=== PATIENT | male | born 1975 | race Caucasian/White ===

== ENCOUNTER 2020-01-05 14:00 | Outpatient (REF) | payer OTHER, SELFPAY ==
[2020-01-05 15:49] LABS: Anion Gap 13 (12-20); Blood Urea Nitrogen 16 mg/dL (9-16); Calcium 9.5 mg/dL (8.4-10.2); Carbon Dioxide 27 mmol/L (22-29); Chloride 103 mmol/L (96-108); Estimated Glomerular Filt Rate 51; Glucose Random 93 mg/dL (60-115); Potassium 4.8 mmol/l (3.3-5.1); Sodium 138 mmol/L (135-145)
[2020-01-05 15:56] LABS: Erythrocyte Sedimentation Rate 7 MM/HR (0-15)
[2020-01-06 08:56] LABS: Lyme Abs Screen <0.90 index
[2020-01-06 23:26] LABS: Anti Nuclear Antibody Pattern Mitotic, Centrosome; Anti Nuclear Antibody Screen POSITIVE (NEGATIVE); Anti Nuclear Antibody Titer 1:40 titer
== END 2020-01-05 14:01 | disposition home or self-care (01) ==
LOC: HO.LAB 14:00
PROVIDERS: PCP Nurse Practitioner Family; Visit Provider Psychiatry & Neurology Neurology
DX: R25.1 Tremor, unspecified (principal); Z79.899 Other long term (current) drug therapy; Z51.81 Encounter for therapeutic drug level monitoring
CPT/HCPCS: 36415; 80048; 80178; 85652; 86038; 86039; 86618

== ENCOUNTER 2020-01-09 09:00 | Day surgery (SDC) | payer OTHER, SELFPAY ==
--- NOTE | 2020-01-08 13:36 | HO.ANESPROP2 ---
Documented by User: Allie May 01/08/20 13:42 HPI - Anesthesia Eval Consult details Narrative: 44yo M for Medial Branch Block [facility] Past Medical History Medical History Asthma Chronic renal insufficiency Depression GERD (gastroesophageal reflux disease) Tremor Surgical History Surgical History (Updated 01/08/20 @ 13:42 by Allie May) History of kidney surgery Social History Social History Smoking Status: Never smoker Second Hand Smoke Exposure: No Use of substances other than those prescribed or required for medical reasons: No Advance Directives: No Advance Directives Information Provided: Yes Meds Allergies Allergy/AdvReac Type Severity Reaction Status Date / Time SEASONAL ALLERGIES Allergy Unknown ITCHY Uncoded 12/18/19 16:13 EYES/RUNNY NOSE Home Medications Medication Instructions Recorded Confirmed Type albuterol sulfate [ProAir HFA] 2 puff INHALATION Q4-6H PRN 01/02/20 01/02/20 History fluticasone propion-salmeterol 1 inh INHALATION BID 01/02/20 01/02/20 History [Advair Diskus] lithium carbonate 300 mg PO BEDTIME 01/02/20 01/02/20 History montelukast [Singulair] 10 mg PO BEDTIME 01/02/20 01/02/20 History pantoprazole 40 mg PO DAILY 01/02/20 01/02/20 History Exam Exam Date and Time: January 08, 2020 1336 Height,Weight and Vital Signs: Height 5 ft 6 in Weight 200 lbs BMI 33.3 Pertinent Lab Results Pertinent Lab Results: Laboratory Tests 05/27/18 01/05/20 08:57 14:23 WBC 6.8 Hgb 14.7 Hct 44.0 Plt Count 285 Sodium 138 Potassium 4.8 Chloride 103 BUN 16 Creatinine 1.50 H Assessment and Plan Assessment Anesthesia Assessment: Chart Reviewed Documented by User: No Pereyra 01/09/20 13:01 [facility] Past Medical History Medical History Asthma Chronic renal insufficiency Depression GERD (gastroesophageal reflux disease) Tremor Surgical History Surgical History (Updated 01/08/20 @ 13:42 by Allie May) History of kidney surgery Social History Social History Smoking Status: Never smoker Second Hand Smoke Exposure: No Use of substances other than those prescribed or required for medical reasons: No Advance Directives: No Advance Directives Information Provided: Yes Meds Allergies Allergy/AdvReac Type Severity Reaction Status Date / Time SEASONAL ALLERGIES Allergy Unknown ITCHY Uncoded 12/18/19 16:13 EYES/RUNNY NOSE Home Medications Medication Instructions Recorded Confirmed Type albuterol sulfate [ProAir HFA] 2 puff INHALATION Q4-6H PRN 01/02/20 01/02/20 History fluticasone propion-salmeterol 1 inh INHALATION BID 01/02/20 01/02/20 History [Advair Diskus] lithium carbonate 300 mg PO BEDTIME 01/02/20 01/02/20 History montelukast [Singulair] 10 mg PO BEDTIME 01/02/20 01/02/20 History pantoprazole 40 mg PO DAILY 01/02/20 01/02/20 History Assessment and Plan Final Anesthetic Review NPO: Yes ASA Class: III Final Preanesthetic Review: No Changes in Pt Med Stat, Meds/Allgs Chart Reviewed, Consent Obtained/Reviewed and Anes Risks/Benef Reviewed Patient Risk: Low Procedure Risk: Low Assessment/Block/Sedation in SS: Assess/Block/Sedation-SS Anesthetic Plan Anesthetic Plan: MAC: Disposition: Standard PACU
[2020-01-08 14:07] VITALS: BMI 32.3
--- NOTE | 2020-01-09 07:32 | MHC.SHP ---
Pre-Procedural Eval Section A The patient is an INPATIENT: No The History & Physical has been completed within 30 days and I have reviewed it.: No Section B Chief Complaint: BILATERAL MBB Relevant Family History (Specify if Yes): No Relevant Social History: None Present Medications: None Medical History: No relevant PMH Allergies: Allergies Allergy/AdvReac Type Severity Reaction Status Date / Time SEASONAL ALLERGIES Allergy Unknown ITCHY Uncoded 12/18/19 16:13 EYES/RUNNY NOSE Review of Systems Sugical H&P ROS: Negative: Constitution, Cardiovascular, Respiratory, Neurological, Psychiatric, Hem-Onc, Allergic/Immunologic, Gastrointestinal, Genitourinary, Musculoskeletal, Integumentary, Endocrine and Eyes/Ears/Nose/Throat Exam Surgical H&P Exam: Normal: HEENT, Normal: Heart, Normal: Lungs, Normal: Extremities, Normal: Abdomen, Normal: Skin and Normal: Neurological Plan Diagnosis/Plan: Unchanged Patient has been examined and remains a candidate for the planned procedure
[2020-01-09 10:22] VITALS: BP 148/97; PULSE 97; RESP 18; TEMP 36.4; O2SAT 97
[2020-01-09] MEDS: Lactated Ringers 1,000 ML 100 ML IVCONT (10:31)
--- NOTE | 2020-01-09 15:11 | FL_ITS ---
EXAMINATION: XR FLUOROSCOPY WITH IMAGES CLINICAL INFORMATION: Medial branch block COMPARISON: MRI lumbar spine 05/28/2019 TECHNIQUE: Fluoroscopy performed by Dr. Kang. Fluoroscopy time: 0.5 minutes DAP: 6.34 Gycm2 Images: 6 FINDINGS: There are spinal needles at the bilateral outer neural foramen of L3, L4, L5. There is contrast in the nerve sheaths. No visible vascular communication. IMPRESSION: Fluoroscopy for pain management procedures.
--- NOTE | 2020-01-09 15:32 | PM.OP ---
Brief Operative Note Date of procedure: 01/09/20 Pre-op diagnosis: Spondylosis cervical spine Procedure: left sided MBBs diagnostic L3 L4- L5 Implants: none Surgeon: Denis Kang MD Anesthesia: MAC Estimated blood loss (mL): 0 IV fluids (mL): 0 Pathology: none sent Condition: stable Disposition: PACU
[2020-01-09 15:35] VITALS: BP 119/72; PULSE 90; RESP 12; TEMP 36.5; O2SAT 95
[2020-01-09 15:50] VITALS: BP 126/84; PULSE 92; RESP 18; O2SAT 99
[2020-01-09 16:05] VITALS: BP 139/94; PULSE 88; RESP 18; TEMP 36.4; O2SAT 97
[2020-01-09] MEDS: Acetaminophen 325 MG TABLET 650 MG PO (16:11)
--- NOTE | 2020-01-13 08:01 | W.PM.OPN ---
Operative Note Operative Note Narrative: Informed consent was explained to the patient. All questions were explained and answered. The patient was taken inside the operating room where he was positioned prone on the operating table. [place] [employer] monitors were applied. Patient was sedated. Time-out was performed delineating correct site, side, the nature of the procedure, patient's allergy, preoperative antibiotic if needed. All operating room staff were participating in OR time-out procedure. The lower back of the patient was prepped with ChloraPrep and draped with sterile towels. Sterilely draped C-arm was brought over the operating field and square picture of L4 and L5 vertebrae were delineated on the screen. Points of interest were delineated as the connection of the superior articular processes bilaterally on L4 and L5 with corresponding transfer processes as well as superior articular processes of S1 with sacral alae bilaterally. The projections of the point of interest to the skin were injected with the small amount of local anesthetic lidocaine 2% 1-1.5 cc. After that 22 gauge 3and 1/2 inch spinal needle was sequentially driven to the point of interest in tunnel vision fashion. After needles gently contacted the bone at the points of interest a small amount of the contrast was injected into each point of the needle demonstrating no intravascular and no intra thecal spread of the contrast. After that the needle was injected with a small amount of bupivacaine 0.5%- no more than 1cc . Upon completion of the injections the needle was removed and sterile dressings were applied, the patient was awakened and taken outside of the operating room to the recovery room where he recovered uneventfully. He went home without immediate complications.
== END 2020-01-09 23:59 | disposition home or self-care (01) ==
PROVIDERS: PCP Nurse Practitioner Family; Visit Provider Anesthesiology
PROC: (CPT 64493; principal; 2020-01-09 12:30)
DX: M47.816 Spondylosis without myelopathy or radiculopathy, lumbar region (principal); G89.4 Chronic pain syndrome; M51.36 Other intervertebral disc degeneration, lumbar region; N18.30 Chronic kidney disease, stage 3 unspecified; Z90.5 Acquired absence of kidney; J45.909 Unspecified asthma, uncomplicated; F32.9 Major depressive disorder, single episode, unspecified; K21.9 Gastro-esophageal reflux disease without esophagitis; R25.1 Tremor, unspecified; Z79.51 Long term (current) use of inhaled steroids; Z79.899 Other long term (current) drug therapy
CPT/HCPCS: 64493; 64494; J2250; Q9967

== ENCOUNTER → 2020-01-28 14:47 | Outpatient (BNVA) | payer OTHER, SELFPAY | PROVIDERS: Visit Provider Anesthesiology | DX: Z76.89 Persons encountering health services in other specified circumstances (principal) ==

== ENCOUNTER 2020-01-29 15:47 | Outpatient (REF) | payer OTHER, SELFPAY ==
--- NOTE | 2020-01-29 15:46 | MR_ITS ---
EXAMINATION: MR BRAIN WITHOUT AND WITH CONTRAST CLINICAL INFORMATION: Right arm tremor. COMPARISON: None TECHNIQUE: Multiplanar, multisequence MRI of the brain was obtained before and after the intravenous administration of 10 mL Gadavist. FINDINGS: Normal No focal reduced diffusion is seen to suggest acute or subacute cerebral ischemia. No intracranial mass, intracerebral edema, intra-axial blood products, midline shift, or extra-axial collection is visualized. The ventricles and sulcal spaces appear normal. Normal arterial and venous vascular flow voids are present. Post contrast no abnormal enhancement seen within the brain parenchyma. Normal intravascular contrast is seen consistent patent venous system. The paranasal sinuses are well aerated. MR/MR head/brain wo/w con IMPRESSION: Unremarkable MRI brain without and with contrast.
== END 2020-01-29 15:48 ==
LOC: HO.MRI 15:47
PROVIDERS: Visit Provider Psychiatry & Neurology Neurology
DX: R25.1 Tremor, unspecified (principal)
CPT/HCPCS: 70553; A9585

== ENCOUNTER 2020-03-12 12:34 | Day surgery (SDC) | payer OTHER, SELFPAY ==
--- NOTE | 2020-02-12 10:50 | P.CONAN_ITS ---
HPI - Anesthesia Eval Consult details Narrative: 44yo M for Medial Branch Block s/p Medial Branch Block 01/2020 with MAC 02/06/20 Started on Doxy by urgent care for RUE cellulitis s/p MRI with IV contrast [facility] Past Medical History Medical History (Updated 02/12/20 @ 10:51 by Allie May) Asthma Chronic pain syndrome Chronic renal insufficiency Depression Disc degeneration, lumbar GERD (gastroesophageal reflux disease) Spondylosis of lumbar region without myelopathy or radiculopathy Tremor Surgical History Surgical History History of kidney surgery Social History Social History Smoking Status: Never smoker Second Hand Smoke Exposure: No Meds Allergies Allergy/AdvReac Type Severity Reaction Status Date / Time SEASONAL ALLERGIES Allergy Unknown ITCHY Uncoded 12/18/19 16:13 EYES/RUNNY NOSE Home Medications Medication Instructions Recorded Confirmed Type albuterol sulfate [ProAir HFA] 2 puff INHALATION Q4-6H PRN 01/02/20 02/06/20 History fluticasone propion-salmeterol 1 inh INHALATION BID 01/02/20 02/06/20 History [Advair Diskus] lithium carbonate 300 mg PO BEDTIME 01/02/20 02/06/20 History montelukast [Singulair] 10 mg PO BEDTIME 01/02/20 02/06/20 History pantoprazole 40 mg PO DAILY 01/02/20 02/06/20 History atorvastatin 40 mg tablet mg PO 02/06/20 02/06/20 History bupropion HCl 300 mg 24 hr tablet, 300 mg PO DAILY 02/06/20 02/06/20 History extended release fluoxetine 20 mg capsule 40 mg PO DAILY 02/06/20 02/06/20 History lorazepam 0.5 mg tablet 0.5 mg PO DAILY PRN 02/06/20 02/06/20 History lorazepam 1 mg tablet 1 mg PO TID 02/06/20 02/06/20 History prazosin 1 mg capsule 2 mg PO cap 02/06/20 02/06/20 History Exam Exam Date and Time: February 12, 2020 1050 Pertinent Lab Results Pertinent Lab Results: Laboratory Tests 01/05/20 14:23 Sodium 138 Potassium 4.8 Chloride 103 Carbon Dioxide 27 BUN 16 Creatinine 1.50 H Assessment and Plan Assessment Anesthesia Assessment: Chart Reviewed
--- NOTE | 2020-03-11 12:32 | HO.ANESPROP2 ---
Documented by User: Allie May 03/11/20 12:36 HPI - Anesthesia Eval Consult details Narrative: 45yo M for Medial Branch Block s/p Medial Branch Block 01/2020 with MAC cx'd 02/2020 d/t cellulitis of RUE PMFSH Past Medical History Medical History Asthma Bipolar 1 disorder, depressed Chronic pain syndrome Chronic renal insufficiency Depression Disc degeneration, lumbar GERD (gastroesophageal reflux disease) Post traumatic stress disorder (PTSD) Spondylosis of lumbar region without myelopathy or radiculopathy Tremor Surgical History Surgical History History of kidney surgery Social History Social History Household Members: Spouse and Children Are you a primary healthcare or medical to a significant other at home: No Do you presently have visiting nurse or other home services: No Smoking Status: Never smoker Second Hand Smoke Exposure: No Use of substances other than those prescribed or required for medical reasons: No Advance Directives: No Advance Directives Information Provided: No Advance Directives on File: No Meds Allergies Allergy/AdvReac Type Severity Reaction Status Date / Time SEASONAL ALLERGIES Allergy Unknown ITCHY Uncoded 12/18/19 16:13 EYES/RUNNY NOSE Home Medications Medication Instructions Recorded Confirmed Type albuterol sulfate [ProAir HFA] 2 puff INHALATION Q4-6H PRN 01/02/20 03/04/20 History montelukast [Singulair] 10 mg PO BEDTIME 01/02/20 03/04/20 History pantoprazole 40 mg PO DAILY 01/02/20 03/04/20 History bupropion HCl 300 mg 24 hr tablet, 300 mg PO DAILY 02/06/20 03/04/20 History extended release fluoxetine 20 mg capsule 40 mg PO DAILY 02/06/20 03/04/20 History lorazepam 1 mg tablet 1 mg PO TID 02/06/20 03/04/20 History atorvastatin 40 mg PO DAILY 03/04/20 03/04/20 History pxeparpkpz-mqcgdwrridezq-maht 1 tab PO DAILY PRN 03/04/20 03/04/20 History [Fioricet] cholecalciferol (vitamin D3) 25 mcg PO DAILY 03/04/20 03/04/20 History [Vitamin D3] fexofenadine [Kmimy] 180 mg PO DAILY 03/04/20 03/04/20 History fluticasone propion-salmeterol 1 inh INHALATION BID 03/04/20 03/04/20 History [Advair Diskus] lithium carbonate 300 mg PO DAILY 03/04/20 03/04/20 History loperamide [Imodium] 2 mg PO QID PRN 03/04/20 03/04/20 History lorazepam 1 mg PO DAILY PRN 03/04/20 03/04/20 History prazosin 1 mg PO DAILY 03/04/20 03/04/20 History prazosin 2 mg PO BEDTIME 03/04/20 03/04/20 History Exam Exam Date and Time: March 11, 2020 1232 Pertinent Lab Results Pertinent Lab Results: Laboratory Tests 01/05/20 14:23 Sodium 138 Potassium 4.8 Chloride 103 BUN 16 Creatinine 1.50 H Assessment and Plan Assessment Anesthesia Assessment: Chart Reviewed Documented by User: Alon Merchant MD 03/12/20 13:08 [facility] Past Medical History Medical History Asthma Bipolar 1 disorder, depressed Chronic pain syndrome Chronic renal insufficiency Depression Disc degeneration, lumbar GERD (gastroesophageal reflux disease) Post traumatic stress disorder (PTSD) Spondylosis of lumbar region without myelopathy or radiculopathy Tremor Surgical History Surgical History History of kidney surgery Social History Social History Household Members: Spouse and Children Are you a primary healthcare or medical to a significant other at home: No Do you presently have visiting nurse or other home services: No Smoking Status: Never smoker Second Hand Smoke Exposure: No Use of substances other than those prescribed or required for medical reasons: No Advance Directives: No Advance Directives Information Provided: No Advance Directives on File: No Meds Allergies Allergy/AdvReac Type Severity Reaction Status Date / Time SEASONAL ALLERGIES Allergy Unknown ITCHY Uncoded 12/18/19 16:13 EYES/RUNNY NOSE Home Medications Medication Instructions Recorded Confirmed Type albuterol sulfate [ProAir HFA] 2 puff INHALATION Q4-6H PRN 01/02/20 03/04/20 History montelukast [Singulair] 10 mg PO BEDTIME 01/02/20 03/04/20 History pantoprazole 40 mg PO DAILY 01/02/20 03/04/20 History bupropion HCl 300 mg 24 hr tablet, 300 mg PO DAILY 02/06/20 03/04/20 History extended release fluoxetine 20 mg capsule 40 mg PO DAILY 02/06/20 03/04/20 History lorazepam 1 mg tablet 1 mg PO TID 02/06/20 03/04/20 History atorvastatin 40 mg PO DAILY 03/04/20 03/04/20 History cbqwalhhdy-iweclgewoxsrp-wywh 1 tab PO DAILY PRN 03/04/20 03/04/20 History [Fioricet] cholecalciferol (vitamin D3) 25 mcg PO DAILY 03/04/20 03/04/20 History [Vitamin D3] fexofenadine [Kimmy] 180 mg PO DAILY 03/04/20 03/04/20 History fluticasone propion-salmeterol 1 inh INHALATION BID 03/04/20 03/04/20 History [Advair Diskus] lithium carbonate 300 mg PO DAILY 03/04/20 03/04/20 History loperamide [Imodium] 2 mg PO QID PRN 03/04/20 03/04/20 History lorazepam 1 mg PO DAILY PRN 03/04/20 03/04/20 History prazosin 1 mg PO DAILY 03/04/20 03/04/20 History prazosin 2 mg PO BEDTIME 03/04/20 03/04/20 History Exam Airway Mallampati Class: II TM Dist: >3cm Neck ROM: Full Denture: Upper Loose/Missing/Broken Teeth: No Heart: rrr Lungs: nl Other: ao Assessment and Plan Assessment Anesthesia Assessment: Anesthesia Plan Discussed and Chart Reviewed Final Anesthetic Review NPO: Yes ASA Class: II Final Preanesthetic Review: No Changes in Pt Med Stat, Meds/Allgs Chart Reviewed, Consent Obtained/Reviewed and Anes Risks/Benef Reviewed Patient Risk: Low Procedure Risk: Low Anesthetic Plan Anesthetic Plan: MAC: Disposition: Standard PACU
[2020-03-12 12:43] VITALS: BP 142/98; PULSE 89; RESP 16; TEMP 36.6; O2SAT 97
[2020-03-12 12:49] VITALS: BMI 33.3
[2020-03-12] MEDS: Lactated Ringers 1,000 ML 100 ML IVCONT (13:00)
--- NOTE | 2020-03-12 13:11 | FL_ITS ---
EXAMINATION: XR FLUOROSCOPY WITH IMAGES CLINICAL INFORMATION: Medial branch block L3, L4-L5 COMPARISON: None. TECHNIQUE: Fluoroscopy performed by Dr. Denis Knag. Fluoroscopy time: 0.7 minutes DAP: 197 mGycm2 Images: 5 FINDINGS: Spondylosis positioned at the spinal needle was positioned adjacent to bilateral L5,, L4 and L3 facet joints 4 the liver branch block. Visualized bones and the disc levels are unremarkable. FL/FL guidance in OR IMPRESSION: Fluoroscopy provided to Dr. Kang for lower lumbar medial branch blocks.
--- NOTE | 2020-03-12 13:11 | MHC.SHP ---
Pre-Procedural Eval Section B Chief Complaint: spondylosis Details of Present Illness: spondylosis of lumbar spine without myelo or radiculopathy Relevant Family History (Specify if Yes): No Relevant Social History: None Present Medications: see Short Stay Collaborative assessment Medical History: No relevant PMH History of Previous Operations: No relevant previous surgery Allergies: Allergies Allergy/AdvReac Type Severity Reaction Status Date / Time SEASONAL ALLERGIES Allergy Unknown ITCHY Uncoded 12/18/19 16:13 EYES/RUNNY NOSE Review of Systems Sugical H&P ROS: Negative: Constitution, Cardiovascular, Respiratory, Neurological, Psychiatric, Hem-Onc, Allergic/Immunologic, Gastrointestinal, Genitourinary, Musculoskeletal, Integumentary, Endocrine and Eyes/Ears/Nose/Throat Exam Surgical H&P Exam: Normal: HEENT, Normal: Heart, Normal: Lungs, Normal: Extremities, Normal: Abdomen, Normal: Skin and Normal: Neurological Plan Diagnosis/Plan: Unchanged Patient has been examined and remains a candidate for the planned procedure
[2020-03-12 14:00] VITALS: BP 118/67; PULSE 81; RESP 12; TEMP 36.4; O2SAT 95
--- NOTE | 2020-03-12 14:06 | PM.OP ---
Brief Operative Note Date of Service: 03/12/20 Pre-op diagnosis: spondylosis lumbar without myelo or radiculopathy Post-op diagnosis: same Procedure: therapeutic MBB B/L L3-L4-DRL5. Implants: none Surgeon: Denis Kang MD Anesthesia: MAC Estimated blood loss (mL): 1 Pathology: none sent Condition: stable Disposition: PACU
[2020-03-12 14:15] VITALS: BP 131/81; PULSE 88; RESP 16; O2SAT 98
--- NOTE | 2020-03-12 16:39 | W.PM.OPN ---
Operative Note Operative Note Date of Service: 03/12/20 Narrative: Informed consent was explained to the patient. All questions were explained and answered. The patient was taken inside the operating room where he was positioned prone on the operating table. [employer] [employer] monitors were applied. Patient was sedated. Time-out was performed delineating correct site, side, the nature of the procedure, patient's allergy, preoperative antibiotic if needed. All operating room staff were participating in OR time-out procedure. The lower back of the patient was prepped with ChloraPrep and draped with sterile towels. Sterilely draped C-arm was brought over the operating field and square picture of L4 and L5 vertebrae were delineated on the screen. Points of interest were delineated as the connection of the superior articular processes bilaterally on L4 and L5 with corresponding transfer processes as well as superior articular processes of S1 with sacral alae bilaterally. The projections of the point of interest to the skin were injected with the small amount of local anesthetic lidocaine 2% 1-1.5 cc. After that 22 gauge 3and 1/2 inch spinal needle was sequentially driven to the point of interest in tunnel vision fashion. After needle gently contacted the bone at the points of interest a small amount of the contrast was injected into each point of the needle demonstrating no intravascular and no intra thecal spread of the contrast. After that the needle was injected with a small amount of bupivacaine 0. 1-1.5 mL mixed with Kenalog. Total dose of Kenalog was 60 mg. . Upon completion of the injections the needle was removed and sterile dressings were applied, the patient was awakened and taken outside of the operating room to the recovery room where he recovered uneventfully. He went home without immediate complications.
== END 2020-03-12 14:45 | disposition home or self-care (01) ==
PROVIDERS: PCP Nurse Practitioner Family; Visit Provider Anesthesiology
PROC: (CPT 64493; principal; 2020-03-12 13:50)
DX: M47.816 Spondylosis without myelopathy or radiculopathy, lumbar region (principal); M51.36 Other intervertebral disc degeneration, lumbar region; G89.4 Chronic pain syndrome; N18.9 Chronic kidney disease, unspecified; J45.909 Unspecified asthma, uncomplicated; F31.9 Bipolar disorder, unspecified; R25.1 Tremor, unspecified; Z79.51 Long term (current) use of inhaled steroids; Z79.899 Other long term (current) drug therapy
CPT/HCPCS: 64493; 64494 ×2; J2250; J3010; J3300; Q9967

== ENCOUNTER 2020-03-29 08:00 | Outpatient (RCR) | payer OTHER, SELFPAY ==
--- NOTE | 2020-03-04 12:27 | PC.ADMIT ---
Patient is a 45 year old male who was referred by his prescriber Rosa Isela Quinn APRN d/t increased symptoms of depression with passive SI, increased anxiety with panic attacks, and PTSD sxs. Pt reports increased online spending using his father in laws credit and reports marital and financial issues. Pt has a recent dx of bipolar disorder. Pt denied substance issues and reports taking his prescription medication as prescribed. Patient stated he is here because, I have depression and anxiety issues and spending issues and I got into trouble . Patient reports that his told him he would have to leave if he did not get help. Patient is not working and is currently on disability. Patient reports passive SI thinking his family would be better off without him. He denies plan or intent. Identifies his children as his protective factor. Pt gave verbal permission to email him a copy of his safety plan and agrees to utilize if feeling unsafe. Patient also has the crisis number if needed. He is alert and oriented x4.
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
[2020-03-05 08:17] VITALS: BMI 33.3
--- NOTE | 2020-03-05 09:17 | PC.NURSE ---
Pt not present for 9am morning meeting. Pt called and a message was left . Pt was asked to call TW back to confirm safety. Pt was instructed to return to program at 9am on 03/08/20.
--- NOTE | 2020-03-05 09:36 | PC.NURSE ---
Pt returned the call stating that he had been logged into yesterday's link since 0830. Pt reported that he did not receive today's link. TW rechecked the sent email containing the links and verified pt's address that the email was sent to was correct. Pt verified it was correct, however maintained that he never received it. TW reiterated that pt needs to call the program if he does not receive links, or is having any sort of difficulty before the 9am meeting. Pt was told that links are sent at 0730, so if he does not have an email from the program by 8am to call the program and we will resend. Pt was told to take the day and he will be expected back at the program at 0900 03/08/20. Pt agreeable
--- NOTE | 2020-03-08 13:27 | HO.PSYCHPN ---
Subjective Subjective Date of Service: 03/08/20 Reason For Visit: bipolar depression Diagnostics Vital Signs (24Hr): Body Mass Index 33.3 Medications Allergies Allergies Allergy/AdvReac Type Severity Reaction Status Date / Time SEASONAL ALLERGIES Allergy Unknown ITCHY Uncoded 12/18/19 16:13 EYES/RUNNY NOSE Assessment & Plan Greater than 50% of the session was spent on counseling and/or coordination of care
--- NOTE | 2020-03-08 21:51 | HO.PHPPROGNO ---
Subjective Subjective Date of Service: 03/08/20 Reason For Visit: bipolar depression Interim History: patient seen at the partial hospital program. Patient has been anxious dysphoric extensive PTSD and mood instability was recently started on Lamictal. Patient has been on lithium he does have renal insufficiency with a but has recently been reduced Mental Status Exam Mental Status Exam Patient Appearance: Well Grooomed and Appropriate Patient Orientation: Person, Place, Time and Situation Level of Consciousness: Awake, Appropriate and Alert Patient Behavior: Appropriate and Talkative Mood Description: Calm and Relaxed (sedate) Affect Description: Relaxed Patient Cognition Impaired: No Ability to Follow Directions: Excellent Speech Pattern: Clear, Appropriate and Spontaneous Speech Memory Description: Intact Hallucinations: None Delusions: Not Present Thought Process: Intact Thought Content: positive for Intact Depressive Symptoms: Increased Anxiety, Increased Irritability, Loss of Int. in Activity, Unhappiness, Loss of Energy and Difficulty Concentrating Judgement: Good Diagnostics Vital Signs (24Hr): Body Mass Index 33.3 Assessment & Plan Assessment & Plan (1) Bipolar 1 disorder, depressed: Status: Acute Code(s): F31.9 - Bipolar disorder, unspecified (2) Cellulitis: Qualifiers: Site of cellulitis: extremity Site of cellulitis of extremity: upper extremity Laterality: right Qualified Code(s): L03.113 - Cellulitis of right upper limb Status: Acute Code(s): L03.90 - Cellulitis, unspecified (3) Chronic renal insufficiency: Status: Acute Code(s): N18.9 - Chronic kidney disease, unspecified (4) Post traumatic stress disorder (PTSD): Status: Acute Code(s): F43.10 - Post-traumatic stress disorder, unspecified Assessment and Plan: continue Lamictal coping strategies patient would also most likely benefit from a trial of Seroquel or Abilify Certification I certify that partial hospital treatment is medically necessary due to the symptoms and problems resulting from the patient's mental illness and the failure to treat the patient at the partial hospital level of care would likely result in the patient requiring inpatient psychiatric care which could not be prevented at a less intensive level of care. Greater than 50% of the session was spent on counseling and/or coordination of care Discharge Plan Discharge Attending provider: Lon Adams Medications: New lamotrigine [Lamictal] 25 mg tablet 25 mg PO DAILY 14 Days Qty: 14 RF: 0 No Action pantoprazole 40 mg Tablet,Delayed Release (Dr/Ec) 40 mg PO DAILY RF: 0 montelukast [Singulair] 10 mg Tablet 10 mg PO BEDTIME RF: 0 albuterol sulfate [ProAir HFA] 90 mcg/actuation Hfa Aerosol Inhaler 2 puff INHALATION Q4-6H PRN (Reason: Shortness Of Breath) RF: 0 lithium carbonate 150 mg Capsule 300 mg PO DAILY RF: 0 fexofenadine [Kimmy] 180 mg Tablet 180 mg PO DAILY RF: 0 [id number] [Fioricet] 50-325-40 mg Tablet 1 tab PO DAILY PRN (Reason: Headache) RF: 0 fluticasone propion-salmeterol [Advair Diskus] 500-50 mcg/dose Blister With Device 1 inh INHALATION BID RF: 0 cholecalciferol (vitamin D3) [Vitamin D3] 25 mcg (1,000 unit) Capsule 25 mcg PO DAILY RF: 0 loperamide [Imodium] 2 mg Capsule 2 mg PO QID PRN (Reason: Constipation) RF: 0 prazosin 1 mg Capsule 2 mg PO BEDTIME RF: 0 prazosin 1 mg Capsule 1 mg PO DAILY RF: 0 atorvastatin 40 mg Tablet 40 mg PO DAILY RF: 0 lorazepam 1 mg Tablet 1 mg PO DAILY PRN (Reason: Anxiety) RF: 0 fluoxetine 20 mg capsule 40 mg PO DAILY RF: 0 bupropion HCl 300 mg tablet extended release 24 hr 300 mg PO DAILY RF: 0 lorazepam 1 mg tablet 1 mg PO TID RF: 0
--- NOTE | 2020-03-17 14:17 | PC.NURSE ---
Pt called out for PHP today, stating he has a lot to do, and needs to prepare fir the winter storm we are having later.
--- NOTE | 2020-03-17 14:18 | PC.NURSE ---
I called and spoke to pt. about aftercare, as he doesn't have a therapist. With his permission, I called [facility] to refer him. I spoke to Leila at [facility], who took demographic info. She said she will call me back with an intake time and date for pt to be seen at the [place] location (or via telehealth)
--- NOTE | 2020-03-17 15:15 | PC.NURSE ---
ALLYSON from [facility]. Pt has an intake over the phone with JOSEFINA Motta, at 10:30a. She will call pt.
--- NOTE | 2020-03-18 09:24 | PC.NURSE ---
Pt did not show up for community meeting this morning and did not call. I called and left him a message and asked him to pls call, and included that we will call emergency contact is we don't hear from him.
--- NOTE | 2020-03-18 10:50 | PC.NURSE ---
Tw called pt again as he was not in community meeting and he had yet to return a call to the program. Left message on cell phone, reached him on his home phone. Pt apologized and stated that he was snow blowing his driveway so that his could get to work. Pt states that he asked his to call the program to let us know he would not make it today- he assumed his called. Pt stated that he was safe and that he would be in program tomorrow, 03/19.
--- NOTE | 2020-03-19 13:01 | HO.PHPPROGNO ---
Subjective Subjective Date of Service: 03/19/20 Reason For Visit: bipolar depression Interim History: patient reports he is doing well tolerating Lamictal; dose still at 25mg daily reporting that when he first takes the medication he feels flush , but that quickly subsides. Denies any other side effects, including rash or any areas of redness on face, torso, etc Medication Compliance: Yes Side effects from medications: Yes (as documented above ) Attending Groups: Yes Review of Systems Constitutional: Reports as per [facility] Mental Status Exam Mental Status Exam Patient Appearance: Well Grooomed Level of Consciousness: Awake, Appropriate and Alert Patient Behavior: Appropriate Mood Description: Calm Affect Description: Calm Ability to Follow Directions: Excellent Speech Pattern: Clear Delusions: Not Present Thought Process: Intact and Goal Oriented Thought Content: positive for Intact and positive for Goal Oriented Judgement: Good Diagnostics Vital Signs (24Hr): Body Mass Index 33.3 Assessment & Plan Assessment & Plan (1) Bipolar 1 disorder, depressed: Status: Acute Code(s): F31.9 - Bipolar disorder, unspecified Assessment and Plan: No change to current regimen Certification I certify that partial hospital treatment is medically necessary due to the symptoms and problems resulting from the patient's mental illness and the failure to treat the patient at the partial hospital level of care would likely result in the patient requiring inpatient psychiatric care which could not be prevented at a less intensive level of care. Greater than 50% of the session was spent on counseling and/or coordination of care Discharge Plan Discharge Attending provider: Lon Adams Additional Instructions: *Pt has an appt for an intake with JOSEFINA Motta, from [facility] at 10:30am. This therapist will call pt. Medications: Continued lamotrigine [Lamictal] 25 mg tablet 25 mg PO DAILY 14 Days Qty: 14 RF: 1 No Action pantoprazole 40 mg Tablet,Delayed Release (Dr/Ec) 40 mg PO DAILY RF: 0 montelukast [Singulair] 10 mg Tablet 10 mg PO BEDTIME RF: 0 albuterol sulfate [ProAir HFA] 90 mcg/actuation Hfa Aerosol Inhaler 2 puff INHALATION Q4-6H PRN (Reason: Shortness Of Breath) RF: 0 lithium carbonate 150 mg Capsule 300 mg PO DAILY RF: 0 fexofenadine [Kimmy] 180 mg Tablet 180 mg PO DAILY RF: 0 tvcjxcmmzh-dllrwyeyzavly-fbsh [Fioricet] 50-325-40 mg Tablet 1 tab PO DAILY PRN (Reason: Headache) RF: 0 fluticasone propion-salmeterol [Advair Diskus] 500-50 mcg/dose Blister With Device 1 inh INHALATION BID RF: 0 cholecalciferol (vitamin D3) [Vitamin D3] 25 mcg (1,000 unit) Capsule 25 mcg PO DAILY RF: 0 loperamide [Imodium] 2 mg Capsule 2 mg PO QID PRN (Reason: Constipation) RF: 0 prazosin 1 mg Capsule 2 mg PO BEDTIME RF: 0 prazosin 1 mg Capsule 1 mg PO DAILY RF: 0 atorvastatin 40 mg Tablet 40 mg PO DAILY RF: 0 lorazepam 1 mg Tablet 1 mg PO DAILY PRN (Reason: Anxiety) RF: 0 fluoxetine 20 mg capsule 40 mg PO DAILY RF: 0 bupropion HCl 300 mg tablet extended release 24 hr 300 mg PO DAILY RF: 0 lorazepam 1 mg tablet 1 mg PO TID RF: 0 Telehealth Telehealth Location of provider rendering services: practice address Location of patient: address on file Patient Identification confirmed using: Name, : Yes Telehealth method: video Patient verbally consented to treatment: Yes Patient verbally consented to billing insurance company: Yes Time spent with patient (mins): 15
--- NOTE | 2020-03-23 13:58 | HO.PHPPROGNO ---
Subjective Subjective Date of Service: 03/23/20 Reason For Visit: bipolar depression Interim History: patient reports that flushing with lamictal has subsided. Discussed increasing anxiety with this time of year and life stressors, reports he has been taking Laorazepam 4x/day and will soon need a refill. Heladio reviewed with patient which shows he would not be due for refill until early April based on 30day TID dosing rx he picked in early March. Discussed case with outpatient provider who states it is okay to provide 2 week rx of increased Lorazepam dose with plan to reduce dose during ongoing treatment. Also discussed increasing Lamictal prior to discharge and ageed to increase to 37.5mg QD when this rx is complete Review of Systems Constitutional: Reports as per HPI and Reports no additional constitutional complaints Mental Status Exam Mental Status Exam Patient Appearance: Well Grooomed Patient Orientation: Person, Place, Time and Situation Level of Consciousness: Awake, Appropriate and Alert Patient Behavior: Appropriate Mood Description: Anxious Affect Description: Anxious Ability to Follow Directions: Excellent Speech Pattern: Clear Hallucinations: None Delusions: Not Present Thought Process: Rumination and Goal Oriented Thought Content: positive for Intact and positive for Goal Oriented Depressive Symptoms: Increased Anxiety and Unhappiness Judgement: Fair Diagnostics Vital Signs (24Hr): Body Mass Index 33.3 Assessment & Plan Assessment & Plan (1) Bipolar 1 disorder, depressed: Status: Acute Code(s): F31.9 - Bipolar disorder, unspecified Assessment and Plan: -2 week refill on lorazepam -f/u to increase lamictal prior to discharge Certification I certify that partial hospital treatment is medically necessary due to the symptoms and problems resulting from the patient's mental illness and the failure to treat the patient at the partial hospital level of care would likely result in the patient requiring inpatient psychiatric care which could not be prevented at a less intensive level of care. Greater than 50% of the session was spent on counseling and/or coordination of care Discharge Plan Discharge Attending provider: Lon Adams Additional Instructions: *Pt has an appt for an intake with JOSEFINA Motta, from [facility] at 10:30am on 04/07/2020. This therapist will call pt. Medications: Continued lamotrigine [Lamictal] 25 mg tablet 25 mg PO DAILY 14 Days Qty: 14 RF: 1 No Action pantoprazole 40 mg Tablet,Delayed Release (Dr/Ec) 40 mg PO DAILY RF: 0 montelukast [Singulair] 10 mg Tablet 10 mg PO BEDTIME RF: 0 albuterol sulfate [ProAir HFA] 90 mcg/actuation Hfa Aerosol Inhaler 2 puff INHALATION Q4-6H PRN (Reason: Shortness Of Breath) RF: 0 lithium carbonate 150 mg Capsule 300 mg PO DAILY RF: 0 fexofenadine [Kimmy] 180 mg Tablet 180 mg PO DAILY RF: 0 cvzrxxufge-mvsjdxtdhbgmi-gnwi [Fioricet] 50-325-40 mg Tablet 1 tab PO DAILY PRN (Reason: Headache) RF: 0 fluticasone propion-salmeterol [Advair Diskus] 500-50 mcg/dose Blister With Device 1 inh INHALATION BID RF: 0 cholecalciferol (vitamin D3) [Vitamin D3] 25 mcg (1,000 unit) Capsule 25 mcg PO DAILY RF: 0 loperamide [Imodium] 2 mg Capsule 2 mg PO QID PRN (Reason: Constipation) RF: 0 prazosin 1 mg Capsule 2 mg PO BEDTIME RF: 0 prazosin 1 mg Capsule 1 mg PO DAILY RF: 0 atorvastatin 40 mg Tablet 40 mg PO DAILY RF: 0 lorazepam 1 mg Tablet 1 mg PO DAILY PRN (Reason: Anxiety) RF: 0 fluoxetine 20 mg capsule 40 mg PO DAILY RF: 0 bupropion HCl 300 mg tablet extended release 24 hr 300 mg PO DAILY RF: 0 lorazepam 1 mg tablet 1 mg PO TID RF: 0 Telehealth Telehealth Location of provider rendering services: practice address Location of patient: address on file Patient Identification confirmed using: Name, : Yes Telehealth method: video Patient verbally consented to treatment: Yes Patient verbally consented to billing insurance company: Yes Time spent with patient (mins): 16
--- NOTE | 2020-03-29 16:47 | P.PNPSP_ITS ---
Subjective Subjective Date of Service: 03/29/20 Reason For Visit: bipolar depression Interim History: Today is patient's last day in [facility] Feels program was helpful, also feels change in medication was very helpful in stabilizing his mood. Has appt scheduled with outpatient provider in early April. Medication Compliance: Yes Side effects from medications: No Attending Groups: Yes Review of Systems Constitutional: Reports as per HPI and Reports no additional constitutional complaints Mental Status Exam Mental Status Exam Patient Appearance: Well Grooomed and Appropriate Level of Consciousness: Awake, Appropriate and Alert Patient Behavior: Appropriate Mood Description: Calm Affect Description: Calm Speech Pattern: Clear Delusions: Not Present Thought Content: positive for Goal Oriented Judgement: Fair Diagnostics Vital Signs (24Hr): Body Mass Index 33.3 Assessment & Plan Assessment & Plan (1) Bipolar 1 disorder, depressed: Status: Acute Code(s): F31.9 - Bipolar disorder, unspecified Assessment and Plan: Lorazepam 1mg prescription sent in as patient has been taking more than prescribed as of recently outpatient provider aware and okay with sending additional 1mg rx until thier next scheduled appt 1mg #15 tabs sent (2) Post traumatic stress disorder (PTSD): Status: Acute Code(s): F43.10 - Post-traumatic stress disorder, unspecified Certification I certify that partial hospital treatment is medically necessary due to the symptoms and problems resulting from the patient's mental illness and the failure to treat the patient at the partial hospital level of care would likely result in the patient requiring inpatient psychiatric care which could not be prevented at a less intensive level of care. Greater than 50% of the session was spent on counseling and/or coordination of care Discharge Plan Discharge Attending provider: Lon Adams Additional Instructions: *Pt has an appt for an intake with JOSEFINA Motta, from [facility] at 10:30am on 04/07/2020. This therapist will call pt. Medications: New lorazepam 1 mg tablet 1 mg PO DAILY PRN (Reason: anxiety) Qty: 15 RF: 0 Continued prazosin 1 mg Capsule 2 mg PO BEDTIME RF: 0 prazosin 1 mg Capsule 1 mg PO DAILY RF: 0 lamotrigine [Lamictal] 25 mg tablet 25 mg PO DAILY 14 Days Qty: 14 RF: 1 bupropion HCl 300 mg tablet extended release 24 hr 300 mg PO DAILY RF: 0 Discontinued lithium carbonate 150 mg Capsule 300 mg PO DAILY RF: 0 lorazepam 1 mg Tablet 1 mg PO DAILY PRN (Reason: Anxiety) RF: 0 lorazepam 1 mg tablet 1 mg PO TID RF: 0 No Action pantoprazole 40 mg Tablet,Delayed Release (Dr/Ec) 40 mg PO DAILY RF: 0 montelukast [Singulair] 10 mg Tablet 10 mg PO BEDTIME RF: 0 albuterol sulfate [ProAir HFA] 90 mcg/actuation Hfa Aerosol Inhaler 2 puff INHALATION Q4-6H PRN (Reason: Shortness Of Breath) RF: 0 fexofenadine [Kimmy] 180 mg Tablet 180 mg PO DAILY RF: 0 xowejoqgvs-guirrrplxttjq-xcdn [Fioricet] 50-325-40 mg Tablet 1 tab PO DAILY PRN (Reason: Headache) RF: 0 fluticasone propion-salmeterol [Advair Diskus] 500-50 mcg/dose Blister With Device 1 inh INHALATION BID RF: 0 cholecalciferol (vitamin D3) [Vitamin D3] 25 mcg (1,000 unit) Capsule 25 mcg PO DAILY RF: 0 loperamide [Imodium] 2 mg Capsule 2 mg PO QID PRN (Reason: Constipation) RF: 0 atorvastatin 40 mg Tablet 40 mg PO DAILY RF: 0 fluoxetine 20 mg capsule 40 mg PO DAILY RF: 0 Telehealth Telehealth Location of provider rendering services: practice address Location of patient: address on file Patient Identification confirmed using: Name, : Yes Telehealth method: video Patient verbally consented to treatment: Yes Patient verbally consented to billing insurance company: Yes Time spent with patient (mins): 15
== END 2020-03-29 23:55 | disposition home or self-care (01) ==
LOC: HO.PHPA 08:00
PROVIDERS: Visit Provider Psychiatry & Neurology Psychiatry
DX: F31.30 Bipolar disorder, current episode depressed, mild or moderate severity, unspecified (principal); F43.10 Post-traumatic stress disorder, unspecified
CPT/HCPCS: 90792; 90853; 99213

== ENCOUNTER → 2020-04-15 13:09 | Outpatient (BNVA) | payer OTHER, SELFPAY | PROVIDERS: PCP Nurse Practitioner Family; Visit Provider Anesthesiology | DX: Z76.89 Persons encountering health services in other specified circumstances (principal) ==

== ENCOUNTER → 2020-05-24 15:57 | Outpatient (BNVA) | payer OTHER, SELFPAY | PROVIDERS: PCP Nurse Practitioner Family; Visit Provider Anesthesiology ==

== ENCOUNTER 2020-07-03 22:06 | Inpatient (IN) | payer OTHER, SELFPAY ==
--- NOTE | ~2020-07-03 | XR_ITS ---
EXAMINATION: XR CHEST CLINICAL INFORMATION: Attempt to self hanging. COMPARISON: None TECHNIQUE: Frontal view of the chest was obtained. FINDINGS: No significant abnormality is noted involving the heart, lungs, mediastinum, bony thorax or soft tissues. XR/XR chest 1V IMPRESSION: Unremarkable chest examination.
--- NOTE | ~2020-07-03 | CT_ITS ---
EXAMINATION: CT HEAD WITHOUT CONTRAST CLINICAL INFORMATION: Fall with head injury. COMPARISON: 07/04/2020 TECHNIQUE: Contiguous axial imaging was performed from the skull base to vertex without intravenous administration of contrast. This CT examination was performed using dose optimization techniques as appropriate, variously including the following: *Automated exposure control *Adjustment of mA and/or kV according to patient size (this includes techniques or standardized protocols for targeted exams where dose is matched to indication/reason for exam; i.e. extremities or head) *Use of iterative reconstruction technique DLP: 680 mGy-cm FINDINGS: There is no evidence of acute intracranial hemorrhage or territorial infarction. No abnormal mass effect or midline shift is seen. Bañuelos to white matter differentiation is well preserved. No extra-axial fluid collections are identified. The ventricles are normal in size. There is no abnormal attenuation within the brain parenchyma. The osseous structures and soft tissues are normal. The mastoid air cells and visualized portions of the paranasal sinuses are well aerated. CT/CT head/brain wo con IMPRESSION: No acute intracranial pathology.
--- NOTE | ~2020-07-03 | CT_ITS ---
EXAMINATION: CT ANGIOGRAM NECK CLINICAL INFORMATION: Neck pain. Possible carotid dissection. COMPARISON: None. TECHNIQUE: Test bolus sequences followed by intravenous administration 70 mL of Omnipaque 350. Helical imaging was performed in the axial plane from the mediastinum to the skull vertex. Delayed postcontrast imaging of the head was also performed. The data was processed at the chief cardiopulmonary technologist's workstation for generation of MIP sequences. Three-dimensional volume rendered reformatted images were also generated at an offline 3-D workstation. Stenoses are assessed in accordance with NASCET criteria unless otherwise indicated. This CT examination was performed using dose optimization techniques as appropriate, variously including the following: Automated exposure control. Adjustment of mA and/or kV according to patient size (this includes techniques or standardized protocols for targeted exams where dose is matched to indication/reason for exam; i.e. extremities or head). Use of iterative reconstruction technique. DLP: 1478 mGy-cm. FINDINGS: The imaged aortic arch and origins of the great vessels are normal. The common carotid arteries are widely patent. The carotid bifurcations are normal. The cervical internal carotid arteries are normal. The vertebral arteries opacify normally and are of normal caliber. The soft tissues of the neck are unremarkable. The imaged portions of the lungs are clear. The intradural vertebral arteries and basilar artery are normal. The posterior cerebral arteries are widely patent. The internal carotid arteries are of normal caliber. The imaged portions of the JACOB and MCA vascular complexes bilaterally are normal. The visualized venous sinuses opacify normally. CT/CT angio neck IMPRESSION: Normal CT angiogram of the neck. A preliminary interpretation was provided by the overnight Radiologist, Dr. Pozo, at 1:20 AM on 07/04/2020.
--- NOTE | ~2020-07-03 | CT_ITS ---
EXAMINATION: CT HEAD WITHOUT CONTRAST CLINICAL INFORMATION: Attempted suicide. COMPARISON: None. TECHNIQUE: Contiguous helical images of the brain were obtained without IV contrast. Multiplanar reconstructions were performed. DLP: 957 mGy-cm. FINDINGS: There are no pathologic extra-axial fluid collections. The lateral, third, fourth ventricles are nondilated and concordant with the appearance of the sulci. There is no evidence for acute intraparenchymal hemorrhage or infarct. There is neither mass nor mass effect. There is no shift of midline structures. The paranasal sinuses and mastoid air cells are clear. There are no osseous lesions. CT/CT head/brain wo con IMPRESSION: No evidence for acute intracranial injury. Automated exposure control (Care Dose) Adjustment of the mA and/or kv according to patient size (this includes techniques or standardized protocols for targeted exams where dose is matched to indication / reason for exam; i.e. extremities or head).
[2020-07-03 22:11] VITALS: BP 146/96; BP 150/95; PULSE 105; PULSE 97; RESP 12; TEMP 36.8; O2SAT 95; O2SAT 97; BMI 33.5
--- NOTE | 2020-07-03 22:23 | ECG_ITS ---
Test Reason : DIFFICULTY BREATHING Blood Pressure : / mmHG Vent. Rate : 092 BPM Atrial Rate : 092 BPM P-R Int : 152 ms QRS Dur : 076 ms QT Int : 360 ms P-R-T Axes : 044 028 041 degrees QTc Int : 445 ms Normal sinus rhythm Normal ECG No previous ECGs available Referred By: Yevgeniy Muñiz Electronically Signed By:Jesus Burnett
[2020-07-03 22:30] LABS: MANUAL DIFF FLAG NO
--- NOTE | 2020-07-03 22:30 | ED.PSYCH ---
HPI - Psych General Chief Complaint: Psychiatric Symptoms Stated Complaint: crisis Time Seen by Provider: 07/03/20 22:22 Source: patient and EMS Mode of arrival: EMS Limitations: no limitations History of Present Illness HPI Narrative: 45-year-old male with history of depression came in by EMS for assessment after attempt to hang himself. This is a 45-year-old male with history of bipolar depression, history of hospitalization for inpatient psychiatric care, after having an argument with his patient ran to the shed and hang himself with a rope, shortly after came in to the shed and found in hanging of the ground was described that the patient was blue in color and the managed to cut the rope and he dropped on the floor, on EMS arrival patient described with pinkish but with subcutaneous breathing, with red blossom on the neck from the rope, patient declined any change of voice, patent airway, patient was transported with C-spine precaution. Patient emergency department is awake and alert and able to give a full history and patient admitted for being depressed, patient declined taking any oral overdose. Related Data Home Medications Medication Instructions Recorded Confirmed albuterol sulfate [ProAir HFA] 2 puff INHALATION Q4-6H PRN 01/02/20 03/04/20 montelukast [Singulair] 10 mg PO BEDTIME 01/02/20 03/04/20 pantoprazole 40 mg PO DAILY 01/02/20 03/04/20 bupropion HCl 300 mg 24 hr tablet, 300 mg PO DAILY 02/06/20 03/04/20 extended release fluoxetine 20 mg capsule 40 mg PO DAILY 02/06/20 03/04/20 atorvastatin 40 mg PO DAILY 03/04/20 03/04/20 cholecalciferol (vitamin D3) 25 mcg PO DAILY 03/04/20 03/04/20 [Vitamin D3] fexofenadine [Kimmy] 180 mg PO DAILY 03/04/20 03/04/20 loperamide [Imodium] 2 mg PO QID PRN 03/04/20 03/04/20 prazosin 1 mg PO DAILY 03/04/20 03/04/20 prazosin 2 mg PO BEDTIME 03/04/20 03/04/20 Previous Rx's Medication Instructions Recorded lamotrigine [Lamictal] 25 mg PO DAILY 14 Days #14 tab 03/16/20 lorazepam 1 mg PO DAILY PRN #15 tab 03/29/20 fluticasone 500 mcg-salmeterol 50 1 inh INHALATION BID 30 Days #60 ea 04/28/20 mcg/dose blistr powdr for inhalation hkumtjjgjw-[id number]-itcggauo 1 tab PO DAILY PRN 20 Days #20 tab 06/07/20 50 mg-325 mg-40 mg tablet Allergies Allergy/AdvReac Type Severity Reaction Status Date / Time SEASONAL ALLERGIES Allergy Unknown ITCHY Uncoded 07/03/20 22:18 EYES/RUNNY NOSE Review of Systems Review of Systems: All other systems are reviewed and are negative Constitutional: Reports as per HPI and Reports no additional constitutional complaints Eyes: Reports as per HPI and Reports no additional eye complaints Reports system reviewed and no additional complaints, except as documented Cardiovascular: Reports as per HPI and Reports no additional cardiovascular complaints Respiratory: Reports as per HPI and Reports no additional respiratory complaints Gastrointestinal: Reports as per HPI and Reports no additional gastrointestinal complaints Genitourinary: Reports no additional female genitourinary complaints Musculoskeletal: Reports no additional musculoskeletal complaints Skin/Breast: Reports system reviewed and no additional complaints, except as docu Psychiatric: Reports no additional psychiatric complaints Endocrine: Reports no additional endocrine complaints Hematologic/Lymphatic: Reports no additional hematologic/lymphatic complaints Allergic/Immunologic: Reports no additional allergic/immunologic complaints Reports system reviewed and no additional complaints, except as documented and Reports Abnormal speech present [facility] Past Medical History Medical History Asthma Bipolar 1 disorder, depressed Chronic pain syndrome Chronic renal insufficiency Depression Disc degeneration, lumbar GERD (gastroesophageal reflux disease) Post traumatic stress disorder (PTSD) Spondylosis of lumbar region without myelopathy or radiculopathy Tremor Surgical History History of kidney surgery Social History Social History Household Members: Spouse and Children Smoking Status: Never smoker Second Hand Smoke Exposure: No Advance Directives: No Advance Directives Information Provided: No Physical Exam Vital Signs: Vital Signs: Last Vital Signs Temp 98.2 F 07/03/20 22:11 Pulse 81 07/03/20 23:00 Resp 12 07/03/20 23:00 BP 128/95 H 07/03/20 23:00 Pulse Ox 95 07/03/20 23:00 Body Mass Index 33.5 Vital signs have been reviewed as appeared to be correct. Blood pressure is elevated. Heart rate normal. Respiration rate normal. Temperature normal. Oxygen saturation normal. Appearance: Alert. Oriented X3. No acute distress. Head: Normal external exam. Normocephalic. Atraumatic. No Spencer signs noted. No raccoon eyes noted Eyes: PERRLA. EOMI. Conjunctiva and sclera normal. Eyelids normal. ENT: TM's Normal. Pharynx normal. Uvula midline. Moist mucous membranes. No trismus noted. No drooling noted. No muffled voice noted. Neck: There is a red roll blossom on the front of the neck under the hyoid own, otherwise no ecchymosis, patent airway with no stridor. Thyroid Normal. No meningeal signs. No neck mass noted. CVS: Normal heart rate and rhythm. Heart sound normal. No murmurs noted. Pulses normal throughout. Respiratory: No respiratory distress. Painless inspiration. Breath sounds normal. No wheezes/rales/rhonchi noted. Chest nontender. No accessory muscle usage noted or decreased air movement noted. Abdomen: Soft and nontender. Bowel sounds normal in all 4 quadrants. No distention noted. No organomegaly noted. No visible injury noted. Back: No CVA tenderness. Full range of motion noted. Skin: Skin warm and dry. Normal skin color. Normal skin turgor. No rashes/lesions/lacerations noted. Extremities: No lower extremity edema. Extremities exhibit normal range of motion. Extremities nontender. Neuro: Oriented X 3. No motor deficit. No sensory deficit. Reflexes normal. Patient Appearance: Appropriate Patient Orientation: Person, Place, Time and Situation Level of Consciousness: Awake, Appropriate and Alert Patient Behavior: Cooperative. Mood Description: Depressed. Affect Description: Flat. Patient Cognition Impaired: No Ability to Follow Directions: Good Speech Pattern: Spontaneous Speech Memory Description: Intact Hallucinations: Not present. Delusions: Not Present Thought Process: Logical. Thought Content: Unremarkable Depressive Symptoms: Increased anxiety. Judgement: Fair Course Course Course Narrative: Assessment and plan. 45-year-old male came to the ED for evaluation after self hanging. CT of the neck was verbally reported as no soft tissue bleed, no C-spine injuries, no dissection or injury in the neck vessels. CBC revealed anemia which is new more history was taken from the patient patient had a normal bowel movement today declined any abnormal color of the stool, no blood in the urine, no source of bleeding. Patient needed CTA of the neck to evaluate for post hanging blood vessel dissection or injury because his kidney function was slightly elevated but the test was necessary to rule out life-threatening diagnosis, will keep hydrating the patient. Patient will be made Section 12, and psych admission. Reevaluation(s) Reevaluation #1: Physician observation started at 2am . Patient placed in physician observation because the patient needed more time for psych evaluation and placement, patient's vital sign were stable, patient is alert and oriented , neuro exam unchanged, unremarkable rest of physical exam. Time: 02:04 [facility] - Psych Lab Data Attestation: I reviewed the patient's lab results. Result diagrams: 07/03/20 22:23 07/03/20 22:51 Labs: Lab Results 07/03/20 07/03/20 07/03/20 Range/Units 22:23 22:23 22:39 WBC 8.1 (4.8-10.8) X10*3/uL RBC 4.90 (4.60-5.80) X10*6/uL Hgb 11.7 L (14.0-18.0) g/dl Hct 37.8 L (42-52) % MCV 77.1 L (80-98) fL MCH 23.9 L (27.0-33.0) pg MCHC 31.0 (31.0-36.0) g/dl RDW 14.9 (11.0-16.0) % Plt Count 340 (160-400) X10*3/uL MPV 9.1 L (9.4-12.4) fL Immature Gran % (Auto) 0.2 (0.0-0.4) % Neut % (Auto) 63.4 (45-73) % Lymph % (Auto) 22.5 (20-40) % Briscoe % (Auto) 10.1 (2-11) % Eos % (Auto) 3.3 (0-4) % Baso % (Auto) 0.5 (0-2) % Lymph # (Auto) 1.8 (1.2-4.9) X10*3/uL Briscoe # (Auto) 0.8 (0.1-1.2) X10*3/uL Eos # (Auto) 0.3 (0.0-0.4) X10*3/uL Baso # (Auto) 0.0 (0.0-0.2) X10*3/uL Abs Immat Gran (auto) 0.02 (0.00-0.03) X10*3/uL Absolute Neuts (auto) 5.1 (2.0-8.3) X10*3/uL Absolute Nucleated RBC 0.000 (0.0-0.012) X10*3/uL Nucleated RBC % (auto) 0.0 (0.0-0.2) /100WBC Sodium (135-145) mmol/L Potassium (3.3-5.1) mmol/L Chloride (96-108) mmol/L Carbon Dioxide (22-29) mmol/L Anion Gap (12-20) BUN (9-16) mg/dL Creatinine (0.5-1.4) mg/dL Estim Creat Clear Calc Estimated GFR Random Glucose (60-115) mg/dL Calcium (8.4-10.2) mg/dL Total Bilirubin (0.0-1.0) mg/dL Direct Bilirubin (0.0-0.5) mg/dL AST (5-37) U/L ALT (0-40) U/L Alkaline Phosphatase (39-117) U/L Troponin I High Sens < 3.5 (<3.5-35.0) ng/L B-Natriuretic Peptide 19 (<100) pg/mL Total Protein (6.5-8.0) g/dL Albumin (3.5-5.0) g/dL Lipase (8-78) U/L Salicylates (15-30) mg/dL Acetaminophen (<30) mcg/mL Ethyl Alcohol mg/dL COVID-19 (ERIKA) Negative (Negative) COVID-19 Clin Com See Note 07/03/20 07/03/20 Range/Units 22:51 22:51 WBC (4.8-10.8) X10*3/uL RBC (4.60-5.80) X10*6/uL Hgb (14.0-18.0) g/dl Hct (42-52) % MCV (80-98) fL MCH (27.0-33.0) pg MCHC (31.0-36.0) g/dl RDW (11.0-16.0) % Plt Count (160-400) X10*3/uL MPV (9.4-12.4) fL Immature Gran % (Auto) (0.0-0.4) % Neut % (Auto) (45-73) % Lymph % (Auto) (20-40) % Briscoe % (Auto) (2-11) % Eos % (Auto) (0-4) % Baso % (Auto) (0-2) % Lymph # (Auto) (1.2-4.9) X10*3/uL Briscoe # (Auto) (0.1-1.2) X10*3/uL Eos # (Auto) (0.0-0.4) X10*3/uL Baso # (Auto) (0.0-0.2) X10*3/uL Abs Immat Gran (auto) (0.00-0.03) X10*3/uL Absolute Neuts (auto) (2.0-8.3) X10*3/uL Absolute Nucleated RBC (0.0-0.012) X10*3/uL Nucleated RBC % (auto) (0.0-0.2) /100WBC Sodium 139 (135-145) mmol/L Potassium 4.3 (3.3-5.1) mmol/L Chloride 105 (96-108) mmol/L Carbon Dioxide 25 (22-29) mmol/L Anion Gap 13 (12-20) BUN 16 (9-16) mg/dL Creatinine 1.62 H (0.5-1.4) mg/dL Estim Creat Clear Calc 60.5 Estimated GFR 47 Random Glucose 92 (60-115) mg/dL Calcium 8.2 L D (8.4-10.2) mg/dL Total Bilirubin 0.3 (0.0-1.0) mg/dL Direct Bilirubin < 0.2 (0.0-0.5) mg/dL AST 18 (5-37) U/L ALT 17 (0-40) U/L Alkaline Phosphatase 89 (39-117) U/L Troponin I High Sens (<3.5-35.0) ng/L B-Natriuretic Peptide (<100) pg/mL Total Protein 6.5 (6.5-8.0) g/dL Albumin 3.9 (3.5-5.0) g/dL Lipase 28 (8-78) U/L Salicylates < 5.0 L (15-30) mg/dL Acetaminophen < 1 (<30) mcg/mL Ethyl Alcohol < 10 mg/dL COVID-19 (ERIKA) (Negative) COVID-19 Clin Com Imaging Data CTa of the neck: Radiologist's impression: No C-spine injury, no soft tissue injury, no vascular injury. CT scan - head: Radiologist's impression: No evidence for acute intracranial injury. Chest x-ray: Radiologist's impression: Unremarkable chest examination. ECG Data Interpretation: Normal sinus rhythm at 92 beats per minutes, normal axis deviation, normal intervals, no ST-T changes. Discharge Plan Discharge Clinical Impression: Asphyxiation by hanging, Contusion of neck Major depression Qualifiers: Major depression recurrence: recurrent Active/Remission status: currently active Major depression episode severity: severe Psychotic features: without psychotic features Qualified Code(s): F33.2 - Major depressive disorder, recurrent severe without psychotic features Patient Disposition: Admitted As Inpatient
[2020-07-03 22:32] LABS: Basophils Percent Auto 0.5 % (0-2); Eosinophils Absolute Auto 0.3 X10*3/uL (0.0-0.4); Eosinophils Percent Auto 3.3 % (0-4); Hematocrit 37.8 % (42-52); Hemoglobin 11.7 g/dl (14.0-18.0); Imm Gran Abs Auto 0.02 X10*3/uL (0.00-0.03); Imm Gran Pct Auto 0.2 % (0.0-0.4); Lymphocytes Absolute Auto 1.8 X10*3/uL (1.2-4.9); Lymphocytes Percent Auto 22.5 % (20-40); Mean Corpuscular Hemoglobin 23.9 pg (27.0-33.0); Mean Corpuscular Volume 77.1 fL (80-98); Mean Platelet Volume 9.1 fL (9.4-12.4); Monocytes Absolute Auto 0.8 X10*3/uL (0.1-1.2); Monocytes Percent Auto 10.1 % (2-11); Neutrophils Absolute Auto 5.1 X10*3/uL (2.0-8.3); Neutrophils Percent Auto 63.4 % (45-73); Platelet Count 340 X10*3/uL (160-400); Red Cell Distribution Width 14.9 % (11.0-16.0); White Blood Count 8.1 X10*3/uL (4.8-10.8)
[2020-07-03 22:55] LABS: B Type Natriuretic Peptide 19 pg/mL (<100); Troponin-I High Sensitivity < 3.5 ng/L (<3.5-35.0)
[2020-07-03 23:00] VITALS: BP 128/95; PULSE 81; RESP 12; O2SAT 95
[2020-07-03 23:00] LABS: COVID-19 Test Negative (Negative)
[2020-07-03] MEDS: 0.9 % Sodium Chloride 1,000 ML 999 ML IVCONT ×2 (23:00→23:45)
[2020-07-03 23:17] LABS: Ethanol < 10 mg/dL
[2020-07-03 23:20] LABS: Acetaminophen LAB < 1 mcg/mL (<30); Alanine Aminotransferase 17 U/L (0-40); Albumin Level 3.9 g/dL (3.5-5.0); Alkaline Phosphatase 89 U/L (39-117); Anion Gap 13 (12-20); Aspartate Amino Transferase 18 U/L (5-37); Bilirubin Direct < 0.2 mg/dL (0.0-0.5); Bilirubin Total 0.3 mg/dL (0.0-1.0); Blood Urea Nitrogen 16 mg/dL (9-16); Calcium 8.2 mg/dL (8.4-10.2); Carbon Dioxide 25 mmol/L (22-29); Chloride 105 mmol/L (96-108); Creatinine Clr Calc Pharmacy 60.5; Estimated Glomerular Filt Rate 47; Glucose Random 92 mg/dL (60-115); Lipase 28 U/L (8-78); Potassium 4.3 mmol/L (3.3-5.1); Salicylate < 5.0 mg/dL (15-30); Sodium 139 mmol/L (135-145); Total Protein 6.5 g/dL (6.5-8.0)
[2020-07-04] VITALS (11 sets, daily range): BP systolic 111–165; BP diastolic 60–92; PULSE 75–88; RESP 15–23; TEMP 36.6; O2SAT 94–98
[2020-07-04] MEDS: iohexoL 350 MG/ML 75 ML INFUS..BTL 70 ML IV (00:33)
--- NOTE | 2020-07-04 02:55 | PC.NURSE ---
Patient states that he has been having marital issues with his . Per patient his has been telling him to leave. He feels that his and father in law do not want him around and it has been building up over the past couple of weeks. He states that his and his father in law said that he would never kill himself because he is a pussy . Patient states that he just went and did it. He said that he does not know what happens other than he remembers swinging back and forth and saw his but it looked like a dream.
--- NOTE | 2020-07-04 03:00 | PC.NURSE ---
NICK faxed and called.
[2020-07-04] MEDS: LORazepam 1 MG TABLET PO ×4 (07:20→19:42)
[2020-07-04 08:13] LABS: Glucose Urine UA NEG (NEG); Leukocyte Esterase Urine NEG (NEG); Nitrite Urine NEG (NEG); Urine Blood NEG (NEG); Urine Ketones NEG (NEG); Urine Protein NEG (NEG-TRACE)
[2020-07-04 08:21] LABS: Appearance Urine CLEAR; Color Urine YELLOW
[2020-07-04 08:32] LABS: Amphetamine Screen Urine Not Detected (Not Detect); Barbiturates, Urine POSITIVE (Not Detect); Benzodiazepines Screen Urine Not Detected (Not Detect); Cannabinoid Screen Urine Not Detected (Not Detect); Cocaine Screen Urine Not Detected (Not Detect); Opiate Screen Urine Not Detected (Not Detect); Phencyclidine Screen Urine Not Detected (Not Detect)
[2020-07-04] MEDS: Prazosin HCL 1 MG CAPSULE PO (10:11)
[2020-07-04] MEDS: buPROPion HCl XL 300 MG TAB.ER.24H PO (10:11)
[2020-07-04] MEDS: FLUoxetine HCl 20 MG CAPSULE 40 MG PO (10:11)
[2020-07-04] MEDS: lamoTRIgine 25 MG TABLET 50 MG PO ×2 (10:12→21:17)
[2020-07-04] MEDS: Atorvastatin Calcium 40 MG TABLET PO (10:12)
[2020-07-04] MEDS: Cholecalciferol (Vitamin D3) 25 MCG TABLET PO (10:12)
[2020-07-04] MEDS: Butalb/Acetamin/Caff 50/325/40 TABLET 1 TAB PO (12:01)
--- NOTE | 2020-07-04 12:10 | PC.NURSE ---
Pt calm, cooperative at this time. Respirations even/unlabored bilaterally. Denies n/v/d. No sign of distress. Per care team Bed search continues. Will continue to monitor.
--- NOTE | 2020-07-04 16:23 | PC.NURSE ---
Moved patient from ED 5 to ED 6. Pt had cell phone in room, states his gave him the phone. Pt informed that he is unable to keep personal items with him at this time. Belongings form filled out, pt's belongings moved to Locker 7 in the POD.
--- NOTE | 2020-07-04 19:45 | PC.NURSE ---
Report taken from miguel Holliday RN resuming care. Pt wakes in bed at this time asking for PRN Ativan. Pt reports difficulty sleeping due to the environment of the ED. Pt calm and cooperative, agreeable to VS. Pt medicated per MAR with Ativan. VSS. Continue to monitor.
--- NOTE | 2020-07-04 20:23 | PC.NURSE ---
at bedside with pt. requesting to take home pts cell phone and storage battery charger. Pt agreeable, signing belongings sheet that took his phone/storage battery charger home. inquiring as to when pt will be placed. Continue to monitor.
[2020-07-04] MEDS: Montelukast Sodium 10 MG TABLET PO (21:17)
[2020-07-04] MEDS: Prazosin HCL 1 MG CAPSULE 2 MG PO (21:18)
[2020-07-04] MEDS: Acetaminophen 325 MG TABLET 650 MG PO (21:26)
--- NOTE | 2020-07-04 21:27 | PC.NURSE ---
Pt medicated with PM meds. Pt requesting Tylenol for a RIVAS, medicated with a one time dose of Tylenol. Pt resting in bed, continue to monitor.
[2020-07-05 06:05] VITALS: BP 144/91; PULSE 78; RESP 16; O2SAT 96
[2020-07-05] MEDS: buPROPion HCl XL 300 MG TAB.ER.24H PO (09:27)
[2020-07-05] MEDS: Cholecalciferol (Vitamin D3) 25 MCG TABLET PO (09:27)
[2020-07-05] MEDS: Atorvastatin Calcium 40 MG TABLET PO (09:27)
[2020-07-05] MEDS: LORazepam 1 MG TABLET PO ×4 (09:28→22:12)
[2020-07-05] MEDS: Omeprazole 20 MG CAPSULE.DR PO (09:28)
[2020-07-05] MEDS: FLUoxetine HCl 20 MG CAPSULE 40 MG PO (09:28)
[2020-07-05] MEDS: Loratadine 10 MG TABLET PO (09:29)
[2020-07-05 09:30] VITALS: BP 153/109; PULSE 95
[2020-07-05] MEDS: Prazosin HCL 1 MG CAPSULE PO (09:30)
[2020-07-05] MEDS: lamoTRIgine 25 MG TABLET 50 MG PO ×2 (09:30→20:12)
[2020-07-05] MEDS: Butalb/Acetamin/Caff 50/325/40 TABLET 1 TAB PO (09:32)
[2020-07-05 11:58] VITALS: BP 172/85; PULSE 93; RESP 16; O2SAT 98
[2020-07-05] MEDS: Loperamide HCl 2 MG CAPSULE PO (12:10)
--- NOTE | 2020-07-05 12:12 | PC.NURSE ---
No change s/p first Ativan dose given, another administered, okay per Clara CHAPPELL Pt also given Immodium for reports of diarrhea (from anxiety per pt)
[2020-07-05 14:06] VITALS: BP 146/97; PULSE 97; RESP 18; O2SAT 99
--- NOTE | 2020-07-05 16:25 | PC.NURSE ---
Pt moved to POD, report given
--- NOTE | 2020-07-05 17:07 | PC.NURSE ---
Late entry : Pt transferred from Main ED . Pt alert, speaking in full sentences, able to swallow secretions. Reports some superficial pain r/t ligature blossom, but no other concers other than ongoing anxiety. Pt denies any SI at this time, states he will not atempt to harm himself on the unit, became tearful when discussing impact on his children of suicide attempt.
--- NOTE | 2020-07-05 18:22 | PC.NURSE ---
Pt medicated for anxiety as requested by pt. Pt currently resting in common area, watching television.
--- NOTE | 2020-07-05 20:06 | PC.NURSE ---
Patient up in milieu reported being anxious, patient made aware that he had Ativan an hour ago and advised to wait little longer and then see, will continue to monitor
[2020-07-05] MEDS: Montelukast Sodium 10 MG TABLET PO (20:12)
[2020-07-05 20:15] VITALS: BP 156/96; PULSE 87
[2020-07-05] MEDS: Prazosin HCL 1 MG CAPSULE 2 MG PO (20:15)
[2020-07-05] MEDS: diphenhydrAMINE HCL 25 MG TABLET 50 MG PO (22:12)
--- NOTE | 2020-07-05 22:15 | PC.NURSE ---
Patient is restless, tremulous, HR 117, reported being anxious, provider notified/ordered Ativan 1mg and Benadryl 50 mg /administered as ordered, pending effect, will continue to monitor.
[2020-07-06] VITALS (7 sets, daily range): BP systolic 145–173; BP diastolic 93–112; PULSE 90–109; RESP 16–20; TEMP 36.6; O2SAT 97–98
[2020-07-06] MEDS: LORazepam 1 MG TABLET PO ×3 (03:47→19:58)
--- NOTE | 2020-07-06 03:49 | PC.NURSE ---
Patient is very restless and tremulous, struggling to fall sleep, PRN ativan 1 mg administered pending effect, will continue to monitor.
[2020-07-06] MEDS: Omeprazole 20 MG CAPSULE.DR PO (06:35)
[2020-07-06] MEDS: Albuterol Sulfate 90 MCG 8 GM INHALER 2 PUFF INHALE (06:43)
--- NOTE | 2020-07-06 07:13 | PC.NURSE ---
Report received from TRACI Vargas. Pt awake, eating breakfast, affect anxious. Reports he was not able to sleep last night. Reviewed process and schedule for today.
[2020-07-06] MEDS: Prazosin HCL 1 MG CAPSULE PO (08:32)
[2020-07-06] MEDS: FLUoxetine HCl 20 MG CAPSULE 40 MG PO (08:33)
[2020-07-06] MEDS: buPROPion HCl XL 300 MG TAB.ER.24H PO (08:33)
[2020-07-06] MEDS: Atorvastatin Calcium 40 MG TABLET PO (08:34)
[2020-07-06] MEDS: Loratadine 10 MG TABLET PO (08:34)
[2020-07-06] MEDS: Cholecalciferol (Vitamin D3) 25 MCG TABLET PO (08:34)
[2020-07-06] MEDS: lamoTRIgine 25 MG TABLET 50 MG PO ×2 (08:35→20:13)
[2020-07-06] MEDS: Loperamide HCl 2 MG CAPSULE PO (08:43)
--- NOTE | 2020-07-06 09:09 | PC.NURSE ---
Moshe Lopez in w/ pt. Pt reporting that he was not able to sleep last night, reporting loose stools related to IBS and loss of appetite. Pt appears very anxious, has been requesting Ativan for anxiety and to help him rest.
[2020-07-06] MEDS: QUEtiapine Fumarate 50 MG TABLET PO ×3 (09:48→19:59)
--- NOTE | 2020-07-06 10:41 | PC.NURSE ---
Pt care and concerns reviewed w/ A Sharlene Jhaveri, CARE team. Pt accepted seroquel and is currently resting, resp unlabored.
--- NOTE | 2020-07-06 12:19 | PC.NURSE ---
Pt reports some effect from seroquel given, states he was able to sleep briefly. Pt also states provider was considering additional medication change- provider contacted for clarification.
[2020-07-06] MEDS: Butalb/Acetamin/Caff 50/325/40 TABLET 1 TAB PO (12:54)
--- NOTE | 2020-07-06 12:59 | PC.NURSE ---
Pt requesting medication for headache. PRN given as requested. Pt currently resting.
--- NOTE | 2020-07-06 15:05 | PC.NURSE ---
Pt awake, reports headache is better. pt requesting ativan for anxiety. pt anxious to be transferred to M5 so that he can 'start therapy.'
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
--- NOTE | 2020-07-06 16:27 | PC.NURSE ---
Report given to Irene RN- pt will be going to [facility] [id number]
--- NOTE | 2020-07-06 17:33 | PC.NURSE ---
Late entry: Joseph Jhaveri aware of current vitals- pt reports elevated BP may be due to the level of anxiety he is experiencing. Pt medicated w/ seroquel as ordered.
--- NOTE | 2020-07-06 18:01 | PC.NURSE ---
Late entry: Care team in to transfer pt to [facility].
[2020-07-06] MEDS: Flu Vacc QS2020-21(6mos up)/PF 0.5 ML SYRINGE IM (20:02)
[2020-07-06] MEDS: Prazosin HCL 1 MG CAPSULE 2 MG PO (20:13)
[2020-07-06] MEDS: Montelukast Sodium 10 MG TABLET PO (20:14)
--- NOTE | 2020-07-06 21:43 | PC.ADMIT ---
PT. IS A 45 YEAR OLD WHITE BENGALI SPEAKING MALE WHO PRESENTS TO 5 FROM [facility] [place] ED AT APPROX. 17:45 ON A CV STATUS. PT. IS COVID NEGATIVE, UTOX POS. FOR BARBITURATES DUE TO PRESCRIBED MEDICATION PERCOCET. THIS IS HIS FIRST ADMISSION TO , PT. HAS BEEN UNDER PSYCHIATRIC CARE A OUT PT. PT. WAS FOUND BY HIS HANGING WHO THEN CUT HIM DOWN AND CALLED 911. HE WAS BROUGHT BY AMBULANCE TO THE [facility] [place] ED. PT. REPORTED FINANCIAL STRESSES, HE WAS TEARFUL DURING THE ADMISSION. WHEN ASK HOW HE FEELS ABOUT SURVIVING THE SI ATTEMPT PT STATED FANTASTIC . PT. REPORTED DEPRESSION AND HIGH ANXIETY, HE TALKED ABOUT HIS 2 SONS AND HOW HE FEELS GUILTY WHAT HE HAS PUT THEM THROUGH. PT. WAS COOPERATIVE AND APPROPRIATE DURING ADMISSION PROCESS. HIS AFFECT HAD FULL RANGE, THOUGHT PROCESS WAS CLEAR. HE DENIED SI, HI, SH, HIS REPORTED 10/10 ANXIETY, DEPRESSION 7/10. PAIN WAS RATED SOME AROUND NECK WHERE SKIN IS MARKED FROM ROPE. PT. SIGNED CONSENT FORMS, HE WAS ORIENTED TO THE UNIT. HE ATE DINNER, RECEIVED HIS CLOTHES, TOOK HIS SCHEDULED HS MEDICATION AND PRN ATIVAN AND SEROQUEL. PT. REPORTED I HAVEN'T SLEPT SINCE SUNDAY. HE WENT TO BED SHORTLY AFTER 8 PM. PT. RECEIVED FLU VACCINE BY HIS REQUEST, HE NEVER HAS BEEN A SMOKER. PT. REPORTED TO FEEL SAFE ON UNIT, HE IS ON 15 MIN. SAFETY CHECKS.
[2020-07-06] MEDS: traZODone HCL 50 MG TABLET PO (23:35)
[2020-07-07] MEDS: hydrOXYzine HCL 25 MG TABLET PO (00:46)
[2020-07-07] MEDS: traZODone HCL 50 MG TABLET PO ×2 (00:46→21:07)
[2020-07-07 06:00] VITALS: BP 139/69; PULSE 89; RESP 16; TEMP 36.3; O2SAT 97
[2020-07-07] MEDS: FLUoxetine HCl 20 MG CAPSULE 40 MG PO (08:48)
[2020-07-07 08:49] LABS: Cholesterol 235 mg/dL; HDL Cholesterol 40 mg/dL; LDL Cholesterol Calculated 164 mg/dl; Triglycerides 157 mg/dL
[2020-07-07] MEDS: lamoTRIgine 25 MG TABLET 50 MG PO ×2 (08:49→21:07)
[2020-07-07] MEDS: Loratadine 10 MG TABLET PO (08:49)
[2020-07-07] MEDS: Omeprazole 20 MG CAPSULE.DR PO (08:49)
[2020-07-07] MEDS: Cholecalciferol (Vitamin D3) 25 MCG TABLET PO (08:49)
[2020-07-07 08:50] VITALS: BP 127/87; PULSE 102
[2020-07-07] MEDS: Prazosin HCL 1 MG CAPSULE PO (08:50)
[2020-07-07] MEDS: buPROPion HCl XL 300 MG TAB.ER.24H PO (08:50)
[2020-07-07] MEDS: Atorvastatin Calcium 40 MG TABLET PO (08:50)
[2020-07-07 08:52] LABS: Estimated Average Glucose 100 mg/dL; Hemoglobin A1c % 5.1 %
[2020-07-07] MEDS: Acetaminophen 325 MG TABLET 650 MG PO ×2 (08:58→16:08)
[2020-07-07] MEDS: Loperamide HCl 2 MG CAPSULE PO ×2 (08:58→14:08)
[2020-07-07] MEDS: Fluticasone/Vilanterol 200/25 BLST.W.DEV 1 PUFF INHALE (09:02)
[2020-07-07] MEDS: LORazepam 1 MG TABLET PO ×3 (10:59→21:09)
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
[2020-07-07 16:32] VITALS: BP 130/81; PULSE 98; RESP 18; TEMP 36.6; O2SAT 97
[2020-07-07 21:06] VITALS: BP 139/83; PULSE 97
[2020-07-07] MEDS: Prazosin HCL 1 MG CAPSULE 2 MG PO (21:06)
[2020-07-07] MEDS: Montelukast Sodium 10 MG TABLET PO (21:07)
[2020-07-07] MEDS: QUEtiapine Fumarate 100 MG TABLET PO (21:07)
[2020-07-07] MEDS: Divalproex Sodium ER 500 MG TAB.ER.24H PO (21:07)
[2020-07-08 06:05] VITALS: BP 121/60; PULSE 93; RESP 16; TEMP 36.7; O2SAT 95
[2020-07-08] MEDS: Omeprazole 20 MG CAPSULE.DR PO ×2 (06:48→16:35)
[2020-07-08 08:29] LABS: Estimated Average Glucose 97 mg/dL
[2020-07-08 08:43] LABS: Cholesterol 213 mg/dL; Glucose Fasting 84 mg/dL (60-99); HDL Cholesterol 36 mg/dL; LDL Cholesterol Calculated 139 mg/dl; Triglycerides 193 mg/dL
[2020-07-08] MEDS: lamoTRIgine 25 MG TABLET 50 MG PO ×2 (08:45→20:03)
[2020-07-08] MEDS: FLUoxetine HCl 20 MG CAPSULE 40 MG PO (08:46)
[2020-07-08] MEDS: Loratadine 10 MG TABLET PO (08:46)
[2020-07-08 08:47] VITALS: BP 126/68; PULSE 95
[2020-07-08] MEDS: buPROPion HCl XL 300 MG TAB.ER.24H PO (08:47)
[2020-07-08] MEDS: Cholecalciferol (Vitamin D3) 25 MCG TABLET PO (08:47)
[2020-07-08] MEDS: Prazosin HCL 1 MG CAPSULE PO (08:47)
[2020-07-08] MEDS: Fluticasone/Vilanterol 200/25 BLST.W.DEV 1 PUFF INHALE (08:48)
[2020-07-08] MEDS: Atorvastatin Calcium 40 MG TABLET PO (08:48)
[2020-07-08] MEDS: Loperamide HCl 2 MG CAPSULE PO (09:50)
[2020-07-08 10:22] VITALS: BMI 31.0
--- NOTE | 2020-07-08 12:59 | CONS_ITS ---
DATE OF SERVICE: 07/08/2020 REFERRING PHYSICIAN: Eva Carrera APRN REASON FOR CONSULTATION: Gastroesophageal reflux disease and irritable bowel syndrome with diarrhea. HISTORY OF PRESENT ILLNESS: The patient is a 45-year-old man, who was admitted to the hospital on the inpatient psychiatric unit after a suicide attempt. He has a longstanding history of gastroesophageal reflux disease, which has been treated well with pantoprazole at home 40 mg daily. He has no dysphagia, hematemesis, or melena. Symptoms include substernal burning, precipitated by typical foods including spicy foods. He underwent upper endoscopy in August of 2013, which showed an irregular EG junction. Biopsies were obtained, which showed findings consistent with reflux and there was a minute focus, which was inconclusive for intestinal metaplasia. He also has a longstanding history of irritable bowel syndrome with diarrhea predominance. This has been treated well with Imodium at home, which he takes on a fairly regular basis and p.r.n. He has no rectal bleeding. He does get occasional cramping depending on his bowel pattern. He has not undergone colonoscopy. As part of his evaluation, he had lab work done showing a mild anemia with a hematocrit of 37.8 and an MCV of 77.1. He denies any recent travel, unusual food ingestions, or ill contacts at home in terms of his diarrhea. PAST MEDICAL HISTORY: 1. Gastroesophageal reflux disease. 2. IBS with diarrhea. 3. Bipolar disorder. 4. PTSD. 5. Back pain. 6. Left nephrectomy for kidney donation. CURRENT MEDICATIONS: His current medication list is reviewed in the chart. ALLERGIES: THERE ARE NO REPORTED DRUG ALLERGIES. HE DOES HAVE SEASONAL ALLERGIES. FAMILY HISTORY: This is reviewed with the patient and is negative for GI malignancy. SOCIAL HISTORY: He denies tobacco and alcohol use. He is disabled. REVIEW OF SYSTEMS: SKIN: No pruritus. HEENT: Negative. CARDIOPULMONARY: He denies shortness of breath or chest pain. GASTROINTESTINAL: As above. GENITOURINARY: Negative. NEUROPSYCHIATRIC: Negative. PHYSICAL EXAMINATION: GENERAL: Reveals a pleasant male, sitting comfortably in bed. VITAL SIGNS: Reviewed in the electronic medical record and are stable. SKIN: Anicteric. HEENT: Shows no scleral icterus. NECK: Without lymphadenopathy. There is a rope blossom. LUNGS: Clear. HEART: Shows a regular rate and rhythm. S1, S2. No murmur. ABDOMEN: Soft without focal masses or tenderness. Bowel sounds are present. No organomegaly is noted. EXTREMITIES: Without edema. IMPRESSION: My impression is that he appears stable from a GI standpoint. I would recommend treating his gastroesophageal reflux disease with omeprazole 20 mg b.i.d. and when he is discharged, he can go back on his pantoprazole 40 mg daily. His IBS symptoms appear stable. Stool specimens have been ordered. I have recommended he take Imodium on a scheduled basis in the morning and then p.r.n. if he needs it during the day. He does have a mild anemia that is microcytic and stool occult blood will be obtained as well as iron studies. Based on his mild anemia and his chronic diarrheal symptoms, I would recommend outpatient colonoscopy to be scheduled after his psychiatric issues are stabilized. At that time, he can have followup endoscopy because of his history of previous esophagus biopsies that were indeterminate for Aguilar's esophagus. We discussed this today. He understands risks and benefits and agrees to proceed. Thanks for asking me to see him. I will follow him in the hospital with you. MD VOLODYMYR Thompson/PRASANTH / [phone] PABLITO
--- NOTE | 2020-07-08 12:59 | PC.NURSE ---
PT HAD PROCEDURE SCHEDULED FOR TOMORROW FOR RADIOFREQUENCY ABLASION OF LOWER BACK WHICH HAS BEEN POSTPONED UNTIL July. THIS WAS RESCHEDULED THROUGH PA[facility]NAG[facility] ([facility] DEPT. PT IS AWARE AND AGREES TO THIS DATE. THEY WILL CONFIRM TIME WITH HIM AND SEND HIM ALL OF THE PRE SURGICAL PAPERWORK.
[2020-07-08 18:00] VITALS: BP 148/88; PULSE 100; TEMP 36.6
--- NOTE | 2020-07-08 18:33 | HO.PSYCHPN ---
Subjective Subjective Date of Service: 07/08/20 Reason For Visit: Suicide Attempt Subjective Notes: Conditional Voluntary Interim History: Pt reports he slept last night. He appears very tired today. He met with DCF sales representative education courses regarding 51A He reports he is feeling very supported by family, friends, team. He is beginning to focus on self care and thinking about what balance he needs to care for himself. He denies SI, has no sx of psychosis, exhibits depressive sx and did sleep last night and is still anxious. We will continue Seroquel and Depakote for sx mgt. Medication Compliance: Yes Side effects from medications: No Attending Groups: Intermittent Review of Systems Review of Systems Yes all other systems are reviewed and are negative (denies) Reports behavioral changes Psychiatric: Reports abnormal sleep pattern, Reports anxiety, Reports behavioral changes, Reports depression, Reports difficulty concentrating, Reports hopelessness, Reports anhedonia and Reports suicidal ideation (denies plan, intent) Mental Status Exam Mental Status Exam Patient Appearance: Appropriate Patient Orientation: Person, Place, Time and Situation Level of Consciousness: Alert Patient Behavior: Talkative, Cooperative, Anxious, Fearful, Fatigued, Distractible and Good Eye Contact Mood Description: Depressed and Anxious Affect Description: Flat Patient Cognition Impaired: No Ability to Follow Directions: Good Speech Pattern: Clear, Appropriate, Spontaneous Speech and Soft-Spoken Memory Description: Intact Hallucinations: None Delusions: Not Present Thought Process: Distracted and Rumination Thought Content: positive for [place], positive for Circumstantial, positive for Perseveration and positive for Suicidal Ideation (denies current SI plan or intent) Depressive Symptoms: Increased Anxiety, Insomnia, Increased Irritability, Difficulty Sleeping, Feelings of Worthlessness, Hopelessness, Isolating-Friends/Family, Feelings of Guilt, Unhappiness, Increased Fatigue, Thoughts of /Suicide (denies today), Low Self Esteem and Difficulty Concentrating Judgement: Fair Diagnostics Vital Signs (24Hr): Vital Signs - 24 hr 07/07/20 21:06 07/08/20 06:05 07/08/20 08:47 Temperature 98.1 F Pulse Rate 97 93 95 Respiratory Rate 16 Blood Pressure 139/83 121/60 126/68 Pulse Oximetry 95 Body Mass Index 31.0 Labs Results: 07/03/20 22:23 07/03/20 22:51 Labs: Laboratory Results - last 48 hr 07/07/20 07/07/2021 07:53 07:53 07:42 Fasting Glucose 84 Estimat Average Glucose 100 Hemoglobin A1c % 5.1 Triglycerides 157 193 Cholesterol 235 213 LDL Cholesterol, Calc 164 139 HDL Cholesterol 40 36 07/08/20 07:42 Fasting Glucose Estimat Average Glucose 97 Hemoglobin A1c % 5.0 Triglycerides Cholesterol LDL Cholesterol, Calc HDL Cholesterol Imaging Radiology Impressions: ITS Impressions Chest X-Ray 07/03/20 22:22 IMPRESSION: Unremarkable chest examination. Head CT 07/04/20 00:00 IMPRESSION: No evidence for acute intracranial injury. Automated exposure control (Care Dose) Adjustment of the mA and/or kv according to patient size (this includes techniques or standardized protocols for targeted exams where dose is matched to indication / reason for exam; i.e. extremities or head). Neck CTA 07/04/20 00:00 IMPRESSION: Normal CT angiogram of the neck. A preliminary interpretation was provided by the overnight Radiologist, Dr. Pozo, at 1:20 AM on 07/04/2020. Medications Medications Current Medications Generic Name Dose Route Start Last Admin Trade Name Freq PRN Reason Stop Dose Admin Acetaminophen 650 mg 07/06/20 18:58 07/07/20 16:08 Acetaminophen 325 Mg Tablet PO 650 mg Q6H PRN Administration Headache/Pain Mild Scale (1-3) Acetaminophen/Butalbital/Caffeine 1 tab 07/04/20 08:46 07/06/20 12:54 Butalb/Acetamin/Caff 50/325/40 Tablet PO 1 tab DAILY PRN Administration pain Al Hydroxide/Mg Hydroxide 30 ml 07/06/20 18:58 Magnesium Hydrox/Alum Hydrox 30 Ml Oral.Susp PO Q6H PRN Heartburn/Nausea Albuterol Sulfate 2 puff 07/04/20 08:46 07/06/20 06:43 Albuterol Sulfate 90 Mcg 8 Gm Inhaler INHALE 2 puff Q4H PRN Administration Shortness Of Breath Atorvastatin Calcium 40 mg 07/04/20 09:00 07/08/20 08:48 Atorvastatin Calcium 40 Mg Tablet PO 40 mg DAILY [place] Administration Bupropion HCl 300 mg 07/04/20 09:00 07/08/20 08:47 Bupropion Hcl Xl 300 Mg Tab.Er.24h PO 300 mg DAILY [place] Administration Divalproex Sodium 500 mg 07/07/20 21:00 07/07/20 21:07 Divalproex Sodium Er 500 Mg Tab.Er.24h PO 500 mg BEDTIME [place] Administration Fluoxetine HCl 40 mg 07/04/20 09:00 07/08/20 08:46 Fluoxetine Hcl 20 Mg Capsule PO 40 mg DAILY [place] Administration Fluticasone/Vilanterol 1 puff 07/05/20 08:00 07/08/20 08:48 Fluticasone/Vilanterol 200/25 Blst.W.Dev INHALE 1 puff RDAILY [place] Administration Hydroxyzine HCl 25 mg 07/06/20 18:58 07/07/20 00:46 Hydroxyzine Hcl 25 Mg Tablet PO 25 mg BEDTIME PRN Administration Anxiety Lamotrigine 50 mg 07/04/20 09:00 07/08/20 08:45 Lamotrigine 25 Mg Tablet PO 50 mg BID [place] Administration Loperamide HCl 2 mg 07/04/20 08:46 07/08/20 09:50 Loperamide Hcl 2 Mg Capsule PO 2 mg QID PRN Administration Constipation Loperamide HCl 2 mg 07/09/20 06:30 Loperamide Hcl 2 Mg Capsule PO DAILY@0630 [place] Loratadine 10 mg 07/05/20 09:00 07/08/20 08:46 Loratadine 10 Mg Tablet PO 10 mg DAILY [place] Administration Lorazepam 1 mg 07/04/20 08:46 07/07/20 21:09 Lorazepam 1 Mg Tablet PO 1 mg QID PRN Administration anxiety Magnesium Hydroxide 30 ml 07/06/20 18:58 Milk Of Magnesia 30 Ml Oral.Susp PO DAILY PRN Constipation Montelukast Sodium 10 mg 07/04/20 21:00 07/07/20 21:07 Montelukast Sodium 10 Mg Tablet PO 10 mg BEDTIME [place] Administration Omeprazole 20 mg 07/08/20 16:30 07/08/20 16:35 Omeprazole 20 Mg Capsule.Dr PO 20 mg BID@0630,1630 [place] Administration Prazosin HCl 1 mg 07/04/20 09:00 07/08/20 08:47 Prazosin Hcl 1 Mg Capsule PO 1 mg DAILY [place] Administration Protocol Prazosin HCl 2 mg 07/04/20 21:00 07/07/20 21:06 Prazosin Hcl 1 Mg Capsule PO 2 mg BEDTIME [place] Administration Protocol Quetiapine Fumarate 50 mg 07/06/20 09:24 07/06/20 19:59 Quetiapine Fumarate 50 Mg Tablet PO 50 mg TID PRN Administration anxiety, agitation,insomnia Quetiapine Fumarate 100 mg 07/07/20 21:00 07/07/20 21:07 Quetiapine Fumarate 100 Mg Tablet PO 100 mg BEDTIME [place] Administration Trazodone HCl 50 mg 07/06/20 18:58 07/07/20 21:07 Trazodone Hcl 50 Mg Tablet PO 50 mg BEDTIME PRN Administration Insomnia Vitamin D 25 mcg 07/04/20 09:00 07/08/20 08:47 Cholecalciferol (Vitamin D3) 25 Mcg Tablet PO 25 mcg DAILY [place] Administration Allergies Allergies Allergy/AdvReac Type Severity Reaction Status Date / Time SEASONAL ALLERGIES Allergy Unknown ITCHY Uncoded 07/03/20 22:18 EYES/RUNNY NOSE Assessment & Plan Assessment & Plan (1) Post traumatic stress disorder (PTSD): Status: Acute Code(s): F43.10 - Post-traumatic stress disorder, unspecified Assessment and Plan: -Continue milieu therapy -Referral for OP therapy and psychiatry (2) Bipolar 1 disorder, depressed: Status: Acute Code(s): F31.9 - Bipolar disorder, unspecified Assessment and Plan: Pt slept last night with Depakote/Seroquel. Continue this combination. Possibly begin to taper some of the antidepressants. (3) Diarrhea: Status: Acute Code(s): R19.7 - Diarrhea, unspecified Assessment and Plan: Consult by Dr. Hyde much appreciated. Omeprazole 20 mg bid Immodium scheduled in the a.m. and prn throughout the rest of the day. Stool cultures Greater than 50% of the session was spent on counseling and/or coordination of care Patient educated on: medication risk/benefits and therapeutic strategies Informed Consent: further education needed Reason for contiued inpatient stay Substantial Risk for: harm to self, inability to function, rapid decompensation and med/psych decompensation
[2020-07-08 19:45] VITALS: BP 136/87; PULSE 98
[2020-07-08 20:02] VITALS: BP 136/87; PULSE 98
[2020-07-08] MEDS: Prazosin HCL 1 MG CAPSULE 2 MG PO (20:02)
[2020-07-08] MEDS: Divalproex Sodium ER 500 MG TAB.ER.24H PO (20:03)
[2020-07-08] MEDS: QUEtiapine Fumarate 100 MG TABLET PO (20:03)
[2020-07-08] MEDS: Montelukast Sodium 10 MG TABLET PO (20:03)
[2020-07-09] MEDS: Loperamide HCl 2 MG CAPSULE PO ×2 (06:07→18:57)
[2020-07-09] MEDS: Omeprazole 20 MG CAPSULE.DR PO ×2 (06:07→16:44)
[2020-07-09 06:30] VITALS: BP 121/65; PULSE 84; RESP 16; TEMP 36.4; O2SAT 97
[2020-07-09] MEDS: buPROPion HCl XL 300 MG TAB.ER.24H PO (08:20)
[2020-07-09] MEDS: FLUoxetine HCl 20 MG CAPSULE 40 MG PO (08:21)
[2020-07-09] MEDS: Loratadine 10 MG TABLET PO (08:22)
[2020-07-09 08:23] VITALS: BP 125/80; PULSE 80
[2020-07-09] MEDS: Atorvastatin Calcium 40 MG TABLET PO (08:23)
[2020-07-09] MEDS: Prazosin HCL 1 MG CAPSULE PO (08:23)
[2020-07-09] MEDS: lamoTRIgine 25 MG TABLET 50 MG PO ×2 (08:23→21:18)
[2020-07-09] MEDS: Cholecalciferol (Vitamin D3) 25 MCG TABLET PO (08:24)
[2020-07-09] MEDS: Fluticasone/Vilanterol 200/25 BLST.W.DEV 1 PUFF INHALE (08:43)
[2020-07-09 09:24] LABS: Iron 52 mcg/dL (45-160); Percent Iron Saturation 13 % (15-50); Total Iron Binding Capacity 399 mcg/dL (228-428); Unsaturated Iron Binding 347 ug/dL
[2020-07-09 09:44] LABS: Ferritin 17 ng/mL (20-250)
--- NOTE | 2020-07-09 14:36 | HO.PSYCHPN ---
Subjective Subjective Date of Service: 07/09/20 Reason For Visit: Suicide Attempt Subjective Notes: Conditional Voluntary Interim History: Pt sleeping with Depakote. Discussed making Seroquel prn and titrating Depakote to 750 mg ER HS which he agreed. Reports feeling some improvement. Remorseful for attempt. Discussed precipitants-finances are a stress-family is taking advice from an uncle who is an health care attorney. Contact with Dr. Hernandez who will accept pt in out pt care when discharged for psychopharmacology. DCF working with the family. Today, pt denies SI, plan or intent. Feeling improved with getting sleep, mood depressed, anxious affect flat. Discussed feeling guilt for his precipitous attempt. Medication Compliance: Yes Side effects from medications: No Attending Groups: Yes Review of Systems Comments: MERCEDES artis initiated with Dr. Hyde Psychiatric: Reports abnormal sleep pattern, Reports anxiety, Reports depression, Reports difficulty concentrating and Reports suicidal ideation (denies SI plan or intent) Mental Status Exam Mental Status Exam Patient Appearance: Appropriate Patient Orientation: Person, Place, Time and Situation Level of Consciousness: Awake and Alert Patient Behavior: Talkative and Anxious Mood Description: Depressed and Anxious Affect Description: Flat Patient Cognition Impaired: No Ability to Follow Directions: Good Speech Pattern: Spontaneous Speech Memory Description: Intact Hallucinations: None Delusions: Not Present Thought Process: Intact and Goal Oriented Thought Content: positive for Intact, positive for Goal Oriented and positive for Linear Depressive Symptoms: Increased Anxiety, Difficulty Sleeping (resolving), Thoughts of /Suicide (denies) and Low Self Esteem Judgement: Good Diagnostics Vital Signs (24Hr): Vital Signs - 24 hr 07/08/20 18:00 07/08/20 19:45 07/08/20 20:02 Temperature 97.8 F Pulse Rate 100 98 98 Respiratory Rate Blood Pressure 148/88 H 136/87 136/87 Pulse Oximetry 07/09/20 06:30 07/09/20 08:23 Temperature 97.6 F Pulse Rate 84 80 Respiratory Rate 16 Blood Pressure 121/65 125/80 Pulse Oximetry 97 Body Mass Index 31.0 Labs Results: 07/03/20 22:23 07/03/20 22:51 Labs: Laboratory Results - last 48 hr 07/08/20 07/08/20 07/09/20 07:42 07:42 08:16 Fasting Glucose 84 Estimat Average Glucose 97 Hemoglobin A1c % 5.0 Iron 52 TIBC 399 % Saturation 13 L Unsat Iron Binding 347 Ferritin 17 L Triglycerides 193 Cholesterol 213 LDL Cholesterol, Calc 139 HDL Cholesterol 36 Imaging Radiology Impressions: ITS Impressions Chest X-Ray 07/03/20 22:22 IMPRESSION: Unremarkable chest examination. Head CT 07/04/20 00:00 IMPRESSION: No evidence for acute intracranial injury. Automated exposure control (Care Dose) Adjustment of the mA and/or kv according to patient size (this includes techniques or standardized protocols for targeted exams where dose is matched to indication / reason for exam; i.e. extremities or head). Neck CTA 07/04/20 00:00 IMPRESSION: Normal CT angiogram of the neck. A preliminary interpretation was provided by the overnight Radiologist, Dr. Pozo, at 1:20 AM on 07/04/2020. Medications Medications Current Medications Generic Name Dose Route Start Last Admin Trade Name Freq PRN Reason Stop Dose Admin Acetaminophen 650 mg 07/06/20 18:58 07/07/20 16:08 Acetaminophen 325 Mg Tablet PO 650 mg Q6H PRN Administration Headache/Pain Mild Scale (1-3) Acetaminophen/Butalbital/Caffeine 1 tab 07/04/20 08:46 07/06/20 12:54 Butalb/Acetamin/Caff 50/325/40 Tablet PO 1 tab DAILY PRN Administration pain Al Hydroxide/Mg Hydroxide 30 ml 07/06/20 18:58 Magnesium Hydrox/Alum Hydrox 30 Ml Oral.Susp PO Q6H PRN Heartburn/Nausea Albuterol Sulfate 2 puff 07/04/20 08:46 07/06/20 06:43 Albuterol Sulfate 90 Mcg 8 Gm Inhaler INHALE 2 puff Q4H PRN Administration Shortness Of Breath Atorvastatin Calcium 40 mg 07/04/20 09:00 07/09/20 08:23 Atorvastatin Calcium 40 Mg Tablet PO 40 mg DAILY [place] Administration Bupropion HCl 300 mg 07/04/20 09:00 07/09/20 08:20 Bupropion Hcl Xl 300 Mg Tab.Er.24h PO 300 mg DAILY [place] Administration Divalproex Sodium 750 mg 07/09/20 21:00 Divalproex Sodium Er 250 Mg Tab.Er.24h PO BEDTIME [place] Fluoxetine HCl 20 mg 07/10/20 09:00 Fluoxetine Hcl Oral Solution 20 Mg/5 Ml Solution PO DAILY [place] Fluticasone/Vilanterol 1 puff 07/05/20 08:00 07/09/20 08:43 Fluticasone/Vilanterol 200/25 Blst.W.Dev INHALE 1 puff RDAILY [place] Administration Hydroxyzine HCl 25 mg 07/06/20 18:58 07/07/20 00:46 Hydroxyzine Hcl 25 Mg Tablet PO 25 mg BEDTIME PRN Administration Anxiety Lamotrigine 50 mg 07/04/20 09:00 07/09/20 08:23 Lamotrigine 25 Mg Tablet PO 50 mg BID [place] Administration Loperamide HCl 2 mg 07/04/20 08:46 07/08/20 09:50 Loperamide Hcl 2 Mg Capsule PO 2 mg QID PRN Administration Constipation Loperamide HCl 2 mg 07/09/20 06:30 07/09/20 06:07 Loperamide Hcl 2 Mg Capsule PO 2 mg DAILY@0630 [place] Administration Loratadine 10 mg 07/05/20 09:00 07/09/20 08:22 Loratadine 10 Mg Tablet PO 10 mg DAILY [place] Administration Magnesium Hydroxide 30 ml 07/06/20 18:58 Milk Of Magnesia 30 Ml Oral.Susp PO DAILY PRN Constipation Montelukast Sodium 10 mg 07/04/20 21:00 07/08/20 20:03 Montelukast Sodium 10 Mg Tablet PO 10 mg BEDTIME [place] Administration Omeprazole 20 mg 07/08/20 16:30 07/09/20 06:07 Omeprazole 20 Mg Capsule.Dr PO 20 mg BID@0630,1630 [place] Administration Prazosin HCl 1 mg 07/04/20 09:00 07/09/20 08:23 Prazosin Hcl 1 Mg Capsule PO 1 mg DAILY [place] Administration Protocol Prazosin HCl 2 mg 07/04/20 21:00 07/08/20 20:02 Prazosin Hcl 1 Mg Capsule PO 2 mg BEDTIME [place] Administration Protocol Quetiapine Fumarate 50 mg 07/06/20 09:24 07/06/20 19:59 Quetiapine Fumarate 50 Mg Tablet PO 50 mg TID PRN Administration anxiety, agitation,insomnia Quetiapine Fumarate 100 mg 07/09/20 13:30 Quetiapine Fumarate 100 Mg Tablet PO BEDTIME PRN Insomnia Trazodone HCl 50 mg 07/06/20 18:58 04/07/21 21:07 Trazodone Hcl 50 Mg Tablet PO 50 mg BEDTIME PRN Administration Insomnia Vitamin D 25 mcg 07/04/20 09:00 07/09/20 08:24 Cholecalciferol (Vitamin D3) 25 Mcg Tablet PO 25 mcg DAILY [place] Administration Allergies Allergies Allergy/AdvReac Type Severity Reaction Status Date / Time SEASONAL ALLERGIES Allergy Unknown ITCHY Uncoded 07/03/20 22:18 EYES/RUNNY NOSE Assessment & Plan Assessment & Plan (1) Diarrhea: Status: Acute Code(s): R19.7 - Diarrhea, unspecified Assessment and Plan: Stool cultures Protonix ordered (pt brought this in from home) (2) Post traumatic stress disorder (PTSD): Status: Acute Code(s): F43.10 - Post-traumatic stress disorder, unspecified Assessment and Plan: Milieu therapy Pt asks to be considered to return to [facility] upon discharge (3) Bipolar II disorder: Status: Acute Code(s): F31.81 - Bipolar II disorder Assessment and Plan: Discontinue Seroquel 100 mg hs, change to prn Increase Depakote to 750 mg ER hs Pt is improving, sleep is intact with Depakote for two consecutive nights now Family is working with DCF Pt denies SI, plan or intent-wanting to return to his family. Greater than 50% of the session was spent on counseling and/or coordination of care Patient educated on: medication risk/benefits and therapeutic strategies Informed Consent: understands and further education needed Reason for contiued inpatient stay Substantial Risk for: harm to self and rapid decompensation
[2020-07-09 18:00] VITALS: BP 148/94; PULSE 104; RESP 18; TEMP 36.6; O2SAT 96
[2020-07-09] MEDS: Acetaminophen 325 MG TABLET 650 MG PO (18:56)
[2020-07-09 21:19] VITALS: BP 155/99; PULSE 79
[2020-07-09] MEDS: Montelukast Sodium 10 MG TABLET PO (21:19)
[2020-07-09] MEDS: Divalproex Sodium ER 250 MG TAB.ER.24H 750 MG PO (21:19)
[2020-07-09] MEDS: Prazosin HCL 1 MG CAPSULE 2 MG PO (21:19)
[2020-07-09 23:20] VITALS: BP 92/56; PULSE 78; RESP 16; TEMP 35.6; O2SAT 98
--- NOTE | 2020-07-09 23:40 | PC.NURSE ---
23:03, pt. was standing in wood, talking to a peer while t/w was in medication room to pull requested prn for pt. a noise was heard, next pt. was on floor, on his back. Staff took a set of vital signs, performed a Juan check and took a poc (point of care). Pt was alert and oriented 3x and pt denied pain. Pt sat on fllor and denied any dizziness and was able to have a conversation with staff. Pt was able to ambulate on his own and walked to room. The hospitalist Mal Sanon was notified by phone about the incident. She came up to assess the pt at 23:46. Hospitalist suggested [place] vitals, Standing 150/69, pulse 99 and Sitting 160/85 Pulse 88
[2020-07-09 23:43] LABS: Glucose, Whole Blood 116 mg/dL (60-115)
--- NOTE | 2020-07-09 23:54 | PM.EVENT ---
Event Note Date of Service: 07/09/20 Event Note: was paged reg jean-paul. had a syncopal episode around 11:05 pm after receiving his dose of Prazosin. Pt reports feeling lightheaded just prior to falling. denies hitting his head. denies chest pain, SOB, no palpitations. It occured shortly after receiving prazosin for his HTN. he regained consciousness after few seconds. not postictal. Vitals shortly after fall recorded as O2 of 98%, BP of 92/56 and HR of 78. ( BP prior to taking meds was 155/99) Got orthostatic vitals -ve on sitting and standing. BP now 140-150/69-85 syncope most likely vasovagel as pt was standing and had drop in BP recommend reducing prason at bedtime, or avoiding prolonged standing when receiving meds will obtain BP in 1 hr
--- NOTE | 2020-07-10 00:50 | PC.NURSE ---
07/09/20@[id number] : Dr Mcguire on unit for evaluation of patient. Nursing cistern room working supervisor also on unit. Standing BP 150/69 HR 99 Sitting BP 140/[address] Mcguire aware of VS. Will repeat ortho VS in [address] Mcguire.
--- NOTE | 2020-07-10 02:10 | PC.NURSE ---
0100 BP 124/69 HR 79 (Lying), 131/83 HR 88 (Sitting), 137/78 HR 97(Standing) Pt does not remember how he fell.States he was repeating what another female pt told him. According to staff, pt suddenly fell backwards, hitting the back of his head on the floor. Pt has a raised area midway on the back of his head that pt states is not painful. No other injuries noted.This was reported to Dr Mcguire who ordered a head CT scan. Pt transported to radiology via w/c accompanied by nursing career technical supervisor at 0220.
[2020-07-10 06:00] VITALS: BP 140/78; PULSE 84; RESP 20; TEMP 37.1; O2SAT 95
[2020-07-10] MEDS: Loperamide HCl 2 MG CAPSULE PO ×2 (06:17→09:15)
[2020-07-10] MEDS: Fluticasone/Vilanterol 200/25 BLST.W.DEV 1 PUFF INHALE (08:16)
[2020-07-10] MEDS: FLUoxetine HCl Oral Solution 20 MG/5 ML SOLUTION PO (08:16)
[2020-07-10] MEDS: lamoTRIgine 25 MG TABLET 50 MG PO ×2 (08:16→20:38)
[2020-07-10] MEDS: Cholecalciferol (Vitamin D3) 25 MCG TABLET PO (08:17)
[2020-07-10] MEDS: Atorvastatin Calcium 40 MG TABLET PO (08:17)
[2020-07-10] MEDS: Loratadine 10 MG TABLET PO (08:17)
[2020-07-10] MEDS: buPROPion HCl XL 300 MG TAB.ER.24H PO (08:17)
[2020-07-10] MEDS: QUEtiapine Fumarate 50 MG TABLET PO (09:15)
--- NOTE | 2020-07-10 10:24 | HO.PSYCHPN ---
Subjective Subjective Date of Service: 07/10/20 Reason For Visit: Suicide Attempt Subjective Notes: Conditional Voluntary Interim History: Pt sleeping with Depakote. Discussed making Seroquel prn and titrating Depakote to 750 mg ER HS which he agreed. Reports feeling some improvement. Remorseful for attempt. Discussed precipitants-finances are a stress-family is taking advice from an uncle who is an development manager. Contact with Dr. Hernandez who will accept pt in out pt care when discharged for psychopharmacology. DCF working with the family. Today, pt denies SI, plan or intent. Feeling improved with getting sleep, mood depressed, anxious affect flat. Discussed feeling guilt for his precipitous attempt. Medication Compliance: Yes Side effects from medications: No Attending Groups: Intermittent Review of Systems Review of Systems All other systems are reviewed and are negative Constitutional: Reports as per HPI and Reports no additional constitutional complaints Eyes: Reports as per HPI and Reports no additional eye complaints Reports system reviewed and no additional complaints, except as documented Cardiovascular: Reports as per HPI and Reports no additional cardiovascular complaints Respiratory: Reports as per HPI and Reports no additional respiratory complaints Gastrointestinal: Reports as per HPI and Reports no additional gastrointestinal complaints Genitourinary: Reports no additional female genitourinary complaints Musculoskeletal: Reports no additional musculoskeletal complaints Skin/Breast: Reports system reviewed and no additional complaints, except as docu Psychiatric: Reports no additional psychiatric complaints Endocrine: Reports no additional endocrine complaints Hematologic/Lymphatic: Reports no additional hematologic/lymphatic complaints Allergic/Immunologic: Reports no additional allergic/immunologic complaints Reports system reviewed and no additional complaints, except as documented and Reports Abnormal speech present Yes all other systems are reviewed and are negative (denies) Constitutional: Reports fatigue, Reports poor appetite and Reports weight loss Eyes: Reports no additional eye complaints Reports as per HPI Cardiovascular: Reports lightheadedness Respiratory: Reports no additional respiratory complaints Gastrointestinal: Reports change in stool character and Reports diarrhea Genitourinary: Reports no additional male genitourinary complaints Musculoskeletal: Reports no additional musculoskeletal complaints Skin/Breast: Reports as per HPI Reports as per HPI Psychiatric: Reports abnormal sleep pattern, Reports anxiety, Reports change in appetite, Reports depression, Reports difficulty concentrating and Reports irritability Endocrine: Reports fatigue Hematologic/Lymphatic: Reports as per HPI Allergic/Immunologic: Reports as per HPI Mental Status Exam Mental Status Exam Patient Appearance: Well Grooomed and Fatigued Patient Orientation: Person, Place, Time and Situation Level of Consciousness: Awake and Alert Patient Behavior: Appropriate and Fatigued Mood Description: Depressed, Anxious, Flat and Sad Affect Description: Anxious, Flat and Sad Patient Cognition Impaired: No Ability to Follow Directions: Fair Speech Pattern: Appropriate Memory Description: Intact Hallucinations: None Delusions: Not Present Thought Process: Rumination Thought Content: positive for Intact Depressive Symptoms: Increased Anxiety, Diff. Making Decisions, Increased Irritability, Changes in Appetite, Significant Weight Loss, Feelings of Worthlessness and Feelings of Guilt Judgement: Fair Diagnostics Vital Signs (24Hr): Vital Signs - 24 hr 07/09/20 18:00 07/09/20 21:19 07/09/20 23:20 Temperature 97.8 F 96.1 F L Pulse Rate 104 H 79 78 Respiratory Rate 18 16 Blood Pressure 148/94 H 155/99 H 92/56 L Pulse Oximetry 96 98 07/10/20 06:00 Temperature 98.7 F Pulse Rate 84 Respiratory Rate 20 Blood Pressure 140/78 H Pulse Oximetry 95 Body Mass Index 31.0 Labs Results: 07/03/20 22:23 07/10/20 13:24 Labs: Laboratory Results - last 48 hr 07/09/20 07/09/20 08:16 23:39 POC Glucose 116 H Iron 52 TIBC 399 % Saturation 13 L Unsat Iron Binding 347 Ferritin 17 L Imaging Radiology Impressions: ITS Impressions Chest X-Ray 07/03/20 22:22 IMPRESSION: Unremarkable chest examination. Head CT 07/04/20 00:00 IMPRESSION: No evidence for acute intracranial injury. Automated exposure control (Care Dose) Adjustment of the mA and/or kv according to patient size (this includes techniques or standardized protocols for targeted exams where dose is matched to indication / reason for exam; i.e. extremities or head). Neck CTA 07/04/20 00:00 IMPRESSION: Normal CT angiogram of the neck. A preliminary interpretation was provided by the overnight Radiologist, Dr. Pozo, at 1:20 AM on 07/04/2020. Head CT 07/10/20 02:30 IMPRESSION: No acute intracranial pathology. Medications Medications Current Medications Generic Name Dose Route Start Last Admin Trade Name Freq PRN Reason Stop Dose Admin Acetaminophen 650 mg 07/06/20 18:58 07/09/20 18:56 Acetaminophen 325 Mg Tablet PO 650 mg Q6H PRN Administration Headache/Pain Mild Scale (1-3) Acetaminophen/Butalbital/Caffeine 1 tab 07/04/20 08:46 07/06/20 12:54 Butalb/Acetamin/Caff 50/325/40 Tablet PO 1 tab DAILY PRN Administration pain Al Hydroxide/Mg Hydroxide 30 ml 07/06/20 18:58 Magnesium Hydrox/Alum Hydrox 30 Ml Oral.Susp PO Q6H PRN Heartburn/Nausea Albuterol Sulfate 2 puff 07/04/20 08:46 07/06/20 06:43 Albuterol Sulfate 90 Mcg 8 Gm Inhaler INHALE 2 puff Q4H PRN Administration Shortness Of Breath Atorvastatin Calcium 40 mg 07/04/20 09:00 07/10/20 08:17 Atorvastatin Calcium 40 Mg Tablet PO 40 mg DAILY [place] Administration Bupropion HCl 300 mg 07/04/20 09:00 07/10/20 08:17 Bupropion Hcl Xl 300 Mg Tab.Er.24h PO 300 mg DAILY [place] Administration Divalproex Sodium 750 mg 07/09/20 21:00 07/09/20 21:19 Divalproex Sodium Er 250 Mg Tab.Er.24h PO 750 mg BEDTIME [place] Administration Fluoxetine HCl 20 mg 07/10/20 09:00 07/10/20 08:16 Fluoxetine Hcl Oral Solution 20 Mg/5 Ml Solution PO 20 mg DAILY [place] Administration Fluticasone/Vilanterol 1 puff 07/05/20 08:00 07/10/20 08:16 Fluticasone/Vilanterol 200/25 Blst.W.Dev INHALE 1 puff RDAILY [place] Administration Hydroxyzine HCl 25 mg 07/06/20 18:58 07/07/20 00:46 Hydroxyzine Hcl 25 Mg Tablet PO 25 mg BEDTIME PRN Administration Anxiety Lamotrigine 50 mg 07/04/20 09:00 07/10/20 08:16 Lamotrigine 25 Mg Tablet PO 50 mg BID [place] Administration Loperamide HCl 2 mg 07/04/20 08:46 07/10/20 09:15 Loperamide Hcl 2 Mg Capsule PO 2 mg QID PRN Administration Constipation Loperamide HCl 2 mg 07/09/20 06:30 07/10/20 06:17 Loperamide Hcl 2 Mg Capsule PO 2 mg DAILY@0630 [place] Administration Loratadine 10 mg 07/05/20 09:00 07/10/20 08:17 Loratadine 10 Mg Tablet PO 10 mg DAILY [place] Administration Magnesium Hydroxide 30 ml 07/06/20 18:58 Milk Of Magnesia 30 Ml Oral.Susp PO DAILY PRN Constipation Montelukast Sodium 10 mg 07/04/20 21:00 07/09/20 21:19 Montelukast Sodium 10 Mg Tablet PO 10 mg BEDTIME [place] Administration Prazosin HCl 1 mg 07/04/20 09:00 07/09/20 08:23 Prazosin Hcl 1 Mg Capsule PO 1 mg DAILY [place] Administration Protocol Prazosin HCl 2 mg 07/04/20 21:00 07/09/20 21:19 Prazosin Hcl 1 Mg Capsule PO 2 mg BEDTIME [place] Administration Protocol Quetiapine Fumarate 50 mg 07/06/20 09:24 07/10/20 09:15 Quetiapine Fumarate 50 Mg Tablet PO 50 mg TID PRN Administration anxiety, agitation,insomnia Quetiapine Fumarate 100 mg 07/09/20 13:30 Quetiapine Fumarate 100 Mg Tablet PO BEDTIME PRN Insomnia Trazodone HCl 50 mg 07/06/20 18:58 07/07/20 21:07 Trazodone Hcl 50 Mg Tablet PO 50 mg BEDTIME PRN Administration Insomnia Vitamin D 25 mcg 07/04/20 09:00 07/10/20 08:17 Cholecalciferol (Vitamin D3) 25 Mcg Tablet PO 25 mcg DAILY [place] Administration Allergies Allergies Allergy/AdvReac Type Severity Reaction Status Date / Time SEASONAL ALLERGIES Allergy Unknown ITCHY Uncoded 07/03/20 22:18 EYES/RUNNY NOSE Assessment & Plan Assessment & Plan (1) Diarrhea: Status: Acute Code(s): R19.7 - Diarrhea, unspecified Assessment and Plan: Stool cultures Protonix ordered (pt brought this in from home) (2) Post traumatic stress disorder (PTSD): Status: Acute Code(s): F43.10 - Post-traumatic stress disorder, unspecified Assessment and Plan: Milieu therapy Pt asks to be considered to return to [facility] upon discharge (3) Bipolar II disorder: Status: Acute Code(s): F31.81 - Bipolar II disorder Assessment and Plan: Discontinue Seroquel 100 mg hs, change to prn Increase Depakote to 750 mg ER hs Pt is improving, sleep is intact with Depakote for two consecutive nights now Family is working with [facility] Pt denies SI, plan or intent-wanting to return to his family. discussed transfer of care to Dr Hernandez outpatient- processed with patient - pt expresses understanding and acceptance of plan (4) Benzodiazepine withdrawal: Status: Acute Code(s): F13.239 - Sedative, hypnotic or anxiolytic dependence with withdrawal, unspecified Assessment and Plan: possible benzodiazepine WD, elevated BP and HR intermittently. on 3- 4 mg QD prior to admit and pt may have been taking more than prescribed Tox screen negative upon admit to ED. Plan: Vitals Q4 hours WA ativan 1, g now ativan 0.5 mg q 4 hours prn Greater than 50% of the session was spent on counseling and/or coordination of care Reason for contiued inpatient stay Substantial Risk for: harm to self, inability to function and rapid decompensation
--- NOTE | 2020-07-10 11:35 | PC.NURSE ---
Fox signed a Three Day Notice on 07/10/20.
[2020-07-10 12:30] VITALS: BP 158/98; PULSE 91; RESP 18
[2020-07-10] MEDS: LORazepam 1 MG TABLET PO (12:39)
[2020-07-10 14:09] LABS: Alanine Aminotransferase 20 U/L (0-40); Albumin Level 4.5 g/dL (3.5-5.0); Alkaline Phosphatase 105 U/L (39-117); Anion Gap 13 (12-20); Aspartate Amino Transferase 18 U/L (5-37); Bilirubin Total 0.4 mg/dL (0.0-1.0); Blood Urea Nitrogen 16 mg/dL (9-16); Calcium 9.4 mg/dL (8.4-10.2); Carbon Dioxide 26 mmol/L (22-29); Chloride 105 mmol/L (96-108); Creatinine Clr Calc Pharmacy 73.1; Estimated Glomerular Filt Rate > 60; Glucose Random 113 mg/dL (60-115); Potassium 4.3 mmol/L (3.3-5.1); Sodium 140 mmol/L (135-145); Total Protein 7.4 g/dL (6.5-8.0)
[2020-07-10 16:00] VITALS: BP 154/91; PULSE 85; RESP 18; TEMP 36.5; O2SAT 97
[2020-07-10 20:00] VITALS: BP 152/90; PULSE 81
[2020-07-10] MEDS: Divalproex Sodium ER 250 MG TAB.ER.24H 750 MG PO (20:38)
[2020-07-10] MEDS: Montelukast Sodium 10 MG TABLET PO (20:38)
[2020-07-10 20:43] VITALS: BP 152/90; PULSE 81
[2020-07-10] MEDS: Prazosin HCL 1 MG CAPSULE 2 MG PO (20:43)
[2020-07-10] MEDS: QUEtiapine Fumarate 100 MG TABLET PO (20:50)
[2020-07-10] MEDS: LORazepam 0.5 MG TABLET PO (20:50)
[2020-07-10] MEDS: hydrOXYzine HCL 25 MG TABLET PO (20:50)
[2020-07-10] MEDS: traZODone HCL 25 MG HALFTAB PO (20:50)
[2020-07-11] MEDS: Loperamide HCl 2 MG CAPSULE PO (06:31)
[2020-07-11 06:52] VITALS: BP 136/80; PULSE 105; TEMP 36.8; O2SAT 98
[2020-07-11] MEDS: Fluticasone/Vilanterol 200/25 BLST.W.DEV 1 PUFF INHALE (08:16)
[2020-07-11] MEDS: Atorvastatin Calcium 40 MG TABLET PO (08:17)
[2020-07-11] MEDS: Loratadine 10 MG TABLET PO (08:17)
[2020-07-11] MEDS: lamoTRIgine 25 MG TABLET 50 MG PO ×2 (08:17→21:00)
[2020-07-11] MEDS: buPROPion HCl XL 300 MG TAB.ER.24H PO (08:17)
[2020-07-11] MEDS: Cholecalciferol (Vitamin D3) 25 MCG TABLET PO (08:17)
[2020-07-11] MEDS: FLUoxetine HCl Oral Solution 20 MG/5 ML SOLUTION PO (08:30)
[2020-07-11] MEDS: Butalb/Acetamin/Caff 50/325/40 TABLET 1 TAB PO (11:54)
[2020-07-11 12:00] VITALS: BP 143/92; PULSE 68; RESP 14
[2020-07-11 16:00] VITALS: BP 144/96; PULSE 83; RESP 18; TEMP 37.1; O2SAT 98
--- NOTE | 2020-07-11 16:05 | P.PNPSI_ITS ---
Subjective Subjective Date of Service: 07/11/20 Reason For Visit: Suicide Attempt Interim History: Pt reports mood is improved. He states he feels better physically as well. No diarhea today. Sleeping better and through the night with Depakote. He has not had any further dizziness or falls. TW spoke to to give her update as she had called/texted admin several times worried about pt. TW let her know thatCT scan good, blood work, vitals stable. Pt and TW discussed transfer of care and pt accepting of change Review of Systems Review of Systems All other systems are reviewed and are negative Constitutional: Reports as per HPI and Reports no additional constitutional complaints Eyes: Reports as per HPI and Reports no additional eye complaints Reports system reviewed and no additional complaints, except as documented Cardiovascular: Reports as per HPI and Reports no additional cardiovascular complaints Respiratory: Reports as per HPI and Reports no additional respiratory complaints Gastrointestinal: Reports as per HPI and Reports no additional gastrointestinal complaints Genitourinary: Reports no additional female genitourinary complaints Musculoskeletal: Reports no additional musculoskeletal complaints Skin/Breast: Reports system reviewed and no additional complaints, except as docu Psychiatric: Reports no additional psychiatric complaints Endocrine: Reports no additional endocrine complaints Hematologic/Lymphatic: Reports no additional hematologic/lymphatic complaints Allergic/Immunologic: Reports no additional allergic/immunologic complaints Reports system reviewed and no additional complaints, except as documented and Reports Abnormal speech present Yes all other systems are reviewed and are negative (denies) Constitutional: Reports fatigue and Reports weight loss Eyes: Reports no additional eye complaints Reports as per HPI Respiratory: Reports no additional respiratory complaints and Reports other (asthma, seasonal allergies) Gastrointestinal: Reports change in stool character, Reports diarrhea and Reports other (IBS, Reflux) Genitourinary: Reports no additional male genitourinary complaints Musculoskeletal: Reports no additional musculoskeletal complaints and Reports back pain (surgery cancelled 07/09/20. Will reschedule) Skin/Breast: Reports as per HPI Reports as per HPI and Reports behavioral changes Psychiatric: Reports abnormal sleep pattern, Reports anxiety, Reports behavioral changes, Reports change in appetite, Reports depression, Reports difficulty concentrating, Reports hopelessness, Reports irritability, Reports anhedonia, Reports mood swings and Reports suicidal ideation (denies SI plan or intent) Endocrine: Reports fatigue Hematologic/Lymphatic: Reports as per HPI and Reports other (anemia) Allergic/Immunologic: Reports as per HPI Mental Status Exam Mental Status Exam Patient Appearance: Well Grooomed and Fatigued Patient Orientation: Person, Place, Time and Situation Level of Consciousness: Awake and Alert Patient Behavior: Appropriate and Fatigued Mood Description: Depressed, Anxious and Sad Affect Description: Anxious and Sad Patient Cognition Impaired: No Ability to Follow Directions: Good Speech Pattern: Appropriate Memory Description: Intact Hallucinations: None Delusions: Not Present Thought Process: Rumination Depressive Symptoms: Increased Anxiety, Insomnia, Diff. Making Decisions, Muscle Tension, Increased Irritability, Difficulty Sleeping and Changes in Appetite Judgement: Fair Diagnostics Vital Signs (24Hr): Vital Signs - 24 hr 07/10/20 20:00 07/10/20 20:43 07/11/20 06:52 Temperature 98.2 F Pulse Rate 81 81 105 H Respiratory Rate Blood Pressure 152/90 H 152/90 H 136/80 Pulse Oximetry 98 07/11/20 12:00 Temperature Pulse Rate 68 Respiratory Rate 14 Blood Pressure 143/92 H Pulse Oximetry Body Mass Index 31.0 Labs Results: 07/03/20 22:23 07/10/20 13:24 Labs: Laboratory Results - last 48 hr 07/09/20 07/10/20 23:39 13:24 Sodium 140 Potassium 4.3 Chloride 105 Carbon Dioxide 26 Anion Gap 13 BUN 16 Creatinine 1.29 Estim Creat Clear Calc 73.1 Estimated GFR > 60 POC Glucose 116 H Random Glucose 113 Calcium 9.4 D Total Bilirubin 0.4 AST 18 ALT 20 Alkaline Phosphatase 105 Total Protein 7.4 Albumin 4.5 Imaging Radiology Impressions: ITS Impressions Chest X-Ray 07/03/20 22:22 IMPRESSION: Unremarkable chest examination. Head CT 07/04/20 00:00 IMPRESSION: No evidence for acute intracranial injury. Automated exposure control (Care Dose) Adjustment of the mA and/or kv according to patient size (this includes techniques or standardized protocols for targeted exams where dose is matched to indication / reason for exam; i.e. extremities or head). Neck CTA 07/04/20 00:00 IMPRESSION: Normal CT angiogram of the neck. A preliminary interpretation was provided by the overnight Radiologist, Dr. Pozo, at 1:20 AM on 07/04/2020. Head CT 07/10/20 02:30 IMPRESSION: No acute intracranial pathology. Medications Medications Current Medications Generic Name Dose Route Start Last Admin Trade Name Freq PRN Reason Stop Dose Admin Acetaminophen 650 mg 07/06/20 18:58 07/09/20 18:56 Acetaminophen 325 Mg Tablet PO 650 mg Q6H PRN Administration Headache/Pain Mild Scale (1-3) Acetaminophen/Butalbital/Caffeine 1 tab 07/04/20 08:46 07/11/20 11:54 Butalb/Acetamin/Caff 50/325/40 Tablet PO 1 tab DAILY PRN Administration pain Al Hydroxide/Mg Hydroxide 30 ml 07/06/20 18:58 Magnesium Hydrox/Alum Hydrox 30 Ml Oral.Susp PO Q6H PRN Heartburn/Nausea Albuterol Sulfate 2 puff 07/04/20 08:46 07/06/20 06:43 Albuterol Sulfate 90 Mcg 8 Gm Inhaler INHALE 2 puff Q4H PRN Administration Shortness Of Breath Atorvastatin Calcium 40 mg 07/04/20 09:00 07/11/20 08:17 Atorvastatin Calcium 40 Mg Tablet PO 40 mg DAILY [place] Administration Bupropion HCl 300 mg 07/04/20 09:00 07/11/20 08:17 Bupropion Hcl Xl 300 Mg Tab.Er.24h PO 300 mg DAILY [place] Administration Divalproex Sodium 750 mg 07/09/20 21:00 07/10/20 20:38 Divalproex Sodium Er 250 Mg Tab.Er.24h PO 750 mg BEDTIME [place] Administration Fluoxetine HCl 20 mg 07/10/20 09:00 07/11/20 08:30 Fluoxetine Hcl Oral Solution 20 Mg/5 Ml Solution PO 20 mg DAILY [place] Administration Fluticasone/Vilanterol 1 puff 07/05/20 08:00 07/11/20 08:16 Fluticasone/Vilanterol 200/25 Blst.W.Dev INHALE 1 puff RDAILY [place] Administration Hydroxyzine HCl 25 mg 07/06/20 18:58 07/10/20 20:50 Hydroxyzine Hcl 25 Mg Tablet PO 25 mg BEDTIME PRN Administration Anxiety Lamotrigine 50 mg 07/04/20 09:00 07/11/20 08:17 Lamotrigine 25 Mg Tablet PO 50 mg BID [place] Administration Loperamide HCl 2 mg 07/04/20 08:46 07/10/20 09:15 Loperamide Hcl 2 Mg Capsule PO 2 mg QID PRN Administration Constipation Loperamide HCl 2 mg 07/09/20 06:30 07/11/20 06:31 Loperamide Hcl 2 Mg Capsule PO 2 mg DAILY@0630 [place] Administration Loratadine 10 mg 07/05/20 09:00 07/11/20 08:17 Loratadine 10 Mg Tablet PO 10 mg DAILY [place] Administration Lorazepam 0.5 mg 07/10/20 12:29 07/10/20 20:50 Lorazepam 0.5 Mg Tablet PO 0.5 mg Q4H PRN Administration anxiety/restlessness Magnesium Hydroxide 30 ml 07/06/20 18:58 Milk Of Magnesia 30 Ml Oral.Susp PO DAILY PRN Constipation Montelukast Sodium 10 mg 07/04/20 21:00 07/10/20 20:38 Montelukast Sodium 10 Mg Tablet PO 10 mg BEDTIME [place] Administration Patient Own 1 each 07/11/20 06:30 07/11/20 08:16 Medication ( PO 1 each Pantoprazole 40 Mg) DAILY@0630 [place] Administration Prazosin HCl 2 mg 07/04/20 21:00 07/10/20 20:43 Prazosin Hcl 1 Mg Capsule PO 2 mg BEDTIME [place] Administration Protocol Quetiapine Fumarate 50 mg 07/06/20 09:24 07/10/20 09:15 Quetiapine Fumarate 50 Mg Tablet PO 50 mg TID PRN Administration anxiety, agitation,insomnia Quetiapine Fumarate 100 mg 07/09/20 13:30 07/10/20 20:50 Quetiapine Fumarate 100 Mg Tablet PO 100 mg BEDTIME PRN Administration Insomnia Trazodone HCl 25 mg 07/10/20 15:43 07/10/20 20:50 Trazodone Hcl 25 Mg Halftab PO 25 mg BEDTIME PRN Administration Insomnia Vitamin D 25 mcg 07/04/20 09:00 07/11/20 08:17 Cholecalciferol (Vitamin D3) 25 Mcg Tablet PO 25 mcg DAILY [place] Administration Allergies Allergies Allergy/AdvReac Type Severity Reaction Status Date / Time SEASONAL ALLERGIES Allergy Unknown ITCHY Uncoded 07/03/20 22:18 EYES/RUNNY NOSE Assessment & Plan Assessment & Plan (1) Diarrhea: Status: Acute Code(s): R19.7 - Diarrhea, unspecified Assessment and Plan: Stool cultures Protonix ordered (pt brought this in from home) (2) Post traumatic stress disorder (PTSD): Status: Acute Code(s): F43.10 - Post-traumatic stress disorder, unspecified Assessment and Plan: Milieu therapy Pt asks to be considered to return to [facility] upon discharge (3) Bipolar II disorder: Status: Acute Code(s): F31.81 - Bipolar II disorder Assessment and Plan: started on ativan 0.5 mg Q4 prn anxiety, withdrawal symptoms Continue Depakote to 750 mg ER hs d/c am prazosin as pt refusing Pt is improving, sleep is intact with Depakote Family is working with DCF Pt denies SI, plan or intent-wanting to return to his family. telephone contact with -Release on file discussed transfer of care to Dr Hernandez outpatient- processed with patient - pt expresses understanding and acceptance of plan (4) Benzodiazepine withdrawal: Status: Acute Code(s): F13.239 - Sedative, hypnotic or anxiolytic dependence with withdrawal, unsp ecified Assessment and Plan: possible benzodiazepine WD, elevated BP and HR intermittently. on 3- 4 mg QD prior to admit and pt may have been taking more than prescribed Tox screen negative upon admit to ED. Plan: Vitals Q4 hours WA ativan 1, g now ativan 0.5 mg q 4 hours prn Greater than 50% of the session was spent on counseling and/or coordination of care Reason for contiued inpatient stay Substantial Risk for: harm to self, inability to function, rapid decompensation and med/psych decompensation
[2020-07-11 20:00] VITALS: BP 143/92; PULSE 75; RESP 18
[2020-07-11] MEDS: Divalproex Sodium ER 250 MG TAB.ER.24H 750 MG PO (20:59)
[2020-07-11] MEDS: traZODone HCL 25 MG HALFTAB PO (20:59)
[2020-07-11] MEDS: LORazepam 0.5 MG TABLET PO (20:59)
[2020-07-11] MEDS: Montelukast Sodium 10 MG TABLET PO (20:59)
[2020-07-11] MEDS: QUEtiapine Fumarate 100 MG TABLET PO (20:59)
[2020-07-11 21:00] VITALS: BP 143/92; PULSE 75
[2020-07-11] MEDS: Prazosin HCL 1 MG CAPSULE 2 MG PO (21:00)
[2020-07-12] VITALS (8 sets, daily range): BP systolic 134–149; BP diastolic 75–91; PULSE 77–110; RESP 16–18; TEMP 36.6–36.7; O2SAT 97–98
[2020-07-12] MEDS: Loperamide HCl 2 MG CAPSULE PO (07:08)
[2020-07-12] MEDS: Atorvastatin Calcium 40 MG TABLET PO (08:54)
[2020-07-12] MEDS: FLUoxetine HCl Oral Solution 20 MG/5 ML SOLUTION PO (08:54)
[2020-07-12] MEDS: lamoTRIgine 25 MG TABLET 50 MG PO (08:54)
[2020-07-12] MEDS: buPROPion HCl XL 300 MG TAB.ER.24H PO (08:55)
[2020-07-12] MEDS: Cholecalciferol (Vitamin D3) 25 MCG TABLET PO (08:55)
[2020-07-12] MEDS: Loratadine 10 MG TABLET PO (08:55)
[2020-07-12] MEDS: Fluticasone/Vilanterol 200/25 BLST.W.DEV 1 PUFF INHALE (09:05)
--- NOTE | 2020-07-12 15:54 | HO.PSYCHPN ---
Subjective Subjective Date of Service: 07/12/20 Reason For Visit: Suicide Attempt Subjective Notes: 3 Day (07/14/20) Interim History: Reports vasovagal episode on 07/09 2304. Diagnostics negative, (head CT), Prazosin held. Will be monitoring for orthostasis. Three day notice signed on 07/10/20 to on 07/14/20. Pt discussed this today-wanting to get home to his family and children. Reports he now realizes the value he holds in the family and is anxious to return to participate in his life and as a , father, family member. Requests consideration for partial hospital program return as well. Message left for Dr. Hernandez to discuss out patient appointment. Pt is alert, oriented, denies SI plan or intent-feeling much remorse regarding his attempt, however, states he was not aware of the value he held in his family. Discussed vasovagal episode and reviewed diagnostics-pt believes that secondary to the diarrhea he had been having he was not as attentive to po fluid intake as he was at home-he believes he was dehydrated. Also reports he has not been using antihypertensive med at home-and believes he does not need this-will monitor. Review of Systems Review of Systems Yes all other systems are reviewed and are negative (denies) Psychiatric: Reports abnormal sleep pattern (improved per pt report- it makes a lot of difference .) and Reports other (denies current sx) Mental Status Exam Mental Status Exam Patient Appearance: Appropriate Patient Orientation: Person, Place, Time and Situation Level of Consciousness: Alert Patient Behavior: Appropriate, Talkative, Cooperative and Good Eye Contact Mood Description: Anxious and Apprehensive Affect Description: Flat Patient Cognition Impaired: No Ability to Follow Directions: Good Speech Pattern: Clear, Appropriate and Spontaneous Speech Memory Description: Intact and Episodic Impaired Hallucinations: None Delusions: Not Present Thought Content: positive for Intact, positive for [place] and positive for Circumstantial Depressive Symptoms: Increased Anxiety, Difficulty Sleeping (improved), Feelings of Guilt and Thoughts of /Suicide (denies SI plan or intent) Judgement: Good Diagnostics Vital Signs (24Hr): Vital Signs - 24 hr 07/11/20 16:00 07/11/20 20:00 07/11/20 21:00 Temperature 98.8 F Pulse Rate 83 75 75 Respiratory Rate 18 18 Blood Pressure 144/96 H 143/92 H 143/92 H Pulse Oximetry 98 07/12/20 00:00 07/12/20 04:00 07/12/20 06:05 Temperature 98.1 F Pulse Rate 86 Respiratory Rate 16 16 18 Blood Pressure 140/75 H Pulse Oximetry 97 07/12/20 12:00 07/12/20 14:26 Temperature Pulse Rate 98 110 H Respiratory Rate Blood Pressure 137/78 141/81 H Pulse Oximetry Body Mass Index 31.0 Labs Results: 07/03/20 22:23 07/10/20 13:24 Imaging Radiology Impressions: ITS Impressions Chest X-Ray 07/03/20 22:22 IMPRESSION: Unremarkable chest examination. Head CT 07/04/20 00:00 IMPRESSION: No evidence for acute intracranial injury. Automated exposure control (Care Dose) Adjustment of the mA and/or kv according to patient size (this includes techniques or standardized protocols for targeted exams where dose is matched to indication / reason for exam; i.e. extremities or head). Neck CTA 07/04/20 00:00 IMPRESSION: Normal CT angiogram of the neck. A preliminary interpretation was provided by the overnight Radiologist, Dr. Pozo, at 1:20 AM on 07/04/2020. Head CT 07/10/20 02:30 IMPRESSION: No acute intracranial pathology. Medications Medications Current Medications Generic Name Dose Route Start Last Admin Trade Name Freq PRN Reason Stop Dose Admin Acetaminophen 650 mg 07/06/20 18:58 07/09/20 18:56 Acetaminophen 325 Mg Tablet PO 650 mg Q6H PRN Administration Headache/Pain Mild Scale (1-3) Acetaminophen/Butalbital/Caffeine 1 tab 07/04/20 08:46 07/11/20 11:54 Butalb/Acetamin/Caff 50/325/40 Tablet PO 1 tab DAILY PRN Administration pain Al Hydroxide/Mg Hydroxide 30 ml 07/06/20 18:58 Magnesium Hydrox/Alum Hydrox 30 Ml Oral.Susp PO Q6H PRN Heartburn/Nausea Albuterol Sulfate 2 puff 07/04/20 08:46 07/06/20 06:43 Albuterol Sulfate 90 Mcg 8 Gm Inhaler INHALE 2 puff Q4H PRN Administration Shortness Of Breath Atorvastatin Calcium 40 mg 07/04/20 09:00 07/12/20 08:54 Atorvastatin Calcium 40 Mg Tablet PO 40 mg DAILY [place] Administration Bupropion HCl 300 mg 07/04/20 09:00 07/12/20 08:55 Bupropion Hcl Xl 300 Mg Tab.Er.24h PO 300 mg DAILY [place] Administration Divalproex Sodium 750 mg 07/09/20 21:00 07/11/20 20:59 Divalproex Sodium Er 250 Mg Tab.Er.24h PO 750 mg BEDTIME [place] Administration Fluoxetine HCl 20 mg 07/10/20 09:00 07/12/20 08:54 Fluoxetine Hcl Oral Solution 20 Mg/5 Ml Solution PO 20 mg DAILY [place] Administration Fluticasone/Vilanterol 1 puff 07/05/20 08:00 07/12/20 09:05 Fluticasone/Vilanterol 200/25 Blst.W.Dev INHALE 1 puff RDAILY [place] Administration Hydroxyzine HCl 25 mg 07/06/20 18:58 07/10/20 20:50 Hydroxyzine Hcl 25 Mg Tablet PO 25 mg BEDTIME PRN Administration Anxiety Lamotrigine 50 mg 07/04/20 09:00 07/12/20 08:54 Lamotrigine 25 Mg Tablet PO 50 mg BID [place] Administration Loperamide HCl 2 mg 07/04/20 08:46 07/10/20 09:15 Loperamide Hcl 2 Mg Capsule PO 2 mg QID PRN Administration Constipation Loperamide HCl 2 mg 07/09/20 06:30 07/12/20 07:08 Loperamide Hcl 2 Mg Capsule PO 2 mg DAILY@0630 [place] Administration Loratadine 10 mg 07/05/20 09:00 07/12/20 08:55 Loratadine 10 Mg Tablet PO 10 mg DAILY [place] Administration Lorazepam 0.5 mg 07/10/20 12:29 07/11/20 20:59 Lorazepam 0.5 Mg Tablet PO 0.5 mg Q4H PRN Administration anxiety/restlessness Magnesium Hydroxide 30 ml 07/06/20 18:58 Milk Of Magnesia 30 Ml Oral.Susp PO DAILY PRN Constipation Montelukast Sodium 10 mg 07/04/20 21:00 07/11/20 20:59 Montelukast Sodium 10 Mg Tablet PO 10 mg BEDTIME [place] Administration Patient Own 1 each 07/11/20 06:30 07/12/20 07:08 Medication ( PO 1 each Pantoprazole 40 Mg) DAILY@0630 [place] Administration Prazosin HCl 2 mg 07/04/20 21:00 07/11/20 21:00 Prazosin Hcl 1 Mg Capsule PO 2 mg BEDTIME [place] Administration Protocol Quetiapine Fumarate 50 mg 07/06/20 09:24 07/10/20 09:15 Quetiapine Fumarate 50 Mg Tablet PO 50 mg TID PRN Administration anxiety, agitation,insomnia Quetiapine Fumarate 100 mg 07/09/20 13:30 07/11/20 20:59 Quetiapine Fumarate 100 Mg Tablet PO 100 mg BEDTIME PRN Administration Insomnia Trazodone HCl 25 mg 07/10/20 15:43 07/11/20 20:59 Trazodone Hcl 25 Mg Halftab PO 25 mg BEDTIME PRN Administration Insomnia Vitamin D 25 mcg 07/04/20 09:00 07/12/20 08:55 Cholecalciferol (Vitamin D3) 25 Mcg Tablet PO 25 mcg DAILY [place] Administration Allergies Allergies Allergy/AdvReac Type Severity Reaction Status Date / Time SEASONAL ALLERGIES Allergy Unknown ITCHY Uncoded 07/03/20 22:18 EYES/RUNNY NOSE Assessment & Plan Assessment & Plan (1) Bipolar II disorder: Status: Acute Code(s): F31.81 - Bipolar II disorder Assessment and Plan: Pt has signed a three day notice, wanting to go home, wanting to reunite with his family and wanting to attend [facility]. Out patient appointments pending. Improving Labs-CBCD, Valproate, TSH, B12, Folate (2) Post traumatic stress disorder (PTSD): Status: Acute Code(s): F43.10 - Post-traumatic stress disorder, unspecified (3) Chronic renal insufficiency: Status: Acute Code(s): N18.9 - Chronic kidney disease, unspecified Assessment and Plan: Decrease Lamictal to 25 mg bid (4) Benzodiazepine withdrawal: Status: Acute Code(s): F13.239 - Sedative, hypnotic or anxiolytic dependence with withdrawal, unspecified Assessment and Plan: VS Range 137/144/75-96 Pulse 75-110. Pt does not believe he is in withdrawal. Vasovagal sx over the weekend with fainting episode 07/09 2304. Will decrease Prazosin to 1 mg hs and monitor Greater than 50% of the session was spent on counseling and/or coordination of care Patient educated on: medication risk/benefits and therapeutic strategies Informed Consent: understands and further education needed Reason for contiued inpatient stay Substantial Risk for: harm to self, inability to function, rapid decompensation and med/psych decompensation
[2020-07-12] MEDS: Montelukast Sodium 10 MG TABLET PO (20:59)
[2020-07-12] MEDS: lamoTRIgine 25 MG TABLET PO (21:00)
[2020-07-12] MEDS: LORazepam 0.5 MG TABLET PO (21:00)
[2020-07-12] MEDS: Prazosin HCL 1 MG CAPSULE PO (21:00)
[2020-07-12] MEDS: hydrOXYzine HCL 25 MG TABLET PO (21:00)
[2020-07-12] MEDS: Divalproex Sodium ER 250 MG TAB.ER.24H 750 MG PO (21:00)
[2020-07-12] MEDS: QUEtiapine Fumarate 100 MG TABLET PO (21:00)
[2020-07-12] MEDS: traZODone HCL 25 MG HALFTAB PO (21:00)
[2020-07-13] VITALS (9 sets, daily range): BP systolic 125–136; BP diastolic 72–89; PULSE 81–106; RESP 14–18; TEMP 36.6–36.9; O2SAT 97
[2020-07-13] MEDS: Loperamide HCl 2 MG CAPSULE PO (06:18)
[2020-07-13] MEDS: lamoTRIgine 25 MG TABLET PO ×2 (08:22→20:43)
[2020-07-13] MEDS: buPROPion HCl XL 300 MG TAB.ER.24H PO (08:22)
[2020-07-13] MEDS: Loratadine 10 MG TABLET PO (08:22)
[2020-07-13] MEDS: FLUoxetine HCl Oral Solution 20 MG/5 ML SOLUTION PO (08:22)
[2020-07-13] MEDS: Atorvastatin Calcium 40 MG TABLET PO (08:22)
[2020-07-13] MEDS: Cholecalciferol (Vitamin D3) 25 MCG TABLET PO (08:22)
[2020-07-13] MEDS: Fluticasone/Vilanterol 200/25 BLST.W.DEV 1 PUFF INHALE (08:22)
[2020-07-13 08:34] LABS: MANUAL DIFF FLAG NO
[2020-07-13 08:43] LABS: Basophils Percent Auto 0.4 % (0-2); Eosinophils Absolute Auto 0.2 X10*3/uL (0.0-0.4); Eosinophils Percent Auto 3.5 % (0-4); Hematocrit 41.5 % (42-52); Hemoglobin 12.8 g/dl (14.0-18.0); Imm Gran Abs Auto 0.03 X10*3/uL (0.00-0.03); Imm Gran Pct Auto 0.6 % (0.0-0.4); Lymphocytes Absolute Auto 1.3 X10*3/uL (1.2-4.9); Lymphocytes Percent Auto 25.5 % (20-40); Mean Corpuscular HGB Conc 30.8 g/dl (31.0-36.0); Mean Corpuscular Hemoglobin 23.8 pg (27.0-33.0); Mean Corpuscular Volume 77.3 fL (80-98); Mean Platelet Volume 9.5 fL (9.4-12.4); Monocytes Absolute Auto 0.6 X10*3/uL (0.1-1.2); Monocytes Percent Auto 10.6 % (2-11); Neutrophils Absolute Auto 3.1 X10*3/uL (2.0-8.3); Neutrophils Percent Auto 59.4 % (45-73); Platelet Count 268 X10*3/uL (160-400); Red Blood Count 5.37 X10*6/uL (4.60-5.80); Red Cell Distribution Width 15.6 % (11.0-16.0); White Blood Count 5.2 X10*3/uL (4.8-10.8)
[2020-07-13 09:19] LABS: Valproate 48.3 mcg/mL (50.0-100.0)
[2020-07-13 09:27] LABS: Thyroid Stimulating Hormone 0.42 uIU/mL (0.32-4.0)
[2020-07-13 10:10] LABS: Folate 10.6 ng/mL (> or = 4.0); Vitamin B12 1065 pg/mL (200-900)
--- NOTE | 2020-07-13 16:30 | HO.PSYCHPN ---
Subjective Subjective Date of Service: 07/13/20 Reason For Visit: Suicide Attempt Subjective Notes: 3 Day (07/14/20) Interim History: Preparing for discharge. Three day notice expires 07/14. Wanting to be at home with his family. Will attend partial hospital program. Case review with Dr. Hernandez who will accept pt for out-pt psychopharmacology. Message left to schedule appt at [phone]. Aleida Manning [facility] will accept pt for psychotherapy. Pt visiting with today-will plan a discharge meeting for 07/14 12:30pm to review. Pt reports he is able to sleep. Reports no SI, plan or intent, no vertigo. Overall reports feeling improved. BP with systolic HTN and elevated pulse. Labs indicated some improvement with anemia, will ask hematology to meet with pt, Ruth 48.3 Medication Compliance: Yes Side effects from medications: No Attending Groups: Yes Review of Systems Review of Systems Yes all other systems are reviewed and are negative Gastrointestinal: Reports diarrhea (IBS sx.) Psychiatric: Reports anxiety Mental Status Exam Mental Status Exam Patient Orientation: Person, Place, Time and Situation Level of Consciousness: Alert Patient Behavior: Appropriate, Talkative and Good Eye Contact Mood Description: Anxious Affect Description: Constricted Patient Cognition Impaired: No Ability to Follow Directions: Good Speech Pattern: Spontaneous Speech Memory Description: Episodic Impaired Hallucinations: None Delusions: Not Present Thought Process: Intact Thought Content: positive for Intact Depressive Symptoms: Increased Anxiety Judgement: Good Diagnostics Vital Signs (24Hr): Vital Signs - 24 hr 07/12/20 20:00 07/12/20 21:00 07/13/20 06:10 Temperature 98.0 F 97.8 F Pulse Rate 82 82 89 Respiratory Rate 18 16 Blood Pressure 149/91 H 149/91 H 129/73 Pulse Oximetry 98 97 07/13/20 08:00 07/13/20 08:35 07/13/20 08:36 Temperature Pulse Rate 85 91 98 Respiratory Rate Blood Pressure 128/77 126/81 133/85 Pulse Oximetry 07/13/20 12:00 07/13/20 14:37 Temperature Pulse Rate 104 H 106 H Respiratory Rate 18 Blood Pressure 131/89 136/82 Pulse Oximetry Body Mass Index 31.0 Labs Results: 07/13/20 07:56 07/10/20 13:24 Labs: Laboratory Results - last 48 hr 07/13/20 07/13/20 07/13/20 07:56 07:56 07:56 WBC 5.2 RBC 5.37 Hgb 12.8 L Hct 41.5 L MCV 77.3 L MCH 23.8 L MCHC 30.8 L RDW 15.6 Plt Count 268 MPV 9.5 Immature Gran % (Auto) 0.6 H Neut % (Auto) 59.4 Lymph % (Auto) 25.5 [place] % (Auto) 10.6 Eos % (Auto) 3.5 Baso % (Auto) 0.4 Lymph # (Auto) 1.3 [place] # (Auto) 0.6 Eos # (Auto) 0.2 Baso # (Auto) 0.0 Abs Immat Gran (auto) 0.03 Absolute Neuts (auto) 3.1 Absolute Nucleated RBC 0.000 Nucleated RBC % (auto) 0.0 Vitamin B12 1065 H Folate 10.6 TSH 0.42 Valproic Acid 48.3 L Imaging Radiology Impressions: ITS Impressions Chest X-Ray 07/03/20 22:22 IMPRESSION: Unremarkable chest examination. Head CT 07/04/20 00:00 IMPRESSION: No evidence for acute intracranial injury. Automated exposure control (Care Dose) Adjustment of the mA and/or kv according to patient size (this includes techniques or standardized protocols for targeted exams where dose is matched to indication / reason for exam; i.e. extremities or head). Neck CTA 07/04/20 00:00 IMPRESSION: Normal CT angiogram of the neck. A preliminary interpretation was provided by the overnight Radiologist, Dr. Pozo, at 1:20 AM on 07/04/2020. Head CT 07/10/20 02:30 IMPRESSION: No acute intracranial pathology. Medications Medications Current Medications Generic Name Dose Route Start Last Admin Trade Name Freq PRN Reason Stop Dose Admin Acetaminophen 650 mg 07/06/20 18:58 07/09/20 18:56 Acetaminophen 325 Mg Tablet PO 650 mg Q6H PRN Administration Headache/Pain Mild Scale (1-3) Acetaminophen/Butalbital/Caffeine 1 tab 07/04/20 08:46 07/11/20 11:54 Butalb/Acetamin/Caff 50/325/40 Tablet PO 1 tab DAILY PRN Administration pain Al Hydroxide/Mg Hydroxide 30 ml 07/06/20 18:58 Magnesium Hydrox/Alum Hydrox 30 Ml Oral.Susp PO Q6H PRN Heartburn/Nausea Albuterol Sulfate 2 puff 07/04/20 08:46 07/06/20 06:43 Albuterol Sulfate 90 Mcg 8 Gm Inhaler INHALE 2 puff Q4H PRN Administration Shortness Of Breath Atorvastatin Calcium 40 mg 07/04/20 09:00 07/13/20 08:22 Atorvastatin Calcium 40 Mg Tablet PO 40 mg DAILY [place] Administration Bupropion HCl 300 mg 07/04/20 09:00 07/13/20 08:22 Bupropion Hcl Xl 300 Mg Tab.Er.24h PO 300 mg DAILY [place] Administration Divalproex Sodium 750 mg 07/09/20 21:00 07/12/20 21:00 Divalproex Sodium Er 250 Mg Tab.Er.24h PO 750 mg BEDTIME [place] Administration Fluoxetine HCl 20 mg 07/10/20 09:00 07/13/20 08:22 Fluoxetine Hcl Oral Solution 20 Mg/5 Ml Solution PO 20 mg DAILY [place] Administration Fluticasone/Vilanterol 1 puff 07/05/20 08:00 07/13/20 08:22 Fluticasone/Vilanterol 200/25 Blst.W.Dev INHALE 1 puff RDAILY [place] Administration Hydroxyzine HCl 25 mg 07/06/20 18:58 07/12/20 21:00 Hydroxyzine Hcl 25 Mg Tablet PO 25 mg BEDTIME PRN Administration Anxiety Lamotrigine 25 mg 07/12/20 21:00 07/13/20 08:22 Lamotrigine 25 Mg Tablet PO 25 mg BID [place] Administration Loperamide HCl 2 mg 07/04/20 08:46 07/10/20 09:15 Loperamide Hcl 2 Mg Capsule PO 2 mg QID PRN Administration Constipation Loperamide HCl 2 mg 07/09/20 06:30 07/13/20 06:18 Loperamide Hcl 2 Mg Capsule PO 2 mg DAILY@0630 [place] Administration Loratadine 10 mg 07/05/20 09:00 07/13/20 08:22 Loratadine 10 Mg Tablet PO 10 mg DAILY [place] Administration Lorazepam 0.5 mg 07/10/20 12:29 07/12/20 21:00 Lorazepam 0.5 Mg Tablet PO 0.5 mg Q4H PRN Administration anxiety/restlessness Magnesium Hydroxide 30 ml 07/06/20 18:58 Milk Of Magnesia 30 Ml Oral.Susp PO DAILY PRN Constipation Montelukast Sodium 10 mg 07/04/20 21:00 07/12/20 20:59 Montelukast Sodium 10 Mg Tablet PO 10 mg BEDTIME [place] Administration Patient Own 1 each 07/11/20 06:30 07/13/20 06:18 Medication ( PO 1 each Pantoprazole 40 Mg) DAILY@0630 [place] Administration Prazosin HCl 1 mg 07/12/20 21:00 07/12/20 21:00 Prazosin Hcl 1 Mg Capsule PO 1 mg BEDTIME [place] Administration Protocol Quetiapine Fumarate 50 mg 07/06/20 09:24 07/10/20 09:15 Quetiapine Fumarate 50 Mg Tablet PO 50 mg TID PRN Administration anxiety, agitation,insomnia Quetiapine Fumarate 100 mg 07/09/20 13:30 07/12/20 21:00 Quetiapine Fumarate 100 Mg Tablet PO 100 mg BEDTIME PRN Administration Insomnia Trazodone HCl 25 mg 07/10/20 15:43 07/12/20 21:00 Trazodone Hcl 25 Mg Halftab PO 25 mg BEDTIME PRN Administration Insomnia Vitamin D 25 mcg 07/04/20 09:00 07/13/20 08:22 Cholecalciferol (Vitamin D3) 25 Mcg Tablet PO 25 mcg DAILY [place] Administration Allergies Allergies Allergy/AdvReac Type Severity Reaction Status Date / Time SEASONAL ALLERGIES Allergy Unknown ITCHY Uncoded 07/03/20 22:18 EYES/RUNNY NOSE Assessment & Plan Assessment & Plan (1) Bipolar II disorder: Status: Acute Code(s): F31.81 - Bipolar II disorder Assessment and Plan: -Mood stable. Continue plan of care. Discharge 07/14/20. Meeting with couple 12:30pm on 07/14/20 (2) Post traumatic stress disorder (PTSD): Status: Acute Code(s): F43.10 - Post-traumatic stress disorder, unspecified Assessment and Plan: Pt planning on attending [facility] (3) Chronic renal insufficiency: Status: Acute Code(s): N18.9 - Chronic kidney disease, unspecified Assessment and Plan: Lamictal decreased to 25 mg bid (4) Benzodiazepine withdrawal: Status: Acute Code(s): F13.239 - Sedative, hypnotic or anxiolytic dependence with withdrawal, unspecified Assessment and Plan: Lorazepam prn for symptoms of withdrawal. (5) Diarrhea: Status: Acute Code(s): R19.7 - Diarrhea, unspecified Assessment and Plan: Follow up with GI providers, Dr. Hyde. Greater than 50% of the session was spent on counseling and/or coordination of care Patient educated on: medication risk/benefits and therapeutic strategies Informed Consent: understands and further education needed Reason for contiued inpatient stay Substantial Risk for: stable for discharge
[2020-07-13] MEDS: Divalproex Sodium ER 250 MG TAB.ER.24H 750 MG PO (20:42)
[2020-07-13] MEDS: Montelukast Sodium 10 MG TABLET PO (20:43)
[2020-07-13] MEDS: Prazosin HCL 1 MG CAPSULE PO (20:43)
[2020-07-14 05:55] VITALS: BP 140/79; PULSE 82
[2020-07-14] MEDS: Loperamide HCl 2 MG CAPSULE PO (06:52)
[2020-07-14 08:00] VITALS: BP 139/83; PULSE 89; RESP 16; O2SAT 98
[2020-07-14] MEDS: Fluticasone/Vilanterol 200/25 BLST.W.DEV 1 PUFF INHALE (08:18)
[2020-07-14] MEDS: buPROPion HCl XL 300 MG TAB.ER.24H PO (08:19)
[2020-07-14] MEDS: Cholecalciferol (Vitamin D3) 25 MCG TABLET PO (08:19)
[2020-07-14] MEDS: FLUoxetine HCl Oral Solution 20 MG/5 ML SOLUTION PO (08:19)
[2020-07-14] MEDS: Loratadine 10 MG TABLET PO (08:19)
[2020-07-14] MEDS: lamoTRIgine 25 MG TABLET PO (08:19)
[2020-07-14] MEDS: Atorvastatin Calcium 40 MG TABLET PO (08:19)
[2020-07-14 09:31] VITALS: BP 141/94; BP 142/91; PULSE 95; PULSE 97
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
== END 2020-07-14 13:25 | disposition home or self-care (01) | DRG 753 ==
LOC: HO.ED 07-05 16:29 → HO.PM5 07-06 17:22
PROVIDERS: Internal Medicine Gastroenterology; Admitting Provider Clinical Nurse Specialist Psychiatric/Mental Health; Emergency Provider Emergency Medicine; Visit Provider Clinical Nurse Specialist Psychiatric/Mental Health, Adult
DX: F31.81 Bipolar II disorder (principal); R45.851 Suicidal ideations; N18.30 Chronic kidney disease, stage 3 unspecified; S10.93XA Contusion of unspecified part of neck, initial encounter; X83.8XXA Intentional self-harm by other specified means, initial encounter; Z91.5 Personal history of self-harm; G47.00 Insomnia, unspecified; R55 Syncope and collapse; Y93.9 Activity, unspecified; F13.239 Sedative, hypnotic or anxiolytic dependence with withdrawal, unspecified; Y92.008 Other place in unspecified non-institutional (private) residence as the place of occurrence of the external cause; K21.9 Gastro-esophageal reflux disease without esophagitis; Z90.5 Acquired absence of kidney; Z23 Encounter for immunization; K58.0 Irritable bowel syndrome with diarrhea; Y99.9 Unspecified external cause status; F43.10 Post-traumatic stress disorder, unspecified; Z20.822 Contact with and (suspected) exposure to COVID-19; Z79.899 Other long term (current) drug therapy
CPT/HCPCS: 36415; 70450; 70498; 71045; 80048; 80053; 80061; 80076; 80143; 80164; 80179; 80307; 80320; 81003; 82607; 82728; 82746; 82947; 83036; 83540; 83690; 83880; 84443; 84484; 85025; 87177; 87209; 87635; 90686; 93005; 99285; Q0163; Q9967

== ENCOUNTER 2020-07-20 09:25 | Day surgery (SDC) | payer OTHER, SELFPAY ==
[2020-07-16 10:50] VITALS: BMI 29.1
--- NOTE | 2020-07-16 11:07 | HO.ANESPROP2 ---
Documented by User: Allie May 07/16/20 11:08 HPI - Anesthesia Eval Consult details Narrative: 45yo M for Upper Endoscopy and Colonoscopy [facility] Active Problems Active Problems: All Active Problems (Updated 07/10/20 @ 15:51 by Jane Quinn APRN) Cellulitis (Acute) Major depression (Acute) Asphyxiation by hanging (Acute) Contusion of neck (Acute) Diarrhea (Acute) Bipolar II disorder (Acute) Benzodiazepine withdrawal (Acute) Post traumatic stress disorder (PTSD) (Acute) Chronic renal insufficiency (Acute) Bipolar 1 disorder, depressed (Acute) Chronic pain syndrome (Acute) Disc degeneration, lumbar (Acute) Spondylosis of lumbar region without myelopathy or radiculopathy (Acute) Past Medical History Medical History Asthma Bipolar 1 disorder, depressed Chronic pain syndrome Chronic renal insufficiency Depression Disc degeneration, lumbar GERD (gastroesophageal reflux disease) Irritable bowel syndrome with diarrhea Post traumatic stress disorder (PTSD) Spondylosis of lumbar region without myelopathy or radiculopathy Tremor Surgical History Surgical History History of kidney surgery Social History Social History Household Members: Family Housing: House Alcohol intake: unknown Smoking Status: Never smoker Second Hand Smoke Exposure: No Use of substances other than those prescribed or required for medical reasons: No Do you have thoughts of harming others: None service: No Sexual orientation: Straight/Heterosexual Meds Allergies Allergy/AdvReac Type Severity Reaction Status Date / Time dog dander Allergy Unknown Verified 07/16/20 13:23 SEASONAL ALLERGIES Allergy Intermediate ITCHY Uncoded 07/16/20 10:45 EYES/RUNNY NOSE Home Medications Medication Instructions Recorded Confirmed Last Taken Type albuterol sulfate [ProAir HFA] 2 puff INHALATION Q4-6H PRN 01/02/20 07/16/20 07/15/20 22:00 History fluticasone propion-salmeterol 1 inh INHALATION BID 07/16/20 07/16/20 07/16/20 07:00 History [Advair Diskus] Exam Exam Date and Time: July 16, 2020 1107 Height,Weight and Vital Signs: Height 5 ft 5 in Weight 79.379 kg Pertinent Lab Results Pertinent Lab Results: Laboratory Tests 07/10/20 07/13/20 13:24 07:56 WBC 5.2 Hgb 12.8 L Hct 41.5 L Plt Count 268 Sodium 140 Potassium 4.3 Chloride 105 Carbon Dioxide 26 BUN 16 Creatinine 1.29 Assessment and Plan Assessment Anesthesia Assessment: Chart Reviewed Documented by User: Eduarda Huffman 07/20/20 10:48 [facility] Past Medical History Medical History Asthma Bipolar 1 disorder, depressed Chronic pain syndrome Chronic renal insufficiency Depression Disc degeneration, lumbar GERD (gastroesophageal reflux disease) Irritable bowel syndrome with diarrhea Post traumatic stress disorder (PTSD) Spondylosis of lumbar region without myelopathy or radiculopathy Tremor Surgical History Surgical History History of kidney surgery Social History Social History Household Members: Family Housing: House Alcohol intake: unknown Smoking Status: Never smoker Second Hand Smoke Exposure: No Use of substances other than those prescribed or required for medical reasons: No Do you have thoughts of harming others: None service: No Sexual orientation: Straight/Heterosexual Meds Allergies Allergy/AdvReac Type Severity Reaction Status Date / Time dog dander Allergy Unknown Verified 07/16/20 13:23 SEASONAL ALLERGIES Allergy Intermediate ITCHY Uncoded 07/16/20 10:45 EYES/RUNNY NOSE Home Medications Medication Instructions Recorded Confirmed Last Taken Type albuterol sulfate [ProAir HFA] 2 puff INHALATION Q4-6H PRN 01/02/20 07/16/20 07/15/20 22:00 History fluticasone propion-salmeterol 1 inh INHALATION BID 07/16/20 07/16/20 07/16/20 07:00 History [Advair Diskus] Exam Airway Mallampati Class: II TM Dist: >3cm Neck ROM: Full Assessment and Plan Assessment Anesthesia Assessment: Anesthesia Plan Discussed and Chart Reviewed Final Anesthetic Review NPO: Yes ASA Class: II Final Preanesthetic Review: No Changes in Pt Med Stat, Meds/Allgs Chart Reviewed, Consent Obtained/Reviewed and Anes Risks/Benef Reviewed Patient Risk: Low Procedure Risk: Low Assessment/Block/Sedation in SS: Assess/Block/Sedation-SS Anesthetic Plan Anesthetic Plan: MAC: Disposition: Standard PACU
[2020-07-20 09:49] VITALS: BMI 29.1
[2020-07-20 10:03] VITALS: BP 140/91; PULSE 99; RESP 18; TEMP 36.6; O2SAT 97
[2020-07-20] MEDS: Lactated Ringers 1,000 ML 100 ML IVCONT (10:30)
--- NOTE | 2020-07-20 10:48 | MHC.SHP ---
Pre-Procedural Eval Section A The patient is an INPATIENT: No Changes since office visit: No Cold of Flu in the past 2 weeks, No New Medical Problems, No Changes in Medication and No Patient answered all questions The History & Physical has been completed within 30 days and I have reviewed it.: Yes Section B Chief Complaint: anemia Allergies: Allergies Allergy/AdvReac Type Severity Reaction Status Date / Time dog dander Allergy Unknown Verified 07/16/20 13:23 SEASONAL ALLERGIES Allergy Intermediate ITCHY Uncoded 07/16/20 10:45 EYES/RUNNY NOSE Plan I have reviewed the history and physical and performed a pertinent physical examination on my patient. No changes have occurred unless specified.
[2020-07-20 11:24] VITALS: BP 112/68; PULSE 83; RESP 16; TEMP 36.6; O2SAT 95
--- NOTE | 2020-07-20 11:29 | PM.OP ---
Brief Operative Note Date of Service: 07/20/20 Pre-op diagnosis: gerd, diarrhea, iron def anemia Post-op diagnosis: same Procedure: egd colon with biopsies Surgeon: Nacho Hyde Anesthesia: MAC Estimated blood loss (mL): 5 Pathology: other (biopsies antrum,egj, sigmoid) Condition: stable Disposition: PACU
[2020-07-20 11:41] VITALS: BP 150/94; PULSE 85; RESP 17; TEMP 36.6; O2SAT 98
--- NOTE | 2020-07-20 11:57 | OP_ITS ---
SURGEON: Nacho Hyde MD INDICATIONS: 1. Gastroesophageal reflux disease. 2. IBS with diarrhea. 3. Iron-deficiency anemia. PREOPERATIVE DIAGNOSIS: POSTOPERATIVE DIAGNOSIS: PROCEDURE PERFORMED: 1. Upper endoscopy with biopsy. 2. Colonoscopy to the terminal ileum with biopsy. ESTIMATED BLOOD LOSS: COMPLICATIONS: ANESTHESIA: ASSISTANTS: SPECIMENS: MEDICATIONS: Monitored anesthesia care. DESCRIPTION OF PROCEDURE: The history and physical performed. The risks and benefits of the procedure were explained to the patient. Informed consent was obtained. The patient was placed in the left lateral decubitus position. The Olympus video gastroscope was introduced into the esophagus, stomach, and duodenum. Examination was performed and the scope was removed. He was repositioned for colonoscopy. A digital rectal exam was performed and was found to be normal. The Olympus pediatric video colonoscope was introduced into the rectum and advanced to the cecum without difficulty. The cecum was identified by transillumination, palpation, and identification of ileocecal valve. Examination was performed and the scope was removed. He tolerated both procedures well and was taken to recovery area in stable condition. FINDINGS: UPPER ENDOSCOPY: Esophagus: The esophagus showed a slightly irregular EG junction. This was biopsied. There was no esophagitis. Stomach: The stomach showed a few linear streaks of erythema suspicious for possible gastritis. Biopsies were obtained from the antrum. Duodenum: The bulb and second portion were normal. COLONOSCOPY: The terminal ileum was normal. The visualized colonic mucosa was within normal limits without evidence of masses or ulcers. There did not appear to be any colitis. Biopsies were obtained from the sigmoid. Retroflexed examination showed small internal hemorrhoids. IMPRESSION: 1. Gastroesophageal reflux disease. 2. Normal colonoscopy. RECOMMENDATION: Follow up the biopsy results. MD VOLODYMYR Thompson/PRASANTH / [id number]
== END 2020-07-20 12:09 | disposition home or self-care (01) ==
PROVIDERS: PCP Nurse Practitioner Family; Visit Provider Internal Medicine Gastroenterology
PROC: (CPT 45380; principal; 2020-07-20 10:50)
DX: D50.9 Iron deficiency anemia, unspecified (principal); K52.9 Noninfective gastroenteritis and colitis, unspecified; K64.8 Other hemorrhoids; K21.9 Gastro-esophageal reflux disease without esophagitis; N18.30 Chronic kidney disease, stage 3 unspecified; Z90.5 Acquired absence of kidney; J45.909 Unspecified asthma, uncomplicated; R25.1 Tremor, unspecified; Z82.0 Family history of epilepsy and other diseases of the nervous system; F31.81 Bipolar II disorder; F43.10 Post-traumatic stress disorder, unspecified; Z79.899 Other long term (current) drug therapy
CPT/HCPCS: 45380; 43239; 88305; 88342; J3010

== ENCOUNTER 2020-07-30 08:45 | Outpatient (RCR) | payer OTHER, SELFPAY ==
[2020-07-16 13:05] VITALS: BMI 29.1
--- NOTE | 2020-07-16 13:19 | PC.ADMIT ---
Patient is a 45 year old male who was referred back to [facility] by M/5 where patient was admitted s/p suicide attempt by hanging. Patient was found by his who released him and preformed emergency care. Prior to incident patient was arguing with his regarding his father in law and finances. Patient presents with depressed mood anxious affect. Denied SI, denied thoughts to harm or kill himself. Reports feeling guilty over what he put his family thorough and stated he never wants to go through that again. Patient's medications reconciled with patient and M/5 discharge paperwork. Patient reports taking medications as prescribed and denied side effects. Educated patient regarding dehydration causes and the effects on mental and physical health.
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
--- NOTE | 2020-07-20 15:23 | PC.NURSE ---
case opened in treatment team
--- NOTE | 2020-07-21 14:01 | HO.PHPPROGNO ---
Subjective Subjective Date of Service: 07/21/20 Reason For Visit: Bipolar II, PTSD Interim History: The patient denies new symptoms, no side effects with the increase of depakote. Medication Compliance: Yes Side effects from medications: No Attending Groups: Yes Review of Systems Review of Systems Yes all other systems are reviewed and are negative Mental Status Exam Mental Status Exam Patient Appearance: Well Grooomed Patient Orientation: Person, Place, Time and Situation Level of Consciousness: Awake and Appropriate Patient Behavior: Appropriate Mood Description: Calm Affect Description: Withdrawn Patient Cognition Impaired: No Ability to Follow Directions: Good Speech Pattern: Clear Memory Description: Intact Hallucinations: None Delusions: Not Present Thought Process: Goal Oriented Thought Content: positive for [place] Judgement: Fair Diagnostics Vital Signs (24Hr): Body Mass Index 29.1 Assessment & Plan Assessment & Plan (1) Bipolar II disorder: Status: Acute Code(s): F31.81 - Bipolar II disorder Assessment and Plan: The patient is an adult male with Bipolar disorder, referred as a step down. Plan: Keep same treatment Get VALP, BMP, CBC with diff, lipids Certification I certify that partial hospital treatment is medically necessary due to the symptoms and problems resulting from the patient's mental illness and the failure to treat the patient at the partial hospital level of care would likely result in the patient requiring inpatient psychiatric care which could not be prevented at a less intensive level of care. Greater than 50% of the session was spent on counseling and/or coordination of care Discharge Plan Discharge Attending provider: Terry Aviles Primary Care Provider: Napoleon Blaknenship Medications: New divalproex [Depakote ER] 500 mg tablet extended release 24 hr 1,000 mg PO DAILY Qty: 14 RF: 1 Discontinued divalproex 250 mg Tablet Extended Release 24 Hr 750 mg PO BEDTIME Qty: 90 RF: 0 No Action ketoconazole 2 % cream 1 appl topical DAILY PRN (Reason: dermatitis) 14 Days Qty: 30 RF: 0 albuterol sulfate [ProAir HFA] 90 mcg/actuation Hfa Aerosol Inhaler 2 puff INHALATION Q4-6H PRN (Reason: Shortness Of Breath) RF: 0 fluoxetine 20 mg/5 mL (4 mg/mL) Solution 20 mg PO DAILY Qty: 30 RF: 0 prazosin 1 mg Capsule 1 mg PO BEDTIME Qty: 30 RF: 0 quetiapine 100 mg Tablet 100 mg PO BEDTIME PRN (Reason: Insomnia) Qty: 30 RF: 0 lamotrigine 25 mg Tablet 25 mg PO BID Qty: 60 RF: 0 loratadine 10 mg Tablet 10 mg PO DAILY Qty: 30 RF: 0 loperamide 2 mg Capsule 2 mg PO DAILY@0630 Qty: 30 RF: 0 atorvastatin 40 mg Tablet 40 mg PO DAILY Qty: 30 RF: 0 cholecalciferol (vitamin D3) [Vitamin D3] 25 mcg (1,000 unit) Capsule 25 mcg PO DAILY Qty: 30 RF: 0 bupropion HCl 300 mg tablet extended release 24 hr 300 mg PO DAILY Qty: 30 RF: 0 loperamide 2 mg Capsule 2 mg PO QID PRN (Reason: Constipation) Qty: 30 RF: 0 pantoprazole 40 mg Tablet,Delayed Release (Dr/Ec) 40 mg PO DAILY Qty: 30 RF: 0 montelukast [Singulair] 10 mg Tablet 10 mg PO BEDTIME Qty: 30 RF: 0 fluticasone propion-salmeterol [Advair Diskus] 500-50 mcg/dose Blister With Device 1 inh INHALATION BID RF: 0 Referrals: Napoleon Blankenship, FAMILY AND CONSUMER SCIENCE PROFESSOR-BC [Primary Care Provider] - 1 Week Telehealth Telehealth Location of provider rendering services: practice address Location of patient: address on file Patient Identification confirmed using: Name, : Yes Telehealth method: video Patient verbally consented to treatment: Yes Patient verbally consented to billing insurance company: Yes Patient informed of any privacy concerns related to visit: No Time spent with patient (mins): 15
--- NOTE | 2020-07-21 14:47 | PC.NURSE ---
Reviewed tx plan and spoke with client about his schedule. He will be out 07/22 because of physician appointments and will be out Wednesday 07/26 for therapy. His last day will be $/30 as he is going on a preplanned vacation to [place].
--- NOTE | 2020-07-23 14:31 | PC.NURSE ---
During Progressive Muscle Relaxation group on Sunday07/23/20 patient fell asleep. At the end of the group patient was still asleep and I was not able to wake him up to tell him to log out of the group. I called patient's who woke patient up and logged him out of the group. Will Have Dr Roland review patient medications.
--- NOTE | 2020-07-27 13:33 | P.PNPSP_ITS ---
Subjective Subjective Date of Service: 07/27/20 Reason For Visit: Bipolar II, PTSD Interim History: The patient reported better mood since he stopped Seroquel; he was oversedated. He also stopped Prazosin several weeks ago. No safety concerns Medication Compliance: Yes Side effects from medications: No Attending Groups: Yes Review of Systems Review of Systems Yes all other systems are reviewed and are negative Mental Status Exam Mental Status Exam Patient Appearance: Well Grooomed Patient Orientation: Person, Place, Time and Situation Level of Consciousness: Awake Patient Behavior: Appropriate Mood Description: Calm Affect Description: Calm Patient Cognition Impaired: No Ability to Follow Directions: Good Speech Pattern: Clear Memory Description: Intact Hallucinations: None Delusions: Not Present Thought Process: Goal Oriented Thought Content: positive for Intact Judgement: Fair Diagnostics Vital Signs (24Hr): Body Mass Index 29.1 Assessment & Plan Assessment & Plan (1) Bipolar II disorder: Status: Acute Code(s): F31.81 - Bipolar II disorder Assessment and Plan: The patient is an adult male with Bipolar Type II, recently dishcarged from inpatient with several psychotropics. He recently stopped Seroquel due to oversedation and we increased a little his Depakote to get into a therapeutic range. Plan: 1. Get VALP and other labwork. 2. Keep the same. 3. F/U in 1 week Certification I certify that partial hospital treatment is medically necessary due to the symptoms and problems resulting from the patient's mental illness and the failure to treat the patient at the partial hospital level of care would likely result in the patient requiring inpatient psychiatric care which could not be prevented at a less intensive level of care. Greater than 50% of the session was spent on counseling and/or coordination of care Discharge Plan Discharge Attending provider: Terry Aviles Primary Care Provider: Napoleon Blankenship Medications: Continued fluoxetine 20 mg/5 mL (4 mg/mL) Solution 20 mg PO DAILY 30 Days Qty: 30 RF: 0 lamotrigine 25 mg Tablet 25 mg PO BID 30 Days Qty: 60 RF: 0 divalproex [Depakote ER] 500 mg tablet extended release 24 hr 1,000 mg PO DAILY 30 Days Qty: 60 RF: 0 bupropion HCl 300 mg tablet extended release 24 hr 300 mg PO DAILY 30 Days Qty: 30 RF: 0 Discontinued prazosin 1 mg Capsule 1 mg PO BEDTIME Qty: 30 RF: 0 quetiapine 100 mg Tablet 100 mg PO BEDTIME PRN (Reason: Insomnia) Qty: 30 RF: 0 divalproex 250 mg Tablet Extended Release 24 Hr 750 mg PO BEDTIME Qty: 90 RF: 0 No Action ketoconazole 2 % cream 1 appl topical DAILY PRN (Reason: dermatitis) 14 Days Qty: 30 RF: 0 fluticasone propion-salmeterol [Advair Diskus] 500-50 mcg/dose blister with device 1 ea PO BID Qty: 60 RF: 0 albuterol sulfate [ProAir HFA] 90 mcg/actuation Hfa Aerosol Inhaler 2 puff INHALATION Q4-6H PRN (Reason: Shortness Of Breath) RF: 0 loratadine 10 mg Tablet 10 mg PO DAILY Qty: 30 RF: 0 loperamide 2 mg Capsule 2 mg PO DAILY@0630 Qty: 30 RF: 0 atorvastatin 40 mg Tablet 40 mg PO DAILY Qty: 30 RF: 0 cholecalciferol (vitamin D3) [Vitamin D3] 25 mcg (1,000 unit) Capsule 25 mcg PO DAILY Qty: 30 RF: 0 loperamide 2 mg Capsule 2 mg PO QID PRN (Reason: Constipation) Qty: 30 RF: 0 pantoprazole 40 mg Tablet,Delayed Release (Dr/Ec) 40 mg PO DAILY Qty: 30 RF: 0 montelukast [Singulair] 10 mg Tablet 10 mg PO BEDTIME Qty: 30 RF: 0 Referrals: Napoleon Blankenship, DIRECT MARKETING EXECUTIVE-BC [Primary Care Provider] - 1 Week Telehealth Telehealth Location of provider rendering services: practice address Location of patient: address on file Patient Identification confirmed using: Name, : Yes Telehealth method: video Patient verbally consented to treatment: Yes Patient verbally consented to billing insurance company: Yes Patient informed of any privacy concerns related to visit: No Time spent with patient (mins): 15
--- NOTE | 2020-07-30 12:47 | PC.NURSE ---
Reviewed medications with patient. Patient reports that he is still taking Ativan as needed however this has been discontinued according to D/c list. Patient is aware. He stated he took it a few times the first few days after discharge from the hospital. Patient reports he is taking current medications as prescribed.
== END 2020-08-02 08:32 | disposition home or self-care (01) ==
LOC: HO.PHPA 08:45
PROVIDERS: PCP Nurse Practitioner Family; Visit Provider Psychiatry & Neurology Psychiatry
DX: F31.81 Bipolar II disorder (principal); F43.10 Post-traumatic stress disorder, unspecified; Z79.899 Other long term (current) drug therapy
CPT/HCPCS: 90791; 90853

== ENCOUNTER 2020-08-13 13:55 | Day surgery (SDC) | payer OTHER, SELFPAY ==
--- NOTE | 2020-07-08 09:51 | HO.ANESPROP2 ---
HPI - Anesthesia Eval Consult details Narrative: 45yo M for Bilateral Medial Branch Radiofrequency s/p Medial Branch Block 03/2020 with [facility] Active Problems Active Problems: All Active Problems (Updated 07/07/20 @ 15:03 by Eva Galicia APRN) Diarrhea (Acute) Major depression (Acute) Asphyxiation by hanging (Acute) Contusion of neck (Acute) Post traumatic stress disorder (PTSD) (Acute) Chronic renal insufficiency (Acute) Bipolar 1 disorder, depressed (Acute) Cellulitis (Acute) Chronic pain syndrome (Acute) Disc degeneration, lumbar (Acute) Spondylosis of lumbar region without myelopathy or radiculopathy (Acute) Past Medical History Medical History Asthma Bipolar 1 disorder, depressed Chronic pain syndrome Chronic renal insufficiency Depression Disc degeneration, lumbar GERD (gastroesophageal reflux disease) Post traumatic stress disorder (PTSD) Spondylosis of lumbar region without myelopathy or radiculopathy Tremor Surgical History Surgical History History of kidney surgery Social History Social History Household Members: Family Housing: House Do you presently have visiting nurse or other home services: No Alcohol intake: unknown Smoking Status: Never smoker Second Hand Smoke Exposure: No Use of substances other than those prescribed or required for medical reasons: No Currently Displaying Signs/Symptoms of Drug Intoxication Withdrawal: No Any prior treatment program specific to substance use: No Have you been hit, kicked, punched, or otherwise hurt by someone within the past year? If so, by whom?: No Do you feel safe in your current relationship?: Yes Is there a partner from a previous relationship who is making you feel unsafe now?: No Are you made to feel afraid or neglected: No Spiritual Healthcare Practices: n/a Hindu Healthcare Practices: n/a Cultural Healthcare Practices: n/a Advance Directives: No Advance Directives Information Provided: No Advance Directives on File: No Do you have thoughts of harming others: None Do you have a plan to hurt others: No Plan Recently lost weight without trying: No service: No Sexual orientation: Straight/Heterosexual Meds Allergies Allergy/AdvReac Type Severity Reaction Status Date / Time SEASONAL ALLERGIES Allergy Unknown ITCHY Uncoded 07/03/20 22:18 EYES/RUNNY NOSE Home Medications Medication Instructions Recorded Confirmed Last Taken Type albuterol sulfate [ProAir HFA] 2 puff INHALATION Q4-6H PRN 01/02/20 07/04/20 1 Day Ago History ~07/03/20 montelukast [Singulair] 10 mg PO BEDTIME 01/02/20 07/04/20 1 Day Ago History ~07/03/20 pantoprazole 40 mg PO DAILY 01/02/20 07/04/20 1 Day Ago History ~07/03/20 bupropion HCl 300 mg 24 hr tablet, 300 mg PO DAILY 02/06/20 07/04/20 1 Day Ago History extended release ~07/03/20 fluoxetine 20 mg capsule 40 mg PO DAILY 02/06/20 07/04/20 1 Day Ago History ~07/03/20 atorvastatin 40 mg PO DAILY 03/04/20 07/04/20 1 Day Ago History ~07/03/20 cholecalciferol (vitamin D3) 25 mcg PO DAILY 03/04/20 07/04/20 1 Day Ago History [Vitamin D3] ~07/03/20 fexofenadine [Kimmy] 180 mg PO DAILY 03/04/20 07/04/20 1 Day Ago History ~07/03/20 loperamide [Imodium] 2 mg PO QID PRN 03/04/20 07/04/20 1 Day Ago History ~07/03/20 prazosin 1 mg PO DAILY 03/04/20 07/04/20 1 Day Ago History ~07/03/20 prazosin 2 mg PO BEDTIME 03/04/20 07/04/20 1 Day Ago History ~07/03/20 fluticasone propion-salmeterol 1 puff PO BID 07/04/20 07/04/20 1 Day Ago History [Advair Diskus] ~07/03/20 lamotrigine [Lamictal] 50 mg PO BID 07/04/20 07/04/20 1 Day Ago History ~07/03/20 lorazepam 1 mg PO QID PRN 07/04/20 07/04/20 1 Day Ago History ~07/03/20 lithium carbonate 300 mg PO BEDTIME 07/06/20 07/06/20 Unknown History Exam Exam Date and Time: July 08, 2020 0951 Pertinent Lab Results Pertinent Lab Results: Laboratory Tests 07/03/20 07/03/20 22:23 22:51 WBC 8.1 Hgb 11.7 L Hct 37.8 L Plt Count 340 Sodium 139 Potassium 4.3 Chloride 105 Carbon Dioxide 25 BUN 16 Creatinine 1.62 H Assessment and Plan Assessment Anesthesia Assessment: Chart Reviewed
[2020-08-09 14:37] VITALS: BMI 29.0
--- NOTE | 2020-08-11 10:05 | P.CONAN_ITS ---
Documented by User: Allie May 08/11/20 10:06 HPI - Anesthesia Eval Consult details Narrative: 45yo M for Medial Branch Radiofrequency AB s/p MBB with MAC 03/2020 [facility] Active Problems Active Problems: All Active Problems (Updated 07/28/20 @ 00:01 by Awais Talavera) Bipolar II disorder (Acute) Post traumatic stress disorder (PTSD) (Acute) Chronic renal insufficiency (Acute) Chronic pain syndrome (Acute) Disc degeneration, lumbar (Acute) Spondylosis of lumbar region without myelopathy or radiculopathy (Acute) Past Medical History Medical History Asthma Chronic pain syndrome Chronic renal insufficiency Depression Disc degeneration, lumbar GERD (gastroesophageal reflux disease) Irritable bowel syndrome with diarrhea Post traumatic stress disorder (PTSD) Spondylosis of lumbar region without myelopathy or radiculopathy Tremor Surgical History Surgical History History of kidney surgery Hx of colonoscopy Hx of esophagogastroduodenoscopy Social History Social History Household Members: Family Housing: House Alcohol intake: unknown Smoking Status: Never smoker Second Hand Smoke Exposure: No Are you DNR?: No Advance Directives: No Advance Directives Information Provided: No Advance Directives on File: No Recently lost weight without trying: No Eating poorly because of decreased appetite: No Nutrition Risks: No Nutritional Risk service: No Sexual orientation: Straight/Heterosexual Meds Allergies Allergy/AdvReac Type Severity Reaction Status Date / Time dog dander Allergy Unknown Verified 07/16/20 13:23 SEASONAL ALLERGIES Allergy Intermediate ITCHY Uncoded 07/16/20 10:45 EYES/RUNNY NOSE Home Medications Medication Instructions Recorded Confirmed Last Taken Type albuterol sulfate [ProAir HFA] 2 puff INHALATION Q4-6H PRN 01/02/20 08/09/20 07/15/20 22:00 History [id number]-fnwcavrwjzxja-yeey 1 tab PO DAILY PRN 08/09/20 08/09/20 Unknown History divalproex 3 tab PO BEDTIME 08/09/20 08/09/20 Unknown History lorazepam 1 tab PO QID 08/09/20 08/09/20 Unknown History prazosin 1 cap PO BEDTIME 08/09/20 08/09/20 Unknown History quetiapine 1 tab PO BEDTIME PRN 08/09/20 08/09/20 Unknown History Exam Exam Date and Time: August 11, 2020 1005 Height,Weight and Vital Signs: Height 5 ft 5 in Weight 79.3 kg Assessment and Plan Assessment Anesthesia Assessment: Chart Reviewed Documented by User: Eduarda Huffman 08/13/20 15:36 [facility] Past Medical History Medical History Asthma Chronic pain syndrome Chronic renal insufficiency Depression Disc degeneration, lumbar GERD (gastroesophageal reflux disease) Irritable bowel syndrome with diarrhea Post traumatic stress disorder (PTSD) Spondylosis of lumbar region without myelopathy or radiculopathy Tremor Surgical History Surgical History History of kidney surgery Hx of colonoscopy Hx of esophagogastroduodenoscopy Social History Social History Household Members: Family Housing: House Alcohol intake: unknown Smoking Status: Never smoker Second Hand Smoke Exposure: No Are you DNR?: No Advance Directives: No Advance Directives Information Provided: No Advance Directives on File: No Recently lost weight without trying: No Eating poorly because of decreased appetite: No Nutrition Risks: No Nutritional Risk service: No Sexual orientation: Straight/Heterosexual Meds Allergies Allergy/AdvReac Type Severity Reaction Status Date / Time dog dander Allergy Unknown Verified 07/16/20 13:23 SEASONAL ALLERGIES Allergy Intermediate ITCHY Uncoded 07/16/20 10:45 EYES/RUNNY NOSE Home Medications Medication Instructions Recorded Confirmed Last Taken Type albuterol sulfate [ProAir HFA] 2 puff INHALATION Q4-6H PRN 01/02/20 08/09/20 07/15/20 22:00 History [id number]-[id number]-sism 1 tab PO DAILY PRN 08/09/20 08/09/20 Unknown History divalproex 3 tab PO BEDTIME 08/09/20 08/09/20 Unknown History lorazepam 1 tab PO QID 08/09/20 08/09/20 Unknown History prazosin 1 cap PO BEDTIME 08/09/20 08/09/20 Unknown History quetiapine 1 tab PO BEDTIME PRN 08/09/20 08/09/20 Unknown History Exam Airway Mallampati Class: II TM Dist: >3cm Neck ROM: Full Denture: Upper Assessment and Plan Assessment Anesthesia Assessment: Anesthesia Plan Discussed and Chart Reviewed Final Anesthetic Review NPO: Yes ASA Class: II Final Preanesthetic Review: No Changes in Pt Med Stat, Meds/Allgs Chart Review ed, Consent Obtained/Reviewed and Anes Risks/Benef Reviewed Patient Risk: Low Procedure Risk: Low Assessment/Block/Sedation in SS: Assess/Block/Sedation-SS Anesthetic Plan Anesthetic Plan: MAC: Disposition: Standard PACU
--- NOTE | ~2020-08-13 | FL_ITS ---
EXAMINATION: XR FLUOROSCOPY WITH IMAGES CLINICAL INFORMATION: Low back pain. COMPARISON: None. TECHNIQUE: Fluoroscopy performed by Dr. Jorge Luis Barrios. Fluoroscopy time: 0.8 minutes DAP: 10.2 mGycm2 Images: 3 FINDINGS: There are needles positioned adjacent to left pedicles of L3, L4-L5 vertebra for radiofrequency ablation. No bony abnormality seen. The soft tissues are unremarkable. FL/FL guidance in OR IMPRESSION: Fluoroscopy guidance was provided to Dr. Kang for radiofrequency ablation of lumbar spine.
[2020-08-13 14:15] VITALS: BP 148/101; PULSE 87; RESP 16; TEMP 36.2; O2SAT 97
[2020-08-13] MEDS: Lactated Ringers 1,000 ML 100 ML IVCONT (14:21)
--- NOTE | 2020-08-13 15:45 | MHC.SHP ---
Pre-Procedural Eval Section A Changes since office visit: Yes Patient answered all questions The History & Physical has been completed within 30 days and I have reviewed it.: No Section B Chief Complaint: Spondylosis of lumbar region w/o myelopathy Details of Present Illness: as above Relevant Family History (Specify if Yes): No Relevant Social History: None Present Medications: see Short Stay Collaborative assessment Medical History: Significant History History of Previous Operations: No relevant previous surgery Allergies: Allergies Allergy/AdvReac Type Severity Reaction Status Date / Time dog dander Allergy Unknown Verified 07/16/20 13:23 SEASONAL ALLERGIES Allergy Intermediate ITCHY Uncoded 07/16/20 10:45 EYES/RUNNY NOSE Review of Systems Sugical H&P ROS: Negative: Cardiovascular, Respiratory, Neurological, Hem-Onc, Allergic/Immunologic, Gastrointestinal, Genitourinary, Integumentary, Endocrine and Eyes/Ears/Nose/Throat and Yes, Specify: Psychiatric (bipolar, anxiety,) and Musculoskeletal (lumnar spondylosis) Exam Surgical H&P Exam: Normal: HEENT, Normal: Heart, Normal: Lungs, Normal: Extremities, Normal: Skin and Normal: Neurological and Significant Findings: Abdomen (enlarged due 2 subq and intrabd. fat) Plan Diagnosis/Plan: Unchanged I have reviewed the history and physical and performed a pertinent physical examination on my patient. No changes have occurred unless specified.
[2020-08-13 16:50] VITALS: BP 173/63; PULSE 78; RESP 14; TEMP 36.1; O2SAT 95
--- NOTE | 2020-08-13 17:04 | PM.OP ---
Brief Operative Note Date of Service: 08/13/20 Pre-op diagnosis: spondylosis lumbar spine without myelopathy or radiculopathy Post-op diagnosis: same Procedure: L3-L4-DRL5 RFA. Implants: NONE Surgeon: Denis Kang MD Anesthesia: MAC Was an Sociology Adjunct Instructor used for this Procedure?: No Estimated blood loss (mL): 0 Pathology: none sent Condition: stable Disposition: PACU
[2020-08-13 17:09] VITALS: BP 129/95; PULSE 77; RESP 20; TEMP 36.2; O2SAT 97
--- NOTE | 2020-08-13 17:10 | P.OP_ITS ---
Operative Note Operative Note Date of Service: 08/13/20 Narrative: After obtaining informed consent the patient was brought to the operating room and he was positioned prone or in table. [place] [employer] monitors were applied and patient was moderately sedated. Time-out was performed delineating correct site and side of the procedure. The patient was participating in time-out procedure. All OR personnel was also participating in OR procedure. The lower back of the patient was prepped with ChloraPrep and draped with sterile towels. Sterilely draped C-arm was brought over operating field and picture of L4-5 vertebra and sacral bone were delineated on the screen. Point of interest for position of the radiofrequency cannulas was delineated as connection of the superior articular process of L4 vertebra bilaterally with corresponding transverse process bilaterally, as well as connection of the superior articular process of L5 vertebra bilaterally with corresponding transverse process bilaterally, as well as connection of superior articular process of S1 bilaterally with sacral alae. Projection of the point of interest to the skin was injected with small amount of lidocaine 2%. After that 18 gauge 145 mm radiofrequency cannulas were inserted through the skin and were driven to the point of interests in tunnel vision fashion 1st on the right side and then on the left side. After needle gently contacted the bone at the point of interest the stylets were removed from radiofrequency cannulas and nitinol electrodes were inserted into the cannulas. Sensory and motor stimulations were applied to the cannulas. Patient reported pressure sensation on sensory stimulation and denied motor stimulation in the lower extremity. Upon completion of the testing nitinol electrodes were removed and small amount of a mixture of lidocaine 2% and bupivacaine 0.5% with trace amount of Kenalog was injected into each cannula. After that the electrodes were reinserted and 90 seconds after the energy was applied to the point of interest. The temperature was 89? centigrade the time of the application was 90 seconds. Upon completion of the application the cannulas were rotated 180? and energy application was repeated. The right side of the spine was performed 1st and left side of the spine was performed 2nd. Upon completion of the procedure the cannulas were removed and sterile Band-Aids were applied. The patient tolerated procedure well, at the end of the procedure he was transferred to PACU without immediate complications.
== END 2020-08-13 17:15 | disposition home or self-care (01) ==
PROVIDERS: PCP Nurse Practitioner Family; Visit Provider Anesthesiology
PROC: (CPT 64635; principal; 2020-08-13 15:30)
DX: M47.816 Spondylosis without myelopathy or radiculopathy, lumbar region (principal); M51.36 Other intervertebral disc degeneration, lumbar region; G89.4 Chronic pain syndrome; F43.10 Post-traumatic stress disorder, unspecified; F31.9 Bipolar disorder, unspecified; N18.9 Chronic kidney disease, unspecified; Z79.899 Other long term (current) drug therapy
CPT/HCPCS: 64635; 64636 ×2; J2250; J3010; J3300

== ENCOUNTER 2020-09-08 14:02 | Outpatient (REF) | payer OTHER, SELFPAY ==
[2020-09-08 16:58] LABS: MANUAL DIFF FLAG NO
[2020-09-08 17:05] LABS: Basophils Percent Auto 0.4 % (0-2); Eosinophils Absolute Auto 0.2 X10*3/uL (0.0-0.4); Eosinophils Percent Auto 1.9 % (0-4); Hematocrit 39.6 % (42-52); Hemoglobin 12.2 g/dl (14.0-18.0); Imm Gran Abs Auto 0.06 X10*3/uL (0.00-0.03); Imm Gran Pct Auto 0.7 % (0.0-0.4); Lymphocytes Absolute Auto 2.1 X10*3/uL (1.2-4.9); Lymphocytes Percent Auto 25.5 % (20-40); Mean Corpuscular HGB Conc 30.8 g/dl (31.0-36.0); Mean Corpuscular Hemoglobin 24.5 pg (27.0-33.0); Mean Corpuscular Volume 79.5 fL (80-98); Mean Platelet Volume 9.8 fL (9.4-12.4); Monocytes Absolute Auto 0.8 X10*3/uL (0.1-1.2); Monocytes Percent Auto 10.1 % (2-11); Neutrophils Absolute Auto 5.1 X10*3/uL (2.0-8.3); Neutrophils Percent Auto 61.4 % (45-73); Platelet Count 297 X10*3/uL (160-400); Red Blood Count 4.98 X10*6/uL (4.60-5.80); Red Cell Distribution Width 18.1 % (11.0-16.0); White Blood Count 8.3 X10*3/uL (4.8-10.8)
[2020-09-08 17:17] LABS: Valproate 43.5 mcg/mL (50.0-100.0)
[2020-09-08 17:20] LABS: Alanine Aminotransferase 14 U/L (0-40); Albumin Level 4.2 g/dL (3.5-5.0); Alkaline Phosphatase 82 U/L (39-117); Anion Gap 12 (12-20); Aspartate Amino Transferase 20 U/L (5-37); Bilirubin Total 0.3 mg/dL (0.0-1.0); Blood Urea Nitrogen 20 mg/dL (9-16); Calcium 9.4 mg/dL (8.4-10.2); Carbon Dioxide 26 mmol/L (22-29); Chloride 108 mmol/L (96-108); Estimated Glomerular Filt Rate 48; Glucose Random 65 mg/dL (60-115); Potassium 4.9 mmol/L (3.3-5.1); Sodium 141 mmol/L (135-145); Total Protein 6.6 g/dL (6.5-8.0)
[2020-09-08 17:26] LABS: Alanine Aminotransferase 14 U/L (0-40); Albumin Level 4.1 g/dL (3.5-5.0); Alkaline Phosphatase 83 U/L (39-117); Aspartate Amino Transferase 20 U/L (5-37); Bilirubin Direct < 0.2 mg/dL (0.0-0.5); Bilirubin Total 0.3 mg/dL (0.0-1.0); Total Protein 6.6 g/dL (6.5-8.0)
== END 2020-09-08 14:03 | disposition home or self-care (01) ==
LOC: HO.HMGCLDS 14:02
PROVIDERS: PCP Nurse Practitioner Family; Visit Provider Psychiatry & Neurology Psychiatry
DX: F31.81 Bipolar II disorder (principal); F43.10 Post-traumatic stress disorder, unspecified; Z79.899 Other long term (current) drug therapy; Z91.5 Personal history of self-harm
CPT/HCPCS: 36415; 80053; 80076; 80164; 85025

== ENCOUNTER → 2020-09-20 11:27 | Outpatient (BNVA) | payer OTHER, SELFPAY | PROVIDERS: PCP Nurse Practitioner Family; Visit Provider Anesthesiology ==

== ENCOUNTER 2020-09-29 17:31 | Outpatient (REF) | payer OTHER, SELFPAY ==
[2020-09-29 18:36] LABS: Alanine Aminotransferase 15 U/L (0-40); Albumin Level 4.1 g/dL (3.5-5.0); Alkaline Phosphatase 82 U/L (39-117); Anion Gap 13 (12-20); Aspartate Amino Transferase 19 U/L (5-37); Bilirubin Total 0.2 mg/dL (0.0-1.0); Blood Urea Nitrogen 24 mg/dL (9-16); Calcium 9.1 mg/dL (8.4-10.2); Carbon Dioxide 27 mmol/L (22-29); Chloride 106 mmol/L (96-108); Estimated Glomerular Filt Rate 52; Glucose Random 101 mg/dL (60-115); Potassium 4.5 mmol/L (3.3-5.1); Sodium 141 mmol/L (135-145); Total Protein 6.6 g/dL (6.5-8.0)
[2020-09-29 18:40] LABS: Valproate 74.1 mcg/mL (50.0-100.0)
== END 2020-09-29 17:32 | disposition home or self-care (01) ==
LOC: HO.LAB 17:31
PROVIDERS: PCP Nurse Practitioner Family; Referring Provider Nurse Practitioner Family; Visit Provider Psychiatry & Neurology Psychiatry
DX: N18.9 Chronic kidney disease, unspecified (principal); F31.81 Bipolar II disorder; Z79.899 Other long term (current) drug therapy; Z51.81 Encounter for therapeutic drug level monitoring
CPT/HCPCS: 36415; 80053; 80164

== ENCOUNTER → 2020-10-13 08:36 | Outpatient (BNVA) | payer OTHER, SELFPAY | PROVIDERS: PCP Nurse Practitioner Family; Visit Provider Anesthesiology ==

== ENCOUNTER → 2020-10-28 08:32 | Outpatient (BNVA) | payer OTHER, SELFPAY | PROVIDERS: PCP Nurse Practitioner Family; Visit Provider Anesthesiology ==

== ENCOUNTER 2021-07-15 10:27 | Outpatient (REF) | payer OTHER, SELFPAY ==
[2021-07-15 11:47] LABS: Alanine Aminotransferase 30 U/L (0-40); Albumin Level 4.3 g/dL (3.5-5.0); Alkaline Phosphatase 118 U/L (39-117); Anion Gap 12 (12-20); Aspartate Amino Transferase 24 U/L (5-37); Bilirubin Total 0.5 mg/dL (0.0-1.0); Blood Urea Nitrogen 21 mg/dL (9-16); Calcium 9.9 mg/dL (8.4-10.2); Carbon Dioxide 30 mmol/L (22-29); Chloride 105 mmol/L (96-108); Cholesterol 200 mg/dL; Estimated Glomerular Filt Rate 44; Glucose Fasting 82 mg/dL (60-99); HDL Cholesterol 46 mg/dL; LDL Cholesterol Calculated 136 mg/dl; Potassium 5.5 mmol/L (3.3-5.1); Sodium 141 mmol/L (135-145); Triglycerides 94 mg/dL
[2021-07-15 12:09] LABS: TSH reflex Free T4 0.98 uIU/mL (0.32-4.0)
[2021-07-15 13:54] LABS: Appearance Urine CLEAR; Color Urine YELLOW; Glucose Urine UA NEG (NEG); Leukocyte Esterase Urine NEG (NEG); Nitrite Urine NEG (NEG); PH 6.5 (5.0-8.0); Specific Gravity - Urine 1.015 (1.005-1.025); UACC Culture Trigger NO; Urine Blood TRACE (NEG); Urine Ketones NEG (NEG); Urine Protein NEG (NEG-TRACE)
[2021-07-15 14:06] LABS: WBC Urine 0-2 /HPF (0-4)
[2021-07-15 14:07] LABS: Mucus Urine TRACE /LPF
== END 2021-07-15 10:28 ==
LOC: HO.HMGCLDS 10:27
PROVIDERS: Visit Provider Nurse Practitioner Family
DX: I10 Essential (primary) hypertension (principal)
CPT/HCPCS: 36415; 80053; 80061; 81001; 81003; 84443

== ENCOUNTER 2021-07-20 11:43 | Outpatient (REF) | payer OTHER, SELFPAY ==
[2021-07-20 13:44] LABS: Urine Cytology See Pathology rpt
[2021-07-20 13:58] LABS: Appearance Urine CLEAR; Color Urine YELLOW; Glucose Urine UA NEG (NEG); Leukocyte Esterase Urine NEG (NEG); Nitrite Urine NEG (NEG); Specific Gravity - Urine 1.025 (1.005-1.025); Urine Blood 1+ (NEG); Urine Ketones NEG (NEG); Urine Protein NEG (NEG-TRACE)
[2021-07-20 14:11] LABS: Anion Gap 14 (12-20); Carbon Dioxide 26 mmol/L (22-29); Chloride 105 mmol/L (96-108); Potassium 4.8 mmol/L (3.3-5.1); Sodium 140 mmol/L (135-145)
[2021-07-20 14:18] LABS: WBC Urine 0 /HPF (0-4)
== END 2021-07-20 11:44 ==
LOC: HO.HMGCLDS 11:43
PROVIDERS: PCP Nurse Practitioner Family; Visit Provider Nurse Practitioner Family
DX: E87.5 Hyperkalemia (principal); R31.9 Hematuria, unspecified
CPT/HCPCS: 36415; 80051; 81001; 87086; 88112

== ENCOUNTER 2022-01-03 11:17 | Outpatient (REF) | payer OTHER, SELFPAY ==
[2022-01-03 14:00] LABS: MANUAL DIFF FLAG NO
[2022-01-03 14:09] LABS: Basophils Percent Auto 0.4 % (0-2); Eosinophils Absolute Auto 0.2 X10*3/uL (0.0-0.4); Eosinophils Percent Auto 3.3 % (0-4); Hematocrit 44.8 % (42.0-52.0); Imm Gran Abs Auto 0.04 X10*3/uL (0.00-0.03); Imm Gran Pct Auto 0.6 % (0.0-0.4); Lymphocytes Absolute Auto 1.5 X10*3/uL (1.2-4.9); Lymphocytes Percent Auto 20.9 % (20-40); Mean Corpuscular HGB Conc 33.5 g/dl (31.0-36.0); Mean Corpuscular Volume 86.5 fL (80.0-98.0); Mean Platelet Volume 9.4 fL (9.4-12.4); Monocytes Absolute Auto 0.6 X10*3/uL (0.1-1.2); Monocytes Percent Auto 7.9 % (2-11); Neutrophils Absolute Auto 4.7 x10*3/uL (2.0-8.3); Neutrophils Percent Auto 66.9 % (45-73); Platelet Count 251 X10*3/uL (160-400); Red Blood Count 5.18 X10*6/uL (4.60-5.80); Red Cell Distribution Width 13.4 % (11.0-16.0); White Blood Count 7.1 X10*3/uL (4.8-10.8)
[2022-01-03 14:17] LABS: INTERNATIONAL NORM RATIO 0.9 (0.9-1.1); Prothrombin Time 10.4 SEC (10.0-13.1)
[2022-01-03 14:20] LABS: Partial Thromboplastin Time 30.7 SEC (26.0-36.4)
[2022-01-03 14:32] LABS: Alanine Aminotransferase 36 U/L (0-40); Albumin Level 4.2 g/dL (3.5-5.0); Alkaline Phosphatase 116 U/L (39-117); Anion Gap 13 (12-20); Aspartate Amino Transferase 26 U/L (5-37); Bilirubin Total 0.3 mg/dL (0.0-1.0); Blood Urea Nitrogen 15 mg/dL (9-16); Calcium 9.1 mg/dL (8.4-10.2); Carbon Dioxide 26 mmol/L (22-29); Chloride 105 mmol/L (96-108); Estimated Glomerular Filt Rate 54; Glucose Random 93 mg/dL (60-115); Potassium 4.3 mmol/L (3.3-5.1); Sodium 140 mmol/L (135-145); Total Protein 6.7 g/dL (6.5-8.0)
== END 2022-01-03 11:18 ==
LOC: HO.HMGCLDS 11:17
PROVIDERS: PCP Nurse Practitioner Family; Visit Provider Nurse Practitioner Family
DX: Z01.818 Encounter for other preprocedural examination (principal)
CPT/HCPCS: 36415; 80053; 85025; 85610; 85730

== ENCOUNTER 2022-01-05 07:11 | Day surgery (SDC) | payer OTHER, SELFPAY ==
[2022-01-02 10:11] VITALS: BMI 34.8
--- NOTE | 2022-01-04 11:19 | HO.ANESPROP2 ---
Documented by User: Allie May NP 01/04/22 11:21 HPI - Anesthesia Eval Consult details Narrative: 46yo M for Left Metatarsal Joint Fusion PCP cleared s/p medial branch RFA 2020 with MAC PMFSH Active Problems Active Problems: All Active Problems (Updated 12/29/21 @ 15:04 by KRISSY CruzVOLODYMYR) Pre-op evaluation (Acute) Tinea (Acute) Hematuria (Acute) Hyperkalemia (Acute) HTN (hypertension) (Acute) Physical exam (Acute) Iron deficiency anemia (Acute) Suicide attempt (Acute) Bipolar II disorder (Acute) Post traumatic stress disorder (PTSD) (Acute) Chronic renal insufficiency (Acute) Chronic pain syndrome (Acute) Disc degeneration, lumbar (Acute) Spondylosis of lumbar region without myelopathy or radiculopathy (Acute) Past Medical History Medical History Asthma Chronic pain syndrome Chronic renal insufficiency Depression Disc degeneration, lumbar GERD (gastroesophageal reflux disease) Irritable bowel syndrome with diarrhea Post traumatic stress disorder (PTSD) Spondylosis of lumbar region without myelopathy or radiculopathy Suicide attempt Tremor Family History Family History Father Substance use disorder Mental health disorder Surgical History Surgical History History of kidney surgery Hx of colonoscopy Hx of esophagogastroduodenoscopy Social History Social History Household Members: Family Housing: House Are you a primary intensive care ambulance paramedic to a significant other at home: No Do you presently have visiting nurse or other home services: No Alcohol intake: former Patient Tobacco Use Status: Never used Tobacco e-Cigarette/Vaping Use: Never Used Second Hand Smoke Exposure: No Use of substances other than those prescribed or required for medical reasons: No Are you DNR?: No Advance Directives: No Advance Directives Information Provided: Yes service: No Current occupational status: disabled Sexual orientation: Straight/Heterosexual Cognitive needs: No Hearing needs: No Vision needs: No Meds Allergies Allergy/AdvReac Type Severity Reaction Status Date / Time Seasonal Allergies Allergy Intermediate itchy/runny Verified 12/29/21 17:43 nose dog dander Allergy Unknown Verified 12/29/21 17:43 Home Medications Medication Instructions Recorded Confirmed Last Taken Type lamotrigine 25 mg tablet 100 mg PO DAILY 09/01/20 01/05/22 01/05/22 History bupropion HCl 150 mg 24 hr tablet, 150 mg PO QAM 10/28/20 01/05/22 01/05/22 History extended release iwsgnnd-jcwnqctxrzvhk-pquaremh 250 2 tab PO Q6H PRN Headache 12/01/20 01/05/22 Unknown History mg-250 mg-65 mg tablet (Excedrin Migraine) fexofenadine 180 mg tablet 180 mg PO DAILY 12/01/20 01/05/22 01/05/22 History (Kimmy Allergy) fluoxetine 20 mg capsule 20 mg PO DAILY 12/01/20 01/05/22 01/05/22 History lamotrigine 200 mg tablet 200 mg PO BEDTIME 04/04/21 01/05/22 Unknown History oxcarbazepine 300 mg tablet 300 mg PO BID 04/04/21 01/05/22 01/05/22 History lorazepam 1 mg tablet 1 mg PO DAILY 08/01/21 01/05/22 01/05/22 History ferrous sulfate 325 mg (65 mg 325 mg PO DAILY 01/05/22 01/05/22 01/05/22 History iron) tablet (iron) fluticasone 500 mcg-salmeterol 50 1 puff inhalation BID 01/05/22 01/05/22 01/05/22 History mcg/dose blistr powdr for inhalation (Advair Diskus) montelukast 10 mg tablet 10 mg PO DAILY 01/05/22 01/05/22 01/05/22 History (Singulair) Exam Exam Date and Time: January 04, 2022 1119 Height,Weight and Vital Signs: Height 5 ft 5 in Weight 94.971 kg Pertinent Lab Results Pertinent Lab Results: Laboratory Tests 01/03/22 01/03/22 11:21 11:21 WBC 7.1 Hgb 15.0 Hct 44.8 Plt Count 251 Sodium 140 Potassium 4.3 Chloride 105 Carbon Dioxide 26 BUN 15 Creatinine 1.41 H Narrative Narrative: EKG 12/2021 NSR Documented by User: Bebo Young MD 01/05/22 16:29 HPI - Anesthesia Eval Consult details Narrative: 46yo M for Left Metatarsal Joint Fusion PCP cleared s/p medial branch RFA 2020 with MAC back pain with radiation to b/l LE with tingling and numbness PMFSH Past Medical History Medical History Asthma Chronic pain syndrome Chronic renal insufficiency Depression Disc degeneration, lumbar GERD (gastroesophageal reflux disease) Irritable bowel syndrome with diarrhea Post traumatic stress disorder (PTSD) Spondylosis of lumbar region without myelopathy or radiculopathy Suicide attempt Tremor Family History Family History Father Substance use disorder Mental health disorder Family history of problems with anesthesia: No Surgical History Surgical History History of kidney surgery Hx of colonoscopy Hx of esophagogastroduodenoscopy History of Problems with Anesthesia: No Social History Social History Household Members: Family Housing: House Are you a primary intensive care ambulance paramedic to a significant other at home: No Do you presently have visiting nurse or other home services: No Alcohol intake: former Patient Tobacco Use Status: Never used Tobacco e-Cigarette/Vaping Use: Never Used Second Hand Smoke Exposure: No Use of substances other than those prescribed or required for medical reasons: No Are you DNR?: No Advance Directives: No Advance Directives Information Provided: Yes service: No Current occupational status: disabled Sexual orientation: Straight/Heterosexual Cognitive needs: No Hearing needs: No Vision needs: No Meds Allergies Allergy/AdvReac Type Severity Reaction Status Date / Time Seasonal Allergies Allergy Intermediate itchy/runny Verified 12/29/21 17:43 nose dog dander Allergy Unknown Verified 12/29/21 17:43 Home Medications Medication Instructions Recorded Confirmed Last Taken Type lamotrigine 25 mg tablet 100 mg PO DAILY 09/01/20 01/05/22 01/05/22 History bupropion HCl 150 mg 24 hr tablet, 150 mg PO QAM 10/28/20 01/05/22 01/05/22 History extended release urfhcxo-bubxhblurkwut-cqstdyfe 250 2 tab PO Q6H PRN Headache 12/01/20 01/05/22 Unknown History mg-250 mg-65 mg tablet (Excedrin Migraine) fexofenadine 180 mg tablet 180 mg PO DAILY 12/01/20 01/05/22 01/05/22 History (Kimmy Allergy) fluoxetine 20 mg capsule 20 mg PO DAILY 12/01/20 01/05/22 01/05/22 History lamotrigine 200 mg tablet 200 mg PO BEDTIME 04/04/21 01/05/22 Unknown History oxcarbazepine 300 mg tablet 300 mg PO BID 04/04/21 01/05/22 01/05/22 History lorazepam 1 mg tablet 1 mg PO DAILY 08/01/21 01/05/22 01/05/22 History ferrous sulfate 325 mg (65 mg 325 mg PO DAILY 01/05/22 01/05/22 01/05/22 History iron) tablet (iron) fluticasone 500 mcg-salmeterol 50 1 puff inhalation BID 01/05/22 01/05/22 01/05/22 History mcg/dose blistr powdr for inhalation (Advair Diskus) montelukast 10 mg tablet 10 mg PO DAILY 01/05/22 01/05/22 01/05/22 History (Singulair) Exam Airway Mallampati Class: IV TM Dist: >3cm Neck ROM: Full Loose/Missing/Broken Teeth: Yes (upper Bridge ) Heart: S1,S2 Lungs: b/l breath sounds Assessment and Plan Assessment Anesthesia Assessment: Anesthesia Plan Discussed and Chart Reviewed Final Anesthetic Review Family History of Problems with Anesthesia: No History of Problems with Anesthesia: No NPO: Yes ASA Class: III Final Preanesthetic Review: Meds/Allgs Chart Reviewed, Consent Obtained/Reviewed and Anes Risks/Benef Reviewed Patient Risk: Intermediate Procedure Risk: Intermediate Anesthetic Plan Anesthetic Plan: GA Disposition: Standard PACU
--- NOTE | 2022-01-04 11:35 | HP_ITS ---
DATE OF SERVICE: 01/05/2022 PREOPERATIVE DIAGNOSIS: Hallux limitus, left foot. PLANNED PROCEDURE: First metatarsophalangeal joint fusion, left foot. PAST MEDICAL HISTORY: Anxiety; anemia; hip, back, knee pain; depression; headaches; kidney disease; psychiatric disorder; GERD; chickenpox; asthma. CURRENT MEDICATIONS: Gabapentin, montelukast sodium, loperamide, ferrous sulfate, , atorvastatin, , fluoxetine, , bupropion, fexofenadine. PAST SURGICAL HISTORY: Kidney donor, RFA. FAMILY HISTORY: Hypertension. SOCIAL HISTORY: Patient is a nonsmoker. Denies any illicit drug use. He is currently disabled. ALLERGIES: NO KNOWN DRUG ALLERGIES. HOSPITALIZATIONS: Denies. REVIEW OF SYSTEMS: Within normal limits. HISTORY OF PRESENT ILLNESS: This is a 46-year-old male who presents with sharp pain, stiffness, and throbbing in his left great toe joint, which has been present for several years. It has been getting progressively worse. Has tried rest and change in shoes without any relief of symptoms. PHYSICAL EXAMINATION: GENERAL: Reveals a pleasant, alert, well-nourished, well-developed, well-hydrated individual who demonstrates proper attention to body habitus, in no acute distress and is oriented x3. NEUROLOGIC: Reveals normal pin sensation. Vibratory sensation is intact. Pinprick sensation is normal. Denies any tingling, burning, anesthesias, or paresthesias bilaterally. VASCULAR: DP and PT pulses are 2/4 bilaterally. Capillary refill is immediate to all digits. Skin temperature, elasticity, and turgor is normal. Pigmentation is normal. There is no edema. DERMATOLOGIC: Reveals keratotic lesions to the plantar medial IPJ of the right and left hallux. ORTHOPEDIC: Muscle strength is 5/5 in a symmetrical fashion. Gait abnormality is pronated abducted bilaterally. There is a medially prominent first metatarsophalangeal joint dorsally and prominent first metatarsophalangeal joint with pain on palpation. Lateral tracking of the MPJ is nonreducible. There is limited dorsal and plantar range of motion and pain associated with range of motion. PLAN: Patient is scheduled for surgery. Several types of surgeries were discussed with the patient including multiple bunion procedures as well as fusion due to the significant elevatus of his first metatarsal. I recommend a fusion. Discussed the risks of having surgery versus not having surgery, potential surgical complications including, but not limited to, pain, swelling, bleeding, scarring, numbness, infection, delayed or nonhealing, floppy, unstable or shortened toe, need for further surgery, as well as possibility of loss of life, toe or limb recurrence, failure of the procedure, over-correction. Discussed use of local and IV anesthesia and the usual postoperative course. No guarantees were given. The patient verbally indicated a full understanding of the above conversation and answered the questions to their satisfaction. We decided on performing a first metatarsophalangeal joint fusion based on the patient's complaints, medical and social history, physical exam, and x-ray analysis. The patient obtain preoperative labs as well as medical clearance for surgery and anesthesia. He is aware to stop any and all blood thinners at least 1 week prior to surgery and made aware of the fact that driving is allowed during a portion of postoperative period and not to use any smoking tobacco products. The patient was given a prescription for Percocet to use for postoperative pain medication and can use Tylenol or Motrin when not using the Percocet. The patient will be nonweightbearing to the left foot with crutches or a knee scooter and patient will follow up in the office for all postoperative followup care. Kiki Valdez DPM LP/PRASANTH / [id number]
[2022-01-05] VITALS (7 sets, daily range): BP systolic 147–162; BP diastolic 90–112; PULSE 79–98; RESP 16–18; TEMP 36.1–36.6; O2SAT 96–99; BMI 33.3
--- NOTE | ~2022-01-05 | FL_ITS ---
EXAMINATION: XR FLUOROSCOPY WITH IMAGES CLINICAL INFORMATION: Left metatarsal joint effusion. COMPARISON: None. TECHNIQUE: Fluoroscopy performed by Dr. Valdez Fluoroscopy time: 6.09 seconds. Cumulative Dose: 0.1168 mGy. DAP: 0.0071 Gycm2. Images: 4. FL/FL guidance in OR FINDINGS/IMPRESSION: Final images show a dorsal fixation plate transfixing the first metatarsophalangeal joint without abnormality. Please refer to the procedure report for more detailed findings.
[2022-01-05] MEDS: Lactated Ringers 1,000 ML 100 ML IVCONT (07:43)
--- NOTE | 2022-01-05 08:24 | MHC.SHP ---
Pre-Procedural Eval Section A Date of Service: 01/05/22 The patient is an INPATIENT: No Changes since office visit: No Cold of Flu in the past 2 weeks, No New Medical Problems, No Changes in Medication and No Patient answered all questions The History & Physical has been completed within 30 days and I have reviewed it.: Yes Section B Chief Complaint: Other deformities of toe(s) (acquired), left foot Allergies: Allergies Allergy/AdvReac Type Severity Reaction Status Date / Time Seasonal Allergies Allergy Intermediate itchy/runny Verified 12/29/21 17:43 nose dog dander Allergy Unknown Verified 12/29/21 17:43 Plan I have reviewed the history and physical and performed a pertinent physical examination on my patient. No changes have occurred unless specified.
--- NOTE | 2022-01-05 10:23 | P.BOP_ITS ---
Brief Operative Note Date of Service: 01/05/22 Pre-op diagnosis: Hallux Limitus left foot Post-op diagnosis: same Procedure: Left fusion 1st MPJ Implants: [employer] Cross check 1st MPJ fusion Surgeon: Kiki Valdez Anesthesia: GLMA Was an Pierce And Shave Press Operator used for this Procedure?: Yes Pierce And Shave Press Operator: Jared Barr Estimated blood loss (mL): 1 Tourniquet time (min): 59 Pathology: other Condition: stable Disposition: PACU
[2022-01-05] MEDS: oxyCODONE HCl Immed Release 5 MG TABLET PO (11:04)
--- NOTE | 2022-01-06 09:45 | OP_ITS ---
SURGEON: Kiki Valdez DPM PREOPERATIVE DIAGNOSIS: Hallux limitus, left foot. POSTOPERATIVE DIAGNOSIS: Hallux limitus, left foot. PROCEDURE PERFORMED: Left first metatarsophalangeal joint fusion. ESTIMATED BLOOD LOSS: Less than 1 cc. COMPLICATIONS: None. ANESTHESIA: LMA with local consisting preoperatively of 12 cc of 0.5% ropivacaine and 2% lidocaine plain and postoperatively of 5 cc of 0.5% ropivacaine. SPECIMENS: Gouty tophi, first metatarsophalangeal joint, left foot. HEMOSTASIS: Pneumatic ankle tourniquet set at 225 mmHg for 59 minutes. TONAL REGULATOR: Jared Barr DPM. INDICATIONS FOR SURGERY: Patient had painful first metatarsophalangeal joint on the left foot that has been present for some time. The patient has tried multiple conservative therapies without any successful relief in pain. The above-mentioned surgery was discussed in detail with the patient including risks, benefits, and possible complications. No guarantees were given, and written and oral informed consent was obtained. DESCRIPTION OF PROCEDURE: The patient was brought to the operating room, placed on the table in supine position. Following anesthesia, the above-mentioned local anesthetic was injected about the left foot in a regional field block fashion. 2 g of cefazolin was administered as a prophylactic preoperative antibiotic. The left foot was scrubbed, prepped, and draped in a sterile manner. Attention was directed to the left foot, where the foot was exsanguinated and the pneumatic ankle tourniquet was inflated to 225 mmHg. Attention was directed to the first metatarsophalangeal joint, where incision was made approximately 6 cm in length. Incision was deepened down through subcutaneous tissue. Great care being taken to retract vital, neural, and vascular structures and all bleeders were cauterized as necessary. A linear capsulotomy was made medial and parallel to the extensor tendons and the soft tissues were freed about the head of the first metatarsal and base of proximal phalanx. Upon incision into the first metatarsophalangeal joint, there was noted to be significant degeneration of the first metatarsal head with bony defect approximately 50% of the cartilaginous surfaces. There was also noted to be gouty tophi within the joint. Specimens of the gouty tophi were removed and sent in saline to Pathology for evaluation. The cartilaginous surfaces were reamed as well as burred to remove any cartilage from the head of the first metatarsal and base of proximal phalanx. Vitoss was used as a supplement as well as subchondral drilling with a K-wire into the head of the first metatarsal and base of proximal phalanx. The joint was realigned and the [facility] crosscheck plate was then placed over the joint of the left foot. Two BB-Taks were then placed to temporarily stabilize the plate. The two distal screws were drilled and filled with, 2.7, 14 mm locking screws into the 2 distal holes. Then the compression screw, a 3.5 x 32 mm screw was placed. This was noted to be long on radiograph and so was exchanged with a 28 mm to provide adequate compression. Next, the proximal screw holes were drilled and two 2.7 x 18 mm locking screws were placed in the proximal screw holes. The plate was checked under C-arm fluoroscopy. There was noted be excellent compression of the joint space. The wound was irrigated with normal sterile saline. The capsular structures reapproximated with 3-0 Vicryl in a continuous running fashion. The subcutaneous tissues were approximated with 4-0 Vicryl in an interrupted suture technique and the skin was reapproximated with 4-0 Monocryl as well as 4-0 nylon in an interrupted suture technique. A zip line from [email or web address] was placed over the incision. A postoperative injection of 5 cc of 0.5% ropivacaine was administered and the foot was then dressed with Adaptic, Betadine-soaked gauze, 4 x 4s, fluffs, Bandar, cast padding, and an Dane bandage. Pneumatic ankle tourniquet was deflated and prompt capillary refill was noted to all 5 digits. The patient tolerated procedure and anesthesia well. He was transferred to the recovery room with vital signs stable and vascular status at preoperative levels. Following a period of postoperative recovery, the patient will be discharged home with written and oral postoperative instructions. The patient is to be strictly nonweightbearing to the left foot and will follow up in my office for all postoperative followup care. Given the presence of gouty crystals tophi in the joint, we will also prescribed medication for gout postoperatively and patient has pain medication at home. Kiki Valdez DPM LP/PRASANTH / [id number] PABLITO
== END 2022-01-05 11:54 | disposition home or self-care (01) ==
PROVIDERS: PCP Nurse Practitioner Family; Visit Provider Podiatrist
PROC: (CPT 28735; principal; 2022-01-05 08:30)
DX: M20.5X2 Other deformities of toe(s) (acquired), left foot (principal); M1A.9XX1 Chronic gout, unspecified, with tophus (tophi); M19.072 Primary osteoarthritis, left ankle and foot; G89.4 Chronic pain syndrome; N18.30 Chronic kidney disease, stage 3 unspecified; Z90.5 Acquired absence of kidney; J45.909 Unspecified asthma, uncomplicated; F43.10 Post-traumatic stress disorder, unspecified; R25.1 Tremor, unspecified; Z79.1 Long term (current) use of non-steroidal anti-inflammatories (NSAID); Z79.51 Long term (current) use of inhaled steroids; Z79.899 Other long term (current) drug therapy
CPT/HCPCS: 28750; 88304; C1713; J0690; J1100; J2250; J2370; J2405; J2795; J3010

== ENCOUNTER 2022-01-12 14:08 | Outpatient (REF) | payer OTHER, SELFPAY ==
--- NOTE | ~2022-01-12 | XR_ITS ---
EXAMINATION: XR CHEST CLINICAL INFORMATION: Difficulty breathing COMPARISON: None TECHNIQUE: 2 views of the chest were obtained. FINDINGS: Lungs clear. No pleural effusions. Heart and pulmonary vessels are normal. XR/XR chest 2V IMPRESSION: No active disease.
[2022-01-12 16:52] LABS: MANUAL DIFF FLAG NO
[2022-01-12 16:59] LABS: Basophils Percent Auto 0.5 % (0-2); Eosinophils Absolute Auto 0.2 X10*3/uL (0.0-0.4); Hematocrit 44.8 % (42.0-52.0); Hemoglobin 15.1 g/dl (14.0-18.0); Imm Gran Abs Auto 0.04 X10*3/uL (0.00-0.03); Imm Gran Pct Auto 0.5 % (0.0-0.4); Lymphocytes Absolute Auto 1.6 X10*3/uL (1.2-4.9); Lymphocytes Percent Auto 21.4 % (20-40); Mean Corpuscular HGB Conc 33.7 g/dl (31.0-36.0); Mean Corpuscular Volume 88.9 fL (80.0-98.0); Mean Platelet Volume 9.1 fL (9.4-12.4); Monocytes Absolute Auto 0.7 X10*3/uL (0.1-1.2); Monocytes Percent Auto 9.8 % (2-11); Neutrophils Absolute Auto 4.8 x10*3/uL (2.0-8.3); Neutrophils Percent Auto 64.8 % (45-73); Platelet Count 316 X10*3/uL (160-400); Red Blood Count 5.04 X10*6/uL (4.60-5.80); Red Cell Distribution Width 13.2 % (11.0-16.0); White Blood Count 7.4 X10*3/uL (4.8-10.8)
[2022-01-12 17:47] LABS: Alanine Aminotransferase 27 U/L (0-40); Albumin Level 4.3 g/dL (3.5-5.0); Alkaline Phosphatase 140 U/L (39-117); Anion Gap 17 (12-20); Aspartate Amino Transferase 26 U/L (5-37); Bilirubin Total 0.6 mg/dL (0.0-1.0); Blood Urea Nitrogen 14 mg/dL (9-16); Calcium 9.8 mg/dL (8.4-10.2); Carbon Dioxide 28 mmol/L (22-29); Chloride 100 mmol/L (96-108); Estimated Glomerular Filt Rate 58; Glucose Random 85 mg/dL (60-115); Potassium 4.9 mmol/L (3.3-5.1); Sodium 140 mmol/L (135-145); Total Protein 7.2 g/dL (6.5-8.0); Uric Acid 8.1 mg/dL (3.4-7.0)
== END 2022-01-12 14:09 ==
LOC: HO.HMGCX 14:08
PROVIDERS: PCP Nurse Practitioner Family; Visit Provider Nurse Practitioner Family
DX: M10.9 Gout, unspecified (principal); R09.89 Other specified symptoms and signs involving the circulatory and respiratory systems
CPT/HCPCS: 36415; 71046; 80053; 84550; 85025

== ENCOUNTER 2022-04-25 10:13 | Outpatient (REF) | payer OTHER, SELFPAY ==
--- NOTE | ~2022-04-25 | XR_ITS ---
EXAMINATION: XR KNEE, RIGHT CLINICAL INFORMATION: Right knee pain. COMPARISON: None TECHNIQUE: Four views of the right knee. FINDINGS: Bones and soft tissues are normal. No fracture or joint effusion. Alignment is anatomic. Joint spaces are well maintained. No abnormal soft tissue calcification. XR/XR knee RT 4V IMPRESSION: Unremarkable right knee.
[2022-04-25 11:40] LABS: MANUAL DIFF FLAG NO
[2022-04-25 11:51] LABS: Basophils Percent Auto 0.5 % (0-2); Eosinophils Absolute Auto 0.2 X10*3/uL (0.0-0.4); Eosinophils Percent Auto 2.2 % (0-4); Hematocrit 44.5 % (42.0-52.0); Hemoglobin 14.6 g/dl (14.0-18.0); Imm Gran Pct Auto 1.3 % (0.0-0.4); Lymphocytes Absolute Auto 1.6 X10*3/uL (1.2-4.9); Lymphocytes Percent Auto 20.8 % (20-40); Mean Corpuscular HGB Conc 32.8 g/dl (31.0-36.0); Mean Corpuscular Hemoglobin 28.5 pg (27.0-33.0); Mean Corpuscular Volume 86.7 fL (80.0-98.0); Mean Platelet Volume 9.5 fL (9.4-12.4); Monocytes Absolute Auto 0.5 X10*3/uL (0.1-1.2); Monocytes Percent Auto 6.9 % (2-11); Neutrophils Absolute Auto 5.3 x10*3/uL (2.0-8.3); Neutrophils Percent Auto 68.3 % (45-73); Platelet Count 303 X10*3/uL (160-400); Red Blood Count 5.13 X10*6/uL (4.60-5.80); White Blood Count 7.7 X10*3/uL (4.8-10.8)
[2022-04-25 12:50] LABS: Alanine Aminotransferase 28 U/L (0-40); Albumin Level 4.2 g/dL (3.5-5.0); Alkaline Phosphatase 140 U/L (39-117); Anion Gap 16 (12-20); Aspartate Amino Transferase 28 U/L (5-37); Bilirubin Total 0.3 mg/dL (0.0-1.0); Blood Urea Nitrogen 17 mg/dL (9-16); Calcium 9.5 mg/dL (8.4-10.2); Carbon Dioxide 24 mmol/L (22-29); Chloride 105 mmol/L (96-108); Estimated Glomerular Filt Rate 52; Glucose Random 81 mg/dL (60-115); Sodium 140 mmol/L (135-145)
[2022-04-25 12:51] LABS: Gamma Glutamyl Transpeptidase 174 U/L (11-51); Uric Acid 6.7 mg/dL (3.4-7.0)
[2022-04-28 22:08] LABS: Alk.Phos Iso. Macrohepatic 0 % (<=0); Alk.Phos Isoenzymes Bone 26 % (28-66); Alk.Phos Isoenzymes Intest 10 % (1-24); Alk.Phos Isoenzymes Liver 64 % (25-69); Alk.Phos Isoenzymes Placental 0 % (<=0); Alk.Phos Isoenzymes Total 124 U/L (36-130)
== END 2022-04-25 10:14 ==
LOC: HO.HMGCX 10:13
PROVIDERS: Absent Provider Psychiatry & Neurology Psychiatry; PCP Nurse Practitioner Family; Visit Provider Nurse Practitioner Family
DX: M25.561 Pain in right knee (principal); M10.9 Gout, unspecified; R74.8 Abnormal levels of other serum enzymes; F31.81 Bipolar II disorder
CPT/HCPCS: 36415; 73564; 80053; 82977; 84080; 84550; 85025

== ENCOUNTER 2022-05-05 09:01 | Outpatient (REF) | payer OTHER, SELFPAY ==
--- NOTE | ~2022-05-05 | US_ITS ---
EXAMINATION: US ABDOMEN COMPLETE CLINICAL INFORMATION: Abnormal levels of other serum enzymes. COMPARISON: None. TECHNIQUE: Real-time imaging of the abdominal viscera. FINDINGS: PANCREAS: The pancreas appears unremarkable, without masses or ductal dilatation, with the exception of the tail which is obscured by bowel gas. ABDOMINAL AORTA: The proximal abdominal aorta is obscured by bowel gas but the mid and distal aorta are unremarkable. INFERIOR VENA CAVA: Visualized portions are normal. LIVER: The liver is normal in size. The liver contour is normal. There is diffuse increased liver parenchymal echogenicity, consistent with hepatic steatosis. No focal hepatic lesion. There is no intrahepatic biliary duct dilatation seen. GALLBLADDER: Normal. The gallbladder is physiologically distended without evidence of stones, sludge, polyps, wall thickening or pericholecystic fluid. COMMON BILE DUCT: Normal in caliber measuring 0.3 cm in diameter. RIGHT KIDNEY: Normal. No hydronephrosis. No renal calculi or focal parenchymal lesions. The kidney measures 12.7 cm in maximum dimension. LEFT KIDNEY: Surgically absent. SPLEEN: Normal. The spleen measures 11.9 cm in maximum dimension. FREE FLUID: None. US/US abdomen complete IMPRESSION: Hepatic steatosis.
== END 2022-05-05 09:02 | disposition home or self-care (01) ==
LOC: HO.US 09:01
PROVIDERS: Visit Provider Nurse Practitioner Family
DX: K76.0 Fatty (change of) liver, not elsewhere classified (principal); R74.8 Abnormal levels of other serum enzymes
CPT/HCPCS: 76700

== ENCOUNTER 2022-11-13 09:02 | Outpatient (REF) | payer OTHER, SELFPAY ==
[2022-11-13 11:54] LABS: Appearance Urine Clear; Color Urine Yellow; Glucose Urine UA Negative (Negative); Leukocyte Esterase Urine Trace (Negative); Nitrite Urine Negative (Negative); Specific Gravity - Urine 1.025 (1.005-1.025); UMIC TRIGGER UACC YES; Urine Blood Negative (Negative); Urine Ketones Negative (Negative); Urine Protein Negative (Neg-Trace)
[2022-11-13 11:58] LABS: Bacteria Urine None Seen (None Seen); Hyaline Casts Urine 0-2 /LPF (0-2); RBC Urine 0-2 /HPF (0-2); Squamous Epithelial Cell Urine 0-2 /HPF (0-2); WBC Urine 0-5 /HPF (0-5)
[2022-11-13 12:00] LABS: MANUAL DIFF FLAG NO
[2022-11-13 12:19] LABS: Basophils Percent Auto 0.5 % (0-2); Eosinophils Absolute Auto 0.2 X10*3/uL (0.0-0.4); Eosinophils Percent Auto 2.8 % (0-4); Hematocrit 43.9 % (42.0-52.0); Hemoglobin 14.7 g/dl (14.0-18.0); Imm Gran Abs Auto 0.05 X10*3/uL (0.00-0.03); Imm Gran Pct Auto 0.8 % (0.0-0.4); Lymphocytes Absolute Auto 1.5 X10*3/uL (1.2-4.9); Lymphocytes Percent Auto 23.8 % (20-40); Mean Corpuscular HGB Conc 33.5 g/dl (31.0-36.0); Mean Corpuscular Hemoglobin 29.4 pg (27.0-33.0); Mean Corpuscular Volume 87.8 fL (80.0-98.0); Mean Platelet Volume 9.2 fL (9.4-12.4); Monocytes Absolute Auto 0.6 X10*3/uL (0.1-1.2); Monocytes Percent Auto 8.7 % (2-11); Neutrophils Absolute Auto 4.1 x10*3/uL (2.0-8.3); Neutrophils Percent Auto 63.4 % (45-73); Platelet Count 259 X10*3/uL (160-400); Red Cell Distribution Width 13.7 % (11.0-16.0); White Blood Count 6.4 X10*3/uL (4.8-10.8)
[2022-11-13 12:50] LABS: Alanine Aminotransferase 34 U/L (0-40); Alkaline Phosphatase 130 U/L (39-117); Anion Gap 12 (12-20); Aspartate Amino Transferase 26 U/L (5-37); Bilirubin Total 0.5 mg/dL (0.0-1.0); Blood Urea Nitrogen 13 mg/dL (9-16); Calcium 9.3 mg/dL (8.4-10.2); Carbon Dioxide 28 mmol/L (22-29); Chloride 102 mmol/L (96-108); Cholesterol 163 mg/dL; Estimated Glomerular Filt Rate 52; Glucose Fasting 98 mg/dL (60-99); HDL Cholesterol 42 mg/dL; LDL Cholesterol Calculated 97 mg/dl; Potassium 4.6 mmol/L (3.3-5.1); Sodium 137 mmol/L (135-145); Total Protein 6.8 g/dL (6.5-8.0); Triglycerides 123 mg/dL
[2022-11-13 12:55] LABS: TSH reflex Free T4 1.36 uIU/mL (0.32-4.0)
== END 2022-11-13 09:03 | disposition home or self-care (01) ==
LOC: HO.HMGCLDS 09:02
PROVIDERS: PCP Nurse Practitioner Family; Visit Provider Nurse Practitioner Family
DX: I10 Essential (primary) hypertension (principal)
CPT/HCPCS: 36415; 80053; 80061; 81001; 84443; 85025

== ENCOUNTER 2022-11-22 10:03 | Outpatient (AMB) | payer OTHER, SELFPAY ==
--- NOTE | 2022-11-22 10:14 | MHC.OFFVIS ---
Intake Vital Signs 11/22/22 10:19 Height 5 ft 5 in Weight 210 lb BMI 34.9 BP 128/78 Blood Pressure Location Rt brachial Position Sitting Respiration 16 Pulse 81 Pulse Source Pulse Oximeter Pulse Oximetry (%) 95 Oxygen Delivery Method Room Air Intake Visit Reasons: Medication F/U: Gabapentin Refill (DENIZ:September 2021) Intake Note: patient comes in for follow up and medication refill. Allergies Seasonal Allergies Allergy (Intermediate, Verified 11/22/22 10:20) itchy/runny nose dog dander Allergy (Verified 11/22/22 10:20) Unknown HPI Medication F/U: Gabapentin Refill (DENIZ:September 2021) HPI Details Fox is in the office? to plan the future treatment.? We performed L3-L4 dorsal ramus L5 bilateral RFA on this patient resulting is 1 month of the pain relief.? He had 100% pain improvement for the past 4 weeksDue to the technical mishap with the RFA machine I had to perform pulsed RFA instead of the continuous high temperature procedure. Now the pain is coming back. the pain was coming back 1 month after the procedure but it was not full strength.? Now he reports that pain is as it was before the procedure.? I explained to him that we can perform another RFA for him only? in 6 months from the original procedure so therefore it will be in March. Gabapentin helps for his pain.?? He is on 800 mg t.i.d..? He reports mild mental fogginess but no other side effects after gabapentin.? He requests me to start him on some muscle relaxants such as? tizanidine. I recommended him to take 2 mg t.i.d. and if it is well tolerated to take 2 pills a night to help his pain. He tried to stay active and tries to lose weight.? I recommended him intermittent? fasting. Prior: complains on pain in lower back with radiation into the left lower extremity and intermittent numbness on the anterior surface of the left thigh. Also pain radiates to the thigh and the hip but not below that level. He reports that he has pain is 8/10 today he reports that the pain started several years ago when he attempted to lift a heavy pipe from the ground felt a crack in his back in severe pain in the back coming to the left leg. He had some physical therapy in the past with no effect. He reports NSAIDs do not help his pain. He tried TENS unit but it was not working for him HPI Comments History of Present Illness Details Fox is very pleasant 47 years old gentleman who is in my office under observation for long period of time. He was not here for almost 2 years. Last time he was here we performed bilateral L3-L4 does ramus L5 medial branch block to treat spondylosis of the lumbar spine. We also performed radiofrequency ablation of the same medial branches however the procedure was performed was pulse radiofrequency ablation because machine was malfunctioning. I.e. offered him today to repeat radiofrequency ablation of L3-L4 dorsal ramus L5 medial branches. He also requests me to renew for him his gabapentin. I will start him again on gabapentin as previous does was with 11 refills. [facility] Medical History Asthma Chronic pain syndrome Chronic renal insufficiency Depression Disc degeneration, lumbar GERD (gastroesophageal reflux disease) Gout Irritable bowel syndrome with diarrhea Post traumatic stress disorder (PTSD) Spondylosis of lumbar region without myelopathy or radiculopathy Suicide attempt Tremor Surgical History History of kidney surgery Hx of colonoscopy Hx of esophagogastroduodenoscopy Family History Father Substance use disorder Mental health disorder Social History Household Members: Family Housing: House Are you a primary school childcare attendant to a significant other at home: No Do you presently have visiting nurse or other home services: No Alcohol intake: former Patient Tobacco Use Status: Never used Tobacco e-Cigarette/Vaping Use: Never Used Second Hand Smoke Exposure: No service: No Current occupational status: disabled Sexual orientation: Straight/Heterosexual Cognitive needs: No Hearing needs: No Vision needs: No Review of Systems Const All systems reviewed & are unremarkable except as noted in HPI and below Physical Exam Vital Signs: Last Vital Signs Pulse 81 11/22/22 10:19 Resp 16 11/22/22 10:19 BP 128/78 11/22/22 10:19 Pulse Ox 95 11/22/22 10:19 Oxygen Delivery Method Room Air 11/22/22 10:19 BMI result Body Mass Index 34.9 Const General: cooperative Nutritional Appearance: well nourished and overweight Eyes Pupils: Equal, round and reactive pupils present EOM: EOMs intact bilaterally Chest Chest palpation & inspection: normal inspection of the chest Resp Effort & Inspection: normal respiratory effort, able to speak in complete sentences, normal respiratory pattern, no audible wheezes and no cough Cardio Jugular venous distension: no JVD GI Inspection: Yes normal to inspection Back/Spine/Pelvis Other: The patient is able to walk on his feet and on his tiptoes as well as on his heels. Flexion and extension abduction and adduction of both lower extremities without problems. Palpation of the lumbar spine reveals no tenderness in spinal or paraspinal region. Bending forward and bending backwards do not affect his pain level. Bending sideways to the left in loading test aggravate his pain minimally. Palpation of the projection of left sacroiliac joint is slightly tender. However the Alvino test is negative neither on the left nor on the right. Straight leg rising is negative bilaterally.. EXTREMITIES: good capillary refill in nail beds. NEUROLOGIC: Twelve pairs of cranial nerves appears to be intact. No focal abnormalities except of the above mention numbness. Symmetrical muscular strength in upper and lower extremities. Uvula on midline, tongue is on midline, eyes are PERRLA, extraocular movements are intact. No hearing or vision abnormalities. No coordination abnormalities.. Neuro Cranial nerves: Yes Equal, round and reactive pupils present Assessment & Plan Assessment & Plan (1) Spondylosis of lumbar region without myelopathy or radiculopathy: Code(s): M47.816 - Spondylosis without myelopathy or radiculopathy, lumbar region (2) Disc degeneration, lumbar: Code(s): M51.36 - Other intervertebral disc degeneration, lumbar region (3) Chronic pain syndrome: Code(s): G89.4 - Chronic pain syndrome Plan Diagnostic MBB gave him pain relieve for 14 days, therapeutic MBB injection relieved his pain for 3 months.. RFA was done on 08/13/2020/ 100% pain relieve for 4 weeks. Due to technical electronic difficulties with RFA machine it was pulsed RFA. Now he would like me to repeat RFA and make it full Scale procedure. Also I will continues gabapentin 800 t.i.d.. Left L4-5 transforaminal was actually planned , if Procedures for MBBs would not be working. A next appointment after the procedure. . Medications: Refilled gabapentin 800 mg PO TID 90 tabs 12RF 30 days Coding Level of Care Code Est Pt Level 4 (22606) Diagnoses Spondylosis of lumbar region without myelopathy or radiculopathy M47.816 Disc degeneration, lumbar M51.36 Chronic pain syndrome G89.4
[2022-11-22 10:19] VITALS: BP 128/78; PULSE 81; RESP 16; O2SAT 95; BMI 34.9
== END 2022-11-22 10:32 | disposition home or self-care (01) ==
PROVIDERS: PCP Nurse Practitioner Family; Visit Provider Anesthesiology
DX: M47.816 Spondylosis without myelopathy or radiculopathy, lumbar region (principal); M51.36 Other intervertebral disc degeneration, lumbar region; G89.4 Chronic pain syndrome
CPT/HCPCS: 99214

== ENCOUNTER → 2022-11-22 10:03 | Outpatient (BNVA) | payer OTHER, SELFPAY | PROVIDERS: PCP Nurse Practitioner Family; Visit Provider Anesthesiology ==

== ENCOUNTER 2022-12-08 12:25 | Day surgery (SDC) | payer OTHER, SELFPAY ==
--- NOTE | 2022-12-07 11:06 | HO.ANESPROP2 ---
Documented by User: Allie May NP 12/07/22 11:07 HPI - Anesthesia Eval Consult details Narrative: 47yo M for Bilateral L3-L4-DR L5 Medial Branch Radiofrequency AB PMFSH Active Problems Active Problems: All Active Problems (Updated 04/25/22 @ 10:08 by Napoleon Blaknenship, [facility]) Right knee pain (Acute) Elevated alkaline phosphatase level (Acute) Gout (Acute) Chest congestion (Acute) Pre-op evaluation (Acute) Tinea (Acute) Hematuria (Acute) Hyperkalemia (Acute) HTN (hypertension) (Acute) Physical exam (Acute) Iron deficiency anemia (Acute) Suicide attempt (Acute) Bipolar II disorder (Acute) Post traumatic stress disorder (PTSD) (Acute) Chronic renal insufficiency (Acute) Chronic pain syndrome (Acute) Disc degeneration, lumbar (Acute) Spondylosis of lumbar region without myelopathy or radiculopathy (Acute) Past Medical History Medical History Gout Suicide attempt Irritable bowel syndrome with diarrhea Post traumatic stress disorder (PTSD) Chronic pain syndrome Disc degeneration, lumbar Spondylosis of lumbar region without myelopathy or radiculopathy Tremor Chronic renal insufficiency GERD (gastroesophageal reflux disease) Depression Asthma Family History Family History Father Substance use disorder Mental health disorder Family history of problems with anesthesia: No Surgical History Surgical History Hx of colonoscopy Hx of esophagogastroduodenoscopy History of kidney surgery History of Problems with Anesthesia: No Social History Social History Household Members: Family Housing: House Are you a primary healthcare risk control consultant to a significant other at home: No Do you presently have visiting nurse or other home services: No Alcohol intake: former Patient Tobacco Use Status: Never used Tobacco e-Cigarette/Vaping Use: Never Used Second Hand Smoke Exposure: No Advance Directives: No Advance Directives Information Provided: Yes service: No Current occupational status: disabled Sexual orientation: Straight/Heterosexual Cognitive needs: No Hearing needs: No Vision needs: No Meds Allergies Allergy/AdvReac Type Severity Reaction Status Date / Time Seasonal Allergies Allergy Intermediate itchy/runny Verified 11/22/22 10:20 nose dog dander Allergy Unknown Verified 11/22/22 10:20 Home Medications Medication Instructions Recorded Confirmed Last Taken Type bupropion HCl 150 mg 24 hr tablet, 150 mg PO QAM 10/28/20 12/08/22 01/05/22 History extended release lkzifbz-ahhtlhybeciph-usicqwcd 250 2 tab PO Q6H PRN Headache 12/01/20 12/08/22 Unknown History mg-250 mg-65 mg tablet (Excedrin Migraine) fexofenadine 180 mg tablet 180 mg PO DAILY 12/01/20 12/08/22 12/08/22 History (Kimmy Allergy) fluoxetine 20 mg capsule 20 mg PO DAILY 12/01/20 12/08/22 12/08/22 History lamotrigine 200 mg tablet 200 mg PO BEDTIME 04/04/21 12/08/22 12/08/22 History oxcarbazepine 300 mg tablet 300 mg PO BID 04/04/21 12/08/22 12/08/22 History lorazepam 1 mg tablet 1 mg PO DAILY 08/01/21 12/08/22 12/08/22 History ferrous sulfate 325 mg (65 mg 325 mg PO DAILY 01/05/22 12/08/22 12/08/22 History iron) tablet (iron) tizanidine 2 mg tablet 2 mg PO TID PRN muscle spasm 08/23/22 12/08/22 Unknown History Exam Exam Date and Time: December 07, 2022 1106 Pertinent Lab Results Pertinent Lab Results: Laboratory Tests 11/13/22 09:13 WBC 6.4 Hgb 14.7 Hct 43.9 Plt Count 259 Sodium 137 Potassium 4.6 Chloride 102 Carbon Dioxide 28 BUN 13 Creatinine 1.45 H Assessment and Plan Assessment Anesthesia Assessment: Chart Reviewed Final Anesthetic Review Family History of Problems with Anesthesia: No History of Problems with Anesthesia: No Documented by User: Laurence Shetty MD 12/08/22 13:40 PMFSH Active Problems Active Problems: All Active Problems (Updated 12/08/22 @ 13:16 by Laurence Shetty MD) Right knee pain (Acute) Elevated alkaline phosphatase level (Acute) Gout (Acute) Chest congestion (Acute) Pre-op evaluation (Acute) Tinea (Acute) Hematuria (Acute) Hyperkalemia (Acute) HTN (hypertension) (Acute) Physical exam (Acute) Iron deficiency anemia (Acute) Suicide attempt (Acute) 07/2020 Bipolar II disorder (Acute) Post traumatic stress disorder (PTSD) (Acute) Chronic renal insufficiency (Acute) Chronic pain syndrome (Acute) Disc degeneration, lumbar (Acute) Spondylosis of lumbar region without myelopathy or radiculopathy (Acute) Past Medical History Medical History Gout Suicide attempt Irritable bowel syndrome with diarrhea Post traumatic stress disorder (PTSD) Chronic pain syndrome Disc degeneration, lumbar Spondylosis of lumbar region without myelopathy or radiculopathy Tremor Chronic renal insufficiency GERD (gastroesophageal reflux disease) Depression Asthma Family History Family History Father Substance use disorder Mental health disorder Surgical History Surgical History Hx of colonoscopy Hx of esophagogastroduodenoscopy History of kidney surgery Social History Social History Household Members: Family Housing: House Are you a primary healthcare risk control consultant to a significant other at home: No Do you presently have visiting nurse or other home services: No Alcohol intake: former Patient Tobacco Use Status: Never used Tobacco e-Cigarette/Vaping Use: Never Used Second Hand Smoke Exposure: No Advance Directives: No Advance Directives Information Provided: Yes service: No Current occupational status: disabled Sexual orientation: Straight/Heterosexual Cognitive needs: No Hearing needs: No Vision needs: No Meds Allergies Allergy/AdvReac Type Severity Reaction Status Date / Time Seasonal Allergies Allergy Intermediate itchy/runny Verified 11/22/22 10:20 nose dog dander Allergy Unknown Verified 11/22/22 10:20 Home Medications Medication Instructions Recorded Confirmed Last Taken Type bupropion HCl 150 mg 24 hr tablet, 150 mg PO QAM 10/28/20 12/08/22 01/05/22 History extended release sjcvksg-gtismlaxentul-nqchavcd 250 2 tab PO Q6H PRN Headache 12/01/20 12/08/22 Unknown History mg-250 mg-65 mg tablet (Excedrin Migraine) fexofenadine 180 mg tablet 180 mg PO DAILY 12/01/20 12/08/22 12/08/22 History (Kimmy Allergy) fluoxetine 20 mg capsule 20 mg PO DAILY 12/01/20 12/08/22 12/08/22 History lamotrigine 200 mg tablet 200 mg PO BEDTIME 04/04/21 12/08/22 12/08/22 History oxcarbazepine 300 mg tablet 300 mg PO BID 04/04/21 12/08/22 12/08/22 History lorazepam 1 mg tablet 1 mg PO DAILY 08/01/21 12/08/22 12/08/22 History ferrous sulfate 325 mg (65 mg 325 mg PO DAILY 01/05/22 12/08/22 12/08/22 History iron) tablet (iron) tizanidine 2 mg tablet 2 mg PO TID PRN muscle spasm 08/23/22 12/08/22 Unknown History Exam Height,Weight and Vital Signs: Height 5 ft 5 in Weight 95.254 kg Vital Signs Temp Pulse Resp BP Pulse Ox O2 Del Method 12/08/22 13:20 98.2 F 84 18 164/96 H 96 Room Air Airway Mallampati Class: II TM Dist: >3cm Neck ROM: Full Loose/Missing/Broken Teeth: No (Permanent bridge top front. Denies broken, loose, missing teeth) Heart: RRR Lungs: CTAB Assessment and Plan Assessment Anesthesia Assessment: Anesthesia Plan Discussed Final Anesthetic Review NPO: Yes ASA Class: III Final Preanesthetic Review: No Changes in Pt Med Stat, Meds/Allgs Chart Reviewed, Consent Obtained/Reviewed and Anes Risks/Benef Reviewed Patient Risk: Intermediate Procedure Risk: Low Assessment/Block/Sedation in SS: Assess/Block/Sedation-SS Anesthetic Plan Anesthetic Plan: MAC: Disposition: Standard PACU
--- NOTE | ~2022-12-08 | FL_ITS ---
EXAMINATION: XR FLUOROSCOPY WITH IMAGES CLINICAL INFORMATION: Bilateral RFA L3-L4, DR L5 COMPARISON: None available. TECHNIQUE: Fluoroscopy Supervised By: Dr. Denis Kang. Fluoroscopy Time: 1.3 minutes. Cumulative Dose: 32.3 mGy. DAP: 8.81 Gycm2. Images: 5. FINDINGS: [place] project posteriorly on the right aspect of the lumbar spine at the levels of L3, L4, L5, and L5/S1. There are then left-sided needles projecting over the same levels. FL/FL guidance in OR IMPRESSION: Fluoroscopic guidance for lumbar spine intervention..
--- NOTE | 2022-12-08 13:14 | MHC.SHP ---
Pre-Procedural Eval Section A Date of Service: 12/08/22 The patient is an INPATIENT: No Changes since office visit: Yes Patient answered all questions The History & Physical has been completed within 30 days and I have reviewed it.: No Section B Chief Complaint: Spondylosis without myelopathy or radiculopathy, Details of Present Illness: as above Relevant Family History (Specify if Yes): No Relevant Social History: None Present Medications: None Medical History: No relevant PMH History of Previous Operations: No relevant previous surgery Allergies: Allergies Allergy/AdvReac Type Severity Reaction Status Date / Time Seasonal Allergies Allergy Intermediate itchy/runny Verified 11/22/22 10:20 nose dog dander Allergy Unknown Verified 11/22/22 10:20 Review of Systems Sugical H&P ROS: Negative: Cardiovascular, Respiratory, Neurological, Psychiatric, Hem-Onc, Allergic/Immunologic, Gastrointestinal, Genitourinary, Integumentary, Endocrine and Eyes/Ears/Nose/Throat and Yes, Specify: Constitution ( trivial obesity) and Musculoskeletal ( lumbar spondylosis) Exam Surgical H&P Exam: Normal: HEENT, Normal: Heart, Normal: Lungs, Normal: Extremities, Normal: Abdomen, Normal: Skin and Normal: Neurological Plan Diagnosis/Plan: Unchanged I have reviewed the history and physical and performed a pertinent physical examination on my patient. No changes have occurred unless specified. Time Spent With Patient Time: Total time managing care of this patient today __5__ minutes.
[2022-12-08 13:17] VITALS: BMI 34.9
[2022-12-08 13:20] VITALS: BP 164/96; PULSE 84; RESP 18; TEMP 36.8; O2SAT 96
--- NOTE | 2022-12-08 13:24 | W.PM.OPN ---
Operative Note Operative Note Date of Service: 12/08/22 Narrative: RFA E4-T6-Z5-DRL5 bilateral Informed consent was explained to the patient. All questions were explained and answered. The patient was taken inside the operating room where he was positioned prone on the operating table. ASA m-rs were applied,? the patient was sedated however he was able to communicate with me during the entire procedure. The patient was explained that having the procedure while awake would be safer, he was? able to answer the questions and respond to the commands. Time-out was performed delineating name and of the patient,? correct site, side, the nature of the procedure, patient's allergy, preoperative antibiotic if needed. All operating room staff was participating in OR time-out procedure. The lower back was prepped with ChloraPrep and draped with sterile towels. C-arm was brought over the operating field and sq picture of L4, L5 vertebra and S1 AREA were delineated on the screen. Point of interest were delineated as connection of superior articular process of? L3, L4, L5 vertebra bilaterally with corresponding transverse processes as well as connection of the sacral alae bilaterally with superior articular process of S1 1st on the right and then on the left side.? ?The projection of the point of interest to the skin were injected with the small amount of local anesthetic lidocaine 2% 1-1.5 cc. After that 18 gauge 100 mm RFA canulas? were driven to the point of interest in oblique fashion. After needles gently contacted the bone the? sensory and motor tests were performed.The lateral images were obtained and position of the tips of the needles away from the foramina and presumable location of the somatic nerves was verified. Sensory response was appropriate and no motor response was detected in the patients feet lower legs or thighs. After that? at the point of interests the cannulas? were injected with small amount of ropivacaine 0.5% mixed with lidocaine 1%-1cc?-2cc. 90 seconds after the injection the energy application was performed at 89 degrees Centigrade for 90 second. After first energy application the canullas were rotated 180 degrees and energy application was repeated at the same setting.? Upon completion of the energy applications canullas were removed and sterile bandaids? were applied, The? patient was taken outside of the operating room to recovery room.
[2022-12-08] MEDS: Lactated Ringers 1,000 ML 100 ML IVCONT (13:26)
--- NOTE | 2022-12-08 14:43 | P.BOP_ITS ---
Brief Operative Note Date of Service: 12/08/22 Pre-op diagnosis: spondylosis lumbar without myelopathy or radiculopathy Post-op diagnosis: same Procedure: radiofrequency ablation of L2-L3 L4 dorsal ramus L5 medial branches. Implants: None Surgeon: Denis Kang MD Anesthesia: MAC Was an User Support Analyst Supervisor used for this Procedure?: No Estimated blood loss (mL): 1 Pathology: none sent Condition: stable Disposition: PACU
[2022-12-08 14:46] VITALS: BP 137/91; PULSE 81; RESP 16; TEMP 36.8; O2SAT 96
[2022-12-08 15:01] VITALS: BP 147/97; PULSE 78; RESP 14; O2SAT 97
[2022-12-08 15:16] VITALS: BP 147/97; PULSE 78; RESP 14; TEMP 36.8; O2SAT 97
== END 2022-12-08 15:30 | disposition home or self-care (01) ==
PROVIDERS: PCP Nurse Practitioner Family; Visit Provider Anesthesiology
PROC: (CPT 64635; principal; 2022-12-08 14:00)
DX: M47.816 Spondylosis without myelopathy or radiculopathy, lumbar region (principal); G89.4 Chronic pain syndrome; M51.36 Other intervertebral disc degeneration, lumbar region; M10.9 Gout, unspecified; N18.30 Chronic kidney disease, stage 3 unspecified; F43.10 Post-traumatic stress disorder, unspecified; R25.1 Tremor, unspecified; J45.909 Unspecified asthma, uncomplicated; Z79.899 Other long term (current) drug therapy; Z98.890 Other specified postprocedural states
CPT/HCPCS: 64635; 64636 ×2; J2250; J2795; J3010; J3301

== ENCOUNTER → 2022-12-08 12:25 | Outpatient (BNV) | payer OTHER, SELFPAY | PROVIDERS: PCP Nurse Practitioner Family; Visit Provider Anesthesiology | DX: M47.816 Spondylosis without myelopathy or radiculopathy, lumbar region (principal) | CPT/HCPCS: 64635; 64636 ==

== ENCOUNTER 2023-01-10 10:31 | Outpatient (AMB) | payer OTHER, SELFPAY ==
[2023-01-10 10:38] VITALS: BP 138/80; PULSE 89; RESP 16; O2SAT 94; BMI 35.4
--- NOTE | 2023-01-10 10:38 | MHC.OFFVIS ---
Intake Vital Signs 01/10/23 10:38 Height 5 ft 5 in Weight 212 lb 8 oz BMI 35.4 BP 138/80 Blood Pressure Location Rt brachial Position Sitting Respiration 16 Pulse 89 Pulse Source Pulse Oximeter Pulse Oximetry (%) 94 Oxygen Delivery Method Room Air Intake Visit Reasons: s/p B/L L3-L4-DRL5 MB RFA 12/08/22 Allergies Seasonal Allergies Allergy (Intermediate, Verified 01/10/23 10:39) itchy/runny nose dog dander Allergy (Verified 01/10/23 10:39) Unknown HPI HPI Comments History of Present Illness Details Fox is very pleasant 47 years old gentleman who is in my office under observation for long period of time. We performed radiofrequency ablation of L3-L4 dorsal ramus L5 bilateral medial branches on 12/08/2022. He reports only 2 hours of pain improvement after the procedure about 50%. He denies any further pain improvement. He reports pain is debilitating and aggravating. I offered him to sitter MRI of the lumbar spine to evaluate his pain. He reports pain increase in his lower back with prolonged seating and flexing back forward. The vertebra genic pain is suspected. On the MRI will be looking for Modic type changes in his lumbar spine. Intercept procedure could be considered if Modic type changes are discovered in his back. In 2019 we performed bilateral L3-L4 does ramus L5 medial branch block to treat spondylosis of the lumbar spine. We also performed radiofrequency ablation of the same medial branches however the procedure was performed was pulse radiofrequency ablation because machine was malfunctioning. He reported today that his pain is very severe and gabapentin stopped helping him. He is asking me if I can start him on something else. I recommended him to discuss with his primary care physician a short course of the opioids such as tramadol to help his pain better. Currently due to staffing shortage our chronic opioid program is closed. [facility] Medical History Gout Suicide attempt Irritable bowel syndrome with diarrhea Post traumatic stress disorder (PTSD) Chronic pain syndrome Disc degeneration, lumbar Spondylosis of lumbar region without myelopathy or radiculopathy Tremor Chronic renal insufficiency GERD (gastroesophageal reflux disease) Depression Asthma Surgical History Hx of colonoscopy Hx of esophagogastroduodenoscopy History of kidney surgery Family History Father Substance use disorder Mental health disorder Social History Household Members: Family Housing: House Are you a primary care professionals to a significant other at home: No Do you presently have visiting nurse or other home services: No Alcohol intake: former Patient Tobacco Use Status: Never used Tobacco e-Cigarette/Vaping Use: Never Used Second Hand Smoke Exposure: No service: No Current occupational status: disabled Sexual orientation: Straight/Heterosexual Cognitive needs: No Hearing needs: No Vision needs: No Review of Systems Const All systems reviewed & are unremarkable except as noted in HPI and below Physical Exam Vital Signs: Last Vital Signs Pulse 89 01/10/23 10:38 Resp 16 01/10/23 10:38 BP 138/80 01/10/23 10:38 Pulse Ox 94 01/10/23 10:38 Oxygen Delivery Method Room Air 01/10/23 10:38 BMI result Body Mass Index 35.4 Const General: cooperative Nutritional Appearance: well nourished and overweight Eyes Pupils: Equal, round and reactive pupils present EOM: EOMs intact bilaterally Chest Chest palpation & inspection: normal inspection of the chest Resp Effort & Inspection: normal respiratory effort, able to speak in complete sentences, normal respiratory pattern, no audible wheezes and no cough Cardio Jugular venous distension: no JVD GI Inspection: Yes normal to inspection Back/Spine/Pelvis Other: The patient is able to walk on his feet and on his tiptoes as well as on his heels. Flexion and extension abduction and adduction of both lower extremities without problems. Palpation of the lumbar spine reveals no tenderness in spinal or paraspinal region. Bending forward and bending backwards do not affect his pain level. Bending sideways to the left in loading test aggravate his pain minimally. Palpation of the projection of left sacroiliac joint is slightly tender. However the Alvino test is negative neither on the left nor on the right. Straight leg rising is negative bilaterally.. EXTREMITIES: good capillary refill in nail beds. NEUROLOGIC: Twelve pairs of cranial nerves appears to be intact. No focal abnormalities except of the above mention numbness. Symmetrical muscular strength in upper and lower extremities. Uvula on midline, tongue is on midline, eyes are PERRLA, extraocular movements are intact. No hearing or vision abnormalities. No coordination abnormalities.. Neuro Cranial nerves: Yes Equal, round and reactive pupils present Results Reviewed Results Reviewed: On the MRI in lumbar spine all levels appear normal except L4-5 where diffuse bulging with mild flattening on ventral thecal sac is determined. Mild facet arthropathy. Broad-based left foraminal protrusion with annular fissuring. Mild narrowing of bilateral neural foramina, bulging disc abuts the exiting right L4 nerve root but not the left. On the x-ray of the lumbar spine slight increased sclerosis within the facet joints of the lumbar spine no spondylolisthesis or spondylolysis. Assessment & Plan Assessment & Plan (1) Spondylosis of lumbar region without myelopathy or radiculopathy: Code(s): M47.816 - Spondylosis without myelopathy or radiculopathy, lumbar region (2) Disc degeneration, lumbar: Code(s): M51.36 - Other intervertebral disc degeneration, lumbar region (3) Chronic pain syndrome: Code(s): G89.4 - Chronic pain syndrome (4) Vertebrogenic low back pain: Code(s): M54.51 - Vertebrogenic low back pain Plan Diagnostic MBB gave him pain relieve for 14 days, therapeutic MBB injection relieved his pain for 3 months.. RFA was done on 08/13/2020/ 100% pain relieve for 4 weeks. Due to technical electronic difficulties with RFA machine it was pulsed RFA. Unfortunately the repeat of the RFA resulted in no pain improvement whatsoever he reports only 2 hours of pain improvement. He had an MRI long time ago. He wants me to evaluate the MRI for the presence of Modic type changes. He denies gabapentin is helping him. I recommended him to request his primary care physician to start him on tramadol 50 mg 3 times a day p.r.n. pain for short course administration from 3-6 months with evaluation of the level of pain and side effects. A next appointment after the MRI. . Orders: Orders MR lumbar spine wo con Today G89.4 - Chronic pain syndrome, M47.816 - Spondylosis without myelopathy or radiculopathy, lumbar region, M51.36 - Other intervertebral disc degeneration, lumbar region, M54.51 - Vertebrogenic low back pain Coding Level of Care Code Est Pt Level 4 (94292) Diagnoses Spondylosis of lumbar region without myelopathy or radiculopathy M47.816 Disc degeneration, lumbar M51.36 Chronic pain syndrome G89.4 Vertebrogenic low back pain M54.51
== END 2023-01-10 10:43 | disposition home or self-care (01) ==
PROVIDERS: PCP Nurse Practitioner Family; Visit Provider Anesthesiology
DX: M47.816 Spondylosis without myelopathy or radiculopathy, lumbar region (principal); M51.36 Other intervertebral disc degeneration, lumbar region; G89.4 Chronic pain syndrome; M54.51 Vertebrogenic low back pain
CPT/HCPCS: 99214

== ENCOUNTER → 2023-01-10 10:31 | Outpatient (BNVA) | payer OTHER, SELFPAY | PROVIDERS: PCP Nurse Practitioner Family; Visit Provider Anesthesiology ==

== ENCOUNTER 2023-01-20 10:44 | Outpatient (REF) | payer OTHER, SELFPAY ==
--- NOTE | ~2023-01-20 | MR_ITS ---
EXAMINATION: MR LUMBAR SPINE WITHOUT CONTRAST CLINICAL INFORMATION: Neck pain syndrome COMPARISON: MRI lumbar spine 05/28/2019 TECHNIQUE: MRI of the lumbar spine was obtained using routine sequences without the administration of intravenous contrast. FINDINGS: This examination assumes the presence of 5 lumbar type vertebral bodies. For the purposes of this examination, the L5-S1 intervertebral disc space is visualized on axial series 5 image 24. Mild straightening of the normal lumbar lordosis. Levocurvature of the lumbar spine. Lumbar vertebral body heights are maintained. No expansile or destructive osseous lesion. Facet/perifacet edema at L3-L4 and L4-L5. The conus medullaris and cauda equina nerve roots are unremarkable; the conus terminates at the level of L2. L1-L2: No significant spinal canal or neural foraminal stenosis. L2-L3: No significant spinal canal or neural foraminal stenosis. L3-L4: No significant spinal canal or neural foraminal stenosis. Facet arthropathy. L4-L5: Facet arthropathy. Bilateral facet joint effusions. Again seen is a disc bulge with bilateral foraminal disc protrusions and left foraminal annular fissure. There is mild narrowing of the lateral recesses. Mild bilateral neural foraminal stenosis with abutment of the exiting right L4 nerve root which appears comparable to the prior examination. L5-S1: No significant spinal canal or neural foraminal stenosis. Facet arthropathy. Redemonstrated empty left renal fossa. MR/MR lumbar spine wo con IMPRESSION: Redemonstrated disc bulge with foraminal disc protrusions at L4-L5 and abutment of the exiting right L4 nerve root in the neural foramen. Overall, no significant change compared to the prior examination.
== END 2023-01-20 10:45 | disposition home or self-care (01) ==
LOC: HO.MRI 10:44
PROVIDERS: PCP Nurse Practitioner Family; Visit Provider Anesthesiology
DX: G89.4 Chronic pain syndrome (principal); M51.36 Other intervertebral disc degeneration, lumbar region; M47.816 Spondylosis without myelopathy or radiculopathy, lumbar region
CPT/HCPCS: 72148

== ENCOUNTER 2023-01-24 11:06 | Outpatient (AMB) | payer OTHER, SELFPAY ==
--- NOTE | 2023-01-24 11:09 | A.OFFVIS_ITS ---
Intake Vital Signs 01/24/23 11:13 Height 5 ft 5 in Weight 211 lb BMI 35.1 BP 144/90 H Blood Pressure Location Lt brachial Position Sitting Respiration 18 Pulse 104 H Pulse Source Pulse Oximeter Pulse Oximetry (%) 97 Oxygen Delivery Method Room Air Intake Visit Reasons: Follow Up S/p MRI Allergies Seasonal Allergies Allergy (Intermediate, Verified 01/24/23 11:12) itchy/runny nose dog dander Allergy (Verified 01/24/23 11:12) Unknown HPI HPI Comments History of Present Illness Details Fox is very pleasant 47 years old gentleman who is in my office under observation for long period of time. We performed radiofrequency ablation of L3-L4 dorsal ramus L5 bilateral medial branches on 12/08/2022. He reports only 2 hours of pain improvement after the procedure about 50%. He denies any further pain improvement. He reports pain is debilitating and aggravating. He went for MRI and L4-5 certainly have Modic type 2 changes. I offered him to consider intercept. I also offered him to consider joining our chronic opioid program. He has seem to be very responsible gentleman which understands risks and benefits of chronic opioid therapy. He will discuss intercept with his and he will let us know his decision. He was given today consent, conrtact and opioid information page, he also will submit his UDS. After this we will start him on the chronic opioid therapy if he is still wishes to do so. He was explained that we are planning currently about 6 to 12 months opioid therapy with evaluation of the risks and benefits at 6 and 12 months intervale. He is currently being prescribed tramadol 50 mg TID and he denies any help from this medication. In 2019 we performed bilateral L3-L4 does ramus L5 medial branch block to treat spondylosis of the lumbar spine. We also performed radiofrequency ablation of the same medial branches however the procedure was performed was pulse radiofrequency ablation because machine was malfunctioning. NSAIDs and gabapentin used to help his pain however now the no longer helpful.. [facility], [facility] Medical History Gout Suicide attempt Irritable bowel syndrome with diarrhea Post traumatic stress disorder (PTSD) Chronic pain syndrome Disc degeneration, lumbar Spondylosis of lumbar region without myelopathy or radiculopathy Tremor Chronic renal insufficiency GERD (gastroesophageal reflux disease) Depression Asthma Surgical History Hx of colonoscopy Hx of esophagogastroduodenoscopy History of kidney surgery Family History Father Substance use disorder Mental health disorder Social History Household Members: Family Housing: House Are you a primary day care center director to a significant other at home: No Do you presently have visiting nurse or other home services: No Alcohol intake: former Patient Tobacco Use Status: Never used Tobacco e-Cigarette/Vaping Use: Never Used Second Hand Smoke Exposure: No service: No Current occupational status: disabled Sexual orientation: Straight/Heterosexual Cognitive needs: No Hearing needs: No Vision needs: No Review of Systems Const All systems reviewed & are unremarkable except as noted in HPI and below Physical Exam Vital Signs: Last Vital Signs Pulse 104 H 01/24/23 11:13 Resp 18 01/24/23 11:13 BP 144/90 H 01/24/23 11:13 Pulse Ox 97 01/24/23 11:13 Oxygen Delivery Method Room Air 01/24/23 11:13 BMI result Body Mass Index 35.1 Const General: cooperative Nutritional Appearance: well nourished and overweight Eyes Pupils: Equal, round and reactive pupils present EOM: EOMs intact bilaterally Chest Chest palpation & inspection: normal inspection of the chest Resp Effort & Inspection: normal respiratory effort, able to speak in complete sentences, normal respiratory pattern, no audible wheezes and no cough Cardio Jugular venous distension: no JVD GI Inspection: Yes normal to inspection Back/Spine/Pelvis Other: The patient is able to walk on his feet and on his tiptoes as well as on his heels. Flexion and extension abduction and adduction of both lower extremities without problems. Palpation of the lumbar spine reveals no tenderness in spinal or paraspinal region. Bending forward and bending backwards do not affect his pain level. Bending sideways to the left in loading test aggravate his pain minimally. Palpation of the projection of left sacroiliac joint is slightly tender. However the Alvino test is negative neither on the left nor on the right. Straight leg rising is negative bilaterally.. EXTREMITIES: good capillary refill in nail beds. NEUROLOGIC: Twelve pairs of cranial nerves appears to be intact. No focal abnormalities except of the above mention numbness. Symmetrical muscular strength in upper and lower extremities. Uvula on midline, tongue is on midline, eyes are PERRLA, extraocular movements are intact. No hearing or vision abnormalities. No coordination abnormalities.. Neuro Cranial nerves: Yes Equal, round and reactive pupils present Assessment & Plan Assessment & Plan (1) Spondylosis of lumbar region without myelopathy or radiculopathy: Code(s): M47.816 - Spondylosis without myelopathy or radiculopathy, lumbar region (2) Disc degeneration, lumbar: Code(s): M51.36 - Other intervertebral disc degeneration, lumbar region (3) Chronic pain syndrome: Code(s): G89.4 - Chronic pain syndrome (4) Vertebrogenic low back pain: Code(s): M54.51 - Vertebrogenic low back pain Plan Diagnostic MBB gave him pain relieve for 14 days, therapeutic MBB injection relieved his pain for 3 months.. RFA was done on 08/13/2020/ 100% pain relieve for 4 weeks. Due to technical electronic difficulties with RFA machine it was pulsed RFA. Unfortunately the repeat of the RFA resulted in no pain improvement whatsoever he reports only 2 hours of pain improvement. He went for MRI which got discovered Modic type 2 changes at L4-5. Intercept was discussed. He denies gabapentin is helping him. He denies NSAIDs are helping him. His primary care physician prescribes him tramadol. He denies tramadol is helping him. He was offered to join our chronic opioid program. He will consider doing this and meanwhile he will submit his UDS. He also will consider intercept as the treatment procedure. . Patient Instructions: I here by testify that I spent 32 minutes evaluating this patient's MRI, evaluating his prior records, discussing current conditions and discussing plan of care in the future. Coding Level of Care Code Est Pt Level 4 (03927) Diagnoses Spondylosis of lumbar region without myelopathy or radiculopathy M47.816 Disc degeneration, lumbar M51.36 Chronic pain syndrome G89.4 Vertebrogenic low back pain M54.51
[2023-01-24 11:13] VITALS: BP 144/90; PULSE 104; RESP 18; O2SAT 97; BMI 35.1
== END 2023-01-24 11:44 | disposition home or self-care (01) ==
PROVIDERS: PCP Nurse Practitioner Family; Visit Provider Anesthesiology
DX: M47.816 Spondylosis without myelopathy or radiculopathy, lumbar region (principal); M51.36 Other intervertebral disc degeneration, lumbar region; G89.4 Chronic pain syndrome; M54.51 Vertebrogenic low back pain
CPT/HCPCS: 99214

== ENCOUNTER → 2023-01-24 11:06 | Outpatient (BNVA) | payer OTHER, SELFPAY | PROVIDERS: PCP Nurse Practitioner Family; Visit Provider Anesthesiology ==

== ENCOUNTER 2023-02-28 09:05 | Outpatient (AMB) | payer OTHER, SELFPAY ==
--- NOTE | 2023-02-28 09:14 | A.OFFPC_ITS ---
Vital Signs 02/28/23 09:16 Height 5 ft 5 in Weight 213 lb BMI 35.4 BP 114/70 Blood Pressure Location Rt brachial Position Sitting Pulse 64 Pulse Source Pulse Oximeter Pulse Oximetry (%) 94 Oxygen Delivery Method Room Air Intake Visit Reasons: Annual pe Intake Note: Patient here for physical exam. pt states he sees Dr. Ramirez for his back issues. Allergies Seasonal Allergies Allergy (Intermediate, Verified 02/28/23 09:17) itchy/runny nose dog dander Allergy (Verified 02/28/23 09:17) Unknown Medication List - Last Reconciled 02/28/23 by Napoleon Blankenship, [employer]- albuterol sulfate 2.5 mg (3 mL) inhalation QID PRN albuterol sulfate 90 mcg/actuation (ProAir HFA) 2 puffs inhalation Q4-6H PRN 30 days allopurinol 100 mg PO DAILY 90 days ajeyuew-nsznpecygzktw-ztwmvcoe 250-250-65 mg (Excedrin Migraine) 2 tabs PO Q6H PRN atorvastatin 40 mg PO DAILY 90 days bupropion HCl 300 mg PO DAILY 30 days bupropion HCl 150 mg PO QAM sfafxlrkbq-iyzugjigpyzic-bprb 50-325-40 mg 1 tab PO ONCE PRN 20 days ferrous sulfate (iron) 325 mg PO DAILY fexofenadine (Kimmy Allergy) 180 mg PO DAILY fluoxetine 60 mg PO DAILY fluticasone propion-salmeterol 500-50 mcg/dose (Advair Diskus) 1 inh inhalation BID 90 days gabapentin 800 mg PO TID 30 days lamotrigine 200 mg PO BEDTIME loperamide 2 mg PO QID PRN 90 days lorazepam 1 mg PO DAILY montelukast (Singulair) 10 mg PO DAILY oxcarbazepine 300 mg PO BID pantoprazole 40 mg PO DAILY 90 days tizanidine 2 mg PO TID PRN 30 days tramadol 50 mg PO BID PRN 15 days Tobacco use date assessed: 08/23/22 Dental Screening Dental Screen Date: 02/28/23 Did you have a dental visit in the last 12 months?: Yes Did you have a dental problem in the last 6 months where you did not have access to dental care?: No Was dental information given to patient?: Patient has dentist HPI Annual pe HPI Details Pt is here for a PE. Will order labs. Colon screen is up to date. Pt reports ongoing lower back pain. He will be following up with pain management on 03/05, currently on tramadol. Denies any signs of cauda equina. [facility] Medical History Gout Suicide attempt Irritable bowel syndrome with diarrhea Post traumatic stress disorder (PTSD) Chronic pain syndrome Disc degeneration, lumbar Spondylosis of lumbar region without myelopathy or radiculopathy Tremor Chronic renal insufficiency GERD (gastroesophageal reflux disease) Depression Asthma Surgical History Hx of colonoscopy Hx of esophagogastroduodenoscopy History of kidney surgery Family History Father Substance use disorder Mental health disorder Social History Household Members: Family Housing: House Are you a primary director long term care to a significant other at home: No Do you presently have visiting nurse or other home services: No Alcohol intake: former Patient Tobacco Use Status: Never used Tobacco e-Cigarette/Vaping Use: Never Used Second Hand Smoke Exposure: No service: No Current occupational status: disabled Sexual orientation: Straight/Heterosexual Cognitive needs: No Hearing needs: No Vision needs: No Questionnaire Thrive Questionnaire Date Thrive assessed: 04/25/22 I am a: Patient What is your living situation today?: I have a steady place to live Within the past 12 months, did the food you bought not last and you didn't have the money to get more?: Never true Within the past 12 months, did you worry whether your food would run out before you got money to buy more?: Never true Please select the resources that you would like help with: None AUDIT C Alcohol Use Questionnaire (AUDIT-C) 1. How often do you have a drink containing alcohol?: Monthly or less 2. How many drinks containing alcohol do you have on a typical day when you are drinking?: 1 or 2 3. How often do you have six or more drinks on one occasion?: Never Total Score: 1 HERBERT-7 AMB Questionnaire HERBERT-7 Date HERBERT - 7 assessed: 04/25/22 Feeling nervous, anxious, or on edge: 1 = Several days Not being able to stop or control worryin = Several days Worrying too much about different things: 0 = Not at all Trouble relaxin = Not at all Being so restless that it is hard to sit still: 0 = Not at all Becoming easily annoyed or irritable: 0 = Not at all Feeling afraid as if something awful might happen: 0 = Not at all Total HERBERT-7 score (0-4 normal; 5-9 mild; 10-14 moderate; 15-21 severe): 2 Source: Developed by Drs. Trae Velasquez, Rosario Murguia, Berto Barry and colleagues, with an educational vimal from [employer]. Review of Systems Const Denies chills and Denies fever(s) Eyes Denies blurry vision ENT Denies vertigo, Denies dizziness and Denies sore throat Card Denies chest pain at rest, Denies chest pain with activity, Denies diaphoresis, Denies dyspnea and Denies dyspnea on exertion Resp Denies cough, Denies dyspnea, Denies dyspnea on exertion and Denies wheezing GI Denies abdominal pain, Denies melena, Denies hematochezia, Denies constipation, Denies diarrhea and Denies loose stools Denies hematuria Musc Reports back pain, Denies numbness and Denies tingling Skin/Breast Denies lesions Neuro Denies vertigo, Denies dizziness, Denies numbness and Denies tingling Psych Denies anxiety, Denies depression, Denies homicidal ideation, Denies suicidal ideation and Denies other (substance abuse) Aller/Immun Denies wheezing Physical exam (Primary Care) Vital Signs: Last Vital Signs Pulse 64 02/28/23 09:16 BP 114/70 02/28/23 09:16 Pulse Ox 94 02/28/23 09:16 Oxygen Delivery Method Room Air 02/28/23 09:16 BMI result Body Mass Index 35.4 Tobacco/Smoking Status: Tobacco use Status Tobacco use date assessed 08/23/22 02/28/23 09:16 Patient Tobacco Use Status Never used Tobacco 02/28/23 09:16 e-Cigarette/Vaping Use Never Used 02/28/23 09:16 Thrive Assessment: Date of Thrive Assessment Date Thrive assessed 04/25/22 02/28/23 09:16 Const General: cooperative Nutritional Appearance: well nourished and obese Orientation/consciousness: patient oriented x3 HENMT Head: Yes normal to inspection, Yes normocephalic and Yes atraumatic Ears: TM's normal bilaterally Eyes General: appearance normal, both eyes and all related structures Alignment and Position: alignment normal and position normal Neck Neck: Yes normal visual inspection and Yes no lymphadenopathy Thyroid: Thyroid normal Resp Effort & Inspection: normal respiratory effort Auscultation: clear to auscultation bilaterally Cardio Rate: regular rate Rhythm: regular rhythm Heart sounds: S1 normal heart sound present, S2 normal heart sound present and n o murmurs GI Palpation (GI): Soft to palpation and nontender Auscultation: normal bowel sounds Male General Exam: Yes normal external exam Penis: normal penis Scrotum: scrotum normal, testes descended bilaterally and no inguinal hernias Testes: no testicular mass Skin Rashes: no rashes Neuro General: patient oriented x3, moves all extremities, no focal motor deficits and deep tendon reflexes 2+ bilaterally Romberg Test: Negative Psych Appearance: grossly normal Mental Status: mental status grossly normal Speech and movement: Normal speech and movement present Affect: normal affect Attitude: cooperative Thought process: Normal thought process present Thought content: Normal thought content present Insight: Good insight present (Psych) Judgement: Good judgement present (Psych) Assessment and Plan Assessment & Plan (1) Physical exam: Code(s): Z00.00 - Encounter for general adult medical examination without abnormal findings Plan The patient agreed to the use of a medical social consultant for this encounter. Scribed for WALKER Olson by Iris Woodall medical social consultant, on 02/28/2023 at 09:20 EST. Orders: Orders Complete Blood Count Auto Diff Today Z00.00 - Encounter for general adult medical examination without abnormal findings Comprehensive [place]. Panel Fast Today Z00.00 - Encounter for general adult medical examination without abnormal findings Lipid Panel Today Z00.00 - Encounter for general adult medical examination without abnormal findings TSH reflex Free T4 Today Z00.00 - Encounter for general adult medical examination without abnormal findings UA CC w/rflx Micro + Cult Today Z00.00 - Encounter for general adult medical examination without abnormal findings Coding Level of Care Code Est Pt Prev Care 40-64y(03261) Diagnoses Physical exam Z00.00
[2023-02-28 09:16] VITALS: BP 114/70; PULSE 64; O2SAT 94; BMI 35.4
== END 2023-02-28 09:44 | disposition home or self-care (01) ==
PROVIDERS: Visit Provider Nurse Practitioner Family
DX: Z00.00 Encounter for general adult medical examination without abnormal findings (principal)
CPT/HCPCS: 99396

== ENCOUNTER 2023-03-05 10:14 | Outpatient (AMB) | payer OTHER, SELFPAY ==
--- NOTE | 2023-03-05 10:25 | MHC.OFFVIS ---
Intake Vital Signs 03/05/23 10:35 Height 5 ft 5 in Weight 211 lb BMI 35.1 BP 132/84 Blood Pressure Location Rt brachial Position Sitting Respiration 18 Pulse 98 Pulse Source Pulse Oximeter Pulse Oximetry (%) 94 Oxygen Delivery Method Room Air Intake Visit Reasons: Discuss opioid program / Confirmed Allergies Seasonal Allergies Allergy (Intermediate, Verified 02/28/23 09:17) itchy/runny nose dog dander Allergy (Verified 02/28/23 09:17) Unknown HPI HPI Comments History of Present Illness Details Fox is very pleasant 47 years old gentleman who is in my office under observation for long period of time. We performed radiofrequency ablation of L3-L4 dorsal ramus L5 bilateral medial branches on 12/08/2022. He reports only 2 hours of pain improvement after the procedure about 50%. He denies any further pain improvement. He reports pain is debilitating and aggravating. He went for MRI and L4-5 in my opinion he have had Modic type 2 changes. However the radiologist denied L4-5 Modic type changes presents. To to treat his axial back pain I offered patient Nevro SCS. We will discuss at once he finished reading the brochure and speaking about SCS with the consultation. I also will send him for psychological evaluation. Unable to admit him to opioid program. His UDS contained codeine. He admitted obtaining codeine via [place] friend. NSAIDs and gabapentin used to help his pain however now the no longer helpful.. [facility] Medical History Gout Suicide attempt Irritable bowel syndrome with diarrhea Post traumatic stress disorder (PTSD) Chronic pain syndrome Disc degeneration, lumbar Spondylosis of lumbar region without myelopathy or radiculopathy Tremor Chronic renal insufficiency GERD (gastroesophageal reflux disease) Depression Asthma Surgical History Hx of colonoscopy Hx of esophagogastroduodenoscopy History of kidney surgery Family History Father Substance use disorder Mental health disorder Social History Household Members: Family Housing: House Are you a primary gericare aide to a significant other at home: No Do you presently have visiting nurse or other home services: No Alcohol intake: former Patient Tobacco Use Status: Never used Tobacco e-Cigarette/Vaping Use: Never Used Second Hand Smoke Exposure: No service: No Current occupational status: disabled Sexual orientation: Straight/Heterosexual Cognitive needs: No Hearing needs: No Vision needs: No Review of Systems Const All systems reviewed & are unremarkable except as noted in HPI and below Physical Exam Vital Signs: Last Vital Signs Pulse 98 03/05/23 10:35 Resp 18 03/05/23 10:35 BP 132/84 03/05/23 10:35 Pulse Ox 94 03/05/23 10:35 Oxygen Delivery Method Room Air 03/05/23 10:35 BMI result Body Mass Index 35.1 Const General: cooperative Nutritional Appearance: well nourished and overweight Eyes Pupils: Equal, round and reactive pupils present EOM: EOMs intact bilaterally Chest Chest palpation & inspection: normal inspection of the chest Resp Effort & Inspection: normal respiratory effort, able to speak in complete sentences, normal respiratory pattern, no audible wheezes and no cough Cardio Jugular venous distension: no JVD GI Inspection: Yes normal to inspection Back/Spine/Pelvis Other: The patient is able to walk on his feet and on his tiptoes as well as on his heels. Flexion and extension abduction and adduction of both lower extremities without problems. Palpation of the lumbar spine reveals no tenderness in spinal or paraspinal region. Bending forward and bending backwards do not affect his pain level. Bending sideways to the left in loading test aggravate his pain minimally. Palpation of the projection of left sacroiliac joint is slightly tender. However the Alvino test is negative neither on the left nor on the right. Straight leg rising is negative bilaterally.. EXTREMITIES: good capillary refill in nail beds. NEUROLOGIC: Twelve pairs of cranial nerves appears to be intact. No focal abnormalities except of the above mention numbness. Symmetrical muscular strength in upper and lower extremities. Uvula on midline, tongue is on midline, eyes are PERRLA, extraocular movements are intact. No hearing or vision abnormalities. No coordination abnormalities.. Neuro Cranial nerves: Yes Equal, round and reactive pupils present Assessment & Plan Assessment & Plan (1) Spondylosis of lumbar region without myelopathy or radiculopathy: Code(s): M47.816 - Spondylosis without myelopathy or radiculopathy, lumbar region (2) Disc degeneration, lumbar: Code(s): M51.36 - Other intervertebral disc degeneration, lumbar region (3) Chronic pain syndrome: Code(s): G89.4 - Chronic pain syndrome (4) Vertebrogenic low back pain: Code(s): M54.51 - Vertebrogenic low back pain Plan Diagnostic MBB gave him pain relieve for 14 days, therapeutic MBB injection relieved his pain for 3 months.. RFA was done on 08/13/2020/ 100% pain relieve for 4 weeks. Due to technical electronic difficulties with RFA machine it was pulsed RFA. Unfortunately the repeat of the RFA resulted in no pain improvement whatsoever he reports only 2 hours of pain improvement. He went for MRI which got discovered Modic type 2 changes at L4-5. Intercept was discussed. He denies gabapentin is helping him. He denies NSAIDs are helping him. Unable to admit him to our opioid program see as above. Nevro SCS was discussed. Psychological evaluation will be scheduled. Coding Level of Care Code Est Pt Level 3 (70423) Diagnoses Spondylosis of lumbar region without myelopathy or radiculopathy M47.816 Disc degeneration, lumbar M51.36 Chronic pain syndrome G89.4 Vertebrogenic low back pain M54.51
[2023-03-05 10:35] VITALS: BP 132/84; PULSE 98; RESP 18; O2SAT 94; BMI 35.1
== END 2023-03-05 11:16 | disposition home or self-care (01) ==
PROVIDERS: PCP Nurse Practitioner Family; Visit Provider Anesthesiology
DX: M47.816 Spondylosis without myelopathy or radiculopathy, lumbar region (principal); M51.36 Other intervertebral disc degeneration, lumbar region; G89.4 Chronic pain syndrome; M54.51 Vertebrogenic low back pain
CPT/HCPCS: 99213

== ENCOUNTER → 2023-03-05 10:14 | Outpatient (BNVA) | payer OTHER, SELFPAY | PROVIDERS: PCP Nurse Practitioner Family; Visit Provider Anesthesiology ==

== ENCOUNTER 2023-04-03 12:28 | Outpatient (AMB) | payer OTHER, SELFPAY ==
[2023-04-03 15:36] VITALS: BP 140/80; PULSE 85; TEMP 36.8; O2SAT 95; BMI 35.7
--- NOTE | 2023-04-03 15:36 | MHC.OFFWIV ---
Intake Vital Signs 04/03/23 15:36 Height 5 ft 5 in Weight 214 lb 8 oz BMI 35.7 BP 140/80 H Blood Pressure Location Lt brachial Position Sitting Pulse 85 Pulse Source Pulse Oximeter Temp 98.2 F Temp Source Oral Pulse Oximetry (%) 95 Oxygen Delivery Method Room Air Intake Visit Reasons: EP RT ankle pain [phone] Patient Tobacco Use Status: Never used Tobacco Allergies Seasonal Allergies Allergy (Intermediate, Verified 04/03/23 15:59) itchy/runny nose dog dander Allergy (Verified 04/03/23 15:59) Unknown Medication List - Last Reconciled 04/03/23 by Charlie Acharya MD albuterol sulfate 2.5 mg (3 mL) inhalation QID PRN albuterol sulfate 90 mcg/actuation 2 puffs inhalation Q4-6H PRN 30 days allopurinol 100 mg PO DAILY 90 days atorvastatin 40 mg PO DAILY 90 days bupropion HCl 300 mg PO DAILY 30 days bxjvrfukyz-scjdelhwrilry-mykk 50-325-40 mg 1 tab PO ONCE PRN 20 days cholecalciferol (vitamin D3) 25 mcg PO DAILY ferrous sulfate (iron) 325 mg PO DAILY fexofenadine (Kimmy Allergy) 180 mg PO DAILY fluoxetine 60 mg PO DAILY fluticasone propion-salmeterol 500-50 mcg/dose (Advair Diskus) 1 inh inhalation BID 90 days gabapentin 800 mg PO TID 30 days lamotrigine 200 mg PO BEDTIME loperamide 2 mg PO QID PRN 90 days lorazepam 1 mg PO DAILY montelukast (Singulair) 10 mg PO DAILY oxcarbazepine 300 mg PO BID pantoprazole 40 mg PO DAILY 90 days tizanidine 2 mg PO TID PRN 30 days tramadol 50 mg PO BID PRN 15 days HPI EP RT ankle pain [id number] HPI Details 48-year-old male presents to the office for a sick visit. Patient is complaining of pain in the right ankle for the past 3 days. He has history of gout in the past. [facility] Medical History Gout Suicide attempt Irritable bowel syndrome with diarrhea Post traumatic stress disorder (PTSD) Chronic pain syndrome Disc degeneration, lumbar Spondylosis of lumbar region without myelopathy or radiculopathy Tremor Chronic renal insufficiency GERD (gastroesophageal reflux disease) Depression Asthma Surgical History Hx of colonoscopy Hx of esophagogastroduodenoscopy History of kidney surgery Family History Father Substance use disorder Mental health disorder Social History Household Members: Family Housing: House Are you a primary patient care nursing assistant to a significant other at home: No Do you presently have visiting nurse or other home services: No Alcohol intake: former Patient Tobacco Use Status: Never used Tobacco e-Cigarette/Vaping Use: Never Used Second Hand Smoke Exposure: No service: No Current occupational status: disabled Sexual orientation: Straight/Heterosexual Cognitive needs: No Hearing needs: No Vision needs: No Physical Exam Vital Signs: Last Vital Signs Temp 98.2 F 04/03/23 15:36 Pulse 85 04/03/23 15:36 BP 140/80 H 04/03/23 15:36 Pulse Ox 95 04/03/23 15:36 Oxygen Delivery Method Room Air 04/03/23 15:36 BMI result Body Mass Index 35.7 Extrem Other: Right ankle: Medial malleolus is tender to palpate. Synovial thickening present. Able to flex and extend the foot at the ankle. Assessment & Plan Assessment & Plan (1) Sprain of right ankle: Code(s): S93.401A - Sprain of unspecified ligament of right ankle, initial encounter Plan: Symptoms most likely inflammatory in nature. Prednisone called in. If symptoms do not improve to follow-up here. Coding Level of Care Code Est Pt Level 4 (09427) Diagnoses Sprain of right ankle S93.401A
== END 2023-04-03 16:07 | disposition home or self-care (01) ==
PROVIDERS: PCP Nurse Practitioner Family; Visit Provider Internal Medicine
DX: S93.401A Sprain of unspecified ligament of right ankle, initial encounter (principal)
CPT/HCPCS: 99214

== ENCOUNTER 2023-04-18 14:52 | Outpatient (AMB) | payer OTHER, SELFPAY ==
--- NOTE | 2023-04-18 14:58 | HO.NEPHOV ---
HPI HPI Comments History of Present Illness Details I had the privilege of seeing Fox in consultation for serum creatinine of 1.45. He had donated 1 of his kidneys to his [id number]-bon. He has gained quite a bit of weight. He has been having gout exacerbations but does not take any nonsteroidal inflammatories. He has been on allopurinol and recently had received a course of prednisone. He maintains good hydration. He has history of his suicidal attempt few years ago. He does not have any pedal edema, hematuria, dysuria, flank pain, nausea, vomiting, diarrhea, shortness of breath, proximal renal dyspnea, orthopnea, orthostatic symptom, epistaxis, hemoptysis, melena or any other systemic symptoms. He has history of depression and is followed by Dr. Hernandez. He had discussed with Dr. Hernandez whether he can have medication change which would help him to lose some weight. He is not very active. He has been on gabapentin which he thinks may also be contributing to some weight gain. He has not had any blood work done for last 6 months. [facility] Medical History Gout Suicide attempt Irritable bowel syndrome with diarrhea Post traumatic stress disorder (PTSD) Chronic pain syndrome Disc degeneration, lumbar Spondylosis of lumbar region without myelopathy or radiculopathy Tremor Chronic renal insufficiency GERD (gastroesophageal reflux disease) Depression Asthma Surgical History Hx of colonoscopy Hx of esophagogastroduodenoscopy History of kidney surgery Family History Father Substance use disorder Mental health disorder Social History Household Members: Family Housing: House Are you a primary acute care assistant to a significant other at home: No Do you presently have visiting nurse or other home services: No Alcohol intake: former Patient Tobacco Use Status: Never used Tobacco e-Cigarette/Vaping Use: Never Used Second Hand Smoke Exposure: No service: No Current occupational status: disabled Sexual orientation: Straight/Heterosexual Cognitive needs: No Hearing needs: No Vision needs: No Vital Signs 04/18/23 14:59 Height 5 ft 5 in Weight 213 lb 4 oz BMI 35.5 BP 130/90 H Blood Pressure Location Lt brachial Position Sitting Pulse 98 Pulse Source Pulse Oximeter Pulse Oximetry (%) 95 Oxygen Delivery Method Room Air Physical Exam Vital Signs: Last Vital Signs Pulse 98 04/18/23 14:59 BP 130/90 H 04/18/23 14:59 Pulse Ox 95 04/18/23 14:59 Oxygen Delivery Method Room Air 04/18/23 14:59 BMI result Body Mass Index 35.5 Const General: comfortable and no acute distress Orientation/consciousness: patient oriented x3 HEENT Head: Yes normocephalic Mouth: Normal oral and palatal mucosa present Eyes EOM: EOMs intact bilaterally Neck Neck: Yes supple Resp Auscultation: clear to auscultation bilaterally Cardio Jugular venous distension: no JVD Rate: regular rate GI Palpation (GI): Soft to palpation Auscultation: normal bowel sounds General: Yes no CVA tenderness Back/Spine/Pelvis Back: no CVA tenderness Skin General skin exam: no rashes or lesions noted Neuro General: patient oriented x3 and moves all extremities Extrem General: Yes no pedal edema Assessment & Plan Assessment & Plan (1) Chronic renal insufficiency: Comment: stage 3 Code(s): N18.9 - Chronic kidney disease, unspecified Qualifiers: Chronic kidney disease stage: stage 3 (moderate) Chronic kidney disease stage 3 subtype: stage 3a (GFR 45-59) Qualified Code(s): N18.31 - Chronic kidney disease, stage 3a (2) Acquired solitary kidney: Code(s): Z90.5 - Acquired absence of kidney Plan Fox has GFR putting him in a category of CKD 3A. He has no proteinuria. He has gained quite a bit of weight which he needs to work on. I ordered blood work. He will be a candidate for low-dose ALBA-inhibitor. His Amaris was wondering whether he is a candidate for Farxiga or Jardiance. His serum creatinine had been pretty stable for a while. 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 We agreed upon discussing the results of his lab work including creatinine clearance and then decide whether he will be a candidate for ALBA inhibitor or SGLT 2 inhibitor. Meanwhile is going to talk to his psychiatrist to see whether any medication changes could be done to help him with weight loss. He is avoiding nonsteroidal anti-inflammatories and maintain good hydration. All these have been discussed in detail. I answered his and his 's questions. Further management is pending involving data Orders: Orders Electrolytes Today N18.9 - Chronic kidney disease, unspecified Blood Urea Nitrogen Today N18.9 - Chronic kidney disease, unspecified Creatinine Today N18.9 - Chronic kidney disease, unspecified Immunofixation Pnl, Serum Today N18.9 - Chronic kidney disease, unspecified Uric Acid Today N18.9 - Chronic kidney disease, unspecified Creatinine Clearance Urine Today N18.9 - Chronic kidney disease, unspecified Hemoglobin A1c Today N18.9 - Chronic kidney disease, unspecified Coding Level of Care Code New Pt Level 4 (26017) Diagnoses Chronic renal impairment, stage 3a N18.31 Chronic kidney disease stage: stage 3 (moderate) Chronic kidney disease stage 3 subtype: stage 3a (GFR 45-59) Acquired solitary kidney Z90.5 Results Reviewed Nephrology Results: No Data to Display
[2023-04-18 14:59] VITALS: BP 130/90; PULSE 98; O2SAT 95; BMI 35.5
== END 2023-04-18 16:09 | disposition home or self-care (01) ==
PROVIDERS: PCP Nurse Practitioner Family; Visit Provider Internal Medicine Nephrology
DX: N18.31 Chronic kidney disease, stage 3a (principal); Z90.5 Acquired absence of kidney
CPT/HCPCS: 99204

== ENCOUNTER 2023-04-18 14:52 | Outpatient (REF) | payer OTHER, SELFPAY ==
[2023-04-18 18:13] LABS: Estimated Average Glucose 94 mg/dL; Hemoglobin A1c % 4.9 % (<6.0)
[2023-04-18 19:09] LABS: Anion Gap 12 (12-20); Blood Urea Nitrogen 20 mg/dL (9-16); Carbon Dioxide 29 mmol/L (22-29); Chloride 103 mmol/L (96-108); Estimated Glomerular Filt Rate 48; Potassium 4.7 mmol/L (3.3-5.1); Sodium 139 mmol/L (135-145); Uric Acid 6.2 mg/dL (3.4-7.0)
[2023-04-25 12:59] LABS: IgA 76 mg/dL (47-310); IgG 971 mg/dL (600-1640); IgM 48 mg/dL (50-300)
== END 2023-04-18 14:53 | disposition home or self-care (01) ==
LOC: HO.LAB 14:52
PROVIDERS: PCP Nurse Practitioner Family; Visit Provider Internal Medicine Nephrology
DX: N18.31 Chronic kidney disease, stage 3a (principal); Z90.5 Acquired absence of kidney
CPT/HCPCS: 36415; 80051; 82565; 82784; 83036; 84520; 84550; 86334

== ENCOUNTER 2023-04-20 12:58 | Outpatient (REF) | payer OTHER, SELFPAY ==
[2023-04-20 16:47] LABS: Total Volume 24 Hour Urine 1525 mL
[2023-04-20 17:41] LABS: Creatinine, 24Hr Urine 1.5 G/Day (1.0-2.0)
[2023-04-20 17:46] LABS: Creatinine (CrCl) 1.55 mg/dL (0.5-1.4)
== END 2023-04-20 12:59 | disposition home or self-care (01) ==
LOC: HO.HMGCLDS 12:58
PROVIDERS: PCP Nurse Practitioner Family; Visit Provider Internal Medicine Nephrology
DX: N18.9 Chronic kidney disease, unspecified (principal)
CPT/HCPCS: 82575

== ENCOUNTER 2023-05-02 07:05 | Outpatient (AMB) | payer OTHER, SELFPAY ==
--- NOTE | 2023-05-02 07:06 | MHC.PC.OV ---
Intake Visit Reasons: Medication discussion [phone] Allergies Seasonal Allergies Allergy (Intermediate, Verified 04/18/23 15:03) itchy/runny nose dog dander Allergy (Verified 04/18/23 15:03) Unknown Tobacco use date assessed: 08/23/22 HPI Medication discussion [phone] HPI Details Obesity: Pt is interested in weight loss. PA is in process for ozempic. He is going to start a treadmill routine at home (starting 10 minutes a day). Educated pt on proper diet and portion sizes. Denies fever, chills, and dizziness. we spoke about intermittent fasting as a well. I did present the 16hr/8hr routine. I think once pt gets motivated, i'm hoping to see results. Will cont to monitor. [facility] Medical History (Updated 05/02/23 @ 07:46 by Napoleon Blankenship, [facility]) Gout Suicide attempt Irritable bowel syndrome with diarrhea Post traumatic stress disorder (PTSD) Chronic pain syndrome Disc degeneration, lumbar Spondylosis of lumbar region without myelopathy or radiculopathy Tremor Chronic renal insufficiency GERD (gastroesophageal reflux disease) Depression Asthma Surgical History Hx of colonoscopy Hx of esophagogastroduodenoscopy History of kidney surgery Family History Father Substance use disorder Mental health disorder Social History Household Members: Family Housing: House Are you a primary managed care nurse to a significant other at home: No Do you presently have visiting nurse or other home services: No Alcohol intake: former Patient Tobacco Use Status: Never used Tobacco e-Cigarette/Vaping Use: Never Used Second Hand Smoke Exposure: No service: No Current occupational status: disabled Sexual orientation: Straight/Heterosexual Cognitive needs: No Hearing needs: No Vision needs: No Questionnaire Thrive Questionnaire Date Thrive assessed: 04/25/22 HERBERT-7 AMB Questionnaire HERBERT-7 Date HERBERT - 7 assessed: 04/25/22 Source: Developed by Drs. Trae Velasquez, Rosario Murguia, Berto Barry and colleagues, with an educational vimal from [employer]. Review of Systems Const Reports as per HPI Physical exam (Primary Care) Tobacco/Smoking Status: Tobacco use Status Tobacco use date assessed 08/23/22 05/02/23 07:07 Patient Tobacco Use Status Never used Tobacco 05/02/23 07:07 e-Cigarette/Vaping Use Never Used 05/02/23 07:07 Thrive Assessment: Date of Thrive Assessment Date Thrive assessed 04/25/22 05/02/23 07:07 Const General: cooperative Orientation/consciousness: patient oriented x3 Neuro General: patient oriented x3 Psych Appearance: grossly normal Mental Status: mental status grossly normal Speech and movement: Clear speech present Affect: normal affect Attitude: cooperative Thought process: Normal thought process present Thought content: Normal thought content present Insight: Good insight present (Psych) Judgement: Good judgement present (Psych) Telehealth Telehealth Location of provider rendering services: practice address Location of patient: address on file Patient Identification confirmed using: Name, : Yes Telehealth method: video Patient verbally consented to treatment: Yes Patient verbally consented to billing insurance company: Yes Patient informed of any privacy concerns related to visit: Yes Minutes spent on Phone/Video with Pt.: 15 Assessment and Plan Assessment & Plan (1) Obesity: Code(s): E66.9 - Obesity, unspecified Plan: Educated on proper diet and portion sizes, pt is starting a walking routine, discussed intermittent fasting Plan The patient agreed to the use of a medical laboratory specialist for this encounter. Scribed for KRISSY Olson-VOLODYMYR by Iris Woodall medical laboratory specialist, on 05/02/2023 at 07:15 EST. Coding Level of Care Code Tele Est Pt Level 3 (47967) Diagnoses Obesity E66.9
== END 2023-05-02 07:20 | disposition home or self-care (01) ==
LOC: HO.HMGC 07:05
PROVIDERS: PCP Nurse Practitioner Family; Visit Provider Nurse Practitioner Family
DX: E66.9 Obesity, unspecified (principal)
CPT/HCPCS: 99213

== ENCOUNTER 2023-05-14 11:27 | Emergency (ER) | payer OTHER, SELFPAY ==
--- NOTE | ~2023-05-14 | CT_ITS ---
EXAMINATION: CT ABDOMEN AND PELVIS WITH CONTRAST CLINICAL INFORMATION: Abdominal pain. COMPARISON: None available. TECHNIQUE: Multidetector volumetric images were obtained from the superior aspect of the liver through the pubic symphysis following administration 85 mL of Omnipaque 350 intravenous contrast. Sagittal and coronal reformatted images were obtained on the technologist's workstation. Oral contrast: No This CT examination was performed using dose optimization techniques as appropriate, variously including the following: *Automated exposure control *Adjustment of mA and/or kV according to patient size (this includes techniques or standardized protocols for targeted exams where dose is matched to indication/reason for exam; i.e. extremities or head) *Use of iterative reconstruction technique DLP: 600 mGy-cm FINDINGS: LUNG BASES: The lung bases appear clear, with no evidence of inflammation or nodules. LIVER, GALLBLADDER, AND BILIARY TREE: The liver appears unremarkable in size, shape, and attenuation. No focal hepatic lesion or biliary ductal dilatation is appreciated. Unremarkable appearance of the gallbladder. PANCREAS: Unremarkable SPLEEN: Unremarkable ADRENAL GLANDS: Unremarkable KIDNEYS AND URETERS: Absent left kidney. The right kidney appears unremarkable in size, shape, and attenuation. No hydronephrosis, hydroureter, or calculi seen. BLADDER: Unremarkable GASTROINTESTINAL TRACT: The small and large bowel appear unremarkable. No diverticulosis. Normal-appearing distal ileum. No evidence of appendicitis. ABDOMINAL WALL: No significant hernia is appreciated. LYMPH NODES: No evidence of adenopathy by size criteria. VASCULAR: Unremarkable PELVIC VISCERA: Unremarkable OSSEOUS STRUCTURES: Unremarkable CT/CT abdomen pelvis w IV con IMPRESSION: No acute finding.
[2023-05-14 11:47] VITALS: BP 125/80; PULSE 97; RESP 18; TEMP 36.4; O2SAT 95; BMI 34.2
--- NOTE | 2023-05-14 11:47 | ED_ITS ---
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 Patient states that on he had severe abdominal pain with associated nausea, vomiting, and diarrhea. He states that he has been trying to improve his diet therefore he has been increasing consumption of berries. States that the pain lasted for several hours and resolved on its own. He states that last night after a super bowl constitution party after he consumed 6 beers as well as casein encased sausage. He states that he woke up at 3:00 a.m. or 4:00 a.m. where he had severe abdominal pain, several episodes of vomiting and diarrhea. Denies any bloody or black stool. Denies history of similar symptoms. Denies history of diverticulosis or diverticulitis. No abdominal surgeries. He does have a history of irritable bowel syndrome. He had a colonoscopy many years ago. No other complaints or concerns MD complaint: Abdominal pain Onset (ago): day(s) Radiation: non-radiation Quality: aching Pain Consistency: constant Relieving factors: none Exacerbating factors: none Associated symptoms: denies other symptoms Treatments prior to arrival: none Related Data Home Medications Medication Instructions Recorded Confirmed fexofenadine 180 mg tablet 180 mg PO DAILY 12/01/20 02/28/23 (Kimmy Allergy) lamotrigine 200 mg tablet 200 mg PO BEDTIME 04/04/21 02/28/23 oxcarbazepine 300 mg tablet 300 mg PO BID 04/04/21 02/28/23 ferrous sulfate 325 mg (65 mg 325 mg PO DAILY 01/05/22 02/28/23 iron) tablet (iron) fluoxetine 20 mg capsule 60 mg PO DAILY 02/28/23 02/28/23 lorazepam 1 mg tablet 0.5 mg PO DAILY 04/18/23 Previous Rx's Medication Instructions Recorded bupropion HCl 300 mg 24 hr tablet, 300 mg PO DAILY 30 days #30 tabs 07/27/20 extended release loperamide 2 mg capsule 2 mg PO QID PRN Constipation 90 03/26/22 days #360 caps allopurinol 100 mg tablet 100 mg PO DAILY 90 days #90 tabs 06/19/22 gabapentin 800 mg tablet 800 mg PO TID 30 days #90 tabs 11/22/22 tizanidine 2 mg tablet 2 mg PO TID PRN for muscle spasm 01/03/23 30 days #90 tabs albuterol sulfate 2.5 mg/3 mL 2.5 mg (3 mL) inhalation QID PRN 01/13/23 (0.083 %) solution for nebulization shortness of breath or wheezing #90 mL atorvastatin 40 mg tablet 40 mg PO DAILY 90 days #90 tabs 03/01/23 pantoprazole 40 mg tablet,delayed 40 mg PO DAILY 90 days #90 tabs 03/06/23 release albuterol sulfate 90 mcg/actuation 2 puff inhalation Q4-6H PRN 03/13/23 aerosol inhaler Shortness Of Breath 30 days #8.5 grams cholecalciferol (vitamin D3) 25 25 mcg PO DAILY #90 caps 03/27/23 mcg (1,000 unit) capsule fluticasone 500 mcg-salmeterol 50 1 inh inhalation BID 90 days #180 04/08/23 mcg/dose blistr powdr for ea inhalation (Advair Diskus) montelukast 10 mg tablet 10 mg PO DAILY #90 tabs 04/20/23 (Singulair) semaglutide 0.25 mg or 0.5 mg (2 0.25 mg (0.368 mL) subcut QWEEK #3 04/20/23 mg/3 mL) subcutaneous pen injector mL (Ozempic) ketoconazole 200 mg tablet 200 mg PO DAILY 5 days #5 tabs 05/09/23 tramadol 50 mg tablet 50 mg PO BID PRN pain 30 days #60 05/09/23 tabs ougshucrjl-msgjndjokotzu-gubbtkoc 1 tab PO .qd PRN pain #10 ea 05/11/23 50 mg-325 mg-40 mg tablet ondansetron 4 mg disintegrating 4 mg PO Q6-8H PRN nausea and 05/14/23 tablet vomiting #14 tabs Allergies Allergy/AdvReac Type Severity Reaction Status Date / Time Seasonal Allergies Allergy Intermediate itchy/runny Verified 04/18/23 15:03 nose dog dander Allergy Unknown Verified 04/18/23 15:03 Review of Systems 2 Review of Systems: Yes all other systems are reviewed and are negative Constitutional: Constitutional: Reports as per [facility] Past Medical History Attestation statement: The following information was validated with the patient. Medical History Gout Suicide attempt Irritable bowel syndrome with diarrhea Post traumatic stress disorder (PTSD) Chronic pain syndrome Disc degeneration, lumbar Spondylosis of lumbar region without myelopathy or radiculopathy Tremor Chronic renal insufficiency GERD (gastroesophageal reflux disease) Depression Asthma Surgical History Hx of colonoscopy Hx of esophagogastroduodenoscopy History of kidney surgery Family History Family History Father Substance use disorder Mental health disorder Social History Social History Household Members: Family Housing: House Are you a primary care connector to a significant other at home: No Do you presently have visiting nurse or other home services: No Alcohol intake: former Patient Tobacco Use Status: Never used Tobacco e-Cigarette/Vaping Use: Never Used Second Hand Smoke Exposure: No Advance Directives: No service: No Current occupational status: disabled Sexual orientation: Straight/Heterosexual Cognitive needs: No Hearing needs: No Vision needs: No Physical Exam ED Vital Signs: Vital Signs - 24 hr 05/14/23 11:47 05/14/23 14:36 05/14/23 17:42 Temperature 97.6 F 98.3 F Pulse Rate 97 88 89 Respiratory Rate 18 18 16 Blood Pressure 125/80 151/88 H 154/80 H Pulse Oximetry 95 96 96 Oxygen Delivery Method Room Air Room Air Room Air BMI result Body Mass Index 34.2 Const General: cooperative, comfortable and no acute distress Orientation/consciousness: patient oriented x3 Limitations: no limitations HENMT Head: Yes normal to inspection, Yes normocephalic and Yes atraumatic Ears: hearing grossly normal bilaterally General nose exam: Normal external nose present Face and sinus: Yes normal facial exam Mouth: Normal oral and palatal mucosa present, oropharynx normal and moist mucous membranes Throat: Yes posterior oropharynx normal Eyes General: appearance normal, both eyes and all related structures Eyelids: Yes eyelids normal Conjunctivae: conjunctivae normal Sclerae: sclerae normal Pupils: Equal, round and reactive pupils present EOM: EOMs intact bilaterally Neck Neck: Yes normal visual inspection, Yes full ROM and Yes no lymphadenopathy Lymphatic: no lymphadenopathy noted Chest Chest palpation & inspection: normal inspection of the chest Resp Effort & Inspection: normal respiratory effort and able to speak in complete sentences Auscultation: clear to auscultation bilaterally, no crackles, no rales, no rhonchi and no wheezes Cardio Rate: regular rate Rhythm: regular rhythm Heart sounds: S1 normal heart sound present and S2 normal heart sound present GI Other: Abdomen is soft, with diffuse tenderness throughout the entire abdomen without any point tenderness. No rebound or guarding. Normoactive bowel sounds present in all 4 quadrants Inspection: Yes normal to inspection Skin General skin exam: no rashes or lesions noted Trauma: no lacerations or abrasions Wounds: no wounds Neuro General: patient oriented x3 and moves all extremities Cranial nerves: Yes Equal, round and reactive pupils present Extrem General: Yes normal to inspection Right upper extremity: normal to inspection Left upper extremity: normal to inspection Right lower extremity: normal to inspection Left lower extremity: normal to inspection Course Course Course Narrative: RME performed by Samantha Ley PA-C. Patient is a 48 year old assigned male at presenting to the emergency department with abdominal pain, nausea, and vomiting. Patient has a history of one kidney. 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 Labs ordered. Patient placed back in the waiting room pending room availability and results. Reevaluation(s) Reevaluation #1: Patient's pain has since resolved after receiving morphine and Dilaudid as well as 2 L of IV fluids, p.o. challenge complete. He was able to eat and drink without return of pain, nausea, vomiting or diarrhea. Discussed workup with patient and at bedside. Given hematuria found in urine, recommend follow- up with urologist. He states that he has been told he has blood in his urine it has never followed up with 1 before. Also educated that patient also follow-up with his GI specialist as needed, it is unclear whether not this is caused by a virus, or something he has consumed however given that he is able to tolerate oral food and liquid, will treat conservatively over the next several days. Given return precautions. Patient understands and agrees with plan. Patient stable for discharge Medications Administered Discontinued Medications Generic Name Dose Route Start Last Admin Trade Name Xavier PRN Reason Stop Dose Admin Hydromorphone HCl 1 mg 05/14/23 14:42 05/14/23 15:17 Hydromorphone Hcl 1 Mg/Ml Syringe IVPUSH 05/14/23 14:43 1 mg ONCE ONE Administration Protocol Sodium Chloride 1,000 mls @ 999 mls/hr 05/14/23 12:45 05/14/23 15:16 Ns IV 05/14/23 13:45 Infused .Q1H1M ONE Infusion Sodium Chloride 1,000 mls @ 999 mls/hr 05/14/23 14:13 05/14/23 15:18 Ns IV 05/14/23 15:13 999 mls/hr .Q1H1M ONE Administration Iohexol 100 ml 05/14/23 13:04 05/14/23 13:04 Iohexol 350 Mg/Ml 100 Ml Infus..Btl IV 05/14/23 13:05 85 ml ONCE ONE Administration Morphine Sulfate 4 mg 05/14/23 13:24 05/14/23 13:43 Morphine Sulfate 4 Mg/Ml Cartridge IVPUSH 05/14/23 13:25 4 mg ONCE ONE Administration Protocol Medical Decision Making Medical Decision Making [facility] Narrative: 48-year-old male, with a history of 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 On arrival, patient nontoxic appearing, vital signs within normal limits. Patient has diffuse abdominal pain, without any point tenderness noted, normoactive bowel sounds present all 4 quadrants. Plan: Labs, CT abdomen and pelvis, UA Differential Diagnosis Differential Diagnoses: The differential diagnosis associated with the presentation includes Diverticulitis, diverticulosis, bowel obstruction, colitis Admission/Observation Consideration of admission/observation: Escalation of care including admission/observation considered Lab Data [facility] Lab Attestation statement: I reviewed the patient's lab results. Mild leukocytosis at 13.1, with slight left shift. Likely reactive. Creatinine 1.23, BUN 21 reflective of slight dehydration. Alk Phos elevated at 155, patient has a history of this appears to be at his baseline. Urine concentrated, with small blood noted, otherwise unremarkable. Negative COVID, flu 05/14/23 12:08 05/14/23 12:08 Labs: Lab Results 05/14/23 05/14/23 05/14/23 Range/Units 12:01 12:08 14:46 WBC 13.1 H (4.8-10.8) X10*3/uL RBC 5.35 (4.60-5.80) X10*6/uL Hgb 15.6 (14.0-18.0) g/dl Hct 45.5 (42.0-52.0) % MCV 85.0 (80.0-98.0) fL MCH 29.2 (27.0-33.0) pg MCHC 34.3 (31.0-36.0) g/dl RDW 13.3 (11.0-16.0) % Plt Count 312 (160-400) X10*3/uL MPV 8.7 L (9.4-12.4) fL Immature Gran % (Auto) 0.5 H (0.0-0.4) % Neut % (Auto) 83.6 H (45-73) % Lymph % (Auto) 8.0 L (20-40) % [place] % (Auto) 7.5 (2-11) % Eos % (Auto) 0.2 (0-4) % Baso % (Auto) 0.2 (0-2) % Lymph # (Auto) 1.1 L (1.2-4.9) X10*3/uL [place] # (Auto) 1.0 (0.1-1.2) X10*3/uL Eos # (Auto) 0.0 (0.0-0.4) X10*3/uL Baso # (Auto) 0.0 (0.0-0.2) X10*3/uL Abs Immat Gran (auto) 0.06 H (0.00-0.03) X10*3/uL Absolute Neuts (auto) 11.0 H (2.0-8.3) x10*3/uL Absolute Nucleated RBC 0.000 (0.0-0.012) X10*3/uL Nucleated RBC % (auto) 0.0 (0.0-0.2) /100WBC Sodium 136 (135-145) mmol/L Potassium 4.5 (3.3-5.1) mmol/L Chloride 102 (96-108) mmol/L Carbon Dioxide 25 (22-29) mmol/L Anion Gap 14 (12-20) BUN 21 H (9-16) mg/dL Creatinine 1.23 (0.5-1.4) mg/dL Estim Creat Clear Calc 77.8 Estimated GFR > 60 Random Glucose 99 (60-115) mg/dL Calcium 9.6 (8.4-10.2) mg/dL Magnesium 1.8 (1.6-2.6) mg/dL Total Bilirubin 0.5 (0.0-1.0) mg/dL AST 27 (5-37) U/L ALT 29 (0-40) U/L Alkaline Phosphatase 155 H (39-117) U/L Total Protein 7.3 (6.5-8.0) g/dL Albumin 4.2 (3.5-5.0) g/dL Lipase 13 (8-78) U/L Urine Color Yellow Urine Appearance Clear Urine pH 6.5 (5.0-9.0) Ur Specific [place] >= 1.030 H (1.005-1.025) Urine Protein Negative (Neg-Trace) mg/dL Urine Glucose (UA) Negative (Negative) mg/dL Urine Ketones Negative (Negative) mg/dL Urine Blood Small (1+) H (Negative) Urine Nitrite Negative (Negative) Ur Leukocyte Esterase Negative (Negative) Urine RBC 11-20 H (0-2) /HPF Urine WBC 0-5 (0-5) /HPF Ur Squamous Epith Cells 0-2 (0-2) /HPF Urine Bacteria None Seen (None Seen) Hyaline Casts 0-2 (0-2) /LPF COVID-19 (ERIKA) Negative (Negative) COVID-19 Clin Com See Note Influenza Type A (MANDI) Negative (Negative) Influenza Type B (MANDI) Negative (Negative) Influenza A & B Note See Note Radiology Impression Discussion of test interpretation with radiology: I have reviewed the radiologist's reading. Radiologist Impression: EXAMINATION: CT ABDOMEN AND PELVIS WITH CONTRAST CLINICAL INFORMATION: Abdominal pain. COMPARISON: None available. TECHNIQUE: Multidetector volumetric images were obtained from the superior aspect of the liver through the pubic symphysis following administration 85 mL of Omnipaque 350 intravenous contrast. Sagittal and coronal reformatted images were obtained on the technologist's workstation. Oral contrast: No This CT examination was performed using dose optimization techniques as appropriate, variously including the following: *Automated exposure control *Adjustment of mA and/or kV according to patient size (this includes techniques or standardized protocols for targeted exams where dose is matched to indication/reason for exam; i.e. extremities or head) *Use of iterative reconstruction technique DLP: 600 mGy-cm FINDINGS: LUNG BASES: The lung bases appear clear, with no evidence of inflammation or nodules. LIVER, GALLBLADDER, AND BILIARY TREE: The liver appears unremarkable in size, shape, and attenuation. No focal hepatic lesion or biliary ductal dilatation is appreciated. Unremarkable appearance of the gallbladder. PANCREAS: Unremarkable SPLEEN: Unremarkable ADRENAL GLANDS: Unremarkable KIDNEYS AND URETERS: Absent left kidney. The right kidney appears unremarkable in size, shape, and attenuation. No hydronephrosis, hydroureter, or calculi seen. BLADDER: Unremarkable GASTROINTESTINAL TRACT: The small and large bowel appear unremarkable. No diverticulosis. Normal-appearing distal ileum. No evidence of appendicitis. ABDOMINAL WALL: No significant hernia is appreciated. LYMPH NODES: No evidence of adenopathy by size criteria. VASCULAR: Unremarkable PELVIC VISCERA: Unremarkable OSSEOUS STRUCTURES: Unremarkable CT/CT abdomen pelvis w IV con IMPRESSION: No acute finding. Dictated By: Joshua Herrera External Record Review External record reviewed: Inpatient record, Office record, Outpatient record, Prior outpatient labs, Prior outpatient radiology, Primary care record and Outside ED record Discharge Plan Discharge Clinical Impression: Abdominal pain Patient Disposition: Home, Self-Care Instructions: Abdominal Pain (ED) Additional Instructions: You were seen in the emergency department due to abdominal pain. Your abdominal CT did not show any abnormalities. You tested negative for COVID and flu Your blood work was reassuring. Your urine did not appear to be infected. Please drink plenty of fluids get plenty of rest. I am prescribing you nausea medication, take only as needed. If any new or worsening symptoms occur including but not limited to fevers, chills, worsening abdominal pain, please return for re-evaluation. Follow-up with the GI specialist, call today to make an appointment. Your urine did show blood, please follow-up with the urologist, call to make an appointment Prescriptions: New ondansetron 4 mg tablet,disintegrating 4 mg PO Q6-8H PRN (Reason: nausea and vomiting) Qty: 14 0RF No Action loperamide 2 mg capsule 2 mg PO QID PRN (Reason: Constipation) 90 Days Qty: 360 2RF allopurinol 100 mg tablet 100 mg PO DAILY 90 Days Qty: 90 3RF tizanidine 2 mg tablet 2 mg PO TID PRN (Reason: for muscle spasm) 30 Days Qty: 90 8RF albuterol sulfate 2.5 mg /3 mL (0.083 %) solution for nebulization 2.5 mg inhalation QID PRN (Reason: shortness of breath or wheezing) Qty: 90 0RF atorvastatin 40 mg tablet 40 mg PO DAILY 90 Days Qty: 90 1RF pantoprazole 40 mg tablet,delayed release (DR/EC) 40 mg PO DAILY 90 Days Qty: 90 1RF albuterol sulfate 90 mcg/actuation HFA aerosol inhaler 2 puff INHALATION Q4-6H PRN (Reason: Shortness Of Breath) 30 Days Qty: 8.5 0RF cholecalciferol (vitamin D3) 25 mcg (1,000 unit) capsule 25 mcg PO DAILY Qty: 90 3RF fluticasone propion-salmeterol [Advair Diskus] 500-50 mcg/dose blister with device 1 inh inhalation BID 90 Days Qty: 180 1RF montelukast [Singulair] 10 mg tablet 10 mg PO DAILY Qty: 90 1RF Ozempic 0.25 mg or 0.5 mg (2 mg/3 mL) pen injector 0.25 mg subcut QWEEK Qty: 3 0RF Rx Instructions: for 4 weeks tramadol 50 mg tablet 50 mg PO BID PRN (Reason: pain) 30 Days Qty: 60 0RF ketoconazole 200 mg tablet 200 mg PO DAILY 5 Days Qty: 5 0RF Rx Instructions: do not take concurrently with fioricet, advair, or atorvastatin cplxabdheq-pguhsyhfgjbiy-zwob 50-325-40 mg tablet 1 tab PO .qd PRN (Reason: pain) Qty: 10 0RF bupropion HCl 300 mg tablet extended release 24 hr 300 mg PO DAILY 30 Days Qty: 30 0RF ferrous sulfate [iron] 325 mg (65 mg iron) tablet 325 mg PO DAILY fexofenadine [Kimmy Allergy] 180 mg tablet 180 mg PO DAILY fluoxetine 20 mg capsule 60 mg PO DAILY lamotrigine 200 mg tablet 200 mg PO BEDTIME oxcarbazepine 300 mg tablet 300 mg PO BID lorazepam 1 mg tablet 0.5 mg PO DAILY gabapentin 800 mg tablet 800 mg PO TID 30 Days Qty: 90 12RF Referrals: [facility] [place] Gastroenterology Services [Provider Group] [facility] Urology Services [Provider Group] Interventions: ED Discharge Assessment Last Done: 05/14/23 17:42 Discharge Date/Time: 05/14/23 17:43
[2023-05-14 12:13] LABS: MANUAL DIFF FLAG NO
[2023-05-14 12:16] LABS: Basophils Percent Auto 0.2 % (0-2); Eosinophils Percent Auto 0.2 % (0-4); Hematocrit 45.5 % (42.0-52.0); Hemoglobin 15.6 g/dl (14.0-18.0); Imm Gran Abs Auto 0.06 X10*3/uL (0.00-0.03); Imm Gran Pct Auto 0.5 % (0.0-0.4); Lymphocytes Absolute Auto 1.1 X10*3/uL (1.2-4.9); Mean Corpuscular HGB Conc 34.3 g/dl (31.0-36.0); Mean Corpuscular Hemoglobin 29.2 pg (27.0-33.0); Mean Platelet Volume 8.7 fL (9.4-12.4); Monocytes Percent Auto 7.5 % (2-11); Neutrophils Percent Auto 83.6 % (45-73); Platelet Count 312 X10*3/uL (160-400); Red Blood Count 5.35 X10*6/uL (4.60-5.80); Red Cell Distribution Width 13.3 % (11.0-16.0); White Blood Count 13.1 X10*3/uL (4.8-10.8)
[2023-05-14 12:26] LABS: COVID-19 Test Negative (Negative); IDNOW Serial# 58CA691E
[2023-05-14 12:27] LABS: Lipase 13 U/L (8-78)
[2023-05-14 12:27] LABS: IDNOW Serial# 9DB6401D; Influenza A Negative (Negative); Influenza B2 Negative (Negative)
[2023-05-14 12:31] LABS: Alanine Aminotransferase 29 U/L (0-40); Albumin Level 4.2 g/dL (3.5-5.0); Alkaline Phosphatase 155 U/L (39-117); Anion Gap 14 (12-20); Aspartate Amino Transferase 27 U/L (5-37); Bilirubin Total 0.5 mg/dL (0.0-1.0); Blood Urea Nitrogen 21 mg/dL (9-16); Calcium 9.6 mg/dL (8.4-10.2); Carbon Dioxide 25 mmol/L (22-29); Chloride 102 mmol/L (96-108); Creatinine Clr Calc Pharmacy 77.8; Estimated Glomerular Filt Rate > 60; Glucose Random 99 mg/dL (60-115); Magnesium 1.8 mg/dL (1.6-2.6); Potassium 4.5 mmol/L (3.3-5.1); Sodium 136 mmol/L (135-145); Total Protein 7.3 g/dL (6.5-8.0)
[2023-05-14] MEDS: iohexoL 350 MG/ML 100 ML INFUS..BTL IV (13:04)
[2023-05-14] MEDS: 0.9 % Sodium Chloride 1,000 ML 999 ML IV ×2 (13:06→15:18)
[2023-05-14] MEDS: Morphine Sulfate 4 MG/ML CARTRIDGE IVPUSH (13:43)
[2023-05-14 14:36] VITALS: BP 151/88; PULSE 88; RESP 18; TEMP 36.8; O2SAT 96
[2023-05-14 14:56] LABS: Appearance Urine Clear; Color Urine Yellow; Glucose Urine UA Negative (Negative); Leukocyte Esterase Urine Negative (Negative); Nitrite Urine Negative (Negative); PH 6.5 (5.0-9.0); Specific Gravity - Urine >= 1.030 (1.005-1.025); UMIC TRIGGER UACC YES; Urine Blood Small (1+) (Negative); Urine Ketones Negative (Negative); Urine Protein Negative (Neg-Trace)
[2023-05-14] MEDS: HYDROmorphone HCl 1 MG/ML SYRINGE IVPUSH (15:17)
[2023-05-14 16:25] LABS: Bacteria Urine None Seen (None Seen); Hyaline Casts Urine 0-2 /LPF (0-2); Squamous Epithelial Cell Urine 0-2 /HPF (0-2); WBC Urine 0-5 /HPF (0-5)
[2023-05-14 17:42] VITALS: BP 154/80; PULSE 89; RESP 16; O2SAT 96
== END 2023-05-14 17:43 | disposition home or self-care (01) ==
PROVIDERS: Physician Assistant Medical; Emergency Provider Emergency Medicine; PCP Nurse Practitioner Family
DX: R10.9 Unspecified abdominal pain (principal); R11.2 Nausea with vomiting, unspecified; Z11.52 Encounter for screening for COVID-19; Z94.0 Kidney transplant status; Z79.899 Other long term (current) drug therapy
CPT/HCPCS: 36415; 74177; 80053; 81001; 81003; 83690; 83735; 85025; 87502; 87635; 96361; 96374; 96375; 99284; J1170; J2270; Q9967

== ENCOUNTER 2023-06-18 11:06 | Outpatient (AMB) | payer OTHER, SELFPAY ==
--- NOTE | 2023-06-18 11:13 | MHC.OFFVIS ---
Intake Intake Visit Reasons: ER F/U microscopic hematuria Intake Note: New Patient presents for initial visit for micro hematuria Urology Medications: none Blood Thinner: none [employer] Required: No Accompanied by: Unknown Allergies Seasonal Allergies Allergy (Intermediate, Verified 06/18/23 12:09) itchy/runny nose dog dander Allergy (Verified 06/18/23 12:09) Unknown Medication List - Last Reconciled 06/18/23 by KRISSY Dalal- albuterol sulfate 2.5 mg (3 mL) inhalation QID PRN albuterol sulfate 90 mcg/actuation 2 puffs inhalation Q4-6H PRN 30 days allopurinol 100 mg PO DAILY 90 days amlodipine 10 mg PO DAILY 90 days atorvastatin 40 mg PO DAILY 90 days bupropion HCl 300 mg PO DAILY 30 days bupropion HCl 150 mg PO QAM gthrozvzjp-tkewzmclzobzp-zfpt 50-325-40 mg 1 tab PO .qd PRN 30 days cholecalciferol (vitamin D3) 25 mcg PO DAILY ferrous sulfate (iron) 325 mg PO DAILY fexofenadine (Kimmy Allergy) 180 mg PO DAILY fluoxetine 60 mg PO DAILY fluticasone propion-salmeterol 500-50 mcg/dose (Advair Diskus) 1 inh inhalation BID 90 days gabapentin 800 mg PO TID 30 days ketoconazole 200 mg PO DAILY 5 days lamotrigine 150 mg PO BID loperamide 2 mg PO QID PRN 90 days lorazepam 0.5 mg PO DAILY montelukast (Singulair) 10 mg PO DAILY oxcarbazepine 300 mg PO BID pantoprazole 40 mg PO DAILY 90 days prednisone 50 mg PO DAILY 4 days tizanidine 2 mg PO TID PRN 30 days tramadol 50 mg PO BID PRN 30 days HPI HPI Comments History of Present Illness Details Fox is a very pleasant 48-year-old male patient of Dr. Blankenship who was accompanied by his at today's office visit. 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 He presents to the office today as a new patient for microscopic hematuria. In discussion with the patient today he reports having seeked emergency room care approximately 1 month ago for abdominal pain he had been experiencing at which time a CT was ordered for further assessment evaluation. These results reviewed with the patient and his today. Absent left kidney. The right kidney appears unremarkable in size, shape, and attenuation. No hydronephrosis, hydroureter, or calculi seen. The bladder is unremarkable. He discusses having been a kidney donor in the past for his [id number] who has since . He reports ER provider had recommended urology follow-up due to microscopic hematuria. In office urinalysis today with no microscopic hematuria. He denies any previous workplace chemical exposure and or nicotine dependence. Discussed at length potential causes of microscopic hematuria. He currently denies any bothersome urinary issues. He denies urinary urgency, urinary frequency, incontinence, nocturia, hematuria, dysuria, foul smelling urine, changes to urinary stream, flank pain, fever, and or chills. He is happy with his current voiding parameters. He discusses following up with Dr. Thornton for Nephrology given his history of kidney donation and stage 3 kidney disease. In discussion with the patient today he does endorse to be drinking approximately 2 red Bulls per day. He discusses attempting to try and be healthier for his kids. He otherwise offers no other issues or concerns at this time. [facility] Medical History Gout Suicide attempt Irritable bowel syndrome with diarrhea Post traumatic stress disorder (PTSD) Chronic pain syndrome Disc degeneration, lumbar Spondylosis of lumbar region without myelopathy or radiculopathy Tremor Chronic renal insufficiency GERD (gastroesophageal reflux disease) Depression Asthma Surgical History Hx of colonoscopy Hx of esophagogastroduodenoscopy History of kidney surgery Family History Father Substance use disorder Mental health disorder Social History Household Members: Family Housing: House Are you a primary disabilities caregiver to a significant other at home: No Do you presently have visiting nurse or other home services: No Alcohol intake: former Patient Tobacco Use Status: Never used Tobacco e-Cigarette/Vaping Use: Never Used Second Hand Smoke Exposure: No service: No Current occupational status: disabled Sexual orientation: Straight/Heterosexual Cognitive needs: No Hearing needs: No Vision needs: No Review of Systems Const Reports no additional complaints Eyes Reports no additional complaints ENT Reports no additional complaints Card Reports as per HPI Resp Reports as per [facility] GI Reports as per HPI Reports as per HPI Musc Reports as per HPI Neuro Reports as per [facility] Psych Reports as per HPI Endo Reports no additional complaints Brian/Lymph Reports no additional complaints Aller/Immun Reports no additional complaints Physical Exam Const General: cooperative, comfortable, no acute distress, well developed, alert and awake Orientation/consciousness: patient oriented x3 Limitations: no limitations HEENT Head: Yes normal to inspection, Yes normocephalic and Yes atraumatic Ears: hearing grossly normal bilaterally Eyes General: appearance normal, both eyes and all related structures Neck Neck: Yes normal visual inspection and Yes trachea midline Chest Chest palpation & inspection: normal inspection of the chest Resp Effort & Inspection: normal respiratory effort and able to speak in complete sentences Cardio Rate: regular rate GI Inspection: Yes normal to inspection General: Yes no CVA tenderness Back/Spine/Pelvis Back: no CVA tenderness Skin General skin exam: no rashes or lesions noted Neuro General: patient oriented x3 Extrem General: Yes normal to inspection Psych Appearance: grossly normal and well kempt Mental Status: mental status grossly normal Speech and movement: Normal speech and movement present and Clear speech present Affect: normal affect Attitude: cooperative Thought process: Normal thought process present Thought content: Normal thought content present Insight: Fair insight present (Psych) Judgement: Fair judgement present (Psych) Results AMB Urinalysis, Automated UA Leukoctes 15 Nova/uL Last Edit by [place] on 06/18/23 11:57 UA Nitrite Negative Last Edit by [employer] on 06/18/23 11:57 UA Urobilinogen 0.2 mg/dL Last Edit by [employer] on 06/18/23 11:57 UA Protein 30 mg/dL Last Edit by [employer] on 06/18/23 11:57 UA pH 6.5 Last Edit by [employer] on 06/18/23 11:57 UA Blood 0 Donnie/uL Last Edit by [employer] on 06/18/23 11:57 UA Specific Hidalgo 1.015 Last Edit by [employer] on 06/18/23 11:57 UA Ketone Positive Last Edit by Clarence Holt on 06/18/23 11:57 UA Bilirubin 1 mg/dL Last Edit by Clarence Holt on 06/18/23 11:57 UA Glucose 0 mg/dL Last Edit by Clarence Holt on 06/18/23 11:57 Results Reviewed Results Reviewed: Laboratory Last Values Urine pH (Auto) 6.5 06/18/23 11:54 Specific Hidalgo (Auto) 1.015 06/18/23 11:54 Urine Protein (Auto) 30 mg/dL 06/18/23 11:54 Glucose (UA)(Auto) 0 mg/dL 06/18/23 11:54 Urine Ketones (Auto) Positive 06/18/23 11:54 Urine Blood (Auto) 0 Donnie/uL 06/18/23 11:54 Urine Nitrite (Auto) Negative 06/18/23 11:54 Urine Bilirubin (Auto) 1 mg/dL 06/18/23 11:54 Urine Urobilinogen (Auto) 0.2 mg/dL 06/18/23 11:54 Leukocyte Esterase (Auto) 15 Nova/uL 06/18/23 11:54 Date of Service: 05/14/23 EXAMINATION: CT ABDOMEN AND PELVIS WITH CONTRAST FINDINGS: LUNG BASES: The lung bases appear clear, with no evidence of inflammation or nodules. LIVER, GALLBLADDER, AND BILIARY TREE: The liver appears unremarkable in size, shape, and attenuation. No focal hepatic lesion or biliary ductal dilatation is appreciated. Unremarkable appearance of the gallbladder. PANCREAS: Unremarkable SPLEEN: Unremarkable ADRENAL GLANDS: Unremarkable KIDNEYS AND URETERS: Absent left kidney. The right kidney appears unremarkable in size, shape, and attenuation. No hydronephrosis, hydroureter, or calculi seen. BLADDER: Unremarkable GASTROINTESTINAL TRACT: The small and large bowel appear unremarkable. No diverticulosis. Normal-appearing distal ileum. No evidence of appendicitis. ABDOMINAL WALL: No significant hernia is appreciated. LYMPH NODES: No evidence of adenopathy by size criteria. VASCULAR: Unremarkable PELVIC VISCERA: Unremarkable OSSEOUS STRUCTURES: Unremarkable CT/CT abdomen pelvis w IV con IMPRESSION: No acute finding. Assessment & Plan Assessment & Plan (1) Microscopic hematuria: Code(s): R31.29 - Other microscopic hematuria (2) Acquired solitary kidney: Code(s): Z90.5 - Acquired absence of kidney Plan In office urinalysis results reviewed with the patient today; as noted above; will send for urine cytology. Recent CT results reviewed with the patient today; as noted above. Discussed at length potential causes of microscopic hematuria. Discussed further microscopic hematuria workup versus surveillance monitoring. Patient denies any bothersome urinary issues or concerns. Discussed, educated, and stressed the importance of drinking plenty of water daily. Discussed importance of limiting energy drinks for overall health and well-being. Discussed bladder triggers/irritants. Continue to follow-up with nephrology as planned. Follow-up in 6 months; or sooner with any issues, concerns, and or questions. Orders: Orders AMB Urinalysis Automated Today R31.9 - Hematuria, unspecified, Z13.9 - Encounter for screening, unspecified Urine Cytology Today R31.9 - Hematuria, unspecified Patient Instructions: The patient had an opportunity to ask questions regarding the treatment plan. All questions were answered. Physical exam, labs, and imaging were discussed and reviewed in detail. As well as risks, benefits, and discussion of treatment choices. No major barriers to understanding were identified. The patient expressed understanding and agreement with the above treatment plan. The patient was made aware they should contact our office by phone for worsening of their current condition, the appearance of new symptoms, or with any questions or concerns. Compliance is encouraged with any medications and follow up testing that is ordered. It is a privilege to be allowed the opportunity to participate in? your urological care.? Again, if you have any questions or concerns If you have any questions or concerns please do not hesitate to contact me. The office is [phone]. This note is constructed using voice recognition software. While every effort has been made to ensure accuracy devulcanizer head errors may have been included. Yours sincerely, WALKER Dalal Coding Level of Care Code New Pt Level 3 (40599) Diagnoses Microscopic hematuria R31.29 Acquired solitary kidney Z90.5
== END 2023-06-18 12:07 | disposition home or self-care (01) ==
PROVIDERS: PCP Nurse Practitioner Family; Visit Provider Nurse Practitioner Family
DX: R31.29 Other microscopic hematuria (principal); Z90.5 Acquired absence of kidney; Z13.9 Encounter for screening, unspecified; R31.9 Hematuria, unspecified
CPT/HCPCS: 99203

== ENCOUNTER 2023-06-18 11:09 | Outpatient (REF) | payer OTHER, SELFPAY ==
[2023-06-18 16:28] LABS: Urine Cytology See Pathology rpt
== END 2023-06-18 11:10 | disposition home or self-care (01) ==
LOC: HO.LNP 11:09
PROVIDERS: PCP Nurse Practitioner Family; Visit Provider Nurse Practitioner Family
DX: R31.29 Other microscopic hematuria (principal); Z90.5 Acquired absence of kidney
CPT/HCPCS: 81003; 88112

== ENCOUNTER 2023-06-22 20:16 | Outpatient (REF) | payer OTHER, SELFPAY ==
--- NOTE | ~2023-06-22 | MR_ITS ---
EXAMINATION: MR LUMBAR SPINE WITHOUT CONTRAST CLINICAL INFORMATION: MR lumbar spine 01/20/2023 COMPARISON: Right-sided radiculopathy TECHNIQUE: MRI of the lumbar spine was obtained using routine sequences without the administration of intravenous contrast. FINDINGS: This examination assumes the presence of 5 lumbar type vertebral bodies. For the purposes of this examination, the L5-S1 intervertebral disc space is visualized on axial series 5 image 23. Mild straightening of the normal lumbar lordosis. Shallow levocurvature of the lumbar spine. Lumbar vertebral body heights are maintained. No significant spondylolisthesis. Trace Modic type II endplate changes at L4-L5 and along the superior endplates of L3 and L4. No expansile or destructive osseous lesion. The conus medullaris and cauda equina nerve roots are unremarkable; the conus terminates at the level of L2. L1-L2: No significant spinal canal or neural foraminal stenosis. L2-L3: No significant spinal canal or neural foraminal stenosis. L3-L4: No significant spinal canal or neural foraminal stenosis. L4-L5: Advanced facet arthropathy with a right-sided facet joint effusion. Interval decrease in left-sided facet fluid. Trace curtis-facet inflammatory changes are likely degenerative. Redundancy of the ligamentum flavum. Disc bulge with right greater than left foraminal disc protrusions. Left foraminal annular fissure. Narrowing of the lateral recesses. The central canal appears patent. Mild narrowing of the left neural foramen. There is abutment of the exiting right L4 nerve root in the distal foramen/far lateral space that appears slightly increased compared to prior. Mild right neural foraminal stenosis. L5-S1: Facet arthropathy. No significant spinal canal or neural foraminal stenosis. Empty left renal fossa. MR/MR lumbar spine wo con IMPRESSION: Again seen is a disc bulge with foraminal disc protrusions at L4-L5. Abutment of the exiting right L4 nerve root in the distal neural foramen/far lateral space appears slightly increased compared to prior.
== END 2023-06-22 20:17 | disposition home or self-care (01) ==
LOC: HO.MRI 20:16
PROVIDERS: PCP Nurse Practitioner Family; Visit Provider Anesthesiology
DX: M47.816 Spondylosis without myelopathy or radiculopathy, lumbar region (principal); M47.817 Spondylosis without myelopathy or radiculopathy, lumbosacral region; M51.36 Other intervertebral disc degeneration, lumbar region; M48.061 Spinal stenosis, lumbar region without neurogenic claudication; M54.51 Vertebrogenic low back pain; M25.48 Effusion, other site
CPT/HCPCS: 72148

== ENCOUNTER 2023-07-02 15:06 | Outpatient (AMB) | payer OTHER, SELFPAY ==
--- NOTE | 2023-07-02 15:07 | A.OFFVIS_ITS ---
Intake Vital Signs 07/02/23 15:12 Height 5 ft 5 in Weight 205 lb BMI 34.1 BP 124/74 Blood Pressure Location Lt brachial Position Sitting Respiration 16 Pulse 100 Pulse Source Pulse Oximeter Pulse Oximetry (%) 96 Oxygen Delivery Method Room Air Intake Visit Reasons: MRI FOLLOW UP Intake Note: Patient comes in to discuss MRI results. Reports pain 10/09. Allergies Seasonal Allergies Allergy (Intermediate, Verified 07/02/23 15:12) itchy/runny nose dog dander Allergy (Verified 07/02/23 15:12) Unknown HPI HPI Comments History of Present Illness Details Fox is very pleasant 47 years old gentleman who is in my office under observation for long period of time. We performed radiofrequency ablation of L3-L4 dorsal ramus L5 bilateral medial branches on 12/08/2022. He reports only 2 hours of pain improvement after the procedure about 50%. He denies any further pain improvement. He reports pain is debilitating and aggravating. He went for MRI and L4-5 in my opinion he have had Modic type 2 changes. However the radiologist at that time denied L4-5 Modic type changes presents. Recently he came back to my office with pain starting in the right side of the lower lumbar spine radiating alongside the right lower extremity all the way down to the back of his right foot. He denies involvement of the toes. SLR is negative on the right however the MRI dictated as below demonstrates progression of the nerve root compression L4-5 on the right. He is offered today transforaminal epidural steroid injection L4-5 on the right. He agreed to go for the procedure. He also requests a neurosurgical consult and I will send him to Dr. Waters for consultation. New MRI also demonstrated L4-5 subtle Modic type changes. If after the injectio n he continues to complain on axial pain intercept procedure can be offered to him at L4-L5 and S1 levels. Currently his psychiatrist started him on small lozenges ketamine. Unable to admit him to opioid program. His UDS contained codeine. He admitted obtaining codeine via [place] friend. NSAIDs and gabapentin used to help his pain however now the no longer helpful.. [facility] Medical History Gout Suicide attempt Irritable bowel syndrome with diarrhea Post traumatic stress disorder (PTSD) Chronic pain syndrome Disc degeneration, lumbar Spondylosis of lumbar region without myelopathy or radiculopathy Tremor Chronic renal insufficiency GERD (gastroesophageal reflux disease) Depression Asthma Surgical History Hx of colonoscopy Hx of esophagogastroduodenoscopy History of kidney surgery Family History Father Substance use disorder Mental health disorder Social History Household Members: Family Housing: House Are you a primary managed care analyst to a significant other at home: No Do you presently have visiting nurse or other home services: No Alcohol intake: former Patient Tobacco Use Status: Never used Tobacco e-Cigarette/Vaping Use: Never Used Second Hand Smoke Exposure: No service: No Current occupational status: disabled Sexual orientation: Straight/Heterosexual Cognitive needs: No Hearing needs: No Vision needs: No Review of Systems Const All systems reviewed & are unremarkable except as noted in HPI and below Physical Exam Vital Signs: Last Vital Signs Pulse 100 07/02/23 15:12 Resp 16 07/02/23 15:12 BP 124/74 07/02/23 15:12 Pulse Ox 96 07/02/23 15:12 Oxygen Delivery Method Room Air 07/02/23 15:12 BMI result Body Mass Index 34.1 Const General: cooperative Nutritional Appearance: well nourished and overweight Eyes Pupils: Equal, round and reactive pupils present EOM: EOMs intact bilaterally Chest Chest palpation & inspection: normal inspection of the chest Resp Effort & Inspection: normal respiratory effort, able to speak in complete sentences, normal respiratory pattern, no audible wheezes and no cough Cardio Jugular venous distension: no JVD GI Inspection: Yes normal to inspection Back/Spine/Pelvis Other: SLR is negative on the right. Neuro Cranial nerves: Yes Equal, round and reactive pupils present Results Reviewed Results Reviewed: R LUMBAR SPINE WITHOUT CONTRAST CLINICAL INFORMATION: MR lumbar spine 01/20/2023 COMPARISON: Right-sided radiculopathy TECHNIQUE: MRI of the lumbar spine was obtained using routine sequences without the administration of intravenous contrast. FINDINGS: This examination assumes the presence of 5 lumbar type vertebral bodies. For the purposes of this examination, the L5-S1 intervertebral disc space is visualized on axial series 5 image 23. Mild straightening of the normal lumbar lordosis. Shallow levocurvature of the lumbar spine. Lumbar vertebral body heights are maintained. No significant spondylolisthesis. Trace Modic type II endplate changes at L4-L5 and along the superior endplates of L3 and L4. No expansile or destructive osseous lesion. The conus medullaris and cauda equina nerve roots are unremarkable; the conus terminates at the level of L2. L1-L2: No significant spinal canal or neural foraminal stenosis. L2-L3: No significant spinal canal or neural foraminal stenosis. L3-L4: No significant spinal canal or neural foraminal stenosis. L4-L5: Advanced facet arthropathy with a right-sided facet joint effusion. Interval decrease in left-sided facet fluid. Trace curtis-facet inflammatory changes are likely degenerative. Redundancy of the ligamentum flavum. Disc bulge with right greater than left foraminal disc protrusions. Left foraminal annular fissure. Narrowing of the lateral recesses. The central canal appears patent. Mild narrowing of the left neural foramen. There is abutment of the exiting right L4 nerve root in the distal foramen/far lateral space that appears slightly increased compared to prior. Mild right neural foraminal stenosis. L5-S1: Facet arthropathy. No significant spinal canal or neural foraminal stenosis. Empty left renal fossa. IMPRESSION: Again seen is a disc bulge with foraminal disc protrusions at L4-L5. Abutment of the exiting right L4 nerve root in the distal neural foramen/far lateral space appears slightly increased compared to prior. Assessment & Plan Assessment & Plan (1) Spondylosis of lumbar region without myelopathy or radiculopathy: Code(s): M47.816 - Spondylosis without myelopathy or radiculopathy, lumbar region (2) Disc degeneration, lumbar: Code(s): M51.36 - Other intervertebral disc degeneration, lumbar region (3) Chronic pain syndrome: Code(s): G89.4 - Chronic pain syndrome (4) Vertebrogenic low back pain: Code(s): M54.51 - Vertebrogenic low back pain (5) Spondylosis of lumbar region without myelopathy or radiculopathy: Code(s): M47.816 - Spondylosis without myelopathy or radiculopathy, lumbar region (6) Radiculopathy, lumbar region: Code(s): M54.16 - Radiculopathy, lumbar region Plan Diagnostic MBB gave him pain relieve for 14 days, therapeutic MBB injection relieved his pain for 3 months.. RFA was done on 08/13/2020/ 100% pain relieve for 4 weeks. Due to technical electronic difficulties with RFA machine it was pulsed RFA. Unfortunately the repeat of the RFA resulted in no pain improvement whatsoever he reports only 2 hours of pain improvement. He went for MRI which got discovered Modic type 2 changes at L4-5. Intercept was discussed at that time.. Recent onset lower back pain on the right with radiation to the right lower extremity. New MRI demonstrated more pronounced Modic type 2 changes as well as several nerve root compressions as above significantly prominent L4-5 exiting L4 nerve root compression. I will schedule the patient for transforaminal epidural steroid injection. We will try to perform this procedure as soon as possible. He was recently ordered oral steroids and I would like to wait at least 3 weeks before I will invite him for injection. Advancement of the nerve root compression changes may justify a neurosurgical consult. I will send him for neurosurgical consult with Dr. Waters. Orders: Referrals Neurosurgery Referral M47.816 - Spondylosis without myelopathy or radiculopathy, lumbar region, M51.36 - Other intervertebral disc degeneration, lumbar region, M54.16 - Radiculopathy, lumbar region Coding Level of Care Code Est Pt Level 3 (09038) Diagnoses Spondylosis of lumbar region without myelopathy or radiculopathy M47.816 Disc degeneration, lumbar M51.36 Chronic pain syndrome G89.4 Vertebrogenic low back pain M54.51 Radiculopathy, lumbar region M54.16
[2023-07-02 15:12] VITALS: BP 124/74; PULSE 100; RESP 16; O2SAT 96; BMI 34.1
== END 2023-07-02 15:40 | disposition home or self-care (01) ==
PROVIDERS: PCP Nurse Practitioner Family; Visit Provider Anesthesiology
DX: M47.816 Spondylosis without myelopathy or radiculopathy, lumbar region (principal); M51.36 Other intervertebral disc degeneration, lumbar region; G89.4 Chronic pain syndrome; M54.51 Vertebrogenic low back pain; M54.16 Radiculopathy, lumbar region
CPT/HCPCS: 99213

== ENCOUNTER → 2023-07-02 15:06 | Outpatient (BNVA) | payer OTHER, SELFPAY | PROVIDERS: PCP Nurse Practitioner Family; Visit Provider Anesthesiology ==

== ENCOUNTER 2023-07-13 09:34 | Outpatient (AMB) | payer OTHER, SELFPAY ==
--- NOTE | 2023-07-13 09:39 | A.SPINEOV_ITS ---
Intake Intake Visit Reasons: Radiculopathy, lumbar region Intake Note: Mr. Duckworth is here today c/o back pain. 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 He is a very nice 48-year-old gentleman who has had chronic low back pain going on for years. More recently had a flare-up a few months back where the pain which was normally on his left side shifted to his right side started shooting down his leg. He was trialed on steroids, gabapentin and some tramadol and for the most part that pain seems have gone away. He did have an MRI throughout that process showing some degenerative disc disease at L4-5 with facet arthropathy and was sent for evaluation. Through the years, he has been through all the typical conservative treatment for his chronic low back pain. He has been through numerous injections at your office, physical therapy, medication trials etc.. PMH: He has a history of chronic kidney disease stage 3, he donated a kidney at some point to his 's family member and after that procedure he has had decreased GFR. He has a history of depression and mental illness, he has recently been undergoing therapy with ketamine lozenges twice a week. He has not sure if it is doing much. History of asthma, gout, hypertension , elevated alk-phos level, hyperkalemia, hematuria, iron deficiency anemia, suicide attempt, bipolar, posttraumatic stress disorder Social hx: He does not smoke, drink use any recreational drugs, he is disabled because of his mental illness issues Medications: He takes amlodipine, ketamine, albuterol, allopurinol, amlodipine, atorvastatin, bupropion, Fioricet, vitamin-D, fluoxetine, gabapentin, ketoconazole, lamotrigine, loperamide, lorazepam, Singulair, oxcarbazepine, pantoprazole, tramadol, tizanidine Allergies: No drug allergies Physical exam: Awake alert oriented no acute distress, he is full strength bilateral lower extremities, normal gait Imaging review: Lumbar MRI done at [place] shows a mildly degenerative disc at L4-5. There is some facet arthropathy at the right L4-5 facet joint. Other than that I do not see any significant findings, there is no spondylolisthesis. Alignment is normal. I do not see any evidence of nerve compression. I compared to the 2020 image, the disc looks about the same, there is some increased intensity in the right L4-5 facet, but reduced it irritation in the left L4-5 facet. Impression: 48-year-old gentleman presents with a chronic low back pain on the left side, more recently switched to the right side and started going down his leg. That seems to have for the most part resolved. In terms of his chronic back pain, I am not sure if we can localize this to the disc at L4-5. It is only mildly degenerative and does not seem to have changed all that much since 2020. His facets do seem to be more inflamed on the right side than they were in 2020. This could have caused some kind of local inflammatory reaction that gave him a transient radiculopathy that he had more recently but it seems to be resolving now. At this time, I would not recommend he undergo surgery for his back pain. The standard of care for this would be lumbar fusion, and this could bring with it potential complications including adjacent segment disease, and success rate only about 60-70%. He is relatively young, his disc is only mildly degenerative, so I told him he should just continue to manage this nonoperatively as best he can until it becomes intolerable. He is going to follow up in your office for consideration of further intervention. He tells me he has something scheduled coming up later this month. We would be happy to see him back if something changes. Thank you for allowing us to care for your patient. The total time spent with this visit with this patient was 45 minutes reviewing history, physical exam, lumbar imaging review, and implementation of treatment plan or further diagnostic testing Francisco Waters MD,PhD [facility] Coding Level of Care Code New Pt Level 4 (16764) Diagnoses Radiculopathy, lumbar region M54.16
== END 2023-07-13 10:18 | disposition home or self-care (01) ==
PROVIDERS: PCP Nurse Practitioner Family; Referring Provider Anesthesiology; Visit Provider Physician Assistant
DX: M54.16 Radiculopathy, lumbar region (principal)
CPT/HCPCS: 99204

== ENCOUNTER → 2023-07-13 09:34 | Outpatient (BNVA) | payer OTHER, SELFPAY | PROVIDERS: PCP Nurse Practitioner Family; Visit Provider Physician Assistant ==

== ENCOUNTER 2023-07-19 10:04 | Outpatient (AMB) | payer OTHER, SELFPAY ==
--- NOTE | 2023-07-19 10:09 | A.OFFVIS_ITS ---
Intake Vital Signs 07/19/23 10:10 Height 5 ft 5 in Weight 208 lb BMI 34.6 BP 126/80 Blood Pressure Location Rt brachial Position Sitting Respiration 16 Pulse 96 Pulse Source Pulse Oximeter Pulse Oximetry (%) 98 Oxygen Delivery Method Room Air Intake Visit Reasons: I-DRAFTER MARINE: Other amnesia/Tremor-lvm Intake Note: Pt presents tothe office for new pt evaluation for tremors and memory loss. Pt reports he has a h/o suicidal attempt by hanging 3 years ago and has since had memory problems that have progressively gotten worse. He also c/o julian UE tremors for 3 years as well. He has concerns of sleep apnea. He reports he snores and gasps for air during sleep. 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: No Allergies Seasonal Allergies Allergy (Intermediate, Verified 07/19/23 10:09) itchy/runny nose dog dander Allergy (Verified 07/19/23 10:09) Unknown Medication List - Last Reconciled 07/19/23 by Kaelyn Nicole MD albuterol sulfate 2.5 mg (3 mL) inhalation QID PRN albuterol sulfate 90 mcg/actuation 2 puffs inhalation Q4-6H PRN 30 days allopurinol 100 mg PO DAILY 90 days amlodipine 10 mg PO DAILY 90 days atorvastatin 40 mg PO DAILY 90 days bupropion HCl XL 300 mg PO DAILY 30 days bupropion HCl XL 150 mg PO QAM ceqjezextn-ndhuriefgythh-hcia 50-325-40 mg 1 tab PO .qd PRN 30 days cholecalciferol (vitamin D3) 25 mcg PO DAILY ferrous sulfate (iron) 325 mg PO DAILY fexofenadine (Kimmy Allergy) 180 mg PO DAILY fluoxetine 60 mg PO DAILY fluticasone propion-salmeterol 500-50 mcg/dose (Advair Diskus) 1 inh inhalation BID 90 days gabapentin 800 mg PO TID 30 days ketamine 3 lozenges twice a week lamotrigine 150 mg PO BID loperamide 2 mg PO QID PRN 90 days lorazepam 0.5 mg PO DAILY montelukast (Singulair) 10 mg PO DAILY oxcarbazepine 300 mg PO BID pantoprazole 40 mg PO DAILY 90 days tizanidine 2 mg PO TID PRN 30 days tramadol 50 mg PO BID PRN 30 days HPI HPI Comments History of Present Illness Details 48y/o male with a depression, PTSD , Bip olar type 2 , OCD, ANxiety with h/o suicide attempt in 2020 ( he hung himself ) his helped him out but he had passed out and had urinary incontinence. He was hospitalized at [facility] [place] - was seen by and He is here for evaluation of memory issues, tremors and sleep problems. Memory- his noticed that his memory issues started after 2020. His main problems are short term recall like forgetting appointments, repeating questions, forgets conversations, misplaces things, has trouble with names etc.It has progressed since then His mood is being managed by Dr. Hernandez and he is currently on ketamine treatment.He had TMS. Tremors-started 10 yeras ago - was mild but worse in the past year . He also has involuntary movements - jerking of his hands or whole body .The tremors can be at rest posture or action .He is unable to write, he can eta but slowly. SLeep- he has had chronic sleep issues. He cuenca sloud snoring, has excessive daytime sleepiness, frequent arousals, gasping arousals, witnessed apneas. He also has night terrors and sometimes has yelling, punching screaming etc. He has excessive daytime sleepiness and consumes 2 Red Bulls a day He also has daily mild headaches and he takes 2 Excedrin migraines PFSH Medical History Gout Suicide attempt Irritable bowel syndrome with diarrhea Post traumatic stress disorder (PTSD) Chronic pain syndrome Disc degeneration, lumbar Spondylosis of lumbar region without myelopathy or radiculopathy Tremor Chronic renal insufficiency GERD (gastroesophageal reflux disease) Depression Asthma Surgical History Hx of colonoscopy Hx of esophagogastroduodenoscopy History of kidney surgery Family History Father Substance use disorder Mental health disorder Social History Household Members: Family Housing: House Are you a primary care taker to a significant other at home: No Do you presently have visiting nurse or other home services: No Alcohol intake: former Comment: occasional Patient Tobacco Use Status: Never used Tobacco e-Cigarette/Vaping Use: Never Used Second Hand Smoke Exposure: No service: No Current occupational status: disabled Sexual orientation: Straight/Heterosexual Cognitive needs: No Hearing needs: No Vision needs: No Physical Exam Vital Signs: Last Vital Signs Pulse 96 07/19/23 10:10 Resp 16 07/19/23 10:10 BP 126/80 07/19/23 10:10 Pulse Ox 98 07/19/23 10:10 Oxygen Delivery Method Room Air 07/19/23 10:10 BMI result Body Mass Index 34.6 Const General: cooperative, healthy appearing and comfortable Nutritional Appearance: obese Orientation/consciousness: patient oriented x3 Eyes Pupils: Equal, round and reactive pupils present Neuro General: patient oriented x3, gait normal, tone normal, moves all extremities and no focal motor deficits Cranial nerves: Yes Facial sensation intact/muscles of mastication intact, Yes Equal, round and reactive pupils present, Yes Bilaterally intact EOM present, Yes Nystagmus not present, Yes Normal facial strength present, Yes Midline tongue present and Yes Symmetric palate elevation present Cognition (Neuro): normal cognition Gait exam (Neuro): Normal gait present Motor exam (neuro): 5/5 motor strength present throughout, Normal motor muscle tone present throughout and Tremors during motor activity present Deep tendon reflexes (DTR's): Right triceps reflex intensity grade: 2+, Left triceps reflex intensity grade: 2+, Rt Biceps (C5, C6): 2+, Left biceps reflex intensity grade: 2+, Right brachioradialis reflex intensity grade: 2+, Left brachioradialis reflex intensity grade: 2+, Right patellar reflex intensity grade: 2+ and Left patellar reflex intensity grade: 2+ Orientation What is the (year) (season) (date) (day) (month)?: year, season, date, day and month Where are we (state) (county) (town or city) (hospital) (floor)?: state, county, town or city, hospital/clinic and floor Registration Name of 3 unrelated objects clearly and slowly, then ask patient to repeat all 3 of them. (1st repeat determines score. Make sure they can repeat all three): object 1, object 2 and object 3 Attention & Calculation (CHOOSE ONE) Spell WORLD backwards (DLROW): 5 letters Recall Ask patient to repeat the 3 items from question #3.: object 1 Language Show patient a wristwatch & ask what it is. Repeat for pencil.: watch and pencil Ask the patient to repeat the phrase 'No ifs, ands, or buts' after you.: correct Ask the patient to 'take a piece of paper with their right hand' 'fold paper in half' 'place paper on floor': take paper in right hand, fold paper in half and place paper on floor Print the sentence 'CLOSE YOUR EYES' on a piece. If patient actually closes eyes then score.: followed written direction Give patient a blank piece of paper & ask to write a sentence. Score if it contains a noun & verb.: sentence contains subject and verb Ask patient to copy figure of intersecting pentagons exactly. Score if all 10 angles & 2 intersects are included.: all 10 angles present & 2 are intersected Score Score: 28 Assessment & Plan Assessment & Plan (1) Memory loss: Comment: multifactorial - mood disorder , medictaions, undiagnosed sleep apnea, sleep deprivation Code(s): R41.3 - Other amnesia (2) Tremor: Comment: ? medication related, exaggerated physiological , due to energy drinks Code(s): R25.1 - Tremor, unspecified (3) Snoring: Code(s): R06.83 - Snoring (4) Hypersomnia: Code(s): G47.10 - Hypersomnia, unspecified Plan: with night terrors Plan Sleep study to evaluate for sleep apnea, parasomnias Check Vit B 12 and TSH levels MRI Brain will monitor tremors- no evidence of parkinsons or tardive dyskinesia F/u with Dr. Hernandez Orders: Orders RT PSG in-lab sleep study Today F51.4 - Sleep terrors [night terrors], G47.10 - Hypersomnia, unspecified, R06.83 - Snoring Vitamin B12 and Folate Today R41.3 - Other amnesia TSH reflex Free T4 Today R41.3 - Other amnesia MR head/brain wo con Today R25.1 - Tremor, unspecified, R41.3 - Other amnesia Coding Level of Care Code New Pt Level 4 (55266) Diagnoses Memory loss R41.3 Tremor R25.1 Snoring R06.83 Hypersomnia G47.10
[2023-07-19 10:10] VITALS: BP 126/80; PULSE 96; RESP 16; O2SAT 98; BMI 34.6
== END 2023-07-19 11:04 | disposition home or self-care (01) ==
PROVIDERS: PCP Nurse Practitioner Family; Visit Provider Psychiatry & Neurology Neurology
DX: R41.3 Other amnesia (principal); R25.1 Tremor, unspecified; R06.83 Snoring; G47.10 Hypersomnia, unspecified
CPT/HCPCS: 99204

== ENCOUNTER → 2023-07-19 10:04 | Outpatient (BNVA) | payer OTHER, SELFPAY | PROVIDERS: PCP Nurse Practitioner Family; Visit Provider Psychiatry & Neurology Neurology ==

== ENCOUNTER 2023-07-24 06:13 | Outpatient (REF) | payer OTHER, SELFPAY ==
--- NOTE | ~2023-07-24 | FL_ITS ---
EXAMINATION: XR FLUOROSCOPY WITH IMAGES CLINICAL INFORMATION: Lumbar injection COMPARISON: None available. TECHNIQUE: Fluoroscopy Supervised By: Physician. Fluoroscopy Time: 0.2 minutes. Cumulative Dose: 17.4 mGy. DAP: 3.65 Gycm2. Images: 1. FINDINGS: Contrast injection observed, overlying the right L4 facet region. FL/FL guidance in treatment room IMPRESSION: Injection as described.
== END 2023-07-24 06:14 | disposition home or self-care (01) ==
LOC: CF 06:13
PROVIDERS: Visit Provider Anesthesiology
DX: M47.816 Spondylosis without myelopathy or radiculopathy, lumbar region (principal); M54.16 Radiculopathy, lumbar region; M51.36 Other intervertebral disc degeneration, lumbar region; M54.51 Vertebrogenic low back pain; G89.4 Chronic pain syndrome
CPT/HCPCS: 64483; J3301; Q9967

== ENCOUNTER 2023-07-24 10:44 | Outpatient (AMB) | payer OTHER, SELFPAY ==
--- NOTE | 2023-07-24 10:54 | MHC.OFFVIS ---
Vital Signs 07/24/23 10:55 07/24/23 11:46 Height 5 ft 5 in Weight 208 lb BMI 34.6 BP 138/80 122/82 Blood Pressure Location Lt brachial Lt brachial Position Sitting Sitting Respiration 18 16 Pulse 86 84 Pulse Source Pulse Oximeter Pulse Oximeter Pulse Oximetry (%) 95 96 Oxygen Delivery Method Room Air Room Air Comment Pre-Op Post-Op Intake Visit Reasons: L4, L5 TFESI Allergies Seasonal Allergies Allergy (Intermediate, Verified 07/19/23 10:09) itchy/runny nose dog dander Allergy (Verified 07/19/23 10:09) Unknown [facility] Medical History (Updated 07/19/23 @ 10:57 by Kaelyn Nicole MD) Night terrors Hypersomnia Snoring Gout Suicide attempt Irritable bowel syndrome with diarrhea Post traumatic stress disorder (PTSD) Chronic pain syndrome Disc degeneration, lumbar Spondylosis of lumbar region without myelopathy or radiculopathy Tremor Chronic renal insufficiency GERD (gastroesophageal reflux disease) Depression Asthma Surgical History Hx of colonoscopy Hx of esophagogastroduodenoscopy History of kidney surgery Family History Father Substance use disorder Mental health disorder Social History Household Members: Family Housing: House Are you a primary plant health care technician to a significant other at home: No Do you presently have visiting nurse or other home services: No Alcohol intake: former Comment: occasional Patient Tobacco Use Status: Never used Tobacco e-Cigarette/Vaping Use: Never Used Second Hand Smoke Exposure: No service: No Current occupational status: disabled Sexual orientation: Straight/Heterosexual Cognitive needs: No Hearing needs: No Vision needs: No Physical Exam Vital Signs: Last Vital Signs Pulse 84 07/24/23 11:46 Resp 16 07/24/23 11:46 BP 122/82 07/24/23 11:46 Pulse Ox 96 07/24/23 11:46 Oxygen Delivery Method Room Air 07/24/23 11:46 BMI result Body Mass Index 34.6 Assessment & Plan Assessment & Plan (1) Spondylosis of lumbar region without myelopathy or radiculopathy: Code(s): M47.816 - Spondylosis without myelopathy or radiculopathy, lumbar region Category: Medical (2) Disc degeneration, lumbar: Code(s): M51.36 - Other intervertebral disc degeneration, lumbar region Category: Medical (3) Chronic pain syndrome: Code(s): G89.4 - Chronic pain syndrome Category: Medical (4) Vertebrogenic low back pain: Code(s): M54.51 - Vertebrogenic low back pain Category: Medical (5) Spondylosis of lumbar region without myelopathy or radiculopathy: Code(s): M47.816 - Spondylosis without myelopathy or radiculopathy, lumbar region Category: Medical Plan: Transforaminal epidural steroid injection l4- L5 on the right. Informed consent was thoroughly explained to the patient before the procedure.? The patient came to the operating room.? He was positioned prone on operating table with a pillow under his abdomen.? Time-out was performed delineating correct site and side of the procedure, nature of the injection, name and date of of the patient. The lower back of the patient was prepped with ChloraPrep and draped with sterile utility towels.? C-arm was brought over the operating field and sq picture L4 vertebra were demonstrated on the screen.? The right side was chosen as the side of the injection.? Tilting machine ipsilateral to the right at the level of L4 the most prominent picture of the right pedicle was obtained on the screen.? 3 mm below the level of the lowest point of the pedicle projection to the skin small amount of lidocaine 1% 3-4 cc was injected to anesthetize the skin.? After that 5 in 22 gauge Quincke point needle was inserted through the skin wheal and was advanced to were the L4-5 foramina on anterior posterior and oblique views intermittently.? When tip of the needle entered foramina projection on AP view injection of the contrast was performed demonstrating epidural and perineural spread of the contrast.? After that injection of the treatment medicine 4 cc of lidocaine 1% mixed with Kenalog 40 mg was injected into the foramina.? Injection of the contrast and injection of the treatment medicine was observed live on the screen.? No intrathecal and no intravascular spread of the contrast was noted. Upon completion of the procedure the needle was withdrawn Band-Aid was applied. Patient tolerated procedure well he was taken outside of the operating room where he recovered uneventfully.? He went home without immediate complications. (6) Radiculopathy, lumbar region: Code(s): M54.16 - Radiculopathy, lumbar region Category: Medical Plan Diagnostic MBB gave him pain relieve for 14 days, therapeutic MBB injection relieved his pain for 3 months.. RFA was done on 08/13/2020/ 100% pain relieve for 4 weeks. Due to technical electronic difficulties with RFA machine it was pulsed RFA. Unfortunately the repeat of the RFA resulted in no pain improvement whatsoever he reports only 2 hours of pain improvement. He went for MRI which got discovered Modic type 2 changes at L4-5. Intercept was discussed at that time.. Recent onset lower back pain on the right with radiation to the right lower extremity. New MRI demonstrated more pronounced Modic type 2 changes as well as several nerve root compressions as above significantly prominent L4-5 exiting L4 nerve root compression. I will schedule the patient for transforaminal epidural steroid injection. We will try to perform this procedure as soon as possible. He was recently ordered oral steroids and I would like to wait at least 3 weeks before I will invite him for injection. Advancement of the nerve root compression changes may justify a neurosurgical consult. I will send him for neurosurgical consult with Dr. Waters. Orders: Orders FL guidance in treatment room Today M54.16 - Radiculopathy, lumbar region Coding Level of Care Code Procedure Only Diagnoses Spondylosis of lumbar region without myelopathy or radiculopathy M47.816 Disc degeneration, lumbar M51.36 Chronic pain syndrome G89.4 Vertebrogenic low back pain M54.51 Radiculopathy, lumbar region M54.16
[2023-07-24 10:55] VITALS: BP 138/80; PULSE 86; RESP 18; O2SAT 95; BMI 34.6
[2023-07-24 11:46] VITALS: BP 122/82; PULSE 84; RESP 16; O2SAT 96
== END 2023-07-24 11:45 | disposition home or self-care (01) ==
PROVIDERS: PCP Nurse Practitioner Family; Visit Provider Anesthesiology
DX: M47.816 Spondylosis without myelopathy or radiculopathy, lumbar region (principal); M51.36 Other intervertebral disc degeneration, lumbar region; G89.4 Chronic pain syndrome; M54.51 Vertebrogenic low back pain; M54.16 Radiculopathy, lumbar region
CPT/HCPCS: 64483

== ENCOUNTER 2023-08-07 10:21 | Outpatient (AMB) | payer OTHER, SELFPAY ==
--- NOTE | 2023-08-07 10:33 | MHC.PC.OV ---
Vital Signs 08/07/23 10:35 Height 5 ft 5 in Weight 203 lb BMI 33.8 BP 140/88 H Blood Pressure Location Rt brachial Position Sitting Pulse 88 Pulse Source Pulse Oximeter Pulse Oximetry (%) 98 Oxygen Delivery Method Room Air Intake Visit Reasons: 6 Month F/U Intake Note: Patient here to discuss ozempic and another personal concern Allergies Seasonal Allergies Allergy (Intermediate, Verified 08/07/23 11:44) itchy/runny nose dog dander Allergy (Verified 08/07/23 11:44) Unknown Medication List - Last Reconciled 08/07/23 by Napoleon Blankenship, MEDICAL RECORDS ANALYST- albuterol sulfate 2.5 mg (3 mL) inhalation QID PRN albuterol sulfate 90 mcg/actuation 2 puffs inhalation Q4-6H PRN 30 days allopurinol 100 mg PO DAILY 90 days amlodipine 10 mg PO DAILY 90 days atorvastatin 40 mg PO DAILY 90 days bupropion HCl XL 300 mg PO DAILY 30 days bupropion HCl XL 150 mg PO QAM aynjjglwaj-qilwrhkvjgwol-zysi 50-325-40 mg 1 tab PO .qd PRN 30 days cholecalciferol (vitamin D3) 25 mcg PO DAILY ferrous sulfate (iron) 325 mg PO DAILY fexofenadine (Kimmy Allergy) 180 mg PO DAILY fluoxetine 60 mg PO DAILY fluticasone propion-salmeterol 500-50 mcg/dose (Advair Diskus) 1 inh inhalation BID 90 days gabapentin 800 mg PO TID 30 days ketamine 300 mg sublingual .twice a week ketamine 3 lozenges twice a week lamotrigine 150 mg PO BID loperamide 2 mg PO QID PRN 90 days lorazepam 1 mg PO BID montelukast (Singulair) 10 mg PO DAILY oxcarbazepine 300 mg PO BID pantoprazole 40 mg PO DAILY 90 days sildenafil 25 mg PO DAILY PRN tizanidine 2 mg PO TID PRN 30 days tramadol 50 mg PO BID PRN 30 days Tobacco use date assessed: 08/07/23 Dental Screening Dental Screen Date: 08/07/23 Did you have a dental visit in the last 12 months?: Yes Did you have a dental problem in the last 6 months where you did not have access to dental care?: No Was dental information given to patient?: Patient has dentist HPI 6 Month F/U HPI Details Depression: Ongoing, denies any SI or HI. Pt is going for ketamine treatments, which seem to help, but not last. Pt has a psychiatrist. HTN: Blood pressure is managed with amlodipine 10mg. Will have pt monitor his blood pressure at home. Denies chest pain, shortness of breath, headache, dizziness, and blurred vision. ED: pt reports intermittent ED, or more soft erections. Will try him on a low dose sildenafil. PFSH Medical History Night terrors Hypersomnia Snoring Gout Suicide attempt Irritable bowel syndrome with diarrhea Post traumatic stress disorder (PTSD) Chronic pain syndrome Disc degeneration, lumbar Spondylosis of lumbar region without myelopathy or radiculopathy Tremor Chronic renal insufficiency GERD (gastroesophageal reflux disease) Depression Asthma Surgical History Hx of colonoscopy Hx of esophagogastroduodenoscopy History of kidney surgery Family History Father Substance use disorder Mental health disorder Social History Household Members: Family Housing: House Are you a primary pharmacy care coordinator to a significant other at home: No Do you presently have visiting nurse or other home services: No Alcohol intake: former Comment: occasional Patient Tobacco Use Status: Never used Tobacco e-Cigarette/Vaping Use: Never Used Second Hand Smoke Exposure: No service: No Current occupational status: disabled Sexual orientation: Straight/Heterosexual Cognitive needs: No Hearing needs: No Vision needs: No Questionnaire PHQ-9 Over the last 2 weeks, how often have you been bothered by any of the following problems? 81135 - PHQ-9 Billing: Patient declined-do not bill Source: Developed by Drs. Trae Velasquez, Rosario Murguia, Berto Barry and colleagues, with an educational vimal from [employer]. Thrive Questionnaire Date Thrive assessed: 08/07/23 What is your living situation today?: I choose not to answer this question Within the past 12 months, did the food you bought not last and you didn't have the money to get more?: I choose not to answer this question Within the past 12 months, did you worry whether your food would run out before you got money to buy more?: I choose not to answer this question Do you have trouble paying for medicines?: I choose not to answer this question Do you have trouble getting transportation to medical appointments?: I choose not to answer this question Do you have trouble paying your heating and electricity bill?: I choose not to answer this question Do you have trouble taking care of your child, family member or friend?: I choose not to answer this question Do you have trouble with day-to-day activities such as bathing, preparing meals, shopping, managing finances, etc.?: I choose not to answer this question Are you currently unemployed and looking for a job?: I choose not to answer this question Are you interested in more education?: I choose not to answer this question Currently or been in a relationship where the following occur: I choose not to answer this question THRIVE Score: 0 HERBERT-7 AMB Questionnaire HERBERT-7 Date HERBERT - 7 assessed: 08/07/23 Source: Developed by Drs. Trae Velasquez, Rosario Murguia, Berto Barry and colleagues, with an educational vimal from [employer]. HERBERT-7 Assessment Billing HERBERT-7 Assessment Tool: pt declined-do not bill Review of Systems Const Reports as per HPI Physical exam (Primary Care) Vital Signs: Last Vital Signs Pulse 88 08/07/23 10:35 BP 140/88 H 08/07/23 10:35 Pulse Ox 98 08/07/23 10:35 Oxygen Delivery Method Room Air 08/07/23 10:35 BMI result Body Mass Index 33.8 Tobacco/Smoking Status: Tobacco use Status Tobacco use date assessed 08/07/23 08/07/23 10:42 Patient Tobacco Use Status Never used Tobacco 08/07/23 10:35 e-Cigarette/Vaping Use Never Used 08/07/23 10:35 Thrive Assessment: Date of Thrive Assessment Date Thrive assessed 04/25/22 08/07/23 10:35 Currently or been in a relationship where the following occur: I choose not to answer this question Const General: cooperative Orientation/consciousness: patient oriented x3 Resp Effort & Inspection: normal respiratory effort Auscultation: clear to auscultation bilaterally Cardio Rate: regular rate Rhythm: regular rhythm Heart sounds: S1 normal heart sound present and S2 normal heart sound present Neuro General: patient oriented x3 Extrem Right lower extremity: no edema Left lower extremity: no edema Psych Appearance: grossly normal Mental Status: mental status grossly normal Speech and movement: Normal speech and movement present Affect: normal affect Attitude: cooperative Thought process: Normal thought process present Thought content: Normal thought content present Insight: Good insight present (Psych) Judgement: Good judgement present (Psych) Assessment and Plan Assessment & Plan (1) Elevated alkaline phosphatase level: Code(s): R74.8 - Abnormal levels of other serum enzymes Plan: labs ordered (2) HTN (hypertension): Code(s): I10 - Essential (primary) hypertension Plan: will have him take his BP at home and send me values Plan The patient agreed to the use of a medical administrative for this encounter. Scribed for WALKER Olson by Iris Woodall medical administrative, on 08/07/2023 at 10:45 EST. Orders: Orders Alkaline Phosphatase Isoenzyme Today R74.8 - Abnormal levels of other serum enzymes Gamma Glutamyl Transpeptidase Today R74.8 - Abnormal levels of other serum enzymes Medications: New sildenafil administer 30 minutes to 4 hours before activity 25 mg PO DAILY PRN 10 tabs 0RF sexual activity Coding Level of Care Code Est Pt Level 3 (11154) Diagnoses Elevated alkaline phosphatase level R74.8 HTN (hypertension) I10
[2023-08-07 10:35] VITALS: BP 140/88; PULSE 88; O2SAT 98; BMI 33.8
== END 2023-08-07 11:07 | disposition home or self-care (01) ==
PROVIDERS: PCP Nurse Practitioner Family; Visit Provider Nurse Practitioner Family
DX: R74.8 Abnormal levels of other serum enzymes (principal); I10 Essential (primary) hypertension
CPT/HCPCS: 99213

== ENCOUNTER 2023-08-30 10:21 | Outpatient (AMB) | payer OTHER, SELFPAY ==
--- NOTE | 2023-08-30 10:22 | MHC.OFFVIS ---
Intake Visit Reasons: RIGHT L4, L5 TFESI/07/24/23 Allergies Seasonal Allergies Allergy (Intermediate, Verified 08/30/23 10:22) itchy/runny nose dog dander Allergy (Verified 08/30/23 10:22) Unknown HPI Comments Details: Fox is on the phone today because he has a COVID. He received transforaminal L4-5 epidural steroid injection on 07/24/2023. He reports almost complete pain relief on the left side he reports minimal tightness on the left otherwise it is improved significantly. He reports good activities of daily living good mobility good social interactions. He continues to complain on left-sided pain however this is notwe address the injection to him last time. I explained to him that if he wants to repeat transforaminal L4-5 epidural steroid injection we will be able to schedule it 3 months or more after the original procedure. Prior: very pleasant 47 years old gentleman who is in my office under observation for long period of time. We performed radiofrequency ablation of L3-L4 dorsal ramus L5 bilateral medial branches on 12/08/2022. He reports only 2 hours of pain improvement after the procedure about 50%. He denies any further pain improvement. He reports pain is debilitating and aggravating. He went for MRI and L4-5 in my opinion he have had Modic type 2 changes. However the radiologist at that time denied L4-5 Modic type changes presents. Recently he came back to my office with pain starting in the right side of the lower lumbar spine radiating alongside the right lower extremity all the way down to the back of his right foot. He denies involvement of the toes. SLR is negative on the right however the MRI dictated as below demonstrates progression of the nerve root compression L4-5 on the right. He is offered today transforaminal epidural steroid injection L4-5 on the right. He agreed to go for the procedure. He also requests a neurosurgical consult and I will send him to Dr. Waters for consultation. New MRI also demonstrated L4-5 subtle Modic type changes. If after the injection he continues to complain on axial pain intercept procedure can be offered to him at L4-L5 and S1 levels. Currently his psychiatrist started him on small lozenges ketamine. Unable to admit him to opioid program. His UDS contained codeine. He admitted obtaining codeine via [place] friend. NSAIDs and gabapentin used to help his pain however now the no longer helpful.. PFSH Medical History Night terrors Hypersomnia Snoring Gout Suicide attempt Irritable bowel syndrome with diarrhea Post traumatic stress disorder (PTSD) Chronic pain syndrome Disc degeneration, lumbar Spondylosis of lumbar region without myelopathy or radiculopathy Tremor Chronic renal insufficiency GERD (gastroesophageal reflux disease) Depression Asthma Surgical History Hx of colonoscopy Hx of esophagogastroduodenoscopy History of kidney surgery Family History Father Substance use disorder Mental health disorder Social History Household Members: Family Housing: House Are you a primary janitor caretaker to a significant other at home: No Do you presently have visiting nurse or other home services: No Alcohol intake: former Comment: occasional Patient Tobacco Use Status: Never used Tobacco e-Cigarette/Vaping Use: Never Used Second Hand Smoke Exposure: No service: No Current occupational status: disabled Sexual orientation: Straight/Heterosexual Cognitive needs: No Hearing needs: No Vision needs: No Review of Systems Const All systems reviewed & are unremarkable except as noted in HPI and below Telehealth Telehealth Telehealth Platform: Telephone Location of provider rendering services: practice address Location of patient: address on file Patient Identification confirmed using: Name, : Yes Telehealth method: voice only Patient verbally consented to treatment: Yes Patient verbally consented to billing insurance company: Yes Patient informed of any privacy concerns related to visit: Yes Assessment & Plan Assessment & Plan (1) Spondylosis of lumbar region without myelopathy or radiculopathy: Code(s): M47.816 - Spondylosis without myelopathy or radiculopathy, lumbar region Category: Medical (2) Disc degeneration, lumbar: Code(s): M51.36 - Other intervertebral disc degeneration, lumbar region Category: Medical (3) Chronic pain syndrome: Code(s): G89.4 - Chronic pain syndrome Category: Medical (4) Vertebrogenic low back pain: Code(s): M54.51 - Vertebrogenic low back pain Category: Medical (5) Spondylosis of lumbar region without myelopathy or radiculopathy: Code(s): M47.816 - Spondylosis without myelopathy or radiculopathy, lumbar region Category: Medical (6) Radiculopathy, lumbar region: Code(s): M54.16 - Radiculopathy, lumbar region Category: Medical Plan Diagnostic MBB gave him pain relieve for 14 days, therapeutic MBB injection relieved his pain for 3 months.. RFA was done on 08/13/2020/ 100% pain relieve for 4 weeks. Due to technical electronic difficulties with RFA machine it was pulsed RFA. Unfortunately the repeat of the RFA resulted in no pain improvement whatsoever he reports only 2 hours of pain improvement. He went for MRI which got discovered Modic type 2 changes at L4-5. Intercept was discussed at that time.. Recent onset lower back pain on the right with radiation to the right lower extremity. New MRI demonstrated more pronounced Modic type 2 changes as well as several nerve root compressions as above significantly prominent L4-5 exiting L4 nerve root compression. Transforaminal epidural steroid injection L4-5 resulted in very significant pain relief on the right. We discussed possibility of treating his pain on the right with further injections in the future. Alternatively neurosurgical evaluation and treatmentossible to do a foraminotomy on the right L4-5. Patient Instructions: I here testify that I spent 15 minutes in conversation with this patient as well care and organizing this note. Coding Level of Care Code Tele Est Pt Level 3 (56552) Diagnoses Spondylosis of lumbar region without myelopathy or radiculopathy M47.816 Disc degeneration, lumbar M51.36 Chronic pain syndrome G89.4 Vertebrogenic low back pain M54.51 Radiculopathy, lumbar region M54.16
== END 2023-08-30 10:24 | disposition home or self-care (01) ==
LOC: HO.PMC 10:21
PROVIDERS: PCP Nurse Practitioner Family; Visit Provider Anesthesiology
DX: M47.816 Spondylosis without myelopathy or radiculopathy, lumbar region (principal); M51.36 Other intervertebral disc degeneration, lumbar region; G89.4 Chronic pain syndrome; M54.51 Vertebrogenic low back pain; M54.16 Radiculopathy, lumbar region
CPT/HCPCS: 99213

== ENCOUNTER → 2023-08-30 10:21 | Outpatient (BNVA) | payer OTHER, SELFPAY | PROVIDERS: PCP Nurse Practitioner Family; Visit Provider Anesthesiology ==

== ENCOUNTER 2023-09-19 09:03 | Outpatient (REF) | payer OTHER, SELFPAY ==
--- NOTE | ~2023-09-19 | MR_ITS ---
EXAMINATION: MR BRAIN WITHOUT CONTRAST CLINICAL INFORMATION: Memory loss, tremor COMPARISON: MRI of the brain with and without contrast 01/29/2020 TECHNIQUE: Multiplanar multisequence MR imaging of the brain was obtained without intravenous contrast. FINDINGS: There is no acute infarct on diffusion-weighted imaging. There is no intracranial hemorrhage on iron-sensitive imaging. No extra-axial collection or mass effect/herniation. Normal parenchymal signal characteristics. No hydrocephalus. The ventricles are normal in morphology and size. The major flow voids at the skull base are preserved. The midline structures are normal. The cerebellar tonsils are normally positioned. The craniocervical junction is normal. Marrow signal is within normal limits. The visualized soft tissues are without significant abnormality. No signal abnormality within the paranasal sinuses or within the mastoid air cells. MR/MR head/brain wo con IMPRESSION: Unremarkable noncontrast MRI of the brain.
== END 2023-09-19 09:04 | disposition home or self-care (01) ==
LOC: HO.MRI 09:03
PROVIDERS: PCP Nurse Practitioner Family; Visit Provider Psychiatry & Neurology Neurology
DX: R41.3 Other amnesia (principal); R25.1 Tremor, unspecified
CPT/HCPCS: 70551

== ENCOUNTER 2023-10-25 10:07 | Outpatient (AMB) | payer OTHER, SELFPAY ==
--- NOTE | 2023-10-25 10:08 | A.OFFVIS_ITS ---
Vital Signs 10/25/23 10:09 Height 5 ft 5 in Weight 203 lb BMI 33.8 BP 102/62 Blood Pressure Location Rt brachial Position Sitting Respiration 16 Pulse 87 Pulse Source Pulse Oximeter Pulse Oximetry (%) 97 Oxygen Delivery Method Room Air Intake Visit Reasons: 2 Month F/U - couldnt LVM Intake Note: Pt presents to the office for 3 month follow up for hypersomnia and to discuss MR results. Social Media Job Titles Required: No Allergies Seasonal Allergies Allergy (Intermediate, Verified 10/25/23 10:09) itchy/runny nose dog dander Allergy (Verified 10/25/23 10:09) Unknown Medication List - Last Reconciled 10/25/23 by Kaelyn Nicole MD albuterol sulfate 2.5 mg (3 mL) inhalation QID PRN albuterol sulfate 90 mcg/actuation 2 puffs inhalation Q4-6H PRN 30 days allopurinol 100 mg PO DAILY 90 days amlodipine 10 mg PO DAILY 90 days atorvastatin 40 mg PO DAILY 90 days bupropion HCl XL 300 mg PO DAILY 30 days bupropion HCl XL 150 mg PO QAM jzpotjvnlr-slcttcsqlcgpo-ndlx 50-325-40 mg 1 tab PO .qd PRN 30 days cholecalciferol (vitamin D3) 25 mcg PO DAILY ferrous sulfate (iron) 325 mg PO DAILY fexofenadine (Kimmy Allergy) 180 mg PO DAILY fluoxetine 60 mg PO DAILY fluticasone propion-salmeterol 500-50 mcg/dose (Advair Diskus) 1 inh inhalation BID 90 days gabapentin 800 mg PO TID 30 days ketamine 300 mg sublingual .twice a week ketamine 20 mg sublingual lamotrigine 150 mg PO BID loperamide 2 mg PO QID PRN 90 days lorazepam 1 mg PO BID montelukast (Singulair) 10 mg PO DAILY oxcarbazepine 300 mg PO BID pantoprazole 40 mg PO DAILY 90 days sildenafil 25 mg PO DAILY PRN tizanidine 2 mg PO TID PRN 30 days tramadol 50 mg PO BID PRN 30 days HPI Comments Details: 48y/o male with a depression, PTSD , Bipolar type 2 , OCD, ANxiety with h/o suicide attempt in 2020 ( he hung himself ) comes for follow up. MRI brain was normal. He is still waiting for sleep study he is on ketamine and is doing better. Prior History-He was hospitalized at [facility] - was seen by and He is here for evaluation of memory issues, tremors and sleep problems. Memory- his noticed that his memory issues started after 2020. His main problems are short term recall like forgetting appointments, repeating questions, forgets conversations, misplaces things, has trouble with names etc.It has progressed since then His mood is being managed by Dr. Hernandez and he is currently on ketamine treatment.He had TMS. Tremors-started 10 yeras ago - was mild but worse in the past year . He also has involuntary movements - jerking of his hands or whole body .The tremors can be at rest posture or action .He is unable to write, he can eta but slowly. SLeep- he has had chronic sleep issues. He cuenca sloud snoring, has excessive daytime sleepiness, frequent arousals, gasping arousals, witnessed apneas. He also has night terrors and sometimes has yelling, punching screaming etc. He has excessive daytime sleepiness and consumes 2 Red Bulls a day He also has daily mild headaches and he takes 2 Excedrin migraines [facility] Medical History Night terrors Hypersomnia Snoring Gout Suicide attempt Irritable bowel syndrome with diarrhea Post traumatic stress disorder (PTSD) Chronic pain syndrome Disc degeneration, lumbar Spondylosis of lumbar region without myelopathy or radiculopathy Tremor Chronic renal insufficiency GERD (gastroesophageal reflux disease) Depression Asthma Surgical History Hx of colonoscopy Hx of esophagogastroduodenoscopy History of kidney surgery Family History Father Substance use disorder Mental health disorder Social History Household Members: Family Housing: House Are you a primary associate director career services to a significant other at home: No Do you presently have visiting nurse or other home services: No Alcohol intake: former Comment: occasional Patient Tobacco Use Status: Never used Tobacco e-Cigarette/Vaping Use: Never Used Second Hand Smoke Exposure: No service: No Current occupational status: disabled Sexual orientation: Straight/Heterosexual Cognitive needs: No Hearing needs: No Vision needs: No Physical Exam Vital Signs: Last Vital Signs Pulse 87 10/25/23 10:09 Resp 16 10/25/23 10:09 BP 102/62 10/25/23 10:09 Pulse Ox 97 10/25/23 10:09 Oxygen Delivery Method Room Air 10/25/23 10:09 BMI result Body Mass Index 33.8 Assessment & Plan Assessment & Plan (1) Memory loss: Comment: multifactorial - mood disorder , medictaions, undiagnosed sleep apnea, sleep deprivation Code(s): R41.3 - Other amnesia Category: Medical (2) Tremor: Comment: ? medication related, exaggerated physiological , due to energy drinks Code(s): R25.1 - Tremor, unspecified Category: Medical (3) Snoring: Code(s): R06.83 - Snoring Category: Medical (4) Hypersomnia: Code(s): G47.10 - Hypersomnia, unspecified Category: Medical Plan: with night terrors Plan Sleep study to evaluate for sleep apnea, parasomnias Check Vit B 12 and TSH levels MRI Brain - normal will monitor tremors- no evidence of parkinsons or tardive dyskinesia F/u with Dr. Hernandez - on ketamine Orders: Orders TSH reflex Free T4 Today Z00.00 - Encounter for general adult medical examination without abnormal findings Coding Level of Care Code Est Pt Level 4 (92731) Diagnoses Memory loss R41.3 Tremor R25.1 Snoring R06.83 Hypersomnia G47.10
[2023-10-25 10:09] VITALS: BP 102/62; PULSE 87; RESP 16; O2SAT 97; BMI 33.8
== END 2023-10-25 10:29 | disposition home or self-care (01) ==
PROVIDERS: PCP Nurse Practitioner Family; Visit Provider Psychiatry & Neurology Neurology
DX: R41.3 Other amnesia (principal); R25.1 Tremor, unspecified; R06.83 Snoring; G47.10 Hypersomnia, unspecified
CPT/HCPCS: 99214

== ENCOUNTER → 2023-10-25 10:07 | Outpatient (BNVA) | payer OTHER, SELFPAY | PROVIDERS: PCP Nurse Practitioner Family; Visit Provider Psychiatry & Neurology Neurology | DX: R41.3 Other amnesia (principal); G47.10 Hypersomnia, unspecified; R06.83 Snoring; R25.1 Tremor, unspecified; F51.4 Sleep terrors [night terrors]; Z79.899 Other long term (current) drug therapy; Z91.51 Personal history of suicidal behavior ==

== ENCOUNTER 2023-10-25 10:31 | Outpatient (REF) | payer OTHER, SELFPAY ==
[2023-10-25 18:10] LABS: TSH reflex Free T4 1.72 uIU/mL (0.32-4.0)
[2023-10-25 18:21] LABS: Folate 8.8 ng/mL (> or = 4.0); Vitamin B12 415 pg/mL (200-900)
== END 2023-10-25 10:32 | disposition home or self-care (01) ==
LOC: HO.HKASLDS 10:31
PROVIDERS: Visit Provider Psychiatry & Neurology Neurology
DX: R41.3 Other amnesia (principal)
CPT/HCPCS: 36415; 82607; 82746; 84443

== ENCOUNTER 2023-10-31 10:05 | Outpatient (AMB) | payer OTHER, SELFPAY ==
--- NOTE | 2023-10-31 10:11 | HO.NEPHOV_ITS ---
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 He had donated 1 of his kidneys to his kpmsng-[id number]. He has gained quite a bit of weight. He has not been having gout exacerbations and does not take any nonsteroidal inflammatories. He has been on allopurinol . He maintains good hydration. He has history of his suicidal attempt few years ago. He does not have any pedal edema, hematuria, dysuria, flank pain, nausea, vomiting, diarrhea, shortness of breath, proximal renal dyspnea, orthopnea, orthostatic symptom, epistaxis, hemoptysis, melena or any other systemic symptoms. He has history of depression and is followed by Dr. Hernandez. He is not very active. is serum creatinine has been at baseline. His ketamine dose has been increased by his Psychiatrist. He has had M/S hematuria and has seen Urology. COUNT INCLUDES THE [facility] Medical History (Updated 10/31/23 @ 10:17 by Jose Walker MD) HTN (hypertension) Night terrors Hypersomnia Snoring Gout Suicide attempt Irritable bowel syndrome with diarrhea Post traumatic stress disorder (PTSD) Chronic pain syndrome Disc degeneration, lumbar Spondylosis of lumbar region without myelopathy or radiculopathy Tremor Chronic renal insufficiency GERD (gastroesophageal reflux disease) Depression Asthma Surgical History Hx of colonoscopy Hx of esophagogastroduodenoscopy History of kidney surgery Family History Father Substance use disorder Mental health disorder Social History Household Members: Family Housing: House Are you a primary day care home mother to a significant other at home: No Do you presently have visiting nurse or other home services: No Alcohol intake: former Comment: occasional Patient Tobacco Use Status: Never used Tobacco e-Cigarette/Vaping Use: Never Used Second Hand Smoke Exposure: No service: No Current occupational status: disabled Sexual orientation: Straight/Heterosexual Cognitive needs: No Hearing needs: No Vision needs: No Review of Systems Const All systems reviewed & are unremarkable except as noted in HPI and below Physical Exam Vital Signs: Last Vital Signs Pulse 92 10/31/23 10:12 BP 112/70 10/31/23 10:12 Pulse Ox 96 10/31/23 10:12 Oxygen Delivery Method Room Air 10/31/23 10:12 BMI result Body Mass Index 32.3 Const General: comfortable and no acute distress Orientation/consciousness: patient oriented x3 HEENT Head: Yes normocephalic Mouth: Normal oral and palatal mucosa present Eyes EOM: EOMs intact bilaterally Neck Neck: Yes supple Resp Auscultation: clear to auscultation bilaterally Cardio Jugular venous distension: no JVD Rate: regular rate GI Palpation (GI): Soft to palpation Auscultation: normal bowel sounds General: Yes no CVA tenderness Back/Spine/Pelvis Back: no CVA tenderness Skin General skin exam: no rashes or lesions noted Neuro General: patient oriented x3 and moves all extremities Extrem General: Yes no pedal edema Results Reviewed Nephrology Results: No Data to Display Assessment & Plan Assessment & Plan (1) Acquired solitary kidney: Code(s): Z90.5 - Acquired absence of kidney Category: Medical (2) HTN (hypertension): Code(s): I10 - Essential (primary) hypertension Category: Medical Qualifiers: Hypertension type: primary hypertension Qualified Code(s): I10 - Essential (primary) hypertension (3) Microscopic hematuria: Code(s): R31.29 - Other microscopic hematuria Category: Medical Plan Fox has GFR putting him in a category of CKD 3A. He has no proteinuria. He has gained quite a bit of weight which he needs to work on. He will be a candidate for low-dose ALBA-inhibitor. He is on Amlodipine which is keeping his BP at goal. His Amaris was wondering whether he is a candidate for Farxiga or Jardiance. His serum creatinine had been pretty stable for a while. I reiterated the need for him to have a close follow-up with adult daycare coordinator all his life. He is avoiding nonsteroidal anti-inflammatories and maintain good hydration. I ordered urinalysis & urine culture. If persisting M/S hematuria, he will need imaging and cystoscopy. All these have been discussed in detail. I answered his and his 's questions. Orders: Orders Urine Culture Today I10 - Essential (primary) hypertension, R31.29 - Other microscopic hematuria, Z90.5 - Acquired absence of kidney Creatinine Today I10 - Essential (primary) hypertension, R31.29 - Other microscopic hematuria, Z90.5 - Acquired absence of kidney Electrolytes Today I10 - Essential (primary) hypertension, R31.29 - Other microscopic hematuria, Z90.5 - Acquired absence of kidney UA and rflx microscopic Today I10 - Essential (primary) hypertension, R31.29 - Other microscopic hematuria, Z90.5 - Acquired absence of kidney Protein Creatinine Ratio, Ur Today I10 - Essential (primary) hypertension, R31.29 - Other microscopic hematuria, Z90.5 - Acquired absence of kidney Blood Urea Nitrogen Today I10 - Essential (primary) hypertension, R31.29 - Other microscopic hematuria, Z90.5 - Acquired absence of kidney Coding Level of Care Code Est Pt Level 4 (31090) Diagnoses Acquired solitary kidney Z90.5 Primary hypertension I10 Hypertension type: primary hypertension Microscopic hematuria R31.29
[2023-10-31 10:12] VITALS: BP 112/70; PULSE 92; O2SAT 96; BMI 32.3
== END 2023-10-31 12:30 | disposition home or self-care (01) ==
PROVIDERS: PCP Nurse Practitioner Family; Visit Provider Internal Medicine Nephrology
DX: Z90.5 Acquired absence of kidney (principal); I10 Essential (primary) hypertension; R31.29 Other microscopic hematuria
CPT/HCPCS: 99214

== ENCOUNTER 2023-10-31 10:05 | Outpatient (REF) | payer OTHER, SELFPAY ==
[2023-10-31 12:31] LABS: Anion Gap 11 (12-20); Blood Urea Nitrogen 12 mg/dL (9-16); Carbon Dioxide 29 mmol/L (22-29); Chloride 106 mmol/L (96-108); Estimated Glomerular Filt Rate > 60; Potassium 4.5 mmol/L (3.3-5.1); Sodium 141 mmol/L (135-145)
[2023-10-31 12:52] LABS: TSH reflex Free T4 1.28 uIU/mL (0.32-4.0)
== END 2023-10-31 10:06 | disposition home or self-care (01) ==
LOC: HO.LAB 10:05
PROVIDERS: Psychiatry & Neurology Neurology; PCP Nurse Practitioner Family; Visit Provider Internal Medicine Nephrology
DX: I12.9 Hypertensive chronic kidney disease with stage 1 through stage 4 chronic kidney disease, or unspecified chronic kidney disease (principal); N18.31 Chronic kidney disease, stage 3a; R31.29 Other microscopic hematuria; Z90.5 Acquired absence of kidney; Z79.899 Other long term (current) drug therapy
CPT/HCPCS: 36415; 80051; 82565; 84443; 84520

== ENCOUNTER 2023-11-09 11:00 | Outpatient (REF) | payer OTHER, SELFPAY ==
[2023-11-09 11:13] LABS: Appearance Urine Clear; Color Urine Yellow; Glucose Urine UA Negative (Negative); Leukocyte Esterase Urine Negative (Negative); Nitrite Urine Negative (Negative); Urine Blood Negative (Negative); Urine Ketones Negative (Negative); Urine Protein Trace mg/dL (Neg-Trace)
[2023-11-09 11:49] LABS: Creatinine Urine 140.84 mg/dL; Protein/Creatinine Ratio, Ur 0.09 (<0.2); Total Protein Urine Random 12 mg/dL (<12)
== END 2023-11-09 11:01 ==
LOC: HO.LNP 11:00
PROVIDERS: Visit Provider Internal Medicine Nephrology
DX: R31.29 Other microscopic hematuria (principal); I10 Essential (primary) hypertension; Z90.5 Acquired absence of kidney
CPT/HCPCS: 81003; 82570; 84156; 87086; 87147

== ENCOUNTER → 2023-12-06 14:02 | Outpatient (RCR) | payer OTHER, SELFPAY ==
--- NOTE | 2020-09-01 14:18 | P.CNHO_ITS ---
Subjective - Subjective Chief complaint: Anemia Patient: new to practice Consult date: 09/01/20 Primary Care Provider: WALKER Arevalo Medical Summary: Diagnosis: Iron deficiency anemia 2020 EGD/colonoscopy revealed mild colitis. HPI - Consult Narrative Reason for consult: Anemia Narrative: Fox Duckworth is a 45 year old male referred for management of recently diagnosed anemia. He was found to have iron deficiency and underwent GI evaluation which was unrevealing except for mild gastritis and colitis. He has been started on PPI therapy. He denies any significant reflux symptoms, no history of hematochezia melena. No loss of appetite or weight loss. No history of hematuria. He has a history of anxiety/depression and has been on several medications over the years. He was diagnosed with chronic renal insufficiency after donating a kidney to his father in law many years ago. He has chronic hypertension, he is currently not on any medications. He reports intermittent diarrhea. Review of Systems - Constitutional Reports as per HPI, Reports no additional constitutional complaints, Denies night sweats, Denies poor appetite, Denies weight loss - Cardiovascular Reports no additional cardiovascular complaints - Respiratory Reports no additional respiratory complaints - Gastrointestinal Reports no additional gastrointestinal complaints Oncology Screenings - ECOG Performance Status ECOG Performance Status: 1 [facility] Medical History: Medical History (Last Updated 08/17/20 @ 07:25 by WALKER Cruz) Asthma Chronic pain syndrome Chronic renal insufficiency Depression Disc degeneration, lumbar GERD (gastroesophageal reflux disease) Irritable bowel syndrome with diarrhea Post traumatic stress disorder (PTSD) Spondylosis of lumbar region without myelopathy or radiculopathy Suicide attempt Tremor Surgical History: Surgical History (Last Reviewed 08/17/20 @ 07:31 by WALKER Cruz) History of kidney surgery Hx of colonoscopy Hx of esophagogastroduodenoscopy Social History: Social History (Last Updated 09/01/20 @ 14:23 by Madai Nj) Living Situation History: Household Members: Family Housing: House Are you a primary customer care associate to a significant other at home: No Do you presently have visiting nurse or other home services: No Alcohol History: Alcohol intake: former Alcohol History Details: Alcohol intake frequency: does not drink Tobacco History: Patient Tobacco Use Status: Never used Tobacco Second Hand Smoke Exposure: No Substance Use History: Use of substances other than those prescribed or required for medical reasons : No Occupation Assessmet: service: No Sex/Gender Assessment: Sexual orientation: Straight/Heterosexual Home Medications and Allergies Home Medications Medication Instructions Recorded Confirmed Type albuterol sulfate [ProAir HFA] 2 puff INHALATION Q4-6H PRN 01/02/20 09/01/20 History lorazepam 1 tab PO QID 08/09/20 09/01/20 History lamotrigine 100 mg PO DAILY 09/01/20 09/01/20 History Allergies Allergy/AdvReac Type Severity Reaction Status Date / Time dog dander Allergy Unknown Verified 08/17/20 07:40 SEASONAL ALLERGIES Allergy Intermediate ITCHY Uncoded 08/17/20 07:40 EYES/RUNNY NOSE Physical Exam Vital signs: Vital Signs Temp Pulse Resp BP Pulse Ox 09/01/20 14:19 97.6 F 95 12 146/88 H 96 Intake and Output 08/31/20 09/01/20 09/01/20 22:59 06:59 14:59 Other: Weight 87.6 kg [place] Weight in Grams [id number] Patient Weight 09/02/20 06:59 Weight 87.6 kg Narrative: Young male somewhat anxious appearing. - Constitutional Present: average body habitus - Routine HEENT Exam Head: Present: atraumatic, normal inspection Eye: Present: EOMI - Routine Neck Exam Present: supple. Absent: lymphadenopathy, thyromegaly - Routine Respiratory Exam Present: CTAB. Absent: respiratory distress - Routine Cardiovascular Exam Cardiovascular: Present: S1, S2 - Routine Abdominal Exam Present: soft - Routine Extremities Exam Absent: calf tenderness - Routine Skin Exam Present: intact. Absent: cyanosis - Routine Neurological Exam Present: alert, oriented X3 Assessment and Plan (1) Iron deficiency anemia Status: Acute Qualifiers: Iron deficiency anemia type: other iron deficiency Qualified Code(s): D50.8 - Other iron deficiency anemias 1. This is a 45-year-old male with iron deficiency anemia diagnosed in 2020. Had recent EGD/colonoscopy revealed mild gastritis and colitis but no evidence of significant blood loss. He is on PPI therapy. Blood work shows microcytic anemia with decreased iron indices consistent with iron deficiency anemia. This is probably multifactorial. Inadequate oral absorption of dietary iron related to gastritis as well as being on PPI therapy. I have recommended oral iron supplementation ferrous sulfate 325 mg p.o. b.i.d. with vitamin-C or orange juice to enhance absorption. Other than chronic fatigue he reports no significant cardiovascular symptoms and parenteral iron therapy can be deferred. There is no evidence of hemolysis. His kidney functions are stable and although it can contribute to anemia, iron deficiency has to be corrected first and blood counts re-evaluated. I thank you very much for this consultation. Follow-up in 3 months.
[2020-09-01 14:19] VITALS: BP 146/88; PULSE 95; RESP 12; TEMP 36.4; O2SAT 96; BMI 32.1
[2020-09-01 14:57] LABS: MANUAL DIFF FLAG NO
[2020-09-01 15:02] LABS: Basophils Percent Auto 0.3 % (0-2); Eosinophils Absolute Auto 0.2 X10*3/uL (0.0-0.4); Hematocrit 40.6 % (42-52); Hemoglobin 12.8 g/dl (14.0-18.0); Imm Gran Abs Auto 0.04 X10*3/uL (0.00-0.03); Imm Gran Pct Auto 0.5 % (0.0-0.4); Lymphocytes Absolute Auto 1.7 X10*3/uL (1.2-4.9); Lymphocytes Percent Auto 19.3 % (20-40); Mean Corpuscular HGB Conc 31.5 g/dl (31.0-36.0); Mean Corpuscular Hemoglobin 24.5 pg (27.0-33.0); Mean Corpuscular Volume 77.6 fL (80-98); Mean Platelet Volume 8.9 fL (9.4-12.4); Monocytes Absolute Auto 0.9 X10*3/uL (0.1-1.2); Monocytes Percent Auto 9.7 % (2-11); Neutrophils Percent Auto 68.2 % (45-73); Platelet Count 258 X10*3/uL (160-400); Red Blood Count 5.23 X10*6/uL (4.60-5.80); Red Cell Distribution Width 17.1 % (11.0-16.0); White Blood Count 8.8 X10*3/uL (4.8-10.8)
[2020-09-01 15:35] LABS: Iron 39 mcg/dL (45-160); Percent Iron Saturation 9 % (15-50); Total Iron Binding Capacity 430 mcg/dL (228-428); Unsaturated Iron Binding 391 ug/dL
[2020-09-01 15:55] LABS: Ferritin 8 ng/mL (20-250)
[2020-09-01 16:11] LABS: Folate 12.1 ng/mL (> or = 4.0); Vitamin B12 388 pg/mL (200-900)
== END | disposition home or self-care (01) ==
LOC: HO.ONC 09-01 14:02
PROVIDERS: PCP Nurse Practitioner Family; Visit Provider Internal Medicine
DX: D50.9 Iron deficiency anemia, unspecified (principal)
CPT/HCPCS: 36415; 82607; 82728; 82746; 83540; 85025

== ENCOUNTER 2023-12-18 10:33 | Outpatient (AMB) | payer OTHER, SELFPAY ==
--- NOTE | 2023-12-18 10:34 | A.OFFVIS_ITS ---
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: No Accompanied by: Unknown Allergies Seasonal Allergies Allergy (Intermediate, Verified 12/18/23 11:28) itchy/runny nose dog dander Allergy (Verified 12/18/23 11:28) Unknown Medication List - Last Reconciled 12/18/23 by CHIVO DalalP- albuterol sulfate 2.5 mg (3 mL) inhalation QID PRN albuterol sulfate 90 mcg/actuation 2 puffs inhalation Q4-6H PRN 30 days allopurinol 100 mg PO DAILY 90 days amlodipine 10 mg PO DAILY 90 days atorvastatin 40 mg PO DAILY 90 days bupropion HCl XL 300 mg PO DAILY 30 days bupropion HCl XL 150 mg PO QAM kiykrchvly-fnvpcetkbhoaq-fbgy 50-325-40 mg 1 tab PO .qd PRN 30 days cholecalciferol (vitamin D3) 25 mcg PO DAILY ferrous sulfate (iron) 325 mg PO DAILY fexofenadine (Kimmy Allergy) 180 mg PO DAILY fluoxetine 60 mg PO DAILY fluticasone propion-salmeterol 500-50 mcg/dose (Advair Diskus) 1 inh inhalation BID 90 days gabapentin 800 mg PO TID 30 days ketamine 300 mg sublingual .twice a week ketamine 20 mg sublingual lamotrigine 150 mg PO BID loperamide 2 mg PO QID PRN 90 days lorazepam 1 mg PO BID montelukast (Singulair) 10 mg PO DAILY oxcarbazepine 300 mg PO BID pantoprazole 40 mg PO DAILY 90 days sildenafil 25 mg PO DAILY PRN tizanidine 2 mg PO TID PRN 30 days tramadol 50 mg PO BID PRN 30 days HPI Comments Details: Fox is a very pleasant 48-year-old male patient of Dr. Blankenship who was accompanied by his at today's office visit. 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 He presents to the office today for follow-up of his microscopic hematuria. In discussion with the patient today he reports having followed up with Nephrology given his solitary kidney and history of proteinuria at which time recommendations were made for cystoscopy given history of microscopic hematuria and solitary kidney. However, in office urinalysis today with no microscopic hematuria noted. Previous workup has included a CT 05/26 that noted absent left kidney. The right kidney appears unremarkable in size, shape, and attenuation. No hydronephrosis, hydroureter, or calculi seen. The bladder is unremarkable. He discusses having been a kidney donor in the past for his snzrjh-zz-hbu who has since . We discussed at length intermittent microscopic hematuria versus persistent microscopic hemat uria. We discussed in office cystoscopy for further assessment evaluation however patient declines at this time. He does report noting episodes of nocturia up to 2 times per night. He denies any previous workplace chemical exposure and or nicotine dependence. He denies urinary urgency, urinary frequency, incontinence, hematuria, dysuria, foul smelling urine, changes to urinary stream, flank pain, fever, and or chills. He is happy with his current voiding parameters. He does endorse to be drinking daily red Bulls. This was discussed at last office visit and again today. He otherwise offers no other issues or concerns at this time. Urine cytology 06/23 Negative for high-grade urothelial carcinoma. [facility] Medical History HTN (hypertension) Night terrors Hypersomnia Snoring Gout Suicide attempt Irritable bowel syndrome with diarrhea Post traumatic stress disorder (PTSD) Chronic pain syndrome Disc degeneration, lumbar Spondylosis of lumbar region without myelopathy or radiculopathy Tremor Chronic renal insufficiency GERD (gastroesophageal reflux disease) Depression Asthma Surgical History Hx of colonoscopy Hx of esophagogastroduodenoscopy History of kidney surgery Family History Father Substance use disorder Mental health disorder Social History Household Members: Family Housing: House Are you a primary critical care rn to a significant other at home: No Do you presently have visiting nurse or other home services: No Alcohol intake: former Comment: occasional Patient Tobacco Use Status: Never used Tobacco e-Cigarette/Vaping Use: Never Used Second Hand Smoke Exposure: No service: No Current occupational status: disabled Sexual orientation: Straight/Heterosexual Cognitive needs: No Hearing needs: No Vision needs: No Review of Systems Const Reports no additional complaints Eyes Reports no additional complaints ENT Reports no additional complaints Card Reports as per HPI Resp Reports as per [facility] GI Reports as per HPI Reports as per HPI Musc Reports as per HPI Neuro Reports as per [facility] Psych Reports as per HPI Endo Reports no additional complaints Brian/Lymph Reports no additional complaints Aller/Immun Reports no additional complaints Physical Exam Const General: cooperative, comfortable, no acute distress, well developed, alert and awake Orientation/consciousness: patient oriented x3 HEENT Head: Yes normal to inspection, Yes normocephalic and Yes atraumatic Ears: hearing grossly normal bilaterally Eyes General: appearance normal, both eyes and all related structures Neck Neck: Yes normal visual inspection and Yes trachea midline Chest Chest palpation & inspection: normal inspection of the chest Resp Effort & Inspection: normal respiratory effort and able to speak in complete sentences Cardio Rate: regular rate GI Inspection: Yes normal to inspection General: Yes no CVA tenderness Back/Spine/Pelvis Back: no CVA tenderness Skin General skin exam: no rashes or lesions noted Neuro General: patient oriented x3 Extrem General: Yes normal to inspection Psych Appearance: grossly normal and well kempt Mental Status: mental status grossly normal Speech and movement: Normal speech and movement present and Clear speech present Affect: normal affect Attitude: cooperative Thought process: Normal thought process present Thought content: Normal thought content present Results AMB Urinalysis, Automated UA Leukoctes 15 Nova/uL Last Edit by RodrickFanbasemanoj oHlt on 12/18/23 10:49 UA Nitrite Last Edit by Clarence Holt on 12/18/23 10:49 UA Urobilinogen 0.2 mg/dL Last Edit by CruiseWisemanoj Holt on 12/18/23 10:49 UA Protein 30 mg/dL Last Edit by [employer] Jonathon on 12/18/23 10:49 UA pH 5.5 Last Edit by Clarence Holt on 12/18/23 10:49 UA Blood 0 Donnie/uL Last Edit by Adaptive Ozone Solutionssima Holt on 12/18/23 10:49 UA Specific Alexander 1.030 Last Edit by RodrickFanbasemanoj Holt on 12/18/23 10:49 UA Ketone Positive Last Edit by RodrickFanbasemanoj Holt on 12/18/23 10:49 UA Bilirubin 1 mg/dL Last Edit by Clarence Holt on 12/18/23 10:49 UA Glucose 0 mg/dL Last Edit by Clarence Holt on 12/18/23 10:49 Results Reviewed Results Reviewed: Laboratory Last Values Urine pH (Auto) 5.5 12/18/23 10:46 Specific Alexander (Auto) 1.030 12/18/23 10:46 Urine Protein (Auto) 30 mg/dL 12/18/23 10:46 Glucose (UA)(Auto) 0 mg/dL 12/18/23 10:46 Urine Ketones (Auto) Positive 12/18/23 10:46 Urine Blood (Auto) 0 Donnie/uL 12/18/23 10:46 Urine Bilirubin (Auto) 1 mg/dL 12/18/23 10:46 Urine Urobilinogen (Auto) 0.2 mg/dL 12/18/23 10:46 Leukocyte Esterase (Auto) 15 Nova/uL 12/18/23 10:46 Assessment & Plan Assessment & Plan (1) Nocturia: Code(s): R35.1 - Nocturia Category: Medical (2) Microscopic hematuria: Code(s): R31.29 - Other microscopic hematuria Category: Medical (3) Acquired solitary kidney: Code(s): Z90.5 - Acquired absence of kidney Category: Medical Plan In office urinalysis results reviewed with the patient today; no microscopic hematuria noted on exam. However, we did discuss pH of 5.5 in a SPEC gravity 1.030. Education was provided regarding energy drinks and increase in caffeine and affects of energy drinks on overall health and well-being. Discussed bladder triggers/irritants. We discussed persistent microscopic hematuria verses microscopic hematuria. We discussed further workup to include in office cystoscopy however patient declines at this time; this was discussed at length; as well as risks and benefits. Will obtain PSA for further assessment evaluation. Discussed, educated, and stressed the importance of limiting fluids prior to bed to decrease episodes of nocturia. Follow-up in 1-3 months with lab to be completed prior; or sooner with any issues, concerns, and or questions. Orders: Orders AMB Urinalysis Automated Today Z13.9 - Encounter for screening, unspecified Prostate Specific Antigen Today R35.1 - Nocturia Patient Instructions: The patient had an opportunity to ask questions regarding the treatment plan. All questions were answered. Physical exam, labs, and imaging were discussed and reviewed in detail. As well as risks, benefits, and discussion of treatment choices. No major barriers to understanding were identified. The patient expressed understanding and agreement with the above treatment plan. The patient was made aware they should contact our office by phone for worsening of their current condition, the appearance of new symptoms, or with any quest ions or concerns. Compliance is encouraged with any medications and follow up testing that is ordered. It is a privilege to be allowed the opportunity to participate in? your urological care.? Again, if you have any questions or concerns If you have any questions or concerns please do not hesitate to contact me. The office is [phone]. This note is constructed using voice recognition software. While every effort has been made to ensure accuracy sfdc solution architect errors may have been included. Yours sincerely, WALKER Dalal Coding Level of Care Code Est Pt Level 4 (25473) Complex EM visit Add On G2211 Diagnoses Nocturia R35.1 Microscopic hematuria R31.29 Acquired solitary kidney Z90.5 Time Spent (min) 35
== END 2023-12-18 11:09 | disposition home or self-care (01) ==
PROVIDERS: PCP Nurse Practitioner Family; Visit Provider Nurse Practitioner Family
DX: R35.1 Nocturia (principal); R31.29 Other microscopic hematuria; Z90.5 Acquired absence of kidney; Z13.9 Encounter for screening, unspecified
CPT/HCPCS: 99214

== ENCOUNTER → 2023-12-18 10:33 | Outpatient (BNVA) | payer OTHER, SELFPAY | PROVIDERS: PCP Nurse Practitioner Family; Visit Provider Nurse Practitioner Family | DX: R31.29 Other microscopic hematuria (principal); R35.1 Nocturia; Z90.5 Acquired absence of kidney | CPT/HCPCS: 81003 ==

== ENCOUNTER 2024-01-22 11:17 | Outpatient (REF) | payer OTHER, SELFPAY ==
[2024-01-22 12:10] LABS: Amphetamine Screen Urine Not Detected (Not Detect); Barbiturates, Urine POSITIVE (Not Detect); Benzodiazepines Screen Urine Not Detected (Not Detect); Buprenorphine Scr Not Detected (Not Detect); Cannabinoid Screen Urine Not Detected (Not Detect); Cocaine Screen Urine Not Detected (Not Detect); Fentanyl, urine Not Detected (Not Detect); Methadone Screen, Urine Not Detected (Not Detect); Opiate Screen Urine Not Detected (Not Detect); Oxycodone Screen Urine Not Detected (Not Detect); Phencyclidine Screen Urine Not Detected (Not Detect)
== END 2024-01-22 11:18 | disposition home or self-care (01) ==
LOC: HO.LAB 11:17
PROVIDERS: PCP Nurse Practitioner Family; Visit Provider Psychiatry & Neurology Psychiatry
DX: F31.81 Bipolar II disorder (principal); Z79.899 Other long term (current) drug therapy
CPT/HCPCS: 80307

== ENCOUNTER 2024-03-11 11:22 | Outpatient (AMB) | payer OTHER, SELFPAY ==
--- NOTE | 2024-03-11 11:27 | A.OFFPC_ITS ---
Vital Signs 03/11/24 11:28 Height 5 ft 5 in Weight 185 lb BMI 30.8 BP 118/80 Blood Pressure Location Rt brachial Position Sitting Pulse 78 Pulse Source Pulse Oximeter Pulse Oximetry (%) 98 Intake Visit Reasons: Annual pe Intake Note: pt is here for annual exam Accompanied by: Self / Same As Patient Allergies Seasonal Allergies Allergy (Intermediate, Verified 03/11/24 11:28) itchy/runny nose dog dander Allergy (Verified 03/11/24 11:28) Unknown Medication List - Last Reconciled 03/11/24 by Napoleon Blankenship, [facility] albuterol sulfate 2.5 mg (3 mL) inhalation QID PRN albuterol sulfate 90 mcg/actuation 2 puffs inhalation Q4-6H PRN 30 days allopurinol 100 mg PO DAILY 90 days amlodipine 10 mg PO DAILY 90 days atorvastatin 40 mg PO DAILY 90 days bupropion HCl XL 300 mg PO DAILY 30 days bupropion HCl XL 150 mg PO QAM cloupgrrjp-aukeeowkmuhcm-fybw 50-325-40 mg 1 tab PO .qd PRN 30 days cholecalciferol (vitamin D3) 25 mcg PO DAILY ferrous sulfate (iron) 325 mg PO DAILY fexofenadine (Kimmy Allergy) 180 mg PO DAILY fluoxetine 60 mg PO DAILY fluticasone propion-salmeterol 500-50 mcg/dose (Advair Diskus) 1 inh inhalation BID 90 days gabapentin 800 mg PO TID 30 days ketamine 300 mg sublingual .twice a week ketamine 20 mg sublingual ketoconazole 200 mg PO DAILY 5 days lamotrigine 150 mg PO BID loperamide 2 mg PO QID PRN 90 days lorazepam 1 mg PO BID montelukast (Singulair) 10 mg PO DAILY oxcarbazepine 300 mg PO BID pantoprazole 40 mg PO DAILY 90 days sildenafil 25 mg PO DAILY PRN tizanidine 2 mg PO TID PRN 30 days tramadol 50 mg PO BID PRN 30 days Tobacco use date assessed: 08/07/23 Dental Screening Dental Screen Date: 08/07/23 HPI Annual pe HPI Details History of Present Illness The patient is a 49-year-old male presenting for an annual physical examination. He reports longstanding back pain that is currently managed with Tramadol. He confirms that he is seeing a education director and a psychiatrist (ketamine treatments). The patient denies ongoing therapy with a social therapist due to previous discomfort with their approach. He occasionally experiences prostatism symptoms, including increased nocturia and sometimes difficulty initiating urination. The patient prefers PSA testing over digital rectal exams for prostat e assessment. He denies any personal history of cancer and confirms up-to-date screenings, including a colonoscopy not being due until 2025. Pt was seeing urology at one point. Health Maintenance - Colonoscopy due in 2025; patient is up -to-date. - Prostate cancer screening by PSA recom mended. - Discussions about optimizing medicatio n management and mental health support. Social History - The patient does not currently engage in psychotherapy aside from psychiatric consultations. - He has a history of discomfort in ther apeutic settings with a therapist. - No substance use beyond prescribed med ication. - No current issues reported regarding e mployment or housing. Review of Systems - Genitourinary: Reports increased noctu ronald, sometimes difficulty with urination initiation. -no cp, sob -no blood in stool -denies any si or HI -denies any current depression or anxiet y -denies any numbness tingling Physical Exam General: Cooperative, healthy appearing, comfortable, no acute distress and well developed Orientation: Patient oriented x3 Limitations: No limitations Head: Normal to inspection Ears: Hearing grossly normal bilaterally Nose: Normal external nose present Face and sinus: Normal facial exam Eyes: Appearance normal, both eyes and all related structures Neck: Normal visual inspection and Yes full ROM Respiratory: Normal respiratory effort and able to speak in complete sentences. Clear to auscultation bilaterally Cardiovascular: Regular rate and rhythm. Normal S1 and S2 GI: Normal to inspection. Soft to palpation and nontender Skin: No rashes or lesions noted Neuro: Patient oriented x3, faint upper extrem tremors Extremities: Normal to inspection Results Plan - For back pain, continue management wit h Tramadol, seeing pain mangement as well and nephrology services. - Monitor urinary symptoms potentially r elated to prostatism; recommend PSA testing. - Reinforce psychiatric care with a focu s on managing aggression and consider potential benefits of adjunct psychotherapy for comprehensive mental health management (ketamin currently) - Routine physical exam findings will gu magi preventive care; no acute intervention necessary besides continued medication. Patient was informed and verbally consented to the use of an ambient scribe for clinic note documentation during this visit. Discussion Notes We discussed the importance of annual physical exams and routine screenings, including PSA for prostate health. The patient agreed to continue with PSA as a preferred method over digital rectal exams for prostate screening. We reviewed his current medication regimen with Tramadol for back pain, and I advised continuing this under appropriate supervision. The necessity of consulting the education director and psychiatrist for ongoing specialized care was emphasized. Possible benefits and potential difficulties with psychotherapy were reviewed, aligning treatment options with patient comfort. He consented to the outlined plan and to seek additional care or adjustments as symptoms evolve. Patient Instructions - Continue current medication regimen wi th Tramadol as prescribed. - Schedule PSA testing for prostate heal th monitoring. - Maintain regular visits with nephrolog ist, neurologist, and psychiatrist. - Consider psychotherapy if further ment mi health support is deemed necessary. - Report any new or worsening symptoms i mmediately for further evaluation. [facility] Medical History HTN (hypertension) Night terrors Hypersomnia Snoring Gout Suicide attempt Irritable bowel syndrome with diarrhea Post traumatic stress disorder (PTSD) Chronic pain syndrome Disc degeneration, lumbar Spondylosis of lumbar region without myelopathy or radiculopathy Tremor Chronic renal insufficiency GERD (gastroesophageal reflux disease) Depression Asthma Surgical History Hx of colonoscopy Hx of esophagogastroduodenoscopy History of kidney surgery Family History Father Substance use disorder Mental health disorder Social History Household Members: Family Housing: House Are you a primary child day care center worker to a significant other at home: No Do you presently have visiting nurse or other home services: No Alcohol intake: former Comment: occasional Patient Tobacco Use Status: Never used Tobacco e-Cigarette/Vaping Use: Never Used Second Hand Smoke Exposure: No service: No Current occupational status: disabled Sexual orientation: Straight/Heterosexual Cognitive needs: No Hearing needs: No Vision needs: No Questionnaire PHQ-9 Over the last 2 weeks, how often have you been bothered by any of the following problems? 1. Little interest or pleasure in doing things: several days 2. Feeling down, depressed, or hopeless: not at all 3. Trouble falling or staying asleep, or sleeping too much: not at all 4. Feeling tired or having little energy: several days 5. Poor appetite or overeating: not at all 6. Feeling bad about yourself - or that you are a failure or have let yourself or your family down: more than half the days 7. Trouble concentrating on things, such as reading the newspaper or watching television: not at all 8. Moving or speaking so slowly that other people could have noticed. Or the opposite - being so fidgety or restless that you have been moving around a lot more than usual: not at all 9. Thoughts that you would be better off or of hurting yourself in some way: not at all Total score: 4 Depression Screening Interpretation: Negative Depression Screening Done: Yes 73653 - PHQ-9 Billing: Yes Source: Developed by Drs. Trae Velasquez, Rosario Murguia, Berto Barry and colleagues, with an educational vimal from [employer]. Thrive Questionnaire Date Thrive assessed: 03/11/24 I am a: Patient What is your living situation today?: I have a steady place to live Within the past 12 months, did the food you bought not last and you didn't have the money to get more?: Never true Within the past 12 months, did you worry whether your food would run out before you got money to buy more?: Never true Do you have trouble paying for medicines?: No Do you have trouble getting transportation to medical appointments?: No Do you have trouble paying your heating and electricity bill?: No Do you have trouble taking care of your child, family member or friend?: No Do you have trouble with day-to-day activities such as bathing, preparing meals, shopping, managing finances, etc.?: No Are you currently unemployed and looking for a job?: No Are you interested in more education?: No Please select the resources that you would like help with: None Currently or been in a relationship where the following occur: No concerns reported THRIVE Score: 0 AUDIT C Alcohol Use Questionnaire (AUDIT-C) 1. How often do you have a drink containing alcohol?: Monthly or less 2. How many drinks containing alcohol do you have on a typical day when you are drinking?: 1 or 2 3. How often do you have six or more drinks on one occasion?: Never Total Score: 1 Score Reviewed/Action Taken: Yes HERBERT-7 AMB Questionnaire HERBERT-7 Date HERBERT - 7 assessed: 03/11/24 Feeling nervous, anxious, or on edge: 3 = Nearly every day Not being able to stop or control worryin = More than half the days Worrying too much about different things: 2 = More than half the days Trouble relaxin = Nearly every day Being so restless that it is hard to sit still: 0 = Not at all Becoming easily annoyed or irritable: 1 = Several days Feeling afraid as if something awful might happen: 0 = Not at all Total HERBERT-7 score (0-4 normal; 5-9 mild; 10-14 moderate; 15-21 severe): 11 Source: Developed by Drs. Trae Velasquez, Rosario Murguia, Berto Barry and colleagues, with an educational vimal from [employer]. HERBERT-7 Assessment Billing HERBERT-7 Assessment Tool: HERBERT-7 Assessment 33437 (in treatment, denies any si or hi) Physical exam (Primary Care) Vital Signs: Last Vital Signs Pulse 78 03/11/24 11:28 BP 118/80 03/11/24 11:28 Pulse Ox 98 03/11/24 11:28 BMI result Body Mass Index 30.8 Tobacco/Smoking Status: Tobacco use Status Tobacco use date assessed 08/07/23 03/11/24 11:29 Patient Tobacco Use Status Never used Tobacco 03/11/24 11:29 e-Cigarette/Vaping Use Never Used 03/11/24 11:29 PHQ-9: PHQ-9 Score PHQ-9: Total score 4 03/11/24 11:51 Depression Screening Interpretation: Negative Thrive Assessment: Date of Thrive Assessment Date Thrive assessed 03/11/24 03/11/24 11:29 Currently or been in a relationship where the following occur: No concerns reported Office Procedures Flu Questionnaire Does the patient have a severe egg allergy?: No Does the patient have severe life threatening allergies?: No Does the patient have a fever or illness today?: No Has the patient ever had Guillain-[place] Syndrome?: No Has the patient ever had any past reaction to a flu shot?: No Immunizations Fluarix Triv [id number] (PF) 45 mcg (15 mcg x 3)/0.5 mL IM syringe Performing Provider: WALKER Cruz [place] [facility] [place] [facility] Administered by: Bill Solo CMA on 03/11/24 12:04 Dose Route Admin Location Dispensed Lot Number Expiration Date NDC Compressor Operator 0.5 mL IM Left Deltoid 0.5 mL [id number] 09/29/24 76058-618-79 Smart Voicemail VIS Given Date VIS Provided VIS Publication Date 03/11/24 Single Vaccine 20 Eligibility Eligibility Date Funding Source Not [facility] Eligible 03/11/24 Private Coding Level of Care Code Est Pt Prev Care 40-64y(59318) Diagnoses Physical exam Z00.00 Screening for prostate cancer Z12.5 Additional Codes PHQ-9 - 66571 - PHQ-9 Billing: Yes ([id number]) HERBERT-7 Assessment Billing - HERBERT-7 Assessment Tool: HERBERT-7 Assessment 40858 ([id number]) Assessment & Plan Assessment & Plan (1) Physical exam: Code(s): Z00.00 - Encounter for general adult medical examination without abnormal fi ndings Category: Medical (2) Screening for prostate cancer: Code(s): Z12.5 - Encounter for screening for malignant neoplasm of prostate Category: Medical Plan . Orders: Orders Complete Blood Count Auto Diff Today Z00.00 - Encounter for general adult medical examination without abnormal findings TSH reflex Free T4 Today Z00.00 - Encounter for general adult medical examination without abnormal findings UA CC w/rflx Micro + Cult Today Z00.00 - Encounter for general adult medical examination without abnormal findings Comprehensive [place]. Panel Fast Today Z00.00 - Encounter for general adult medical examination without abnormal findings Lipid Panel Today Z00.00 - Encounter for general adult medical examination without abnormal findings Prostate Specific Antigen Scr Today Z12.5 - Encounter for screening for malignant neoplasm of prostate Medications: Refilled wjtfneaamb-syxxvhnkrglxo-urdo 50-325-40 mg 1 tab PO .qd 30 days PRN 30 ea 0RF pain
[2024-03-11 11:28] VITALS: BP 118/80; PULSE 78; O2SAT 98; BMI 30.8
== END 2024-03-11 12:12 | disposition home or self-care (01) ==
PROVIDERS: PCP Nurse Practitioner Family; Visit Provider Nurse Practitioner Family
DX: Z00.00 Encounter for general adult medical examination without abnormal findings (principal); Z12.5 Encounter for screening for malignant neoplasm of prostate; Z23 Encounter for immunization

== ENCOUNTER → 2024-03-11 11:22 | Outpatient (BNVA) | payer OTHER, SELFPAY | PROVIDERS: PCP Nurse Practitioner Family; Visit Provider Nurse Practitioner Family | DX: Z00.00 Encounter for general adult medical examination without abnormal findings (principal); Z23 Encounter for immunization | CPT/HCPCS: 90471; 90656; 96127 ==

== ENCOUNTER 2024-06-13 15:29 | Outpatient (AMB) | payer OTHER, SELFPAY ==
--- NOTE | 2024-06-13 15:30 | HO.NEPHOV ---
Vital Signs 06/13/24 15:32 Height 5 ft 5 in Weight 176 lb 8 oz BMI 29.4 BP 130/80 Blood Pressure Location Rt brachial Position Sitting Pulse 89 Pulse Source Pulse Oximeter Pulse Oximetry (%) 96 Oxygen Delivery Method Room Air Intake Visit Reasons: Acquired solitary kidney-[facility] Vinyl Top Installer Required: No Accompanied by: Spouse Allergies Seasonal Allergies Allergy (Intermediate, Verified 06/13/24 15:32) itchy/runny nose dog dander Allergy (Verified 06/13/24 15:32) Unknown HPI Comments Details: Fox was seen in follow up for acquired solitary kidney. 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 He has lost quite a bit of weight. He has not been having gout exacerbations and does not take any nonsteroidal inflammatories. He has been on allopurinol . He maintains good hydration. He has history of his suicidal attempt few years ago. He does not have any pedal edema, hematuria, dysuria, flank pain, nausea, vomiting, diarrhea, shortness of breath, proximal renal dyspnea, orthopnea, orthostatic symptom, epistaxis, hemoptysis, melena or any other systemic symptoms. He has history of depression and is followed by Dr. Hernandez. His serum creatinine has been at baseline. [facility] Medical History HTN (hypertension) Night terrors Hypersomnia Snoring Gout Suicide attempt Irritable bowel syndrome with diarrhea Post traumatic stress disorder (PTSD) Chronic pain syndrome Disc degeneration, lumbar Spondylosis of lumbar region without myelopathy or radiculopathy Tremor Chronic renal insufficiency GERD (gastroesophageal reflux disease) Depression Asthma Surgical History Hx of colonoscopy Hx of esophagogastroduodenoscopy History of kidney surgery Family History Father Substance use disorder Mental health disorder Social History Household Members: Family Housing: House Are you a primary healthcare consultant to a significant other at home: No Do you presently have visiting nurse or other home services: No Alcohol intake: former Comment: occasional Patient Tobacco Use Status: Never used Tobacco e-Cigarette/Vaping Use: Never Used Second Hand Smoke Exposure: No service: No Current occupational status: disabled Sexual orientation: Straight/Heterosexual Cognitive needs: No Hearing needs: No Vision needs: No Review of Systems Const All systems reviewed & are unremarkable except as noted in HPI and below Physical Exam Vital Signs: Last Vital Signs Pulse 89 06/13/24 15:32 BP 130/80 06/13/24 15:32 Pulse Ox 96 06/13/24 15:32 Oxygen Delivery Method Room Air 06/13/24 15:32 BMI result Body Mass Index 29.4 Const General: comfortable and no acute distress Orientation/consciousness: patient oriented x3 HEENT Head: Yes normocephalic Mouth: Normal oral and palatal mucosa present Eyes EOM: EOMs intact bilaterally Neck Neck: Yes supple Resp Auscultation: clear to auscultation bilaterally Cardio Jugular venous distension: no JVD Rate: regular rate GI Palpation (GI): Soft to palpation Auscultation: normal bowel sounds Skin General skin exam: no rashes or lesions noted Neuro General: patient oriented x3 and moves all extremities Extrem General: Yes no pedal edema Results Reviewed Nephrology Results: Sodium 141 mmol/L (135-145) 10/31/23 Potassium 4.5 mmol/L (3.3-5.1) 10/31/23 Chloride 106 mmol/L (96-108) 10/31/23 Carbon Dioxide 29 mmol/L (22-29) 10/31/23 BUN 12 mg/dL (9-16) 10/31/23 Creatinine 1.23 mg/dL (0.5-1.4) 10/31/23 Urine Protein Trace mg/dL (Neg-Trace) 11/09/23 Urine Creatinine 140.84 mg/dL 11/09/23 Protein/Creatinin Ratio 0.09 (<0.2) 11/09/23 Assessment & Plan Assessment & Plan (1) Acquired solitary kidney: Code(s): Z90.5 - Acquired absence of kidney Category: Medical Plan Fox has a GFR putting him in a category of CKD 3A. He has no proteinuria. He has intentionally lost quite a bit of weight. He will be a candidate for low-dose ALBA-inhibitor. He is on Amlodipine which is keeping his BP at goal. His Amaris was wondering whether he is a candidate for Farxiga or Jardiance. His serum creatinine had been pretty stable for a while. I reiterated the need for him to have a close follow-up with outboard technician all his life. He is avoiding nonsteroidal anti-inflammatories and maintain good hydration. I ordered follow up labs. All these have been discussed in detail. I answered his and his 's questions Orders: Orders UA and rflx microscopic 8 Months Z90.5 - Acquired absence of kidney Protein Creatinine Ratio, Ur 8 Months Z90.5 - Acquired absence of kidney Creatinine 8 Months Z90.5 - Acquired absence of kidney Blood Urea Nitrogen 8 Months Z90.5 - Acquired absence of kidney Electrolytes 8 Months Z90.5 - Acquired absence of kidney Coding Level of Care Code Est Pt Level 4 (03931) Diagnoses Acquired solitary kidney Z90.5
[2024-06-13 15:32] VITALS: BP 130/80; PULSE 89; O2SAT 96; BMI 29.4
--- OUTSIDE RECORDS SUMMARY | 2024-06-13 16:37 | XMS_ITS | Clinical Summary ---
Author Organization [facility] Facility Address [address] [place] [address] Care Team Providers Care Photo Specialist Name Role Phone Napoleon Blankenship NP Primary Care Provider [phone] Social History Tobacco Use Types Packs/Day Years Used Date Smoking Tobacco: Never Alcohol Use Standard Drinks/Week Comments No 0 (1 standard drink = 0.6 oz pur e alcohol) Sex and Gender Information Value Date Recorded Sex Assigned at Not on file Legal Sex Male 5:04 PM EST Gender Identity Not on file Sexual Orientation Not on file Plan of Treatment Health Maintenance Due Date Last Done Comments Pneumococcal Vaccine: Pediat rics (0 to 5 Years) and At-Risk Patients (6 to 64 Years) (1 of 2 - PCV) 01/28/1982 Hepatitis B Vaccine (1 of 3 - 19+ 3-dose series) 01/28 Influenza Vaccine (#1) 2023 Insurance COMPREHENSIVE BENEFITS COMPREHENSIVE BENEFITS Care Teams Photo Specialist Relationship Specialty Start Date End Date Napoleon Blankenship NP [address] [place] [address] PCP - General Nurse Practitioner 12/09/20
--- OUTSIDE RECORDS SUMMARY | 2024-06-13 16:37 | XMS_ITS | Encounter Summary ---
Author Organization [facility] Address [address] [place] [address] Care Team Providers Care Promotions Producer Name Role Phone Alvino Reilly Primary Care Provider Maiaa rena Encounter Details Date Type Department Care Team Description 10/06/2015 NUCLEAR SCIENTIST/[facility] Report Medical Records [address] [place] [id number] Abstract, Provider Social History Tobacco Use Types Packs/Day Years Used Date Smoking Tobacco: Never Smokeless Tobacco: Never Alcohol Use Standard Drinks/Week Comments Not Asked 0 (1 standard drink = 0.6 oz pur e alcohol) Sex Assigned at Date Recorded Not on file documented as of this encounter Plan of Treatment Not on file documented as of this encounter Visit Diagnoses Not on filedocumented in this encounter Care Teams Promotions Producer Relationship Specialty Start Date End Date Alvino Reilly PCP - General Internal Medicine 04/11/15 documented as of this encounter
--- OUTSIDE RECORDS SUMMARY | 2024-06-13 16:37 | XMS_ITS | Patient Health Record ---
Author Organization [facility] Address [address] [place] [address] Care Team Providers Care Color Worker Name Role Phone JACLYN RAMAN Primary Care Provider Nacho Pena Jr Unavailable Reason For Referral No Information Medications Medication SIG (Take, Route, Fr equency, Duration) Notes Start Date End Date Status PROzac 60mg Active Fexofenadine HCl 180mg Active Amitriptyline HCl 50mg Active Ativan .5mg Active NuLev 0.125 MG 1 tablet on the tong ue and allow to dissolve before meals as needed Orally every 4 hrs 06/13/2013 Active Albuterol Sulfate Ac tive buPROPion HCl 100mg Active Excedrin Migraine Ac tive NexIUM 40mg Active Singulair 10mg Activ e Advair Diskus 500/50mg Active Problems Problem Type SNOMED Code ICD Code Onset Dates Problem Status W/U Status Risk Notes Problem Esophageal reflux (713863369) Esophageal reflux (530.81) Active confirmed Problem Chest pain (94436461) Chest pain (786.50) Active confirmed Plan Of Treatment Future Test Test Name Order Date UPPER GI ENDOSCOPY 06/13/2013 Insurance Providers Payer Name Payer Address Payer Phone Subscriber Number Group Number Insured Name Patient Relationship to Insured Coverage Start Date Coverage End Date [employer] [address] [address] [place] [address] [id number] DEBBI JOE Self - patient is the insured Medical (General) History Medical History History ICD Code asthma kidney disease Denies [place],DM,CVA Surgical History Surgery Date(Month/Year) 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
--- OUTSIDE RECORDS SUMMARY | 2024-06-13 16:37 | XMS_ITS ---
Author Organization [facility] Address [address] [place] [address] Care Team Providers Care Credit Control Manager Name Role Phone JACLYN RAMAN Primary Care Provider Nacho Pena Jr [phone] REASON FOR VISIT when is pts next colonoscopy/ after 07/2025 Encounters Encounter Location Date Provider Diagnosis [facility] [address] [place] [address] 03/07/2023 Nacho Hyde Jr Plan Of Treatment No Information Progress Notes * SHIVAM WERNERJULIETAOB: 6 (48 yo M)Acc No.[id number]:03/07/2023 Patient:?JOE WERNER :1975???Age:48 Y???Sex:Male Address:[address] [facility] [place], [address] * true * Date:? Generated for Printi ng/Fabebag/eTransmitting on:?06/13/2024 04:36 PM EDT
--- OUTSIDE RECORDS SUMMARY | 2024-06-13 16:37 | XMS_ITS ---
Author Organization [facility] Address [address] [place] [address] Care Team Providers Care Arts And Crafts Instructor Name Role Phone JACLYN RAMAN Primary Care Provider Nacho Pena Jr [phone] [place]AS[place] FOR VISIT [place] [facility] [place] En[place] Encounter Location Date Provider Diagnosis [facility] [address] [place] [address] 05/15/2023 Nacho Hyde Jr Plan Of Treatment No Information Progress Notes * SHIVAM WERNERJULIETAOB: 6 (48 yo M)Acc No.[id number]:05/15/2023 Patient:?JOE WERNER :1975???Age:48 Y???Sex:Male Address:[address] [facility] [place], [address] * true * Date:? Generated for Printi ng/Fabebag/eTransmitting on:?06/13/2024 04:36 PM EDT
--- OUTSIDE RECORDS SUMMARY | 2024-06-13 16:37 | XMS_ITS | Patient Health Record ---
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 Name Role Phone Napoleon Walters Primary Care Provider Unav Jared [place] Unavailable [phone] Allergies No Known Allergies Reason For Referral No Information Medications Medication SIG (Take, Route, Frequency, Duration) Notes Start Date End Date Status FLUoxetine HCl 20 MG 1 capsule Orally On ce a day for 30 day(s) Active lamoTRIgine ER 200 MG 1 tablet Orally On ce a day for 30 day(s) Active Atorvastatin Calcium 40 MG 1 tablet Oral ly Once a day for 30 day(s) Active Pantoprazole Sodium 40 MG 1 tablet Orall y Once a day for 30 day(s) Active Ferrous Sulfate 325 (65 Fe) MG 1 tablet Orally Once a day for 30 day(s) Active Keflex 500 MG 1 capsule Orally woody ry 12 hrs for 10 days 01/10/2022 Active Loperamide HCl 2 MG 1 capsule as needed Orally Four times a day Active Percocet 5-325 MG 2 tablet as needed Orally every 4 hrs for 5 days 01/06/2022 Active Montelukast Sodium 10 MG 1 tablet Orally Once a day for 30 day(s) Active Gabapentin 300 MG 1 capsule Orally Twi ce a day for 30 day(s) 01/06/2022 Active Gabapentin 800 MG 1 tablet Orally Once a day for 30 day(s) Active Colchicine 0.6 MG 1 tablet Orally Take one tablet once a day for 5 days 01/05/2022 Active Allopurinol Active Fexofenadine HCl 180 MG 1 tablet Swallow whole with water; do not take with fruit juices. Orally Once a day for 30 day(s) Active Bupropion & Diet Manage Prod Active OXcarbazepine 300 MG 1 tablet Orally Twi ce a day for 30 day(s) Active Social History Tobacco Use: Social History Observation Description Date Details (start date - stop date) Never Smoker NA - NA Tobacco Use/Smoking Question Answer Notes Are you a: nonsmoker Additional Findings: Tobacco Non-User Current no n-smoker Alcohol Screen Question Answer Notes Did you have a drink contain ing alcohol in the past year? Yes How often did you have a dri nk containing alcohol in the past year? Monthly or less (1 point) Points 1 Interpretation Negative Tobacco use other than smoking: Question Answer Notes Are you an other tobacco user? No Problems Problem Type SNOMED Code ICD Code Onset Dates Problem Status W/U Status Risk Notes Problem Acquired hallux rigidus (7715510) Hallux rigidus, left foot (M20.22) Active confirmed Problem [id number] Gouty arthritis of left foot (M10.9) Active confirmed Plan Of Treatment Pending Test Test Name Order Date X ray : Foot, left 3V 11/09/2021 X ray : Foot, left 3V 01/10/2022 X ray : Foot, left 3V 01/17/2022 X ray : Foot, left 3V 01/24/2022 X ray : Foot, left 3V 01/31/2022 X ray : Foot, left 3V 02/17/2022 X ray : Foot, left 3V 03/17/2022 Insurance Providers Payer Name Payer Address Payer Phone Subscriber Number Group Number Insured Name Patient Relationship to Insured Coverage Start Date Coverage End Date Blue Benefits [address] [address] [place] [address] [id number] Kristi Duckworth Spouse - patient is the spouse of the insured Medical (General) History Medical History History ICD Code Anemia Anxiety Back,Hip,and Knee pain Depression Headaches/Migraines Kidney disease Psychiatric disorder Reflux ( GERD) Chicken pox asthma Surgical History Surgery Date(Month/Year) kidney doner 01/28/2007 RFA 2020 Fusion 1st MPJ left 01/05/2022
== END 2024-06-13 15:50 | disposition home or self-care (01) ==
LOC: HO.HKA 15:29
PROVIDERS: PCP Nurse Practitioner Family; Visit Provider Internal Medicine Nephrology
DX: Z90.5 Acquired absence of kidney (principal)
CPT/HCPCS: 99214

== ENCOUNTER → 2024-06-13 15:29 | Outpatient (BNVA) | payer OTHER, SELFPAY | PROVIDERS: PCP Nurse Practitioner Family; Visit Provider Internal Medicine Nephrology ==

== ENCOUNTER 2024-09-02 14:50 | Inpatient (IN) | payer OTHER, SELFPAY ==
--- NOTE | ~2024-09-02 | CT_ITS ---
CLINICAL HISTORY: Facial fractures, ? head injury, trauma CT head without contrast Comparison: None Findings: No intra-axial mass, midline shift, hydrocephalus, or acute hemorrhage. No significant atrophy-like change or white matter disease. The visualized paranasal sinuses and mastoid air cells are normal. The orbits are within normal limits. There is a nondepressed fracture of the left zygomatic arch. IMPRESSION: 1. Left zygomatic arch fracture, nondepressed. 2. No acute intracranial process This document has been electronically signed by: Geovany Aviles MD on 09/04/2024 18:53:08
--- NOTE | ~2024-09-02 | CT_ITS ---
CLINICAL HISTORY: Facial Fractures CT maxillofacial without contrast Comparison: None Findings: There is a nondepressed left zygomatic arch fracture. Temporomandibular joints are intact. Paranasal sinuses and mastoid air cells clear. Unremarkable orbital contents. Visualized intracranial contents are within normal limits. No foreign bodies. IMPRESSION: Nondepressed left zygomatic arch fracture. This document has been electronically signed by: Geovayn Aviles MD on 09/04/2024 18:54:42
--- NOTE | ~2024-09-02 | XR_ITS ---
EXAMINATION: XR FACIAL BONES CLINICAL INFORMATION: l orbital injury? COMPARISON: None available. TECHNIQUE: 3 views of the facial bones were obtained. FINDINGS: Minimally displaced fracture of the left zygomatic arch, lateral left orbital wall and left orbital floor. No mandibular fracture. The TM joints appear oriented normally. Nasal bones are intact. The right orbit appears intact. The sella is normal in size. The mastoids are grossly pneumatized. There is a right maxillary implant, and there are 5 mandibular metallic implants. Mildly increased opacity in the left maxillary sinus, suggestive of hemorrhage. Grossly no air-fluid levels seen. XR/XR facial bones min 3V IMPRESSION: 1. Minimally displaced fractures of the left zygomatic arch, left lateral orbital wall and left orbital floor. Consider correlating with CT for more definitive characterization. Electronically signed by: Kristian Valencia MD 09/04/2024 02:24 PM EDT
[2024-09-02 15:13] VITALS: BP 147/90; PULSE 110; RESP 18; TEMP 36.4; O2SAT 95; BMI 29.1
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
--- OUTSIDE RECORDS SUMMARY | 2024-09-02 17:21 | XMS_ITS | Patient Health Record ---
Author Organization [facility] Address [address] [place] [address] Care Team Providers Care Classified Ad Clerk Name Role Phone JACLYN RAMAN Primary Care Provider Unavailkenya e Nacho Hyde Jr Reason For Referral No Information Medications Medication [...] W/U Status Risk Notes Problem Esophageal reflux (560905624) Esophageal reflux (530.81) Active confirmed Problem Chest pain (786.50) Active confirmed Problem [id number] Gastroesophageal reflux disease, unspecified whether esophagitis present (K21.9) Active confirmed Encounters Encounter Location Date Provider Diagnosis [facility] [address] [place] [address] 07/15/2024 Nacho Hyde Jr Gastroesophageal reflux disease, unspecified whether esophagitis present K21.9 Assessments Encounter Date Diagnosis (ICD Code) Assessment Notes Treatment Notes Treatment Clinical Notes Section Notes 07/15/2024 Gastroesophageal reflux disease, unspecified whether esophagitis present (ICD-10 - K21.9) Plan Of Treatment Pending Test Test Name Order Date H pylori Ag Stool 07/15/2024 Future Test Test Name Order Date UPPER GI ENDOSCOPY 06/13/2013 Insurance Providers Payer Name Payer Address Payer Phone Subscriber Number Group Number Insured Name Patient Relationship to Insured Coverage Start Date Coverage End Date [employer] [address] [address] [place] [address] [id number] JOE WERNER Self - patient is the insured Medical (General) History Medical History History ICD Code asthma kidney disease Denies [place],DM,CVA Surgical History Surgery Date(Month/Year) 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
--- NOTE | 2024-09-02 19:14 | PC.NURSE ---
4 bags of patients medication sent to the pharmacy
[2024-09-02 19:49] LABS: MANUAL DIFF FLAG NO
[2024-09-02 19:54] LABS: Basophils Percent Auto 0.3 % (0-2); Eosinophils Absolute Auto 0.2 X10*3/uL (0.0-0.4); Eosinophils Percent Auto 1.7 % (0-4); Hematocrit 42.1 % (42.0-52.0); Hemoglobin 14.2 g/dl (14.0-18.0); Imm Gran Abs Auto 0.04 X10*3/uL (0.00-0.03); Imm Gran Pct Auto 0.4 % (0.0-0.4); Lymphocytes Absolute Auto 1.9 X10*3/uL (1.2-4.9); Lymphocytes Percent Auto 17.9 % (20-40); Mean Corpuscular HGB Conc 33.7 g/dl (31.0-36.0); Mean Corpuscular Hemoglobin 29.2 pg (27.0-33.0); Mean Corpuscular Volume 86.6 fL (80.0-98.0); Mean Platelet Volume 8.4 fL (9.4-12.4); Monocytes Absolute Auto 0.9 X10*3/uL (0.1-1.2); Monocytes Percent Auto 8.4 % (2-11); Neutrophils Absolute Auto 7.6 x10*3/uL (2.0-8.3); Neutrophils Percent Auto 71.3 % (45-73); Platelet Count 285 X10*3/uL (160-400); Red Blood Count 4.86 X10*6/uL (4.60-5.80); Red Cell Distribution Width 13.1 % (11.0-16.0); White Blood Count 10.6 X10*3/uL (4.8-10.8)
[2024-09-02 20:00] LABS: Amphetamine Screen Urine Not Detected (Not Detect); Barbiturates, Urine Not Detected (Not Detect); Benzodiazepines Screen Urine Not Detected (Not Detect); Buprenorphine Scr Not Detected (Not Detect); Cannabinoid Screen Urine Not Detected (Not Detect); Cocaine Screen Urine Not Detected (Not Detect); Fentanyl, urine Not Detected (Not Detect); Methadone Screen, Urine Not Detected (Not Detect); Opiate Screen Urine Not Detected (Not Detect); Oxycodone Screen Urine Not Detected (Not Detect); Phencyclidine Screen Urine Not Detected (Not Detect)
[2024-09-02] MEDS: Acetaminophen 325 MG TABLET 975 MG PO (20:08)
[2024-09-02] MEDS: LORazepam 1 MG TABLET PO (20:08)
[2024-09-02 20:12] LABS: Acetaminophen LAB < 3 mcg/mL (<30); Salicylate < 5.0 mg/dL (15-30)
[2024-09-02 20:13] LABS: Alanine Aminotransferase 77 U/L (0-40); Albumin Level 4.5 g/dL (3.5-5.0); Alkaline Phosphatase 139 U/L (39-117); Anion Gap 13 (12-20); Aspartate Amino Transferase 65 U/L (5-37); Bilirubin Total 0.4 mg/dL (0.0-1.0); Blood Urea Nitrogen 13 mg/dL (9-16); Calcium 9.1 mg/dL (8.4-10.2); Carbon Dioxide 25 mmol/L (22-29); Chloride 103 mmol/L (96-108); Creatinine Clr Calc Pharmacy 72.4; Estimated Glomerular Filt Rate > 60; Ethanol < 10 mg/dL; Glucose Random 92 mg/dL (60-115); Potassium 4.4 mmol/L (3.3-5.1); Sodium 137 mmol/L (135-145); Total Protein 7.4 g/dL (6.5-8.0)
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
[2024-09-02 21:09] VITALS: BP 123/79; PULSE 78; RESP 20; TEMP 36.5; O2SAT 96
--- NOTE | 2024-09-03 | ECG_ITS ---
Test Reason : r/o prolonge qt Blood Pressure : */* mmHG Vent. Rate : 79 BPM Atrial Rate : 79 BPM P-R Int : 160 ms QRS Dur : 84 ms QT Int : 392 ms P-R-T Axes : 51 26 48 degrees QTcB Int : 449 ms Normal sinus rhythm Normal ECG When compared with ECG of 03-Jul-2020 22:36, No significant change was found Referred By: Jennifer Proctor Electronically Signed By: KIERRA BHATT
[2024-09-03 03:04] VITALS: BP 135/78; PULSE 75; RESP 17; TEMP 36.8; O2SAT 99
--- NOTE | 2024-09-03 03:24 | PC.NURSE ---
pt requesting another 1mg po dose of Ativan, states has BID prescription at home. med rec not completed as pt is not sure of dosages for meds and states can provide list in AM. Dr. Calderon made aware.
[2024-09-03] MEDS: LORazepam 1 MG TABLET PO ×3 (05:27→21:16)
--- NOTE | 2024-09-03 05:27 | PC.NURSE ---
pt medicated per mar.
[2024-09-03 07:55] LABS: Appearance Urine Clear; Color Urine Yellow; Glucose Urine UA Negative (Negative); Leukocyte Esterase Urine Negative (Negative); Nitrite Urine Negative (Negative); Specific Gravity - Urine 1.015 (1.005-1.025); Urine Blood Negative (Negative); Urine Ketones Negative (Negative); Urine Protein Negative (Neg-Trace)
--- NOTE | 2024-09-03 07:59 | PC.NURSE ---
Assumed care of patient at 0645, patient appears to be in no apparent distress this am, sitting in room, offering no complaints to this RN. Continue plan of care for [facility]
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
[2024-09-03 10:18] VITALS: BP 134/80; PULSE 91; RESP 16; TEMP 36; O2SAT 96
[2024-09-03 11:07] VITALS: BP 134/80
[2024-09-03] MEDS: FLUoxetine HCl 20 MG CAPSULE 60 MG PO (11:07)
[2024-09-03] MEDS: buPROPion HCl XL 300 MG TAB.ER.24H PO (11:07)
[2024-09-03] MEDS: Cholecalciferol (Vitamin D3) 25 MCG TABLET PO (11:07)
[2024-09-03] MEDS: amLODIPine Besylate 10 MG TABLET PO (11:07)
[2024-09-03] MEDS: Gabapentin 400 MG CAPSULE 800 MG PO ×3 (11:07→21:12)
[2024-09-03] MEDS: buPROPion HCl XL 150 MG TAB.ER.24H PO (11:07)
[2024-09-03] MEDS: allopurinoL 100 MG TABLET PO (11:17)
[2024-09-03] MEDS: Montelukast Sodium 10 MG TABLET PO (11:17)
[2024-09-03] MEDS: Atorvastatin Calcium 40 MG TABLET PO (11:17)
[2024-09-03 14:20] VITALS: BP 144/65; PULSE 83; RESP 16; TEMP 36.8; O2SAT 99
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
[2024-09-03 20:00] VITALS: BP 119/70; PULSE 97; RESP 16; TEMP 36.6; O2SAT 97
[2024-09-03] MEDS: lamoTRIgine 100 MG TABLET PO (21:12)
[2024-09-03] MEDS: Divalproex Sodium ER 500 MG TAB.ER.24H 1000 MG PO (21:12)
[2024-09-04] MEDS: Pantoprazole Sodium 20 MG TABLET.DR 40 MG PO (06:47)
[2024-09-04 08:00] VITALS: BP 123/80; PULSE 81; RESP 18; TEMP 36.9; O2SAT 96
[2024-09-04 08:15] LABS: Cholesterol 175 mg/dL (<200); HDL Cholesterol 48 mg/dL (>40); LDL Cholesterol Calculated 107 mg/dL (<100); Triglycerides 103 mg/dL (<150)
[2024-09-04 08:30] LABS: Free T4 (Free Thyroxine) 0.95 ng/dL (0.71-1.85); Thyroid Stimulating Hormone 1.54 uIU/mL (0.32-4.0)
[2024-09-04 08:43] LABS: Vitamin B12 609 pg/mL (200-900)
[2024-09-04] MEDS: buPROPion HCl XL 150 MG TAB.ER.24H PO (08:43)
[2024-09-04] MEDS: buPROPion HCl XL 300 MG TAB.ER.24H PO (08:43)
[2024-09-04] MEDS: FLUoxetine HCl 20 MG CAPSULE 60 MG PO (08:44)
[2024-09-04] MEDS: Cholecalciferol (Vitamin D3) 25 MCG TABLET PO (08:44)
[2024-09-04] MEDS: Atorvastatin Calcium 40 MG TABLET PO (08:45)
[2024-09-04] MEDS: Gabapentin 400 MG CAPSULE 800 MG PO ×3 (08:45→21:13)
[2024-09-04] MEDS: amLODIPine Besylate 10 MG TABLET PO (08:45)
[2024-09-04] MEDS: Montelukast Sodium 10 MG TABLET PO (08:45)
[2024-09-04] MEDS: allopurinoL 100 MG TABLET PO (08:45)
[2024-09-04] MEDS: LORazepam 1 MG TABLET PO ×2 (08:50→21:12)
[2024-09-04 10:09] LABS: Estimated Average Glucose 94 mg/dL; Hemoglobin A1C 105.5773 umol/L; Hemoglobin A1c % 4.9 % (<6.0); Total Hemoglobin (HGBA1C) 3560.2343 umol/L
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
[2024-09-04 11:34] VITALS: BMI 27.8
[2024-09-04] MEDS: Loperamide HCl 2 MG CAPSULE 4 MG PO (15:23)
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
[2024-09-04 19:30] VITALS: BP 128/77; PULSE 77; RESP 16; TEMP 36.9; O2SAT 96
[2024-09-04] MEDS: TiZANidine HCL 4 MG TABLET 2 MG PO (21:10)
[2024-09-04] MEDS: lamoTRIgine 100 MG TABLET PO (21:11)
[2024-09-04] MEDS: Divalproex Sodium ER 500 MG TAB.ER.24H 1000 MG PO (21:12)
[2024-09-04] MEDS: Acetaminophen 325 MG TABLET 650 MG PO (21:25)
[2024-09-05] MEDS: Pantoprazole Sodium 20 MG TABLET.DR 40 MG PO (06:59)
[2024-09-05 08:00] VITALS: BP 124/73; PULSE 74; RESP 18; TEMP 36.7; O2SAT 98
[2024-09-05] MEDS: Gabapentin 400 MG CAPSULE 800 MG PO ×3 (08:55→21:55)
[2024-09-05] MEDS: Cholecalciferol (Vitamin D3) 25 MCG TABLET PO (08:56)
[2024-09-05] MEDS: Atorvastatin Calcium 40 MG TABLET PO (08:56)
[2024-09-05] MEDS: buPROPion HCl XL 300 MG TAB.ER.24H PO (08:56)
[2024-09-05] MEDS: allopurinoL 100 MG TABLET PO (08:56)
[2024-09-05] MEDS: FLUoxetine HCl 20 MG CAPSULE 60 MG PO (08:56)
[2024-09-05] MEDS: Montelukast Sodium 10 MG TABLET PO (08:57)
[2024-09-05] MEDS: amLODIPine Besylate 10 MG TABLET PO (08:57)
[2024-09-05] MEDS: buPROPion HCl XL 150 MG TAB.ER.24H PO (08:57)
[2024-09-05] MEDS: Loperamide HCl 2 MG CAPSULE 4 MG PO (09:00)
[2024-09-05] MEDS: LORazepam 1 MG TABLET PO (09:00)
--- NOTE | 2024-09-05 11:19 | PM.EVENT ---
Event Note Date of Service: 09/05/24 Event Note: Follow up with purple bruising noted to left eyelid and below left eye, swelling to left side of face and tenderness to left protestant and left jaw. Xray performed revealed minimally displaced fractures of the left zygomatic arch, left lateral orbital wall and left orbital floor. Subsequently had a CT scan which revealed a nondepressed left zygomatic arch fracture. No further action at this time. Patient will need to follow up with ENT or primary care upon discharge CT maxillofacial without contrast Findings: There is a nondepressed left zygomatic arch fracture. Temporomandibular joints are intact. Paranasal sinuses and mastoid air cells clear. Unremarkable orbital contents. Visualized intracranial contents are within normal limits. No foreign bodies. IMPRESSION: Nondepressed left zygomatic arch fracture CT head without contrast Comparison: None Findings: No intra-axial mass, midline shift, hydrocephalus, or acute hemorrhage. No significant atrophy-like change or white matter disease. The visualized paranasal sinuses and mastoid air cells are normal. The orbits are within normal limits. There is a nondepressed fracture of the left zygomatic arch. IMPRESSION: 1. Left zygomatic arch fracture, nondepressed. 2. No acute intracranial process Time Spent With Patient Time: Total time managing care of this patient today ____ minutes.
--- NOTE | 2024-09-05 11:45 | P.PNPSI_ITS ---
Subjective Subjective Date of Service: 09/05/24 Reason For Visit: Jyotsna/ Psychosis Subjective Notes: Section 12B Interim History: Pt reports feeling an increase in calm with Valproate. It is having effect on sx of anxiety. Denies side effects. Eye pain resolving-review of diagnostics. Denies SI,HI,AH,VH. Discussed having a valproate level on 09/06 with dosage adjustment depending on results. He agrees. Medication Compliance: Yes Side effects from medications: No Attending Groups: Intermittent Review of Systems orbital fx Review of Systems Review of Systems Denies Denies pain Mental Status Exam Mental Status Exam Patient Appearance: Appropriate Patient Orientation: Person, Place, Time and Situation Level of Consciousness: Alert Patient Behavior: Appropriate, Talkative, Cooperative and Good Eye Contact Mood Description: Depressed and Anxious Affect Description: Flat Patient Cognition Impaired: No Ability to Follow Directions: Good Speech Pattern: Spontaneous Speech Memory Description: Episodic Impaired Hallucinations: None Delusions: Not Present Thought Process: Rumination Thought Content: positive for Circumstantial, positive for Perseveration, positive for Suicidal Ideation (denies) and positive for Homicidal Ideation (denies) Depressive Symptoms: Increased Irritability, Increased Fatigue and Low Self Esteem Judgement: Fair Diagnostics Vital Signs (24Hr): Vital Signs - 24 hr 09/04/24 19:30 09/05/24 08:00 Temperature 98.4 F 98.1 F Pulse Rate 77 74 Respiratory Rate 16 18 Blood Pressure 128/77 124/73 Pulse Oximetry 96 98 Oxygen Delivery Method Room Air Room Air BMI result Body Mass Index 27.8 Labs 09/02/24 19:42 09/02/24 19:42 Labs: Laboratory Results - last 48 hr 09/04/24 07:38 Estimat Average Glucose 94 Hemoglobin A1c % 4.9 Triglycerides 103 Cholesterol 175 LDL Cholesterol, Calc 107 H HDL Cholesterol 48 Vitamin B12 609 Folate 8.0 TSH 1.54 Free T4 0.95 Imaging Radiology Impressions: ITS Impressions Face X-Ray 09/04/24 13:30 IMPRESSION: 1. Minimally displaced fractures of the left zygomatic arch, left lateral orbital wall and left orbital floor. Consider correlating with CT for more definitive characterization. Electronically signed by: Kristian Valencia MD 09/04/2024 02:24 PM EDT Medications Medications Current Medications Acetaminophen (Acetaminophen 325 Mg Tablet) 650 mg PO Q6H PRN PRN Reason: Headache/Pain, Scale 1-10 Last Admin: 09/04/24 21:25 Dose: 650 mg Al Hydroxide/Mg Hydroxide (Magnesium Hydrox/Alum Hydrox 30 Ml Oral.Susp) 30 ml PO Q6H PRN PRN Reason: Heartburn/Nausea Allopurinol (Allopurinol 100 Mg Tablet) 100 mg PO DAILY [facility] Last Admin: 09/05/24 08:56 Dose: 100 mg Amlodipine Besylate (Amlodipine Besylate 10 Mg Tablet) 10 mg PO DAILY [facility]; Protocol Last Admin: 09/05/24 08:57 Dose: 10 mg Atorvastatin Calcium (Atorvastatin Calcium 40 Mg Tablet) 40 mg PO DAILY [facility] Last Admin: 09/05/24 08:56 Dose: 40 mg Bupropion HCl (Bupropion Hcl Xl 150 Mg Tab.Er.24h) 150 mg PO DAILY [facility] Last Admin: 09/05/24 08:57 Dose: 150 mg Bupropion HCl (Bupropion Hcl Xl 300 Mg Tab.Er.24h) 300 mg PO DAILY [facility] Last Admin: 09/05/24 08:56 Dose: 300 mg Divalproex Sodium (Divalproex Sodium Er 500 Mg Tab.Er.24h) 1,000 mg PO BEDTIME [facility] Last Admin: 09/04/24 21:12 Dose: 1,000 mg Fluoxetine HCl (Fluoxetine Hcl 20 Mg Capsule) 60 mg PO DAILY [facility] Last Admin: 09/05/24 08:56 Dose: 60 mg Gabapentin (Gabapentin 400 Mg Capsule) 800 mg PO TID [facility] Last Admin: 09/05/24 08:55 Dose: 800 mg Hydroxyzine HCl (Hydroxyzine Hcl 25 Mg Tablet) 25 mg PO Q6H PRN PRN Reason: mild anxiety Lamotrigine (Lamotrigine 100 Mg Tablet) 100 mg PO BEDTIME [facility] Last Admin: 09/04/24 21:11 Dose: 100 mg Loperamide HCl (Loperamide Hcl 2 Mg Capsule) 4 mg PO Q4H PRN PRN Reason: Diarrhea Last Admin: 09/05/24 09:00 Dose: 4 mg Lorazepam (Lorazepam 1 Mg Tablet) 1 mg PO BID PRN PRN Reason: Anxiety Last Admin: 09/05/24 09:00 Dose: 1 mg Magnesium Hydroxide (Milk Of Magnesia 30 Ml Oral.Susp) 30 ml PO DAILY PRN PRN Reason: Constipation Montelukast Sodium (Montelukast Sodium 10 Mg Tablet) 10 mg PO DAILY [facility] Last Admin: 09/05/24 08:57 Dose: 10 mg Nicotine Polacrilex (Nicotine Polacrilex 2 Mg Gum) 4 mg BUCCAL Q2H PRN PRN Reason: Nicotine Cravings Pantoprazole Sodium (Pantoprazole Sodium 20 Mg Tablet.Dr) 40 mg PO DAILY@0630 [facility] Last Admin: 09/05/24 06:59 Dose: 40 mg Tizanidine HCl (Tizanidine Hcl 4 Mg Tablet) 2 mg PO TID PRN PRN Reason: for muscle spasm Last Admin: 09/04/24 21:10 Dose: 2 mg Trazodone HCl (Trazodone Hcl 50 Mg Tablet) 50 mg PO BEDTIME MRX1 PRN PRN Reason: Insomnia Vitamin D (Cholecalciferol (Vitamin D3) 25 Mcg Tablet) 25 mcg PO DAILY [facility] Last Admin: 09/05/24 08:56 Dose: 25 mcg Allergies Allergies Allergy/AdvReac Type Severity Reaction Status Date / Time Seasonal Allergies Allergy Intermediate itchy/runny Verified 09/02/24 15:16 nose dog dander Allergy Unknown Verified 09/02/24 15:16 Assessment & Plan Assessment & Plan (1) Bipolar 1 disorder: Status: Acute Code(s): F31.9 - Bipolar disorder, unspecified Plan continue home meds aside from DC of trileptal. add VPA ER 1000 mg QHS as proper mood stabilizer, plan to titrate to 1500 mg QHS. aware this will increase lamictal serum concentration by perhaps twofold; decrease HS lamictal dosing to 100 mg. 09/04/24: Continue tx Await results of CT Scans for further planning with hospitalist team 09/05: Continue tx Valproate level 09/06 to evaluate for dosage adjustment Reason for continued inpatient stay Substantial Risk for: rapid decompensation Time Spent With Patient Time: Total time managing care of this patient today ____ minutes.
[2024-09-05 20:00] VITALS: BP 119/75; PULSE 82; RESP 16; TEMP 37.1; O2SAT 96
[2024-09-05] MEDS: Divalproex Sodium ER 500 MG TAB.ER.24H 1000 MG PO (21:55)
[2024-09-05] MEDS: lamoTRIgine 100 MG TABLET PO (21:55)
[2024-09-05] MEDS: Acetaminophen 325 MG TABLET 650 MG PO (22:01)
[2024-09-06] MEDS: Pantoprazole Sodium 20 MG TABLET.DR 40 MG PO (06:27)
[2024-09-06 08:00] VITALS: BP 129/77; PULSE 83; RESP 16; TEMP 36.8; O2SAT 99
[2024-09-06] MEDS: buPROPion HCl XL 300 MG TAB.ER.24H PO (08:59)
[2024-09-06] MEDS: buPROPion HCl XL 150 MG TAB.ER.24H PO (08:59)
[2024-09-06] MEDS: allopurinoL 100 MG TABLET PO (08:59)
[2024-09-06] MEDS: amLODIPine Besylate 10 MG TABLET PO (08:59)
[2024-09-06] MEDS: Cholecalciferol (Vitamin D3) 25 MCG TABLET PO (08:59)
[2024-09-06] MEDS: Gabapentin 400 MG CAPSULE 800 MG PO ×3 (09:00→20:18)
[2024-09-06] MEDS: Atorvastatin Calcium 40 MG TABLET PO (09:00)
[2024-09-06] MEDS: FLUoxetine HCl 20 MG CAPSULE 60 MG PO (09:00)
--- NOTE | 2024-09-06 17:11 | HO.PSYCHPN ---
Subjective Subjective Date of Service: 09/06/24 Reason For Visit: Jyotsna/ Psychosis Interim History: feels improved on VPA, amenable to increase to 1500 mg. reviewed rationale for med changes (DC of trileptal and decrease in lamictal). per staff, 12b up sunday. dep/anx 7. relaxed but withdrawn. slept 8 hours. Mental Status Exam Mental Status Exam Narrative: adequately dressed and groomed. black eye. cooperative. no PMA/PMR. speech nml rate, amount, loudness, tone, latency. thoughts linear and logical. affect flexible, full range, normo-intense, non-labile. mood much better. no SI/SIBI/HI/AVH expressed. Diagnostics Vital Signs (24Hr): Vital Signs - 24 hr 09/05/24 20:00 09/06/24 08:00 Temperature 98.7 F 98.3 F Pulse Rate 82 83 Respiratory Rate 16 16 Blood Pressure 119/75 129/77 Pulse Oximetry 96 99 Oxygen Delivery Method Room Air Room Air BMI result Body Mass Index 27.8 Labs 09/02/24 19:42 09/02/24 19:42 Labs: Laboratory Results - last 48 hr 09/06/24 08:13 Valproic Acid 49.0 L Imaging Radiology Impressions: ITS Impressions Face X-Ray 09/04/24 13:30 IMPRESSION: 1. Minimally displaced fractures of the left zygomatic arch, left lateral orbital wall and left orbital floor. Consider correlating with CT for more definitive characterization. Electronically signed by: Kristian Valencia MD 09/04/2024 02:24 PM EDT Medications Medications Current Medications Acetaminophen (Acetaminophen 325 Mg Tablet) 650 mg PO Q6H PRN PRN Reason: Headache/Pain, Scale 1-10 Last Admin: 09/05/24 22:01 Dose: 650 mg Al Hydroxide/Mg Hydroxide (Magnesium Hydrox/Alum Hydrox 30 Ml Oral.Susp) 30 ml PO Q6H PRN PRN Reason: Heartburn/Nausea Allopurinol (Allopurinol 100 Mg Tablet) 100 mg PO DAILY [facility] Last Admin: 09/06/24 08:59 Dose: 100 mg Amlodipine Besylate (Amlodipine Besylate 10 Mg Tablet) 10 mg PO DAILY [facility]; Protocol Last Admin: 09/06/24 08:59 Dose: 10 mg Atorvastatin Calcium (Atorvastatin Calcium 40 Mg Tablet) 40 mg PO DAILY [facility] Last Admin: 09/06/24 09:00 Dose: 40 mg Bupropion HCl (Bupropion Hcl Xl 150 Mg Tab.Er.24h) 150 mg PO DAILY [facility] Last Admin: 09/06/24 08:59 Dose: 150 mg Bupropion HCl (Bupropion Hcl Xl 300 Mg Tab.Er.24h) 300 mg PO DAILY [facility] Last Admin: 09/06/24 08:59 Dose: 300 mg Divalproex Sodium (Divalproex Sodium Er 500 Mg Tab.Er.24h) 1,500 mg PO BEDTIME [facility] Fluoxetine HCl (Fluoxetine Hcl 20 Mg Capsule) 60 mg PO DAILY [facility] Last Admin: 09/06/24 09:00 Dose: 60 mg Gabapentin (Gabapentin 400 Mg Capsule) 800 mg PO TID [facility] Last Admin: 09/06/24 14:42 Dose: 800 mg Hydroxyzine HCl (Hydroxyzine Hcl 25 Mg Tablet) 25 mg PO Q6H PRN PRN Reason: mild anxiety Lamotrigine (Lamotrigine 100 Mg Tablet) 100 mg PO BEDTIME [facility] Last Admin: 09/05/24 21:55 Dose: 100 mg Loperamide HCl (Loperamide Hcl 2 Mg Capsule) 4 mg PO Q4H PRN PRN Reason: Diarrhea Last Admin: 09/05/24 09:00 Dose: 4 mg Lorazepam (Lorazepam 1 Mg Tablet) 1 mg PO BID PRN PRN Reason: Anxiety Last Admin: 09/05/24 09:00 Dose: 1 mg Magnesium Hydroxide (Milk Of Magnesia 30 Ml Oral.Susp) 30 ml PO DAILY PRN PRN Reason: Constipation Montelukast Sodium (Montelukast Sodium 10 Mg Tablet) 10 mg PO BEDTIME [facility] Nicotine Polacrilex (Nicotine Polacrilex 2 Mg Gum) 4 mg BUCCAL Q2H PRN PRN Reason: Nicotine Cravings Pantoprazole Sodium (Pantoprazole Sodium 20 Mg Tablet.Dr) 40 mg PO DAILY@0630 [facility] Last Admin: 09/06/24 06:27 Dose: 40 mg Tizanidine HCl (Tizanidine Hcl 4 Mg Tablet) 2 mg PO TID PRN PRN Reason: for muscle spasm Last Admin: 09/04/24 21:10 Dose: 2 mg Trazodone HCl (Trazodone Hcl 50 Mg Tablet) 50 mg PO BEDTIME MRX1 PRN PRN Reason: Insomnia Vitamin D (Cholecalciferol (Vitamin D3) 25 Mcg Tablet) 25 mcg PO DAILY [facility] Last Admin: 09/06/24 08:59 Dose: 25 mcg Allergies Allergies Allergy/AdvReac Type Severity Reaction Status Date / Time Seasonal Allergies Allergy Intermediate itchy/runny Verified 09/02/24 15:16 nose dog dander Allergy Unknown Verified 09/02/24 15:16 Assessment & Plan Assessment & Plan (1) Bipolar 1 disorder: Status: Acute Code(s): F31.9 - Bipolar disorder, unspecified Plan continue home meds aside from DC of trileptal. add VPA ER 1000 mg QHS as proper mood stabilizer, plan to titrate to 1500 mg QHS. aware this will increase lamictal serum concentration by perhaps twofold; decrease HS lamictal dosing to 100 mg. 09/04/24: Continue tx Await results of CT Scans for further planning with hospitalist team 09/05: Continue tx Valproate level 09/06 to evaluate for dosage adjustment 09/06: increase VPA to 1500 mg QHS as of [place]. 12b up sunday. Reason for continued inpatient stay Substantial Risk for: harm to others and rapid decompensation Time Spent With Patient Time: Total time managing care of this patient today ____ minutes.
[2024-09-06 20:00] VITALS: BP 129/72; PULSE 75; RESP 16; TEMP 37; O2SAT 97
[2024-09-06] MEDS: Acetaminophen 325 MG TABLET 650 MG PO (20:18)
[2024-09-06] MEDS: Montelukast Sodium 10 MG TABLET PO (20:18)
[2024-09-06] MEDS: LORazepam 1 MG TABLET PO (20:19)
[2024-09-06] MEDS: Divalproex Sodium ER 500 MG TAB.ER.24H 1500 MG PO (20:19)
[2024-09-06] MEDS: lamoTRIgine 100 MG TABLET PO (20:23)
[2024-09-07] MEDS: Pantoprazole Sodium 20 MG TABLET.DR 40 MG PO (06:19)
[2024-09-07 08:00] VITALS: BP 132/71; PULSE 110; RESP 16; TEMP 36.4; O2SAT 98
[2024-09-07] MEDS: buPROPion HCl XL 150 MG TAB.ER.24H PO (08:28)
[2024-09-07] MEDS: allopurinoL 100 MG TABLET PO (08:28)
[2024-09-07] MEDS: FLUoxetine HCl 20 MG CAPSULE 60 MG PO (08:28)
[2024-09-07] MEDS: amLODIPine Besylate 10 MG TABLET PO (08:28)
[2024-09-07] MEDS: Atorvastatin Calcium 40 MG TABLET PO (08:29)
[2024-09-07] MEDS: Cholecalciferol (Vitamin D3) 25 MCG TABLET PO (08:29)
[2024-09-07] MEDS: buPROPion HCl XL 300 MG TAB.ER.24H PO (08:29)
[2024-09-07] MEDS: Gabapentin 400 MG CAPSULE 800 MG PO ×3 (08:29→20:36)
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
[2024-09-07] MEDS: Acetaminophen 325 MG TABLET 650 MG PO (15:18)
[2024-09-07 20:00] VITALS: BP 152/81; PULSE 76; RESP 16; TEMP 36.6; O2SAT 96
[2024-09-07] MEDS: Divalproex Sodium ER 500 MG TAB.ER.24H 1500 MG PO (20:37)
[2024-09-07] MEDS: lamoTRIgine 100 MG TABLET 200 MG PO (20:37)
[2024-09-07] MEDS: LORazepam 1 MG TABLET PO (20:38)
[2024-09-07] MEDS: TiZANidine HCL 4 MG TABLET 2 MG PO (20:38)
[2024-09-07 20:56] LABS: MANUAL DIFF FLAG NO
[2024-09-07 21:00] LABS: Basophils Percent Auto 0.5 % (0-2); Eosinophils Absolute Auto 0.3 X10*3/uL (0.0-0.4); Eosinophils Percent Auto 3.7 % (0-4); Hematocrit 43.5 % (42.0-52.0); Hemoglobin 14.4 g/dl (14.0-18.0); Imm Gran Abs Auto 0.02 X10*3/uL (0.00-0.03); Imm Gran Pct Auto 0.2 % (0.0-0.4); Lymphocytes Absolute Auto 2.3 X10*3/uL (1.2-4.9); Mean Corpuscular HGB Conc 33.1 g/dl (31.0-36.0); Mean Corpuscular Hemoglobin 29.2 pg (27.0-33.0); Mean Corpuscular Volume 88.2 fL (80.0-98.0); Mean Platelet Volume 9.1 fL (9.4-12.4); Monocytes Absolute Auto 0.9 X10*3/uL (0.1-1.2); Monocytes Percent Auto 11.1 % (2-11); Neutrophils Absolute Auto 4.7 x10*3/uL (2.0-8.3); Neutrophils Percent Auto 56.5 % (45-73); Platelet Count 315 X10*3/uL (160-400); Red Blood Count 4.93 X10*6/uL (4.60-5.80); White Blood Count 8.3 X10*3/uL (4.8-10.8)
[2024-09-07 21:17] LABS: Valproate 35.4 mcg/mL (50.0-100.0)
[2024-09-07 21:19] LABS: Alanine Aminotransferase 57 U/L (0-40); Albumin Level 4.8 g/dL (3.5-5.0); Alkaline Phosphatase 141 U/L (39-117); Anion Gap 12 (12-20); Aspartate Amino Transferase 35 U/L (5-37); Bilirubin Direct 0.2 mg/dL (0.0-0.5); Bilirubin Total 0.4 mg/dL (0.0-1.0); Blood Urea Nitrogen 24 mg/dL (9-16); Calcium 9.8 mg/dL (8.4-10.2); Carbon Dioxide 30 mmol/L (22-29); Chloride 104 mmol/L (96-108); Creatinine Clr Calc Pharmacy 54.6; Estimated Glomerular Filt Rate 47; Glucose Random 85 mg/dL (60-115); Potassium 4.3 mmol/L (3.3-5.1); Sodium 142 mmol/L (135-145); Total Protein 7.7 g/dL (6.5-8.0)
[2024-09-07] MEDS: Montelukast Sodium 10 MG TABLET PO (21:22)
[2024-09-08] MEDS: Pantoprazole Sodium 20 MG TABLET.DR 40 MG PO (06:59)
[2024-09-08 07:50] VITALS: BP 139/78; PULSE 79; RESP 14; TEMP 36.5; O2SAT 99
[2024-09-08] MEDS: buPROPion HCl XL 300 MG TAB.ER.24H PO (08:30)
[2024-09-08] MEDS: allopurinoL 100 MG TABLET PO (08:30)
[2024-09-08] MEDS: FLUoxetine HCl 20 MG CAPSULE 60 MG PO (08:30)
[2024-09-08] MEDS: buPROPion HCl XL 150 MG TAB.ER.24H PO (08:30)
[2024-09-08] MEDS: amLODIPine Besylate 10 MG TABLET PO (08:30)
[2024-09-08] MEDS: Cholecalciferol (Vitamin D3) 25 MCG TABLET PO (08:30)
[2024-09-08] MEDS: Gabapentin 400 MG CAPSULE 800 MG PO (08:30)
[2024-09-08] MEDS: Atorvastatin Calcium 40 MG TABLET PO (08:30)
[2024-09-08] MEDS: LORazepam 1 MG TABLET PO (08:37)
== END 2024-09-08 11:10 | disposition home or self-care (01) | DRG 753 ==
LOC: HO.ED 17:14 → HO.PADLT16 09-03 11:48
PROVIDERS: Clinical Nurse Specialist Psychiatric/Mental Health, Adult; Admitting Provider Psychiatry & Neurology Psychiatry; Emergency Provider Emergency Medicine Emergency Medical Services; PCP Nurse Practitioner Family; Visit Provider Psychiatry & Neurology Psychiatry
DX: F31.9 Bipolar disorder, unspecified (principal); R45.851 Suicidal ideations; R45.850 Homicidal ideations; J45.909 Unspecified asthma, uncomplicated; S02.40FA Zygomatic fracture, left side, initial encounter for closed fracture; S02.842A Fracture of lateral orbital wall, left side, initial encounter for closed fracture; S02.32XA Fracture of orbital floor, left side, initial encounter for closed fracture; Y35.831A Legal intervention involving a conducted energy device, law enforcement official injured, initial encounter; Z87.891 Personal history of nicotine dependence; Z91.51 Personal history of suicidal behavior; Z62.810 Personal history of physical and sexual abuse in childhood; Z62.811 Personal history of psychological abuse in childhood; Z79.899 Other long term (current) drug therapy
CPT/HCPCS: 36415; 70150; 70450; 70486; 80048; 80053; 80061; 80076; 80143; 80164; 80179; 80307; 81003; 82607; 82746; 83036; 84439; 84443; 85025; 93005; 99285

== ENCOUNTER → 2024-09-03 10:33 | Outpatient (BNV) | payer OTHER, SELFPAY | PROVIDERS: Admitting Provider Psychiatry & Neurology Psychiatry; Emergency Provider Emergency Medicine Emergency Medical Services; PCP Nurse Practitioner Family; Visit Provider Internal Medicine | DX: Z13.6 Encounter for screening for cardiovascular disorders (principal) | CPT/HCPCS: 93010 ==

== ENCOUNTER 2024-09-03 11:37 | Outpatient (BNV) | payer OTHER, SELFPAY | END 2024-09-04 13:30 | PROVIDERS: Admitting Provider Psychiatry & Neurology Psychiatry; Emergency Provider Emergency Medicine Emergency Medical Services; PCP Nurse Practitioner Family; Visit Provider Radiology Diagnostic Radiology | DX: S02.40FA Zygomatic fracture, left side, initial encounter for closed fracture (principal) | CPT/HCPCS: 70150; 70450; 70486 ==

== ENCOUNTER → 2024-09-03 11:37 | Outpatient (BNV) | payer OTHER, SELFPAY | PROVIDERS: Admitting Provider Psychiatry & Neurology Psychiatry; Emergency Provider Emergency Medicine Emergency Medical Services; PCP Nurse Practitioner Family; Visit Provider Nurse Practitioner Family | DX: S02.92XA Unspecified fracture of facial bones, initial encounter for closed fracture (principal) | CPT/HCPCS: 99222; 99499 ==

== ENCOUNTER → 2024-09-03 11:37 | Outpatient (BNV) | payer OTHER, SELFPAY | PROVIDERS: Admitting Provider Psychiatry & Neurology Psychiatry; Emergency Provider Emergency Medicine Emergency Medical Services; PCP Nurse Practitioner Family; Visit Provider Psychiatry & Neurology Psychiatry | DX: F31.4 Bipolar disorder, current episode depressed, severe, without psychotic features (principal) | CPT/HCPCS: 90792; 99231; 99232; 99239 ==

== ENCOUNTER 2024-09-10 11:23 | Outpatient (AMB) | payer OTHER, SELFPAY ==
[2024-09-10 11:26] VITALS: BP 118/80; PULSE 97; O2SAT 97; BMI 28.5
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
--- OUTSIDE RECORDS SUMMARY | 2024-09-10 13:06 | XMS_ITS | Patient Health Record ---
Author Organization [facility] Address [address] [place] [address] Care Team Providers Care Fish Liver Sorter Name Role Phone JACLYN RAMAN Primary Care Provider Unavailkenay e Nacho Hyde Jr Reason For Referral [...] W/U Status Risk Notes Problem Esophageal reflux ([id number]) Esophageal reflux (530.81) Active confirmed Problem Chest pain (786.50) Active confirmed Problem [id number] Gastroesophageal reflux disease, unspecified whether esophagitis present (K21.9) Active confirmed Encounters Encounter Location Date Provider Diagnosis [facility] [address] [place] [address] 07/15/2024 Nacho Hyde Jr Gastroesophageal reflux disease, [...] [employer] [address] [address] [place] [address] [id number] 1 JOE WERNER Self - patient is the insured Medical (General) History Medical History History ICD Code asthma kidney disease Denies DE,DM,CVA Surgical History Surgery Date(Month/Year) 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
== END 2024-09-10 13:40 | disposition home or self-care (01) ==
LOC: HO.HMCC 11:24
PROVIDERS: PCP Nurse Practitioner Family; Visit Provider Nurse Practitioner Family
DX: S02.92XA Unspecified fracture of facial bones, initial encounter for closed fracture (principal); F31.9 Bipolar disorder, unspecified; R44.3 Hallucinations, unspecified; Z13.9 Encounter for screening, unspecified

== ENCOUNTER → 2024-09-10 11:23 | Outpatient (BNVA) | payer OTHER, SELFPAY | PROVIDERS: PCP Nurse Practitioner Family; Visit Provider Nurse Practitioner Family | DX: G89.4 Chronic pain syndrome (principal); S02.92XA Unspecified fracture of facial bones, initial encounter for closed fracture; F31.9 Bipolar disorder, unspecified; R44.3 Hallucinations, unspecified; X58.XXXA Exposure to other specified factors, initial encounter; Y93.9 Activity, unspecified; Y92.9 Unspecified place or not applicable; Y99.9 Unspecified external cause status | CPT/HCPCS: 96127 ==

== ENCOUNTER 2024-09-23 16:30 | Inpatient (IN) | payer OTHER, SELFPAY ==
--- NOTE | 2024-09-23 | ECG_ITS ---
Test Reason : WEAKNESS Blood Pressure : */* mmHG Vent. Rate : 82 BPM Atrial Rate : 82 BPM P-R Int : 170 ms QRS Dur : 82 ms QT Int : 374 ms P-R-T Axes : 48 38 60 degrees QTcB Int : 436 ms Normal sinus rhythm Normal ECG When compared with ECG of 03-Sep-2024 10:33, No significant change was found Referred By: Generic ED Physician Electronically Signed By: KIERRA BHATT
--- NOTE | ~2024-09-23 | CT_ITS ---
CLINICAL HISTORY: trauma from fall CT head without contrast Comparison: CT/SR - CT HEAD/BRAIN WO IV CON - 09/04/24 18:12 EDT Findings: The size and shape of the ventricular system is within normal limits. Attenuation of the brain parenchyma is within normal limits. Bañuelos-white differentiation is preserved. No midline shift or mass effect. No intracranial hemorrhage. Unchanged appearance of the patient's segmental fracture of the left zygomatic arch. No new fractures identified. IMPRESSION: 1. No intracranial hemorrhage. 2. Unchanged alignment of the segmental fracture of the left zygomatic arch. This document has been electronically signed by: Royal Desir MD on 09/23/2024 21:17:39
--- NOTE | ~2024-09-23 | XR_ITS ---
CLINICAL HISTORY: ams Chest Radiograph Comparison: None available Findings: No cardiomegaly. Normal mediastinal contours. No pneumothorax. No opacity. No pleural effusion. Normal upper abdomen. No acute fracture. Impression: No acute findings. This document has been electronically signed by: Shelby Terrell MD on 09/23/2024 18:56:52
[2024-09-23 17:13] VITALS: BP 74/42; PULSE 81; RESP 16; TEMP 36.8; O2SAT 96; BMI 26.6
--- NOTE | 2024-09-23 17:15 | ED.WEAKNESS ---
HPI - Weakness General Chief complaint: General Medical Stated complaint: D/C from m3 09/08 for same symptoms Time Seen by Provider: 09/23/24 18:54 Source: patient, family, RN notes reviewed and old records reviewed Mode of arrival: wheelchair Limitations: altered mental status History of Present Illness ED Provider: Dr. Wanda Doran HPI Narrative: 49-year-old male with history of bipolar disorder, PTSD, hypertension presenting with generalized weakness, paranoid delusions from home. Patient reports that he has been experiencing some tremulousness ongoing for the last several weeks and worsening over the last 2 days. Describes associated occasional dizziness and feeling ?globally weak?. Denies focal weakness, numbness/tingling/weakness of the extremities, chest pain or difficulty breathing. Patient admits that he came to the hospital today when he began to feel ?out of it?. His admits at that time that his blood pressure was reportedly 80/60. Patient takes blood pressure medications at baseline. Has taken his home morning dose earlier today but no drugs this evening. Denies drug or alcohol use. Admits he ?only drinks beer during football season?. Admits that he has been feeling somewhat paranoid, having thoughts that his ? has been hurt when she has not been hurt ?. His makes a specific incident of her being out on the tractor mowing the lawn and the patient is seeing the tractor without anybody in it, thinking that his had and even going so far as to call 911 about this. He denies suicidal ideations but his tells me that she hears him ?talking to himself, stating that he is going to sit in the car and kill himself with a knife?. Patient is having what seems to be in Internal debate and responding to internal stimuli. is very concerned about these episodes of forgetfulness and assumedly talking to himself. Today he requested to come to the emergency department because he felt weak. When he arrived in the hospital, he was unable to even stand, had to use a wheelchair. reports that he almost fell asleep sitting up and was found to be hypotensive in triage. Patient takes multiple drugs for his mood disorder and chronic pain including Depakote, lamotrigine, Fioricet, fluoxetine, gabapentin, lorazepam, tizanidine, tramadol. No reported fever, focal limb weakness, headaches or vision changes. Does admit to a rather poor appetite over the last couple of days with associated decreased oral intake. Related Data Home Medications ?Medication ?Instructions ?Recorded ?Confirmed fluoxetine 20 mg capsule 60 mg PO DAILY 02/28/23 09/24/24 bupropion HCl 150 mg 24 hr tablet, 150 mg PO DAILY 06/18/23 09/24/24 extended release lorazepam 1 mg tablet 1 mg PO BID PRN Anxiety 08/07/23 09/24/24 lamotrigine 200 mg tablet 200 mg PO BEDTIME 09/10/24 09/24/24 amlodipine 10 mg tablet 10 mg PO BEDTIME 09/24/24 09/24/24 qqyakngjug-vjzaojmrywyrb-kpmerfsf 1 tab PO DAILY PRN pain 09/24/24 09/24/24 50 mg-325 mg-40 mg tablet fexofenadine 180 mg tablet 180 mg PO DAILY 09/24/24 09/24/24 fluticasone 500 mcg-salmeterol 50 2 inh inhalation DAILY 09/24/24 09/24/24 mcg/dose blistr powdr for inhalation lamotrigine 150 mg tablet 150 mg PO BID 09/24/24 09/24/24 loperamide 2 mg capsule 2 mg PO DAILY PRN Loose Stool 09/24/24 09/24/24 risperidone 1 mg tablet 1 mg PO BEDTIME 09/24/24 09/24/24 Previous Rx's ?Medication ?Instructions ?Recorded bupropion HCl 300 mg 24 hr tablet, 300 mg PO DAILY 30 days #30 tabs 07/27/20 extended release montelukast 10 mg tablet 10 mg PO DAILY #90 tabs 11/07/23 (Singulair) tizanidine 2 mg tablet 2 mg PO TID PRN for muscle spasm 03/07/24 30 days #90 tabs atorvastatin 40 mg tablet 40 mg PO DAILY #90 ea 04/04/24 allopurinol 100 mg tablet 100 mg PO DAILY 90 days #90 tabs 05/15/24 gabapentin 800 mg tablet 800 mg PO TID 30 days #90 tabs 05/22/24 pantoprazole 40 mg tablet,delayed 40 mg PO DAILY 90 days #90 tabs 07/01/24 release tramadol 50 mg tablet 50 mg PO BID PRN pain 30 days #60 08/03/24 tabs divalproex 500 mg tablet,extended 1,500 mg (3 x 500 mg) PO BEDTIME 09/07/24 release 24 hr 30 days #90 tabs cholecalciferol (vitamin D3) 25 25 mcg PO DAILY #90 caps 09/23/24 mcg (1,000 unit) capsule (Vitamin D3) Allergies Allergy/AdvReac Type Severity Reaction Status Date / Time Seasonal Allergies Allergy Intermediate itchy/runny Verified 09/23/24 17:16 nose dog dander Allergy Unknown Verified 09/23/24 17:16 Review of Systems Review of Systems: Yes all other systems are reviewed and are negative [facility]LY [facility] Past Medical History Attestation statement: The following information was validated with the patient. [facility] Narrative: On multiple sedating medications including Depakote, lamotrigine, Fioricet, fluoxetine, gabapentin, lorazepam, tizanidine, tramadol. Also takes amlodipine for blood pressure and bupropion for depression. Source: old records reviewed and obtained from family Medical History HTN (hypertension) Night terrors Hypersomnia Snoring Gout Suicide attempt Irritable bowel syndrome with diarrhea Post traumatic stress disorder (PTSD) Chronic pain syndrome Disc degeneration, lumbar Spondylosis of lumbar region without myelopathy or radiculopathy Tremor Chronic renal insufficiency GERD (gastroesophageal reflux disease) Depression Asthma Surgical History Hx of colonoscopy Hx of esophagogastroduodenoscopy History of kidney surgery Family History Family History Father Substance use disorder Mental health disorder Social History Social History Household Members: Spouse and Family Household Members Other:: , 20 y.o son, 16 y.o. son Housing: House Are you a primary regular senior care provider to a significant other at home: No Do you presently have visiting nurse or other home services: No Alcohol intake: former Comment: occasional Patient Tobacco Use Status: Former Tobacco user Tobacco use type: Cigarette Smoked in Last 30 Days: No e-Cigarette/Vaping Use: Never Used Patient Interested in Nicotine Replacement: No Patient Given Instructions on How to Stop Smoking: No Second Hand Smoke Exposure: No Use of substances other than those prescribed or required for medical reasons: No Currently Displaying Signs/Symptoms of Drug Intoxication Withdrawal: No Have you been hit, kicked, punched, or otherwise hurt by someone within the past year? If so, by whom?: No Do you feel safe in your current relationship?: Yes Is there a partner from a previous relationship who is making you feel unsafe now?: No Are you made to feel afraid or neglected: No Advance Directives: No Advance Directives Information Provided: No Do you have thoughts of harming others: None Do you have a plan to hurt others: No Plan Recently lost weight without trying: No Eating poorly because of decreased appetite: No Nutrition Risks: No Nutritional Risk Poor oral hygiene: No service: No Current occupational status: disabled Sexual orientation: Straight/Heterosexual Cognitive needs: No Hearing needs: No Vision needs: No Physical Exam Vital Signs: Vital Signs: Last Vital Signs Temp 98.4 F 09/29/24 07:10 Pulse 86 09/29/24 07:10 Resp 18 09/29/24 07:10 BP 138/81 09/29/24 07:10 Pulse Ox 99 09/29/24 07:10 O2 Del Method Room Air 09/29/24 07:10 BMI result Body Mass Index 26.6 GENERAL: Unkempt, no acute distress. SKIN: Normal skin color for ethnicity, warm, dry, no rashes noted. HEENT: Normocephalic, atraumatic, no stridor, posterior oropharynx nonerythematous, dentition intact, EOMI. NECK: Soft, supple, full ROM, midline structures nontender, no step-offs, no deformities, no lymphadenopathy. CHEST: Heart regular rate and rhythm, no murmurs, symmetric chest rise and fall. PULMONARY: Clear to auscultation bilaterally, no labored breathing, no wheezes/rhales/ rhonchi. ABDOMINAL: Soft, nondistended, nontender, positive bowel sounds in all quadrants. : Deferred. MUSCULOSKELETAL: Normal tone, full range of motion, no deformities, no peripheral edema. NEURO: Alert and oriented x3, CN II through XII intact, equal strength and sensation bilateral upper and lower extremities, no focal neurologic deficits. PSYCHIATRIC: Flat affect, poor eye contact, withdrawn Course Course Course Narrative: RME: Becca Boyd PA-C 09/23/2024: 521 pm will defer full ROS and PE to treating provider Patient here with , Internal dialogue responding convos, catatonic appearing. pale BP 74/42, SI with plan, diarrhea acute on chronic, no respiratory sxs or fevers at home, question of fall earlier today nonverbal now, but responds to painful stimuli Labs IVF and head CT placed, given one episode of hypotension, lactic acid and IVF ordered Reevaluation(s) Reevaluation #1: sign out to me 2am.. p/w dizzy, gait unsteady, multiple sx. BP 60/40 in triage. polypharmacy. BP ok now. Section 12, prior hanging,. Specific plan today (sit in car with knife) JCB Reevaluation #2: Time: 16:39 Date: 09/24/24 Provider: Manny Rodriguez MD Patient in physician observation for psychiatric evaluation.? No acute events reported overnight. No current complaints. VS stable.? Patient is in bed search status. Will continue to monitor. Medications Administered Generic Name Dose Route Start Last Admin Trade Name Freq PRN Reason Stop Dose Admin Acetaminophen 650 mg 09/24/24 18:51 09/28/24 22:39 Acetaminophen 325 Mg Tablet PO 650 mg Q6H PRN Administration Headache/Pain, Scale 1-10 Allopurinol 100 mg 09/25/24 09:00 09/28/24 08:44 Allopurinol 100 Mg Tablet PO 100 mg DAILY [place] Administration Amlodipine Besylate 10 mg 09/25/24 21:00 09/28/24 22:55 Amlodipine Besylate 10 Mg Tablet PO 10 mg BEDTIME [place] Administration Protocol Atorvastatin Calcium 40 mg 09/24/24 14:45 09/28/24 08:44 Atorvastatin Calcium 40 Mg Tablet PO 40 mg DAILY [place] Administration Bupropion HCl 150 mg 09/25/24 09:00 09/28/24 08:44 Bupropion Hcl Xl 150 Mg Tab.Er.24h PO 150 mg DAILY [place] Administration Bupropion HCl 300 mg 09/25/24 21:00 09/28/24 22:38 Bupropion Hcl Xl 300 Mg Tab.Er.24h PO 300 mg BEDTIME [place] Administration Clotrimazole 1 appl 09/29/24 09:00 09/28/24 23:23 Clotrimazole 1 % Cream 15 Gm Tube TOPICAL 10/01/24 13:59 1 appl DAILY [place] Administration Protocol Divalproex Sodium 1,500 mg 09/24/24 21:00 09/28/24 22:38 Divalproex Sodium Er 500 Mg Tab.Er.24h PO 1,500 mg BEDTIME [place] Administration Fluoxetine HCl 60 mg 09/24/24 14:45 09/28/24 08:44 Fluoxetine Hcl 20 Mg Capsule PO 60 mg DAILY [place] Administration Fluticasone/Vilanterol 1 puff 09/26/24 08:00 09/28/24 08:44 Fluticasone/Vilanterol 200/25 Blst.W.Dev INHALE 1 puff RDAILY [place] Administration Gabapentin 600 mg 09/27/24 15:00 09/28/24 22:38 Gabapentin 300 Mg Capsule PO 600 mg TID [place] Administration Lamotrigine 200 mg 09/24/24 21:00 09/28/24 22:38 Lamotrigine 100 Mg Tablet PO 200 mg BEDTIME [place] Administration Omeprazole 20 mg 09/25/24 06:30 09/28/24 06:51 Omeprazole 20 Mg Capsule.Dr PO 20 mg DAILY@0630 [place] Administration Risperidone 1 mg 09/24/24 21:00 09/28/24 22:39 Risperidone 1 Mg Tablet PO 1 mg BEDTIME [place] Administration Vitamin D 25 mcg 09/24/24 14:45 09/28/24 08:44 Cholecalciferol (Vitamin D3) 25 Mcg Tablet PO 25 mcg DAILY [place] Administration Discontinued Medications Generic Name Dose Route Start Last Admin Trade Name Xavier PRN Reason Stop Dose Admin Amlodipine Besylate 10 mg 09/24/24 14:45 09/24/24 18:15 Amlodipine Besylate 10 Mg Tablet PO Not Given DAILY [facility] Protocol Bupropion HCl 300 mg 09/24/24 14:45 09/24/24 18:16 Bupropion Hcl Xl 300 Mg Tab.Er.24h PO Not Given DAILY [place] Clotrimazole 1 appl 09/27/24 21:00 09/28/24 08:49 Clotrimazole 1 % Cream 15 Gm Tube TOPICAL 10/02/24 23:59 Not Given BID [place] Protocol Gabapentin 800 mg 09/24/24 15:00 09/27/24 15:22 Gabapentin 400 Mg Capsule PO Not Given TID [place] Lactated Ringer's 1,000 mls @ 999 mls/hr 09/23/24 17:15 09/23/24 18:47 Lr IV 09/23/24 18:15 Infused .Q1H1M ONE Infusion Lactated Ringer's 1,000 mls @ 999 mls/hr 09/23/24 19:39 09/24/24 00:39 Lr IV 09/23/24 20:39 Infused .Q1H1M ONE Infusion Lamotrigine 150 mg 09/24/24 21:00 09/25/24 08:44 Lamotrigine 100 Mg Tablet PO 150 mg BID [place] Administration Lorazepam 1 mg 09/23/24 20:49 09/24/24 00:39 Lorazepam 1 Mg Tablet PO 09/23/24 20:50 Not Given ONCE ONE Montelukast Sodium 10 mg 09/24/24 14:45 09/25/24 08:43 Montelukast Sodium 10 Mg Tablet PO 10 mg DAILY [place] Administration Non-Formulary Medication 40 mg 09/24/24 14:45 09/24/24 18:16 Pantoprazole PO Not Given DAILY [place] Medical Decision Making Medical Decision Making [facility] Narrative: Patient presents today with a chief complaint of altered mental status. Differential diagnosis for AMS is incredibly broad and includes infection, intracranial process such as hemorrhage, stroke or mass, electrolyte abnormality, hypercarbia, hypoxia, toxic encephalopathy, among many others. Broad-based workup was initiated to further evaluate the etiology of patient's symptoms based on the above exam and history. Patient has been evaluated by crisis team. He is currently section 12. He is essentially medically cleared now that his blood pressure has improved after several L of IV fluid. I suspect there is a component of polypharmacy with all these medications he has been taking including tizanidine, Flexeril, lorazepam, trazodone, lamotrigine, among many others. He ultimately will need someone to regulate his medications. He is high risk for polypharmacy and/or serotonin syndrome with this many serotonergic drugs on board. Patient is nontoxic, medically cleared for evaluation. Placed under section 12. Differential Diagnosis Differential Diagnoses: The differential diagnosis associated with the presentation includes As above Admission/Observation Consideration of admission/observation: Escalation of care including admission/observation considered Consult Healthcare Provider Management of the patient was discussed with: Behavioral Health Provider Lab Data [facility] Lab Attestation statement: I reviewed the patient's lab results. 09/23/24 17:36 09/23/24 17:36 Labs: Lab Results 09/23/24 09/23/24 Range/Units 17:36 19:04 WBC 9.8 (4.8-10.8) X10*3/uL RBC 4.43 L (4.60-5.80) X10*6/uL Hgb 13.0 L (14.0-18.0) g/dl Hct 38.6 L (42.0-52.0) % MCV 87.1 (80.0-98.0) fL MCH 29.3 (27.0-33.0) pg MCHC 33.7 (31.0-36.0) g/dl RDW 13.0 (11.0-16.0) % Plt Count 234 D (160-400) X10*3/uL MPV 8.6 L (9.4-12.4) fL Immature Gran % (Auto) 0.6 H (0.0-0.4) % Neut % (Auto) 59.8 (45-73) % Lymph % (Auto) 25.1 (20-40) % Hutchinson % (Auto) 10.7 (2-11) % Eos % (Auto) 3.5 (0-4) % Baso % (Auto) 0.3 (0-2) % Lymph # (Auto) 2.5 (1.2-4.9) X10*3/uL Hutchinson # (Auto) 1.0 (0.1-1.2) X10*3/uL Eos # (Auto) 0.3 (0.0-0.4) X10*3/uL Baso # (Auto) 0.0 (0.0-0.2) X10*3/uL Abs Immat Gran (auto) 0.06 H (0.00-0.03) X10*3/uL Absolute Neuts (auto) 5.8 (2.0-8.3) x10*3/uL Absolute Nucleated RBC 0.000 (0.0-0.012) X10*3/uL Nucleated RBC % (auto) 0.0 (0.0-0.2) /100WBC Sodium 139 (135-145) mmol/L Potassium 5.1 (3.3-5.1) mmol/L Chloride 102 (96-108) mmol/L Carbon Dioxide 26 (22-29) mmol/L Anion Gap 16 (12-20) BUN 23 H (9-16) mg/dL Creatinine 1.98 H (0.5-1.4) mg/dL Estim Creat Clear Calc 39.6 Estimated GFR 36 Fasting Glucose 90 (60-99) mg/dL Lactic Acid 1.0 (0.5-2.0) mmol/L Calcium 9.1 D (8.4-10.2) mg/dL Total Bilirubin 0.4 (0.0-1.0) mg/dL AST 32 (5-37) U/L ALT 44 H (0-40) U/L Alkaline Phosphatase 104 (39-117) U/L Total Creatine Kinase 91 (38-174) U/L Total Protein 6.7 (6.5-8.0) g/dL Albumin 4.2 (3.5-5.0) g/dL Urine Color Yellow Urine Appearance Clear Urine pH 7.5 (5.0-9.0) Ur Specific Bryant 1.015 (1.005-1.025) Urine Protein Negative (Neg-Trace) mg/dL Urine Glucose (UA) Negative (Negative) mg/dL Urine Ketones Negative (Negative) mg/dL Urine Blood Negative (Negative) Urine Nitrite Negative (Negative) Ur Leukocyte Esterase Negative (Negative) Urine Opiates Screen Not Detected (Not Detect) Ur Buprenorphine Scrn Not Detected (Not Detect) ng/mL Ur Oxycodone Screen Not Detected (Not Detect) ng/mL Urine Methadone Screen Not Detected (Not Detect) ng/mL Urine Fentanyl Screen Not Detected (Not Detect) Acetaminophen < 3 (<30) mcg/mL Ur Barbiturates Screen POSITIVE H (Not Detect) Valproic Acid 72.6 (50.0-100.0) mcg/mL Lamotrigine 9.2 (2.5-15.0) mcg/mL Ur Phencyclidine Scrn Not Detected (Not Detect) Ur Amphetamines Screen Not Detected (Not Detect) U Benzodiazepines Scrn Not Detected (Not Detect) Urine Cocaine Screen Not Detected (Not Detect) U Marijuana (THC) Screen Not Detected (Not Detect) Ethyl Alcohol 10 mg/dL Independent Interpretation I performed an independent interpretation of an: CT Scan Radiology Impression Discussion of test interpretation with radiology: I have reviewed the radiologist's reading. Radiologist Impression: CT head without contrast Comparison: CT/SR - CT HEAD/BRAIN WO IV CON - 09/04/24 18:12 EDT Findings: The size and shape of the ventricular system is within normal limits. Attenuation of the brain parenchyma is within normal limits. Bañuelos-white differentiation is preserved. No midline shift or mass effect. No intracranial hemorrhage. Unchanged appearance of the patient's segmental fracture of the left zygomatic arch. No new fractures identified. IMPRESSION: 1. No intracranial hemorrhage. 2. Unchanged alignment of the segmental fracture of the left zygomatic arch. This document has been electronically signed by: Royal Desir MD on 09/23/2024 21:17:39 CLINICAL HISTORY: ams Chest Radiograph Comparison: None available Findings: No cardiomegaly. Normal mediastinal contours. No pneumothorax. No opacity. No pleural effusion. Normal upper abdomen. No acute fracture. Impression: No acute findings. This document has been electronically signed by: Shelby Terrell MD on 09/23/2024 18:56:52 Independent Historian Clinical information obtained from an independent historian. History obtained from or confirmed by: Spouse External Record Review External record reviewed: Inpatient record, Office record, Outpatient record, Prior outpatient labs, Prior outpatient radiology, Primary care record and Outside ED record Prescription Management I considered prescription management with: Pain Medication Chronic Conditions Patient?s care impacted by: Hypertension and Other (Bipolar disorder) Discharge Plan Discharge Clinical Impression: Bipolar II disorder, Paranoid delusion, Passive suicidal ideations Patient Disposition: Admitted As Inpatient Interventions: Admission Worksheet (ED) Last Done: 09/24/24 21:26 Discharge Date/Time: 09/24/24 21:27
[2024-09-23] MEDS: Lactated Ringers 1,000 ML 999 ML IV ×2 (17:36→19:53)
[2024-09-23 17:38] VITALS: BP 107/70; PULSE 83; RESP 18; O2SAT 97
[2024-09-23 17:40] LABS: MANUAL DIFF FLAG NO
[2024-09-23 17:43] LABS: Hematocrit 38.6 % (42.0-52.0); Hemoglobin 13.0 g/dl (14.0-18.0); Imm Gran Abs Auto 0.06 X10*3/uL (0.00-0.03); Imm Gran Pct Auto 0.6 % (0.0-0.4); Lymphocytes Absolute Auto 2.5 X10*3/uL (1.2-4.9); Mean Corpuscular HGB Conc 33.7 g/dl (31.0-36.0); Mean Corpuscular Hemoglobin 29.3 pg (27.0-33.0); Mean Corpuscular Volume 87.1 fL (80.0-98.0); NRBC Abs Auto 0.000 X10*3/uL (0.0-0.012); NRBC Pct Auto 0.0 /100WBC (0.0-0.2); Platelet Count 234 X10*3/uL (160-400); Red Blood Count 4.43 X10*6/uL (4.60-5.80); White Blood Count 9.8 X10*3/uL (4.8-10.8)
--- NOTE | 2024-09-23 18:00 | PC.NURSE ---
Patient presents to ED after recent release from M3, recent med changes. Patient catatonic at this time minimally responsive, unable to provide information and follow commands. at bedside providing information. Patient + hallucinations audio and visual. Patient has been experiencing increased weakness resulting in multiple falls. Eyes PERRLA. VSS and up to date. Blood collected/sent. Patient changed over belongings at bedside. 18G in RAC currently running LR. Plan of care on going
[2024-09-23 18:01] LABS: Acetaminophen LAB < 3 mcg/mL (<30)
[2024-09-23 18:06] LABS: Alanine Aminotransferase 44 U/L (0-40); Albumin Level 4.2 g/dL (3.5-5.0); Alkaline Phosphatase 104 U/L (39-117); Anion Gap 16 (12-20); Aspartate Amino Transferase 32 U/L (5-37); Blood Urea Nitrogen 23 mg/dL (9-16); Calcium 9.1 mg/dL (8.4-10.2); Carbon Dioxide 26 mmol/L (22-29); Chloride 102 mmol/L (96-108); Creatinine Clr Calc Pharmacy 39.6; Estimated Glomerular Filt Rate 36; Potassium 5.1 mmol/L (3.3-5.1); Sodium 139 mmol/L (135-145); Total Protein 6.7 g/dL (6.5-8.0)
[2024-09-23 19:12] LABS: Appearance Urine Clear; Glucose Urine UA Negative (Negative); PH 7.5 (5.0-9.0); Specific Gravity - Urine 1.015 (1.005-1.025)
--- OUTSIDE RECORDS SUMMARY | 2024-09-23 19:12 | XMS_ITS | Patient Health Record ---
Author Organization [facility] Address [address] [place] [address] Care Team Providers Care Hall Manager Name Role Phone JACLYN RAMAN Primary [...] W/U Status Risk Notes Problem Esophageal reflux (736443273) Esophageal reflux (530.81) Active confirmed Problem Chest pain (786.50) Active confirmed Problem [id number] Gastroesophageal reflux disease, unspecified whether esophagitis present (K21.9) Active confirmed Encounters Encounter Location Date Provider Diagnosis [facility] [address] [place] [address] 07/15/2024 Nacho Hyde Jr Gastroesophageal reflux disease, [...] [employer] [address] [address] [place] [address] [id number] 1 JEO WERNER Self - patient is the insured Medical (General) History Medical History History ICD Code asthma kidney disease Denies HI,DM,CVA Surgical History Surgery Date(Month/Year) 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
[2024-09-23 19:19] LABS: Cannabinoid Screen Urine Not Detected (Not Detect)
[2024-09-23 20:20] VITALS: BP 134/82; PULSE 123; RESP 18; O2SAT 99
--- NOTE | 2024-09-23 21:20 | PC.NURSE ---
pt refusing ativan, paranoid, doesnt want to fall asleep, guarding his urinal/urine. at bedside
[2024-09-23 22:29] VITALS: BP 114/68; PULSE 123; RESP 13; O2SAT 97
[2024-09-24 05:25] VITALS: BP 108/69; PULSE 86; RESP 16; TEMP 36.8; O2SAT 95
--- NOTE | 2024-09-24 06:30 | PC.NURSE ---
Pt slept throughout the night. No apparent distress noted. Breaths remained even regular and unlabored with equal chest rises. 1:1 sitter at bedside. Monitoring is ongoing.
--- NOTE | 2024-09-24 09:29 | PC.NURSE ---
RN spoke with pt's sister Becki Duckworth who expressed concerns that she believes the patient's Kristi is doing something to the patient, ?[place]'s. Reports that her brother will be completely normal in the morning and then at the same time of day he has these paranoid episodes and then later on will normalize. Reports that when she hangs out with her brother without his , patient is completely normal and there are no issues. Sister also reports the kids have recently been sick and in the hospital for vomiting and she has concerns she is doing something to them as well. Information passed along to CARE team worker Becki can be reached at [phone] for questions.
[2024-09-24 10:33] VITALS: BP 112/69; PULSE 96; RESP 12; TEMP 36.8; O2SAT 96
--- NOTE | 2024-09-24 10:42 | PC.NURSE ---
Pt A&Ox3, asking why he is here. Pt reports he felt he was doing well at home, felt lucid and good. Pt reports getting into an argument at the same time with his every day (between 1-3p) and then afterwards pt experiences hallucinations/paranoia. RN asked pt if it is possible that his is someone slipping him drugs or poisoning him in some way and patient stated I think that's exactly whats going on. Pt gave verbal consent to communicate with his sister Becki, added to chart.
--- NOTE | 2024-09-24 11:39 | MHC.CARE ---
T/W spoke with Pt after being informed by nursing that Pt's sister was concerned Pt's may be allegedly making him and his children ill. Pt stated that he is concerned that his may be moving things around to make me feel like I am paranoid and crazy. He denied being physically ill at any time and denied having any concern that his would be giving him up a substance to intentionally make him ill. T/W spoke with Pt's sister Becki who stated It's just weird because he's fine in the hospital. He was fine when he was on M3 and then he comes home and hes unwell again. She stated when Pt is out of the home doing things with family he is at baseline however whenever he returns home he exhibits symptoms of paranoia. T/W stated that this concern would be documented. Of note, there is absolutely no substantiated evidence that Pt's is making him or their children ill intentionally and this is just a concern from Pt's sister.
[2024-09-24 12:15] VITALS: BP 123/77; PULSE 109; RESP 18; O2SAT 98
--- NOTE | 2024-09-24 12:20 | PC.NURSE ---
IV R ac removed, vitals obtained, reprt to RN in the pod, pt ambulated to pod without incident.
--- NOTE | 2024-09-24 14:25 | PC.NURSE ---
this nurse was covering nurse in the pod for a few minutes. This patients came to the pod to visit the patient, she is upset stating she works here at [facility] [facility] and is upset over the care of her , she claims the ED did nothing for him while in the medical area and felt hes not being appropriately cared for, his medications have not been given and he hasnt been given any water or drinks. This nurse explained to the that the med req has been previously completed [facility] and I would ensure that the provider was aware that the medications need to be ordered, asked who the ed provider for the pod was as she wished to speak with them, this nurse was unsure at the time, upon this nurse leaving the pod, it was determined that was covering provider for pod and he was notified of the meds needing to be ordered as well as the wanting to speak with the provider. Regular nurse was also notified of the situation.
--- NOTE | 2024-09-24 18:10 | PC.NURSE ---
Unable to give 1445 medications due to medications being unverified . Spoke with Mark (Pharmacy) who informed this RN that pharmacy is working through higher priority items at this time. Pt and family educated, expressing frustrations at this time due to delay in medications. This RN educated pt that he will be receiving his medications, we are just awaiting pharmacy verifications for safety
--- NOTE | 2024-09-24 18:32 | PHA.MEDREC ---
Pharmacy Consult ? Medication Reconciliation Pharmacy has completed the medication reconciliation. Spoke with pt and pt at bedside and they were able to confirm the pt medications. Pt confirmed he takes Lamotrigine 150mg tabs in the morning and Lamatrigine 200mg tabs at bedtime; looking in claims 150mg tabs were last filled 05/15/2024 for qty 60 for 30 days and 200mg tabs were last filled QTY 90 for 90 days, in the Dc packet from 09/08, pt was started on Lamtrogine 100mg tabs at bedtime and had continued 150mg tabs taking (1/2 tab) 200mg at bedtime, pt nor spouse confirmed he cuts them in half and stated he takes 150mg in the Am and 200mg at bedtime . Pt started telling me he has been trying to cut back on the Tizanidine 2mg and Tramadol 50mg tabs but states he still tends to take them as written. Pt and spouse both confirmed pt takes Rispiridone 1mg tabs at bedtime and states he just recently started that in the last week. The pt confirmed he still takes the Adviair 550/50 2 puffs QD; looking in claims that was last filled 10/2023 for 90 days. Pt
--- NOTE | 2024-09-24 18:58 | PHA.MEDREC ---
Pharmacy Consult ? Medication Reconciliation Pharmacy reivewed the med rec done by nursing. Spoke with pt and pt at bedside and they were able to confirm the pt medications. Pt confirmed he takes Lamotrigine 150mg tabs in the morning and Lamatrigine 200mg tabs at bedtime; looking in claims 150mg tabs were last filled 05/15/2024 for qty 60 for 30 days and 200mg tabs were last filled QTY 90 for 90 days, in the Dc packet from 09/08, pt was started on Lamtrogine 100mg tabs at bedtime and had continued 150mg tabs taking (1/2 tab) 200mg at bedtime, pt nor spouse confirmed he cuts them in half and stated he takes 150mg in the Am and 200mg at bedtime . Pt started telling me he has been trying to cut back on the Tizanidine 2mg and Tramadol 50mg tabs but states he still tends to take them as written. Pt and spouse both confirmed pt takes Rispiridone 1mg tabs at bedtime and states he just recently started that in the last week. The pt confirmed he still takes the Adviair 550/50 2 puffs QD; looking in claims that was last filled 10/2023 for 90 days.
[2024-09-24 22:48] VITALS: BMI 28.0
[2024-09-24 22:49] VITALS: BP 143/83; PULSE 98; RESP 18; TEMP 36.8; O2SAT 97
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
[2024-09-25 07:00] VITALS: BMI 27.7
[2024-09-25 08:00] VITALS: BP 113/58; PULSE 83; RESP 16; TEMP 37.6; O2SAT 95
[2024-09-25 08:34] LABS: Hemoglobin A1C 104.7238 umol/L; Total Hemoglobin (HGBA1C) 3597.7403 umol/L
[2024-09-25 08:41] LABS: Cholesterol 204 mg/dL (<200); HDL Cholesterol 45 mg/dL (>40); Magnesium 2.2 mg/dL (1.6-2.6); Triglycerides 191 mg/dL (<150)
[2024-09-25] MEDS: buPROPion HCl XL 150 MG TAB.ER.24H PO (08:44)
[2024-09-25 09:00] LABS: Free T4 (Free Thyroxine) 0.93 ng/dL (0.71-1.85); Thyroid Stimulating Hormone 1.15 uIU/mL (0.32-4.0)
[2024-09-25 09:10] LABS: Folate 8.8 ng/mL (> or = 4.0); Vitamin B12 681 pg/mL (200-900)
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
[2024-09-25 20:00] VITALS: BP 137/84; PULSE 73; RESP 16; TEMP 36.5; O2SAT 99
[2024-09-25 20:57] VITALS: BP 137/84
[2024-09-25] MEDS: buPROPion HCl XL 300 MG TAB.ER.24H PO (20:57)
[2024-09-26 08:00] VITALS: BP 110/62; PULSE 79; RESP 14; TEMP 36.9; O2SAT 98
[2024-09-26] MEDS: buPROPion HCl XL 150 MG TAB.ER.24H PO (08:55)
[2024-09-26] MEDS: Fluticasone/Vilanterol 200/25 BLST.W.DEV 1 PUFF INHALE (09:11)
--- NOTE | 2024-09-26 16:18 | P.PNPSI_ITS ---
Subjective Subjective Date of Service: 09/26/24 Reason For Visit: Bipolar Disorder with Psychosis,r/o catatonia Interim History: calm, cooperative, pleasant. slept OK. mood 7/10. not much anxiety. OK with calling quin. per staff, edp 5 anx 4. relaxed, med-compliant. wants update. Mental Status Exam Mental Status Exam Narrative: adequately dressed and groomed. cooperative. no PMA/PMR. speech nml rate, amount, loudness, tone, latency. thoughts linear and logical. affect flexible, full range, normo-intense, non-labile. mood 7/10. no SI/SIBI/HI/AVH. Diagnostics Vital Signs (24Hr): Vital Signs - 24 hr 09/25/24 20:00 09/25/24 20:57 09/26/24 08:00 Temperature 97.7 F 98.5 F Pulse Rate 73 79 Respiratory Rate 16 14 Blood Pressure 137/84 137/84 110/62 Pulse Oximetry 99 98 Oxygen Delivery Method Room Air Room Air BMI result Body Mass Index 27.7 Labs 09/23/24 17:36 09/23/24 17:36 Labs: Laboratory Results - last 48 hr 09/25/24 08:06 Estimat Average Glucose 91 Hemoglobin A1c % 4.8 Magnesium 2.2 Triglycerides 191 H Cholesterol 204 H LDL Cholesterol, Calc 121 H HDL Cholesterol 45 Vitamin B12 681 Folate 8.8 TSH 1.15 Free T4 0.93 Medications Medications Current Medications Acetaminophen (Acetaminophen 325 Mg Tablet) 650 mg PO Q6H PRN PRN Reason: Headache/Pain, Scale 1-10 Last Admin: 09/26/24 09:10 Dose: 650 mg Al Hydroxide/Mg Hydroxide (Magnesium Hydrox/Alum Hydrox 30 Ml Oral.Susp) 30 ml PO Q6H PRN PRN Reason: Heartburn/Nausea Allopurinol (Allopurinol 100 Mg Tablet) 100 mg PO DAILY [place] Last Admin: 09/26/24 08:56 Dose: 100 mg Amlodipine Besylate (Amlodipine Besylate 10 Mg Tablet) 10 mg PO BEDTIME [place]; Protocol Last Admin: 09/25/24 20:57 Dose: 10 mg Atorvastatin Calcium (Atorvastatin Calcium 40 Mg Tablet) 40 mg PO DAILY [place] Last Admin: 09/26/24 08:56 Dose: 40 mg Bupropion HCl (Bupropion Hcl Xl 150 Mg Tab.Er.24h) 150 mg PO DAILY [facility] Last Admin: 09/26/24 08:55 Dose: 150 mg Bupropion HCl (Bupropion Hcl Xl 300 Mg Tab.Er.24h) 300 mg PO BEDTIME [facility] Last Admin: 09/25/24 20:57 Dose: 300 mg Divalproex Sodium (Divalproex Sodium Er 500 Mg Tab.Er.24h) 1,500 mg PO BEDTIME [facility] Last Admin: 09/25/24 20:55 Dose: 1,500 mg Fluoxetine HCl (Fluoxetine Hcl 20 Mg Capsule) 60 mg PO DAILY [facility] Last Admin: 09/26/24 08:56 Dose: 60 mg Fluticasone/Vilanterol (Fluticasone/Vilanterol 200/25 Blst.W.Dev) 1 puff INHALE RDAILY [facility] Last Admin: 09/26/24 09:11 Dose: 1 puff Gabapentin (Gabapentin 400 Mg Capsule) 800 mg PO TID [facility] Last Admin: 09/26/24 15:18 Dose: 800 mg Lamotrigine (Lamotrigine 100 Mg Tablet) 200 mg PO BEDTIME [facility] Last Admin: 09/25/24 20:55 Dose: 200 mg Magnesium Hydroxide (Milk Of Magnesia 30 Ml Oral.Susp) 30 ml PO DAILY PRN PRN Reason: Constipation Nicotine Polacrilex (Nicotine Polacrilex 2 Mg Gum) 4 mg BUCCAL Q2H PRN PRN Reason: Nicotine Cravings Omeprazole (Omeprazole 20 Mg Capsule.Dr) 20 mg PO DAILY@0630 [facility] Last Admin: 09/26/24 06:09 Dose: 20 mg Risperidone (Risperidone 1 Mg Tablet) 1 mg PO BEDTIME [facility] Last Admin: 09/25/24 20:56 Dose: 1 mg Trazodone HCl (Trazodone Hcl 50 Mg Tablet) 50 mg PO BEDTIME [id number] PRN PRN Reason: Insomnia Vitamin D (Cholecalciferol (Vitamin D3) 25 Mcg Tablet) 25 mcg PO DAILY [facility] Last Admin: 09/26/24 08:55 Dose: 25 mcg Allergies Allergies Allergy/AdvReac Type Severity Reaction Status Date / Time Seasonal Allergies Allergy Intermediate itchy/runny Verified 09/23/24 17:16 nose dog dander Allergy Unknown Verified 09/23/24 17:16 Assessment & Plan Assessment & Plan (1) Post traumatic stress disorder (PTSD): Status: Acute Code(s): F43.10 - Post-traumatic stress disorder, unspecified (2) Bipolar 1 disorder: Status: Acute Code(s): F31.9 - Bipolar disorder, unspecified Plan due to pt's very rapid improvement in mental status at each of the past 2 admissions, manuel seems less likely an explanation than medication misuse. goal will be to try to reduce number of scripts and eliminate where possible medications which are abusable or likely to affect level of consciousness. 09/25: DC/do not restart ativan, tramadol, tizanidine. decrease lamictal to half of prior outpt dosing due to interaction with VPA. appears to have been 500 mg daily, decrease to 200 mg QHS for now. hold fiorocet while inpatient, encourage to eliminate outpt. follow inpatient for stability. 09/26: feeling well, continue current regimen. asking for a call, pt OK. gives numbers [phone] and [phone]. pt signed CV and then 3-day notice. Reason for continued inpatient stay Substantial Risk for: harm to self, harm to others, inability to function and rapid decompensation Time Spent With Patient Time: Total time managing care of this patient today __25__ minutes.
[2024-09-26 21:10] VITALS: BP 150/91; PULSE 77; RESP 16; TEMP 36.4; O2SAT 96
[2024-09-26] MEDS: buPROPion HCl XL 300 MG TAB.ER.24H PO (21:21)
[2024-09-27 07:35] VITALS: BP 124/75; PULSE 84; RESP 14; TEMP 36.4; O2SAT 98
[2024-09-27] MEDS: Fluticasone/Vilanterol 200/25 BLST.W.DEV 1 PUFF INHALE (09:06)
[2024-09-27] MEDS: buPROPion HCl XL 150 MG TAB.ER.24H PO (09:07)
[2024-09-27 12:43] LABS: Lamotrigine Lamictal 9.2 mcg/mL (2.5-15.0)
--- NOTE | 2024-09-27 16:24 | HO.PSYCHPN ---
Subjective Subjective Date of Service: 09/27/24 Reason For Visit: Bipolar Disorder with Psychosis,r/o catatonia Interim History: Patient is calm, cooperative, pleasant. He says he is interested in lowering Gabapentin. He has been on it for several months. He is wishing to taper off medications as much as possible. He has a rash on his chest that he was told and treated as a fungal rash and asks for an antifungal medication. Slept OK. mood improved. Less anxiety. Review of Systems Review of Systems Yes all other systems are reviewed and are negative Mental Status Exam Mental Status Exam Narrative: adequately dressed and groomed. cooperative. no PMA/PMR. speech nml rate, amount, loudness, tone, latency. thoughts linear and logical. affect flexible, full range, normo-intense, non-labile. mood 10/09. no SI/SIBI/HI/AVH. Diagnostics Vital Signs (24Hr): Vital Signs - 24 hr 09/26/24 21:10 09/27/24 07:35 Temperature 97.6 F 97.6 F Pulse Rate 77 84 Respiratory Rate 16 14 Blood Pressure 150/91 H 124/75 Pulse Oximetry 96 98 Oxygen Delivery Method Room Air Room Air BMI result Body Mass Index 27.7 Labs 09/23/24 17:36 09/23/24 17:36 Labs: Laboratory Results - last 48 hr 09/23/24 17:36 Lamotrigine 9.2 Medications Medications Current Medications Acetaminophen (Acetaminophen 325 Mg Tablet) 650 mg PO Q6H PRN PRN Reason: Headache/Pain, Scale 1-10 Last Admin: 09/26/24 09:10 Dose: 650 mg Al Hydroxide/Mg Hydroxide (Magnesium Hydrox/Alum Hydrox 30 Ml Oral.Susp) 30 ml PO Q6H PRN PRN Reason: Heartburn/Nausea Allopurinol (Allopurinol 100 Mg Tablet) 100 mg PO DAILY [facility] Last Admin: 09/27/24 09:09 Dose: 100 mg Amlodipine Besylate (Amlodipine Besylate 10 Mg Tablet) 10 mg PO BEDTIME [facility]; Protocol Last Admin: 09/26/24 21:19 Dose: 10 mg Atorvastatin Calcium (Atorvastatin Calcium 40 Mg Tablet) 40 mg PO DAILY [facility] Last Admin: 09/27/24 09:09 Dose: 40 mg Bupropion HCl (Bupropion Hcl Xl 150 Mg Tab.Er.24h) 150 mg PO DAILY [facility] Last Admin: 09/27/24 09:07 Dose: 150 mg Bupropion HCl (Bupropion Hcl Xl 300 Mg Tab.Er.24h) 300 mg PO BEDTIME [facility] Last Admin: 09/26/24 21:21 Dose: 300 mg Clotrimazole (Clotrimazole 1 % Cream 15 Gm Tube) 1 appl TOPICAL BID [facility]; Protocol Stop: 10/02/24 23:59 Divalproex Sodium (Divalproex Sodium Er 500 Mg Tab.Er.24h) 1,500 mg PO BEDTIME [facility] Last Admin: 09/26/24 21:21 Dose: 1,500 mg Fluoxetine HCl (Fluoxetine Hcl 20 Mg Capsule) 60 mg PO DAILY [facility] Last Admin: 09/27/24 09:08 Dose: 60 mg Fluticasone/Vilanterol (Fluticasone/Vilanterol 200/25 Blst.W.Dev) 1 puff INHALE RDAILY [facility] Last Admin: 09/27/24 09:06 Dose: 1 puff Gabapentin (Gabapentin 300 Mg Capsule) 600 mg PO TID [facility] Last Admin: 09/27/24 15:26 Dose: 600 mg Lamotrigine (Lamotrigine 100 Mg Tablet) 200 mg PO BEDTIME [facility] Last Admin: 09/26/24 21:20 Dose: 200 mg Magnesium Hydroxide (Milk Of Magnesia 30 Ml Oral.Susp) 30 ml PO DAILY PRN PRN Reason: Constipation Nicotine Polacrilex (Nicotine Polacrilex 2 Mg Gum) 4 mg BUCCAL Q2H PRN PRN Reason: Nicotine Cravings Omeprazole (Omeprazole 20 Mg Capsule.Dr) 20 mg PO DAILY@0630 [facility] Last Admin: 09/27/24 06:45 Dose: 20 mg Risperidone (Risperidone 1 Mg Tablet) 1 mg PO BEDTIME [facility] Last Admin: 09/26/24 21:20 Dose: 1 mg Trazodone HCl (Trazodone Hcl 50 Mg Tablet) 50 mg PO BEDTIME MRX1 PRN PRN Reason: Insomnia Vitamin D (Cholecalciferol (Vitamin D3) 25 Mcg Tablet) 25 mcg PO DAILY [facility] Last Admin: 09/27/24 09:08 Dose: 25 mcg Allergies Allergies Allergy/AdvReac Type Severity Reaction Status Date / Time Seasonal Allergies Allergy Intermediate itchy/runny Verified 09/23/24 17:16 nose dog dander Allergy Unknown Verified 09/23/24 17:16 Assessment & Plan Assessment & Plan (1) Post traumatic stress disorder (PTSD): Status: Acute Code(s): F43.10 - Post-traumatic stress disorder, unspecified (2) Bipolar 1 disorder: Status: Acute Code(s): F31.9 - Bipolar disorder, unspecified Plan due to pt's very rapid improvement in mental status at each of the past 2 admissions, manuel seems less likely an explanation than medication misuse. goal will be to try to reduce number of scripts and eliminate where possible medications which are abusable or likely to affect level of consciousness. 09/25: DC/do not restart ativan, tramadol, tizanidine. decrease lamictal to half of prior outpt dosing due to interaction with VPA. appears to have been 500 mg daily, decrease to 200 mg QHS for now. hold fiorocet while inpatient, encourage to eliminate outpt. follow inpatient for stability. 09/26: feeling well, continue current regimen. asking for a call, pt OK. gives numbers [phone] and [phone]. pt signed CV and then 3-day notice. 09/27: Decrease GBP to 600 mg TID. Clotrimazole cream. Reason for continued inpatient stay Substantial Risk for: harm to self and rapid decompensation Time Spent With Patient Time: Total time managing care of this patient today ____ minutes.
[2024-09-27 21:35] VITALS: BP 143/90; PULSE 88; RESP 16; TEMP 36.9; O2SAT 99
[2024-09-27] MEDS: Clotrimazole 1 % Cream 15 GM TUBE 1 APPL TOPICAL (21:37)
[2024-09-27] MEDS: buPROPion HCl XL 300 MG TAB.ER.24H PO (21:39)
[2024-09-28 08:00] VITALS: BP 136/79; PULSE 80; RESP 14; TEMP 2.8; TEMP 37.1; O2SAT 94
[2024-09-28] MEDS: buPROPion HCl XL 150 MG TAB.ER.24H PO (08:44)
[2024-09-28] MEDS: Fluticasone/Vilanterol 200/25 BLST.W.DEV 1 PUFF INHALE (08:44)
--- NOTE | 2024-09-28 09:47 | HO.PSYCHPN ---
Subjective Subjective Date of Service: 09/28/24 Reason For Visit: Bipolar Disorder with Psychosis,r/o catatonia Interim History: Patient is calm, cooperative, pleasant. Tolerated decrease in Gabapentin. Rash on chest improving. Denies side effects with current medication regimen. Mood is less depressed. Visible in milieu. . Slept OK. mood improved. Less anxiety. Review of Systems Review of Systems Yes all other systems are reviewed and are negative Mental Status Exam Mental Status Exam Narrative: adequately dressed and groomed. cooperative. no PMA/PMR. speech nml rate, amount, loudness, tone, latency. thoughts linear and logical. affect flexible, full range, normo-intense, non-labile. mood 10/09. no SI/SIBI/HI/AVH. Diagnostics Vital Signs (24Hr): Vital Signs - 24 hr 09/27/24 21:35 09/28/24 08:00 Temperature 98.5 F 37.1 F L Pulse Rate 88 80 Respiratory Rate 16 14 Blood Pressure 143/90 H 136/79 Pulse Oximetry 99 94 Oxygen Delivery Method Room Air BMI result Body Mass Index 27.7 Labs 09/23/24 17:36 09/23/24 17:36 Labs: Laboratory Results - last 48 hr 09/23/24 17:36 Lamotrigine 9.2 Medications Medications Current Medications Acetaminophen (Acetaminophen 325 Mg Tablet) 650 mg PO Q6H PRN PRN Reason: Headache/Pain, Scale 1-10 Last Admin: 09/26/24 09:10 Dose: 650 mg Al Hydroxide/Mg Hydroxide (Magnesium Hydrox/Alum Hydrox 30 Ml Oral.Susp) 30 ml PO Q6H PRN PRN Reason: Heartburn/Nausea Allopurinol (Allopurinol 100 Mg Tablet) 100 mg PO DAILY [facility] Last Admin: 09/28/24 08:44 Dose: 100 mg Amlodipine Besylate (Amlodipine Besylate 10 Mg Tablet) 10 mg PO BEDTIME [facility]; Protocol Last Admin: 09/27/24 21:40 Dose: 10 mg Atorvastatin Calcium (Atorvastatin Calcium 40 Mg Tablet) 40 mg PO DAILY [facility] Last Admin: 09/28/24 08:44 Dose: 40 mg Bupropion HCl (Bupropion Hcl Xl 150 Mg Tab.Er.24h) 150 mg PO DAILY [facility] Last Admin: 09/28/24 08:44 Dose: 150 mg Bupropion HCl (Bupropion Hcl Xl 300 Mg Tab.Er.24h) 300 mg PO BEDTIME [facility] Last Admin: 09/27/24 21:39 Dose: 300 mg Clotrimazole (Clotrimazole 1 % Cream 15 Gm Tube) 1 appl TOPICAL BID [facility]; Protocol Stop: 10/02/24 23:59 Last Admin: 09/28/24 08:49 Dose: Not Given Divalproex Sodium (Divalproex Sodium Er 500 Mg Tab.Er.24h) 1,500 mg PO BEDTIME [facility] Last Admin: 09/27/24 21:38 Dose: 1,500 mg Fluoxetine HCl (Fluoxetine Hcl 20 Mg Capsule) 60 mg PO DAILY [facility] Last Admin: 09/28/24 08:44 Dose: 60 mg Fluticasone/Vilanterol (Fluticasone/Vilanterol 200/25 Blst.W.Dev) 1 puff INHALE RDAILY [facility] Last Admin: 09/28/24 08:44 Dose: 1 puff Gabapentin (Gabapentin 300 Mg Capsule) 600 mg PO TID [facility] Last Admin: 09/28/24 08:44 Dose: 600 mg Lamotrigine (Lamotrigine 100 Mg Tablet) 200 mg PO BEDTIME [facility] Last Admin: 09/27/24 21:39 Dose: 200 mg Magnesium Hydroxide (Milk Of Magnesia 30 Ml Oral.Susp) 30 ml PO DAILY PRN PRN Reason: Constipation Nicotine Polacrilex (Nicotine Polacrilex 2 Mg Gum) 4 mg BUCCAL Q2H PRN PRN Reason: Nicotine Cravings Omeprazole (Omeprazole 20 Mg Capsule.Dr) 20 mg PO DAILY@0630 [facility] Last Admin: 09/28/24 06:51 Dose: 20 mg Risperidone (Risperidone 1 Mg Tablet) 1 mg PO BEDTIME [facility] Last Admin: 09/27/24 21:39 Dose: 1 mg Trazodone HCl (Trazodone Hcl 50 Mg Tablet) 50 mg PO BEDTIME MRX1 PRN PRN Reason: Insomnia Vitamin D (Cholecalciferol (Vitamin D3) 25 Mcg Tablet) 25 mcg PO DAILY [facility] Last Admin: 09/28/24 08:44 Dose: 25 mcg Allergies Allergies Allergy/AdvReac Type Severity Reaction Status Date / Time Seasonal Allergies Allergy Intermediate itchy/runny Verified 09/23/24 17:16 nose dog dander Allergy Unknown Verified 09/23/24 17:16 Assessment & Plan Assessment & Plan (1) Post traumatic stress disorder (PTSD): Status: Acute Code(s): F43.10 - Post-traumatic stress disorder, unspecified (2) Bipolar 1 disorder: Status: Acute Code(s): F31.9 - Bipolar disorder, unspecified Plan due to pt's very rapid improvement in mental status at each of the past 2 admissions, manuel seems less likely an explanation than medication misuse. goal will be to try to reduce number of scripts and eliminate where possible medications which are abusable or likely to affect level of consciousness. 09/25: DC/do not restart ativan, tramadol, tizanidine. decrease lamictal to half of prior outpt dosing due to interaction with VPA. appears to have been 500 mg daily, decrease to 200 mg QHS for now. hold fiorocet while inpatient, encourage to eliminate outpt. follow inpatient for stability. 09/26: feeling well, continue current regimen. asking for a call, pt OK. gives numbers [phone] and [phone]. pt signed CV and then 3-day notice. 09/27: Decrease GBP to 600 mg TID. Clotrimazole cream. 09/28: Continue current management and treatment plan. Reason for continued inpatient stay Substantial Risk for: inability to function and rapid decompensation Time Spent With Patient Time: Total time managing care of this patient today ____ minutes.
[2024-09-28 20:00] VITALS: BP 160/91; PULSE 79; RESP 16; TEMP 36.6; O2SAT 100
[2024-09-28] MEDS: buPROPion HCl XL 300 MG TAB.ER.24H PO (22:38)
[2024-09-28 22:55] VITALS: BP 140/90
[2024-09-28] MEDS: Clotrimazole 1 % Cream 15 GM TUBE 1 APPL TOPICAL ×2 (23:09→23:23)
[2024-09-29 07:10] VITALS: BP 138/81; PULSE 86; RESP 18; TEMP 36.9; O2SAT 99
[2024-09-29] MEDS: Fluticasone/Vilanterol 200/25 BLST.W.DEV 1 PUFF INHALE (08:41)
[2024-09-29] MEDS: buPROPion HCl XL 150 MG TAB.ER.24H PO (08:45)
--- NOTE | 2024-09-29 12:33 | P.PNPSI_ITS ---
Subjective Subjective Date of Service: 09/29/24 Reason For Visit: Bipolar Disorder with Psychosis,r/o catatonia Interim History: calm, cooperative, pleasant. feeling well. planning for [facility] discharge. per staff, stable, 3-day up [facility]. Mental Status Exam Mental Status Exam Narrative: adequately dressed and groomed. cooperative. no PMA/PMR. speech nml rate, amount, loudness, tone, latency. thoughts linear and logical. affect flexible, full range, normo-intense, non-labile. mood improved. no SI/SIBI/HI/AVH expressed. Diagnostics Vital Signs (24Hr): Vital Signs - 24 hr 09/28/24 20:00 09/28/24 22:55 09/29/24 07:10 Temperature 97.9 F 98.4 F Pulse Rate 79 86 Respiratory Rate 16 18 Blood Pressure 160/91 H 140/90 H 138/81 Pulse Oximetry 100 99 Oxygen Delivery Method Room Air Room Air BMI result Body Mass Index 27.7 Labs 09/23/24 17:36 09/23/24 17:36 Labs: Laboratory Results - last 48 hr 09/23/24 17:36 Lamotrigine 9.2 Medications Medications Current Medications Acetaminophen (Acetaminophen 325 Mg Tablet) 650 mg PO Q6H PRN PRN Reason: Headache/Pain, Scale 1-10 Last Admin: 09/28/24 22:39 Dose: 650 mg Al Hydroxide/Mg Hydroxide (Magnesium Hydrox/Alum Hydrox 30 Ml Oral.Susp) 30 ml PO Q6H PRN PRN Reason: Heartburn/Nausea Allopurinol (Allopurinol 100 Mg Tablet) 100 mg PO DAILY [facility] Last Admin: 09/29/24 08:44 Dose: 100 mg Amlodipine Besylate (Amlodipine Besylate 10 Mg Tablet) 10 mg PO BEDTIME [facility]; Protocol Last Admin: 09/28/24 22:55 Dose: 10 mg Atorvastatin Calcium (Atorvastatin Calcium 40 Mg Tablet) 40 mg PO DAILY [facility] Last Admin: 09/29/24 08:44 Dose: 40 mg Bupropion HCl (Bupropion Hcl Xl 150 Mg Tab.Er.24h) 150 mg PO DAILY [facility] Last Admin: 09/29/24 08:45 Dose: 150 mg Bupropion HCl (Bupropion Hcl Xl 300 Mg Tab.Er.24h) 300 mg PO BEDTIME [facility] Last Admin: 09/28/24 22:38 Dose: 300 mg Clotrimazole (Clotrimazole 1 % Cream 15 Gm Tube) 1 appl TOPICAL DAILY [facility]; Protocol Stop: 10/01/24 13:59 Last Admin: 09/28/24 23:23 Dose: 1 appl Divalproex Sodium (Divalproex Sodium Er 500 Mg Tab.Er.24h) 1,500 mg PO BEDTIME [facility] Last Admin: 09/28/24 22:38 Dose: 1,500 mg Fluoxetine HCl (Fluoxetine Hcl 20 Mg Capsule) 60 mg PO DAILY [facility] Last Admin: 09/29/24 08:43 Dose: 60 mg Fluticasone/Vilanterol (Fluticasone/Vilanterol 200/25 Blst.W.Dev) 1 puff INHALE RDAILY [facility] Last Admin: 09/29/24 08:41 Dose: 1 puff Gabapentin (Gabapentin 300 Mg Capsule) 600 mg PO TID [facility] Last Admin: 09/29/24 08:44 Dose: 600 mg Lamotrigine (Lamotrigine 100 Mg Tablet) 200 mg PO BEDTIME [facility] Last Admin: 09/28/24 22:38 Dose: 200 mg Magnesium Hydroxide (Milk Of Magnesia 30 Ml Oral.Susp) 30 ml PO DAILY PRN PRN Reason: Constipation Nicotine Polacrilex (Nicotine Polacrilex 2 Mg Gum) 4 mg BUCCAL Q2H PRN PRN Reason: Nicotine Cravings Omeprazole (Omeprazole 20 Mg Capsule.Dr) 20 mg PO DAILY@0630 [facility] Last Admin: 09/29/24 08:44 Dose: 20 mg Risperidone (Risperidone 1 Mg Tablet) 1 mg PO BEDTIME [facility] Last Admin: 09/28/24 22:39 Dose: 1 mg Trazodone HCl (Trazodone Hcl 50 Mg Tablet) 50 mg PO BEDTIME MRX1 PRN PRN Reason: Insomnia Vitamin D (Cholecalciferol (Vitamin D3) 25 Mcg Tablet) 25 mcg PO DAILY [facility] Last Admin: 09/29/24 08:45 Dose: 25 mcg Allergies Allergies Allergy/AdvReac Type Severity Reaction Status Date / Time Seasonal Allergies Allergy Intermediate itchy/runny Verified 09/23/24 17:16 nose dog dander Allergy Unknown Verified 09/23/24 17:16 Assessment & Plan Assessment & Plan (1) Post traumatic stress disorder (PTSD): Status: Acute Code(s): F43.10 - Post-traumatic stress disorder, unspecified (2) Bipolar 1 disorder: Status: Acute Code(s): F31.9 - Bipolar disorder, unspecified Plan due to pt's very rapid improvement in mental status at each of the past 2 admissions, manuel seems less likely an explanation than medication misuse. goal will be to try to reduce number of scripts and eliminate where possible medications which are abusable or likely to affect level of consciousness. 09/25: DC/do not restart ativan, tramadol, tizanidine. decrease lamictal to half of prior outpt dosing due to interaction with VPA. appears to have been 500 mg daily, decrease to 200 mg QHS for now. hold fiorocet while inpatient, encourage to eliminate outpt. follow inpatient for stability. 09/26: feeling well, continue current regimen. asking for a call, pt OK. gives numbers [phone] and [phone]. pt signed CV and then 3-day notice. 09/27: Decrease GBP to 600 mg TID. Clotrimazole cream. 09/28: Continue current management and treatment plan. 09/29: feeling well. planning for [facility] discharge. continue current mgmt. case d/w for 20 minutes. Reason for continued inpatient stay Substantial Risk for: rapid decompensation Time Spent With Patient Time: Total time managing care of this patient today __35__ minutes.
[2024-09-29 21:10] VITALS: BP 132/83; PULSE 80; RESP 16; TEMP 36.9; O2SAT 98
[2024-09-29] MEDS: buPROPion HCl XL 300 MG TAB.ER.24H PO (21:16)
[2024-09-30] MEDS: buPROPion HCl XL 150 MG TAB.ER.24H PO (08:47)
[2024-09-30] MEDS: Fluticasone/Vilanterol 200/25 BLST.W.DEV 1 PUFF INHALE (08:48)
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
[2024-09-30] MEDS: Clotrimazole 1 % Cream 15 GM TUBE 1 APPL TOPICAL (15:19)
[2024-09-30 19:45] LABS: MANUAL DIFF FLAG NO
[2024-09-30 19:52] LABS: Hematocrit 41.8 % (42.0-52.0); Hemoglobin 14.2 g/dl (14.0-18.0); Imm Gran Abs Auto 0.03 X10*3/uL (0.00-0.03); Imm Gran Pct Auto 0.4 % (0.0-0.4); Lymphocytes Absolute Auto 1.7 X10*3/uL (1.2-4.9); Mean Corpuscular HGB Conc 34.0 g/dl (31.0-36.0); Mean Corpuscular Hemoglobin 29.3 pg (27.0-33.0); Mean Corpuscular Volume 86.4 fL (80.0-98.0); NRBC Abs Auto 0.000 X10*3/uL (0.0-0.012); NRBC Pct Auto 0.0 /100WBC (0.0-0.2); Platelet Count 227 X10*3/uL (160-400); Red Blood Count 4.84 X10*6/uL (4.60-5.80); White Blood Count 7.0 X10*3/uL (4.8-10.8)
[2024-09-30 20:00] VITALS: BP 122/79; PULSE 83; RESP 16; TEMP 36.4; O2SAT 96
[2024-09-30 20:06] LABS: Ammonia 36 umol/L (13-55)
[2024-09-30 20:16] LABS: Alanine Aminotransferase 36 U/L (0-40); Albumin Level 4.6 g/dL (3.5-5.0); Alkaline Phosphatase 111 U/L (39-117); Anion Gap 13 (12-20); Aspartate Amino Transferase 17 U/L (5-37); Blood Urea Nitrogen 19 mg/dL (9-16); Calcium 9.4 mg/dL (8.4-10.2); Carbon Dioxide 29 mmol/L (22-29); Chloride 104 mmol/L (96-108); Creatinine Clr Calc Pharmacy 60.7; Estimated Glomerular Filt Rate 54; Potassium 5.0 mmol/L (3.3-5.1); Sodium 141 mmol/L (135-145); Total Protein 7.2 g/dL (6.5-8.0)
[2024-09-30 20:19] VITALS: BP 122/79
[2024-09-30] MEDS: buPROPion HCl XL 300 MG TAB.ER.24H PO (20:19)
[2024-10-01 07:50] VITALS: BP 133/80; PULSE 87; RESP 16; TEMP 36.3; O2SAT 98
[2024-10-01] MEDS: buPROPion HCl XL 150 MG TAB.ER.24H PO (08:18)
[2024-10-01] MEDS: Fluticasone/Vilanterol 200/25 BLST.W.DEV 1 PUFF INHALE (08:19)
[2024-10-01] MEDS: Clotrimazole 1 % Cream 15 GM TUBE 1 APPL TOPICAL (08:20)
== END 2024-10-01 09:08 | disposition home or self-care (01) | DRG 753 ==
LOC: HO.ED 09-24 12:34 → HO.PADLT16 09-24 19:25
PROVIDERS: Physician Assistant Medical; Admitting Provider Clinical Nurse Specialist Psychiatric/Mental Health, Adult; Emergency Provider Emergency Medicine; PCP Nurse Practitioner Family; Visit Provider Psychiatry & Neurology Psychiatry
DX: F31.81 Bipolar II disorder (principal); R45.851 Suicidal ideations; B36.9 Superficial mycosis, unspecified; F43.12 Post-traumatic stress disorder, chronic; Z62.810 Personal history of physical and sexual abuse in childhood; Z62.811 Personal history of psychological abuse in childhood; Z79.899 Other long term (current) drug therapy
CPT/HCPCS: 36415; 70450; 71045; 80048; 80053; 80061; 80076; 80143; 80164; 80175; 80307; 81003; 82140; 82550; 82607; 82746; 83036; 83605; 83735; 84439; 84443; 85025; 93005; 99285; J7120; S9485

== ENCOUNTER → 2024-09-23 17:15 | Outpatient (BNV) | payer OTHER, SELFPAY | PROVIDERS: Emergency Provider Emergency Medicine; PCP Nurse Practitioner Family; Visit Provider Radiology Diagnostic Radiology | DX: R41.82 Altered mental status, unspecified (principal) | CPT/HCPCS: 70450; 71045 ==

== ENCOUNTER → 2024-09-23 17:33 | Outpatient (BNV) | payer OTHER, SELFPAY | PROVIDERS: Emergency Provider Emergency Medicine; PCP Nurse Practitioner Family; Visit Provider Internal Medicine | DX: R53.1 Weakness (principal) | CPT/HCPCS: 93010 ==

== ENCOUNTER → 2024-09-24 19:23 | Outpatient (BNV) | payer OTHER, SELFPAY | PROVIDERS: Admitting Provider Clinical Nurse Specialist Psychiatric/Mental Health, Adult; Emergency Provider Emergency Medicine; PCP Nurse Practitioner Family; Visit Provider Psychiatry & Neurology Psychiatry | DX: F31.9 Bipolar disorder, unspecified (principal); F43.11 Post-traumatic stress disorder, acute | CPT/HCPCS: 90792; 99231; 99232 ==

== ENCOUNTER 2025-02-14 13:06 | Outpatient (REF) | payer OTHER, SELFPAY ==
[2025-02-14 15:14] LABS: MANUAL DIFF FLAG NO
[2025-02-14 15:16] LABS: Hematocrit 39.8 % (42.0-52.0); Hemoglobin 13.4 g/dl (14.0-18.0); Imm Gran Abs Auto 0.01 X10*3/uL (0.00-0.03); Imm Gran Pct Auto 0.1 % (0.0-0.4); Lymphocytes Absolute Auto 2.2 X10*3/uL (1.2-4.9); Mean Corpuscular HGB Conc 33.7 g/dl (31.0-36.0); Mean Corpuscular Hemoglobin 28.3 pg (27.0-33.0); Mean Corpuscular Volume 84.1 fL (80.0-98.0); NRBC Abs Auto 0.000 X10*3/uL (0.0-0.012); NRBC Pct Auto 0.0 /100WBC (0.0-0.2); Platelet Count 262 X10*3/uL (160-400); Red Blood Count 4.73 X10*6/uL (4.60-5.80); White Blood Count 7.6 X10*3/uL (4.8-10.8)
[2025-02-14 15:36] LABS: Alanine Aminotransferase 25 U/L (0-40); Albumin Level 4.3 g/dL (3.5-5.0); Alkaline Phosphatase 105 U/L (39-117); Anion Gap 12 (12-20); Aspartate Amino Transferase 28 U/L (5-37); Blood Urea Nitrogen 16 mg/dL (9-16); Calcium 9.2 mg/dL (8.4-10.2); Carbon Dioxide 25 mmol/L (22-29); Chloride 106 mmol/L (96-108); Estimated Glomerular Filt Rate > 60; Iron 55 mcg/dL (45-160); Percent Iron Saturation 18 % (15-50); Potassium 4.5 mmol/L (3.3-5.1); Sodium 138 mmol/L (135-145); Total Iron Binding Capacity 313 mcg/dL (228-428); Total Protein 6.7 g/dL (6.5-8.0); Unsaturated Iron Binding 258 ug/dL
[2025-02-14 15:52] LABS: Ferritin 18 ng/mL (20-250)
== END 2025-02-14 13:07 | disposition home or self-care (01) ==
LOC: HO.HMGCLDS 13:06
PROVIDERS: PCP Nurse Practitioner Family; Visit Provider Nurse Practitioner Family
DX: D64.9 Anemia, unspecified (principal)
CPT/HCPCS: 36415; 80053; 82728; 83540; 84443; 85025

== ENCOUNTER 2025-03-12 07:56 | Outpatient (AMB) | payer OTHER, SELFPAY ==
--- OUTSIDE RECORDS SUMMARY | 2025-03-12 08:05 | XMS_ITS | Patient Health Record ---
Author Organization [facility] Address [address] [place] [id number] Care Team Providers Care Honest John Rocket Crew Member Name Role Phone THADDEUSCatrachoJACLYN Primary Care Provider UnavailNacho June Jr Reason For Referral No Information Medications Medication SIG (Take, Route, Frequency, Duration) Notes Start Date End Date Status PROzac 60mg Active Fexofenadine HCl 180mg Active Amitriptyline HCl 50mg Active Ativan .5mg Active NuLev 0.125 MG Tablet Dispersible 1 tablet on the tongue and allow to dissolve before meals as needed Orally every 4 hrs 06/13/2013 Active Albuterol Sulfate Ac tive buPROPion HCl 100mg Active Excedrin Migraine Ac tive NexIUM 40mg Active Singulair 10mg Activ e Advair Diskus 500/50mg Active Social History Social History Additional Details Category Social Info Options Details Miscellaneous: Marital status: Occupation: disabled Problems Problem Type SNOMED Code ICD Code Onset Dates Problem Status W/U Status Risk Notes Problem Esophageal reflux (004164004) Esophageal reflux (530.81) Active confirmed Problem Chest pain (33059677) Chest pain (786.50) Active confirmed Problem Gastroesophageal reflux disease (597877450) Gastroesophageal reflux disease, unspecified whether esophagitis present (K21.9) Active confirmed Encounters Encounter Location Date Provider Diagnosis [facility] [address] [place] [phone] 07/15/2024 Nacho Hyde Jr Gastroesophageal reflux disease, [...] Coverage End Date [employer] [place] [address] [address] [place] [address] [id number] 1 JOE WERNER Self - patient is the insured Medical (General) History Medical History History ICD Code asthma kidney disease Denies VA,DM,CVA Surgical History Surgery Date(Month/Year) 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
--- OUTSIDE RECORDS SUMMARY | 2025-03-12 08:05 | XMS_ITS | Patient Health Record ---
[facility] Organization [facility] Address [address] [place] [address] Care Team Providers Care Assignment Desk Editor Name Role Phone Napoleon Walters Primary Care Provider Unav ailable Jared Fraga Unavailable [phone] Allergies No Known Allergies Reason For Referral No Information Medications Medication SIG (Take, Route, Frequency, Duration) Notes Start Date End Date Status FLUoxetine HCl 20 MG 1 capsule Orally On ce a day; Duration: 30 day(s) Active lamoTRIgine ER 200 MG 1 tablet Orally On ce a day; Duration: 30 day(s) Active Atorvastatin Calcium 40 MG 1 tablet Oral ly Once a day; Duration: 30 day(s) Active Pantoprazole Sodium 40 MG 1 tablet Orall y Once a day; Duration: 30 day(s) Active Ferrous Sulfate 325 (65 Fe) MG 1 tablet Orally Once a day; Duration: 30 day(s) Active Keflex 500 MG 1 capsule Orally woody ry 12 hrs; Duration: 10 days 01/10/2022 Active Loperamide HCl 2 MG 1 capsule as needed Orally Four times a day Active Percocet 5-325 MG 2 tablet as needed Orally every 4 hrs; Duration: 5 days 01/06/2022 Active Montelukast Sodium 10 MG 1 tablet Orally Once a day; Duration: 30 day(s) Active Gabapentin 300 MG 1 capsule Orally Twi ce a day; Duration: 30 day(s) 01/06/2022 Active Gabapentin 800 MG 1 tablet Orally Once a day; Duration: 30 day(s) Active Colchicine 0.6 MG 1 tablet Orally Take one tablet once a day; Duration: 5 days 01/05/2022 Active Allopurinol Active Fexofenadine HCl 180 MG 1 tablet Swallow whole with water; do not take with fruit juices. Orally Once a day; Duration: 30 day(s) Active Bupropion & Diet Manage Prod Active OXcarbazepine 300 MG 1 tablet Orally Twi ce a day; Duration: 30 day(s) Active Social History Tobacco Use: [...] Status Risk Notes Problem Acquired hallux rigidus (4219747) Hallux rigidus, left foot (M20.22) Active confirmed Problem Gouty arthritis of left foot (0337797334182 103) Gouty arthritis of left foot (M10.9) Active [...] Coverage End Date [employer] [address] [address] [place] [address] [id number] Kristi Duckworth Spouse - patient is the spouse of the insured Medical (General) History Medical History History ICD Code Anemia Anxiety Back,Hip,and Knee pain Depression Headaches/Migraines Kidney disease Psychiatric disorder Reflux ( GERD) Chicken pox asthma Surgical History Surgery Date(Month/Year) kidney doner 01/28/2007 RFA 2020 Fusion 1st MPJ left 01/05/2022
--- OUTSIDE RECORDS SUMMARY | 2025-03-12 08:05 | XMS_ITS | Clinical Summary ---
Author Organization [facility] Address [address] [place] [id number] Care Team Providers Care Residential Real Estate Assistant Name Role Phone Napoleon Blankenship NP Primary Care Provider [phone] Social History Tobacco Use Types Packs/Day Years [...] Health Maintenance Due Date Last Done Comments Hepatitis B Vaccine (1 of 3 - 19+ 3-dose series) 01/28 Pneumococcal Vaccine: Peds ( 0 to 5 Years) and At-Risk Patients (6 to 49 Years) (1 of 2 - PCV) 01/28/1995 Influenza Vaccine (#1) 2024 Colorectal Cancer Screening: Annual FOBT 01/28/2025 Colorectal Cancer Screening: Colonoscopy 01/28/2025 Colorectal Cancer Screening: Sigmoidoscopy 01/28/2025 Insurance Comprehensive Benefits Comprehensive Benefits Care Teams Residential Real Estate Assistant Relationship Specialty Start Date End Date Napoleon Blankenship NP [facility] [place] [address] PCP - General Nurse Practitioner 12/09/20
--- OUTSIDE RECORDS SUMMARY | 2025-03-12 08:05 | XMS_ITS | Clinical Summary ---
Author Organization [facility] Address [address] [place] [phone] Phone Care Team Providers Care Sheet Metal Engineer Name Role Phone Pcp, Unknown Primary Care Provider Unavailabl e Allergies No known active allergies Medications fexofenadine (IVAN) 180 MG tablet Take 1 tablet by mouth daily. Active LORazepam (ATIVAN) 0.5 MG tablet Take 0.5 mg by mouth daily as needed. 0 05/30/19 18 Active amitriptyline (ELAVIL) 50 MG tablet Take 50 mg by mouth daily. 10/28/19 10 Active vortioxetine (TRINTELLIX) 20 mg Tab Take 20 mg by mouth daily. 12/07/19 17 Active buPROPion (WELLBUTRIN SR) 150 MG SR 12 hr tablet Take 150 mg by mouth. 07/24/19 19 Active cloNIDine HCl (CATAPRES) 0.2 MG tablet Take 0.2 mg by mouth nightly at bedtime. 03/25/20 19 Active FLUoxetine (PROZAC) 20 MG capsule Take 40 mg by mouth. 03/25/20 19 Active atorvastatin (LIPITOR) 40 MG tablet Take 1 tablet (40 mg total) by mouth daily. 90 tablet 3 04/04/19 20 Active albuterol 2.5 mg /3 mL (0.083 %) nebulizer solution Take 3 mL (2.5 mg total) by nebulization every 4 (four) hours as needed. 3 ml Inhalation Q6 HOURS PRN 1 vial 3 04/04/19 20 Active PROAIR HFA 90 mcg/actuation inhalerIndications :Moderate persistent asthma without complication INHALE 2 PUFFS INTO THE LUNGS FOUR TIMES DAILY 8.5 g 1 04/14/19 20 Active fluticasone propion-salmeteroL (ADVAIR DISKUS) 500-50 mcg/dose DISKUSIndications: Moderate persistent asthma without complication Inhale 1 puff into the lungs 2 (two) times a day. 60 each 5 06/24/19 20 Active simvastatin (ZOCOR) 20 MG tabletIndications: Mixed hyperlipidemia TAKE 1 TABLET(20 MG) BY MOUTH EVERY NIGHT AT BEDTIME 30 tablet 5 07/21/19 20 Active montelukast (SINGULAIR) 10 mg tabletIndications: Moderate persistent asthma without complication TAKE 1 TABLET(10 MG) BY MOUTH EVERY NIGHT 90 tablet 3 08/09/19 20 Active ketoconazole (NIZORAL) 200 mg tablet TAKE 1 TABLET(200 MG) BY MOUTH DAILY FOR 5 DAYS 5 tablet 10/08/19 20 Active pantoprazole (PROTONIX) 40 MG tabletIndications: Gastroesophageal reflux disease without esophagitis TAKE 1 TABLET(40 MG) BY MOUTH DAILY 90 tablet 3 10/13/19 20 Active butalbital-acetami nophen-caff 50-325-40 mg per capsule TK 1 C PO D PRN 01/23/20 20 Active Active Problems Problem Noted Date Diagnosed Date Low blood sugar 06/06/2018 Chronic tension-type headache, not intractable 0 07/27/2017 Depressive disorder 07/27/2017 Essential hypertension 07/27/2017 Gastroesophageal reflux disease without esophagi tis 07/27/2017 History of nephrectomy 07/27/2017 Mixed hyperlipidemia 07/27/2017 Moderate persistent asthma without complication 07/27/2017 Renal insufficiency 07/27/2017 Seasonal allergic rhinitis due to pollen 018 Elevated blood pressure read ing without diagnosis of hypertension 07/27/2017 Immunizations Immunization Administration Dates Next Due INFLUENZA, SPLIT VIRUS, TRIVALENT W/ PRESERVATIV E IM 01/27/2014,12/21/2011 Influenza trivalent preservative free intraderma l 01/21/2013 Influenza, Unspecified Formulation 07/30/2009 Pneumococcal polysaccharide PPSV23 01/27/2014, Td, unspecified formulation 02/11/2008 Tdap 01/21/2013 Family History Medical History Relation Comments No Known Problems Brother Hypertension Father Hypertension Mother Multiple sclerosis Mother No Known Problems Sister 1 No Known Problems Sister 2 No Known Problems Son 1 No Known Problems Son 2 Relation Status Comments Brother Alive Father Mother Alive Sister 1 Alive Sister 2 Alive Son 1 Alive Son 2 Alive Social History Tobacco Use Types Packs/Day Years Used Date Smoking Tobacco: Never Smokeless Tobacco: Former Quit: 07/27/1996 Alcohol Use Standard Drinks/Week Comments Yes 0 (1 standard drink = 0.6 oz pur e alcohol) 2-3 beers per month Education Answer Date Recorded Are you interested in more education? Not on douglas e 07/28/2022 Are you concerned about learning? Not on file 07/28/2022 No 07/28/2022 No 07/28/2022 Digital Access Answer Date Recorded No 08/28/2022 No 08/28/2022 Reliable internet access at home? Not on file 08/28/2022 Device with a working camera? Not on file Sex and Gender Information Value Date Recorded Sex Assigned at Not on file Legal Sex Male 9:27 PM EDT Gender Identity Not on file Sexual Orientation Not on file Last Filed Vital Signs Vital Sign Reading Time Taken Comments Blood Pressure 120/60 04/04/2019 1:12 PM EST Pulse 105 04/04/2019 1:12 PM EST Temperature 36.9 C (98.5 F) 04/04/2019 1:12 PM EST Respiratory Rate 16 04/04/2019 1:12 PM EST Oxygen Saturation 95% 04/04/2019 1:12 PM EST Inhaled Oxygen Concentration - - Weight 88.9 kg (196 lb) 04/04/2019 1:12 PM EST Height 167.6 cm (5' 5.98 ) 04/04/2019 1:12 PM ES T Body Mass Index 31.65 04/04/2019 1:12 PM EST Plan of Treatment Health Maintenance Due Date Last Done Comments BLOOD PRESSURE 1976 HEPATITIS C SCREENING 01/28/1994 HIV ONE-TIME SCREENING (18-65 YEARS) 01/28/1994 PNEUMOCOCCAL VACCINES (0-49 years) (2 of 2 - PCV) 01/27/2015 01/27/2014, 04/02/2005 DEPRESSION SCREENING 04/04/2020 04/04/2019 COLOGUARD 01/28/2021 COLONOSCOPY 01/28/2021 COLORECTAL CANCER SCREENING 01/28/2021 FIT TEST 01/28/2021 FOBT 01/28/2021 SIGMOIDOSCOPY 01/28/2021 VIRTUAL COLONOSCOPY 01/28/2021 Adult Td,Tdap Booster 01/21/2023 01/21/2013, 008 LIPID PANEL 05/27/2023 05/27/2018, 05/04, 05/27/2018 INFLUENZA VACCINE (#1) 2024 , 05/07/2019, 01/27/2014, Additional history exists COVID-19 VACCINE (2024- season) 2024 08/12/2020, 07/22/2020 SMOKING STATUS SCREENING (Once After 26 Yrs) Completed 04/04/2019 HEPATITIS A VACCINES Aged Out No long er eligible based on patient's age to complete this topic HIB VACCINES Aged Out No longer eligi ble based on patient's age to complete this topic MENINGOCOCCAL VACCINES (ACWY) Aged Out No longer eligible based on patient's age to complete this topic MENINGOCOCCAL VACCINES (B) Aged Out N o longer eligible based on patient's age to complete this topic Medical Devices Not on file Procedures Procedure Name Priority Date/Time Associated Diagnosis Comments OUTSIDE HDL Routine 05/27/2018 from Last 3 Months or Most Recently Relevant to Health Maintenance Results * Outside HDL (05/27/2018) HDL - External 52 40 - 80 mg/dL [facility] Provider LAB BLOOD ORDERABLES Urmila l Result from Last 3 Months or Most Recently Relevant to Health Maintenance Insurance [employer] Care Teams Sheet Metal Engineer Relationship Specialty Start Date End Date Pcp, Unknown PCP - General 09/26/22 Additional Source Comments The information contained in this document represents components of the legal health record. It is not the complete legal health record.[facility]
--- OUTSIDE RECORDS SUMMARY | 2025-03-12 08:05 | XMS_ITS ---
Author Organization Unknown ENCOUNTERS Encounter Performer Location Date Diagnosis Diagnosis Status Emergency [facility] [address] [place] [address] [id number] Pre Admit Generic ED Physician [facility] [address] [place] [address] [id number] Emergency [facility] [address] [place] [address] [id number] Pre Admit [facility] [address] [place] [address] [id number] Emergency [facility] [address] [place] [address] [id number] TERRANCE Pre Admit Generic ED Physician [facility] [address] [place] [address] [id number] Pre Admit [facility] [address] [place] [address] [id number] Outpatient [facility] [address] [place] [address] [id number] TERRANCE Pre Admit [facility] [address] [place] [address] [id number] Outpatient [facility] [address] [place] [address] [id number] TERRANCE Pre Admit [facility] [address] [place] [address] [id number] Outpatient [facility] [address] [place] [address] [id number] TERRANCE Pre Admit [facility] [address] [place] [address] [id number] Outpatient [facility] [address] [place] [address] [id number] TERRANCE Emergency [facility] [address] [place] [address] [id number] AIP *Note: Encounters from your own facility or health system may be excluded. Allergies, Adverse Reactions, Alerts Allergen Type Severity Identification Date dog dander drug allergy [id number] Medications Name Date Quantity Days Supplied [facility] Number
[2025-03-12 08:11] VITALS: BP 118/70; PULSE 88; RESP 16; O2SAT 96
--- NOTE | 2025-03-12 08:11 | A.OFFPC_ITS ---
Vital Signs 03/12/25 08:11 Weight 179 lb BP 118/70 Blood Pressure Location Rt brachial Position Sitting Respiration 16 Pulse 88 Pulse Oximetry (%) 96 Intake Visit Reasons: Annual PE Brake Specialist Required: No Accompanied by: Self / Same As Patient Allergies Seasonal Allergies Allergy (Intermediate, Verified 09/23/24 17:16) itchy/runny nose dog dander Allergy (Verified 09/23/24 17:16) Unknown Tobacco use date assessed: 03/12/25 Dental Screening Dental Screen Date: 03/12/25 Did you have a dental visit in the last 12 months?: Yes Did you have a dental problem in the last 6 months where you did not have access to dental care?: No Was dental information given to patient?: Patient has dentist HPI Annual PE HPI Details History of Present Illness The patient is a 50 year old male presenting for a physical examination. He reports doing quite well. He has a history of PTSD, severe depression, and bipolar, for which he sees a psychiatrist and a therapist on a regular basis. He also sees a air conditioning equipment mechanic regularly, and recent labs were within normal limits except for a low ferritin level. He reports ongoing right knee pain, described as a feeling of pressure, especially with flexion. denies any swelling or erythema. Health Maintenance The patient is due for a colon cancer screening in July. Follow-up will be in six months. Social History Review of Systems - Musculoskeletal: Reports ongoing right knee pain with a sensation of pressure. -denies any si, hi, fevers, chills, n/v, diarrhea, constipation, CP, SOB, halluc itory behavior. Physical Exam General: Cooperative, healthy appearing, comfortable, no acute distress and well developed Orientation: Patient oriented x3 Limitations: No limitations Head: Normal to inspection Ears: Hearing grossly normal bilaterally Nose: Normal external nose present Face and sinus: Normal facial exam Eyes: Appearance normal, both eyes and all related structures Neck: Normal visual inspection and Yes full ROM Respiratory: Normal respiratory effort and able to speak in complete sentences. Clear to auscultation bilaterally Cardiovascular: Regular rate and rhythm. Normal S1 and S2. Faint systolic murmur present GI: Normal to inspection. Soft to palpation and nontender : testicles without masses/lesions and no hernias appreciated Skin: No rashes or lesions noted Neuro: Patient oriented x3 Extremities: Normal to inspection. crepitus with extension and flexion. Negative Rolando's and Thai's tests. Results - Labs: Recent lab work was within tico l limits, with the exception of a low ferritin level. Plan 1. Iron Deficiency Due to a low ferritin level on recent labs, the patient will be started on iron supplementation once a day. He was counseled that this may cause dark stools and constipation. 2. Systolic Heart Murmur A faint systolic murmur was noted on examination, and an echocardiogram will be ordered for further evaluation. 3. Right Knee Pain The patient reports ongoing right knee pain with pressure. Examination revealed crepitus with extension and flexion, but was negative for Rolando's and Thai's tests. An X-ray of the right knee will be obtained. 4. Abnormal radiologic findings on diagn ostic imaging of renal pelvis, ureter, or bladder R93.41 Discussion Notes I have advised the patient to start daily iron supplementation due to his low ferritin, and he understands this can cause dark stools and constipation. Regarding the faint systolic murmur I detected, I will order an echocardiogram for further assessment. For his ongoing right knee pain, I will get an X-ray to evaluate further, as the physical exam showed crepitus. We will follow up in six months. Patient Instructions - Take one iron pill each day. - Be aware that iron can cause dark stoo ls and make you constipated. - We will schedule an echocardiogram (a heart ultrasound) to look at your heart murmur. - We will get an X-ray of your right kne e to check on the pain you are having. - Remember that you are due for a colon cancer screening test in July. - Please schedule a follow-up appointmen t in six months. [facility] Medical History Bipolar II disorder HTN (hypertension) Night terrors Hypersomnia Snoring Gout Suicide attempt Irritable bowel syndrome with diarrhea Post traumatic stress disorder (PTSD) Chronic pain syndrome Disc degeneration, lumbar Spondylosis of lumbar region without myelopathy or radiculopathy Tremor Chronic renal insufficiency GERD (gastroesophageal reflux disease) Depression Asthma Surgical History Hx of colonoscopy Hx of esophagogastroduodenoscopy History of kidney surgery Family History Father Substance use disorder Mental health disorder Social History Household Members: Spouse and Family Household Members Other:: , 20 y.o son, 16 y.o. son Housing: House Are you a primary pet care assistant to a significant other at home: No Do you presently have visiting nurse or other home services: No Alcohol intake: former Comment: occasional Patient Tobacco Use Status: Former Tobacco user Tobacco use type: Cigarette e-Cigarette/Vaping Use: Never Used Second Hand Smoke Exposure: No service: No Current occupational status: disabled Sexual orientation: Straight/Heterosexual Cognitive needs: No Hearing needs: No Vision needs: No Questionnaire Thrive Questionnaire Date Thrive assessed: 09/09/24 I am a: Patient What is your living situation today?: I have a steady place to live Within the past 12 months, did the food you bought not last and you didn't have the money to get more?: Never true Within the past 12 months, did you worry whether your food would run out before you got money to buy more?: Never true Do you have trouble paying for medicines?: No Do you have trouble getting transportation to medical appointments?: No Do you have trouble paying your heating and electricity bill?: No Do you have trouble taking care of your child, family member or friend?: No Do you have trouble with day-to-day activities such as bathing, preparing meals, shopping, managing finances, etc.?: No Are you currently unemployed and looking for a job?: No Are you interested in more education?: No Please select the resources that you would like help with: None Currently or been in a relationship where the following occur: No concerns reported THRIVE Score: 0 AUDIT C Alcohol Use Questionnaire (AUDIT-C) 2. How many drinks containing alcohol do you have on a typical day when you are drinking?: 1 or 2 Total Score: 0 HERBERT-7 AMB Questionnaire HERBERT-7 Date HERBERT - 7 assessed: 09/10/24 Source: Developed by Drs. Trae Velasquez, Rosario Murguia, Berto Barry and colleagues, with an educational vimal from [employer]. Physical exam (Primary Care) Vital Signs: Last Vital Signs Pulse 88 03/12/25 08:11 Resp 16 03/12/25 08:11 BP 118/70 03/12/25 08:11 Pulse Ox 96 03/12/25 08:11 Tobacco/Smoking Status: Tobacco use Status Tobacco use date assessed 03/12/25 03/12/25 08:14 Patient Tobacco Use Status Former Tobacco user 03/12/25 08:14 Tobacco use type Cigarette 03/12/25 08:14 e-Cigarette/Vaping Use Never Used 03/12/25 08:14 Thrive Assessment: Date of Thrive Assessment Date Thrive assessed 09/09/24 03/12/25 08:14 Currently or been in a relationship where the following occur: No concerns reported Office Procedures Flu Questionnaire Does the patient have a severe egg allergy?: No Does the patient have severe life threatening allergies?: No Does the patient have a fever or illness today?: No Has the patient ever had Guillain-Dickens Syndrome?: No Has the patient ever had any past reaction to a flu shot?: No Immunizations Fluarix [id number] (PF) 45 mcg (15 mcg x 3)/0.5 mL IM syringe Performing Provider: WALKER Cruz Performing Location: [facility] Administered by: Katherine Coreas MA on 03/12/25 08:30 Dose Route Admin Location Dispensed Lot Number Expiration Date NDC City Editor 0.5 mL IM Left Deltoid 0.5 mL [id number] 09/29/25 [id number] [email or web address] VIS Given Date VIS Provided VIS Publication Date 03/12/25 Single Vaccine 24 Eligibility Eligibility Date Funding Source Not [facility] Eligible 03/12/25 Private Coding Level of Care Code Est Pt Level 3 (85720) Est Pt Prev Care 40-64y(96047) Diagnoses Systolic murmur R01.1 Right knee pain M25.561 Encounter for routine adult physical exam with abnormal findings Z00.01 Lipid screening Z13.220 Screening for prostate cancer Z12.5 Low iron E61.1 Assessment & Plan Assessment & Plan (1) Systolic murmur: Code(s): R01.1 - Cardiac murmur, unspecified Category: Medical (2) Right knee pain: Code(s): M25.561 - Pain in right knee Category: Medical (3) Encounter for routine adult physical exam with abnormal findings: Code(s): Z00.01 - Encounter for general adult medical examination with abnormal findings Category: Medical (4) Lipid screening: Code(s): Z13.220 - Encounter for screening for lipoid disorders Category: Medical (5) Screening for prostate cancer: Code(s): Z12.5 - Encounter for screening for malignant neoplasm of prostate Category: Medical (6) Low iron: Code(s): E61.1 - Iron deficiency Category: Medical Plan . Orders: Orders CA echo transthoracic complete Today R01.1 - Cardiac murmur, unspecified Influenza [id number] Immunization Today Z23 - Encounter for immunization Prostate Specific Antigen Scr Today Z12.5 - Encounter for screening for malignant neoplasm of prostate Ferritin Today E61.1 - Iron deficiency XR knee RT 2V Today M25.561 - Pain in right knee Lipid Panel Today Z13.220 - Encounter for screening for lipoid disorders IRON PROFILE Today E61.1 - Iron deficiency
== END 2025-03-12 08:30 | disposition home or self-care (01) ==
LOC: HO.HMCC 07:57
PROVIDERS: PCP Nurse Practitioner Family; Visit Provider Nurse Practitioner Family
DX: R01.1 Cardiac murmur, unspecified (principal); M25.561 Pain in right knee; Z00.01 Encounter for general adult medical examination with abnormal findings; Z13.220 Encounter for screening for lipoid disorders; Z12.5 Encounter for screening for malignant neoplasm of prostate; E61.1 Iron deficiency; Z23 Encounter for immunization

== ENCOUNTER → 2025-03-12 07:56 | Outpatient (BNVA) | payer OTHER, SELFPAY | PROVIDERS: PCP Nurse Practitioner Family; Visit Provider Nurse Practitioner Family | DX: Z23 Encounter for immunization (principal) | CPT/HCPCS: 90471; 90656 ==